=== PATIENT | male | born 1955 | race Caucasian/White ===

== ENCOUNTER 2018-10-29 01:37 | Observation (INO) | payer OTHER, SELFPAY ==
[2018-10-29] VITALS (14 sets, daily range): BP systolic 134–173; BP diastolic 74–105; PULSE 70–101; RESP 16–38; TEMP 36.6–36.8; O2SAT 92–100; BMI 33.5; BMI 34.4
--- NOTE | 2018-10-29 01:39 | EKG12_ITS ---
Test Reason : CP Blood Pressure : / mmHG Vent. Rate : 097 BPM Atrial Rate : 097 BPM P-R Int : 136 ms QRS Dur : 074 ms QT Int : 340 ms P-R-T Axes : 057 001 023 degrees QTc Int : 431 ms Normal sinus rhythm Inferior infarct , age undetermined Abnormal ECG Confirmed by MALIK COKER ([id number]), deputy editor in chief CAS DALY ([id number]) on 10/30/2018 10:52:54 AM Referred By: Pal Sher Confirmed By:MALIK COKER
--- NOTE | 2018-10-29 01:39 | ED.RN ---
CALLED FOR EKG PER RN REQUEST, PULLED OLD EKGS FOR
--- NOTE | 2018-10-29 01:45 | RAD_ITS ---
STUDY: X-RAY CHEST REASON FOR EXAM: Male, 62 years old. Chest pain TECHNIQUE: Single AP portable view of the chest. COMPARISON: None. FINDINGS: The lungs are clear and expanded. There is no demonstrated pleural abnormality. Normal size heart. Normal mediastinum and diya. Normal visualized pulmonary arteries. Normal visualized aortic arch and descending thoracic aorta. There are diffuse degenerative changes of the visualized thoracic spine. Normal visualized ribs, clavicles, and shoulders. There is no demonstrated abnormality of the visualized soft tissue structures of the upper abdomen. RAD/Chest 1 View (Portable) IMPRESSION: Degenerative changes, as described above. No demonstrated acute cardiopulmonary process. Electronically Signed: Bharat Veliz, at 2:18 EDT Tel , Service support ,
--- NOTE | 2018-10-29 01:47 | CT_ITS ---
STUDY: CTA CHEST REASON FOR EXAM: Male, 62 years old. SOB AND CHEST PAIN,ELEVATED BLOOD PRESSURE,RANDOMLY STOPS BREATHING FOR A FEW SECONDS,LOOKING FOR DISSECTION RADIATION DOSAGE (If Supplied By Facility): CTDIvol = ( 10.67 ) mGy, DLP = ( 1118.43 ) mGycm TECHNIQUE: The examination was performed with the intravenous administration of 100ML IV Isovue 370. Post-processing of the angiographic images was performed, with multiplanar reformation and 3D reconstruction. Individualized dose optimization techniques were used for this CT. COMPARISON: None. FINDINGS: Normal enhancement of the main pulmonary artery and right and left pulmonary arteries. Normal enhancement of the bilateral peripheral pulmonary arteries. There is no demonstrated pulmonary embolism. Normal thoracic aorta and visualized great vessels. There is no demonstrated aortic dissection. Normal heart and pericardium. Normal mediastinum. Normal hilar regions. Normal visualized trachea and bronchi. The lungs are well expanded. Normal pulmonary parenchyma. Normal pleura. Normal chest wall structures. Normal osseous structures. Normal visualized upper abdomen. IMPRESSION: Normal CTA chest examination, without a demonstrated pulmonary embolism or arterial dissection. Electronically Signed: Bharat Veliz, at 3:00 EDT Tel , Service support , STUDY: CTA OF THE ABDOMINAL AORTA AND BILATERAL LOWER EXTREMITIES REASON FOR EXAM: Male, 62 years old. SOB AND CHEST PAIN,ELEVATED BLOOD PRESSURE,RANDOMLY STOPS BREATHING FOR A FEW SECONDS,LOOKING FOR DISSECTION RADIATION DOSAGE (If Supplied By Facility): CTDIvol = ( 10.67 ) mGy, DLP = ( 1118.43 ) mGycm TECHNIQUE: Axial CT angiography multi-detector data acquisition was obtained from the to the following intravenous administration of 100ML IV Isovue 370. Axial images and MIP images were reconstructed from the axial data set. Post-processing of the angiographic images was performed, with multiplanar reformation and 3D reconstruction. Individualized dose optimization techniques were used for this CT. TECHNICAL QUALITY: Good COMPARISON: None. Descriptors of Narrowing: None (0%) Mild (< 50%) Moderate (50-70%) Severe (70-90%) Subtotal/Total Occlusion (90-100%) Non-Evaluable (technically non-diagnostic FINDINGS: Abdominal aorta: No demonstrated narrowing. Celiac and superior mesenteric arteries: No demonstrated narrowing. Inferior mesenteric artery: No demonstrated narrowing. Right renal artery(arteries): No demonstrated narrowing. Left renal artery(arteries): No demonstrated narrowing. Right common iliac artery: No demonstrated narrowing. Left common iliac artery: No demonstrated narrowing. Normal liver, gallbladder, pancreas, adrenal glands, kidneys and spleen. CT/CTA Abdomen W/WO Contrast IMPRESSION: Normal abdominal aorta and bilateral lower extremity run-off without a hemodynamically significant stenosis. Electronically Signed: Bharat Veliz, at 3:02 EDT Tel , Service support ,
--- NOTE | 2018-10-29 01:47 | CT_ITS ---
STUDY: CTA CHEST REASON FOR EXAM: Male, 62 years old. SOB AND CHEST PAIN,ELEVATED BLOOD PRESSURE,RANDOMLY STOPS BREATHING FOR A FEW SECONDS,LOOKING FOR DISSECTION RADIATION DOSAGE (If Supplied By Facility): CTDIvol = ( 10.67 ) mGy, DLP = ( 1118.43 ) mGycm TECHNIQUE: The examination was performed with the intravenous administration of 100ML IV Isovue 370. Post-processing of the angiographic images was performed, with multiplanar reformation and 3D reconstruction. Individualized dose optimization techniques were used for this CT. COMPARISON: None. FINDINGS: Normal enhancement of the main pulmonary artery and right and left pulmonary arteries. Normal enhancement of the bilateral peripheral pulmonary arteries. There is no demonstrated pulmonary embolism. Normal thoracic aorta and visualized great vessels. There is no demonstrated aortic dissection. Normal heart and pericardium. Normal mediastinum. Normal hilar regions. Normal visualized trachea and bronchi. The lungs are well expanded. Normal pulmonary parenchyma. Normal pleura. Normal chest wall structures. Normal osseous structures. Normal visualized upper abdomen. IMPRESSION: Normal CTA chest examination, without a demonstrated pulmonary embolism or arterial dissection. Electronically Signed: Bharat Veliz, at 3:00 EDT Tel , Service support , STUDY: CTA OF THE ABDOMINAL AORTA AND BILATERAL LOWER EXTREMITIES REASON FOR EXAM: Male, 62 years old. SOB AND CHEST PAIN,ELEVATED BLOOD PRESSURE,RANDOMLY STOPS BREATHING FOR A FEW SECONDS,LOOKING FOR DISSECTION RADIATION DOSAGE (If Supplied By Facility): CTDIvol = ( 10.67 ) mGy, DLP = ( 1118.43 ) mGycm TECHNIQUE: Axial CT angiography multi-detector data acquisition was obtained from the to the following intravenous administration of 100ML IV Isovue 370. Axial images and MIP images were reconstructed from the axial data set. Post-processing of the angiographic images was performed, with multiplanar reformation and 3D reconstruction. Individualized dose optimization techniques were used for this CT. TECHNICAL QUALITY: Good COMPARISON: None. Descriptors of Narrowing: None (0%) Mild (< 50%) Moderate (50-70%) Severe (70-90%) Subtotal/Total Occlusion (90-100%) Non-Evaluable (technically non-diagnostic FINDINGS: Abdominal aorta: No demonstrated narrowing. Celiac and superior mesenteric arteries: No demonstrated narrowing. Inferior mesenteric artery: No demonstrated narrowing. Right renal artery(arteries): No demonstrated narrowing. Left renal artery(arteries): No demonstrated narrowing. Right common iliac artery: No demonstrated narrowing. Left common iliac artery: No demonstrated narrowing. Normal liver, gallbladder, pancreas, adrenal glands, kidneys and spleen. CT/CTA Chest W/WO Contrast IMPRESSION: Normal abdominal aorta and bilateral lower extremity run-off without a hemodynamically significant stenosis. Electronically Signed: Bharat Veliz, at 3:02 EDT Tel , Service support ,
[2018-10-29] MEDS: Aspirin 81 MG TAB.CHEW 324 MG PO (01:48)
[2018-10-29 01:49] LABS: Absolute Lymphocyte Count 1.06 X10^3/ul (0.83-4.51); Absolute Neutrophil Count 5.6 X10^3/uL (2.0-7.7); Basophil# 0.01 X10^3/uL; Basophil% 0.1 % (0-1); Eosinophil# 0.07 X10^3/uL; Eosinophils% 0.9 % (0-5); Hematocrit 48.7 % (40-54); Hemoglobin 17.2 g/dl (13.0-16.5); Lymphocyte # 1.06 X10^3/ul (4.0); Lymphocyte % 14.3 % (19-41); Mean Corp Hgb Conc 35.3 g/gl (32-36); Mean Corpuscular Hgb 29.8 pg (27.0-32.0); Mean Corpuscular Volume 84.4 fL (80-94); Mean Platelet Vol. 9.7 fl (6.2-12.0); Monocyte# 0.72 X10^3/uL; Monocyte% 9.7 % (0-10); Neutrophil # 5.56 X10^3/uL (2.7-7.7); Neutrophil % 74.9 % (47-70); POSITIVE COUNT NO; POSITIVE DIFFERENTIAL NO; POSITIVE MORPHOLOGY NO; Platelet Count 156 K/mm3 (150-450); RBC Distribution Width CV 14.1 % (11.6-14.6); RBC Distribution Width SD 43.1 fl (35.1-43.9); Red Blood Count 5.77 M/mm3 (4.6-6.2); White Blood Count 7.4 K/mm3 (4.4-11.0)
[2018-10-29] MEDS: Morphine 4 MG/ML Syringe IV (02:00)
[2018-10-29] MEDS: Ondansetron 4 MG/2 ML Vial IV (02:00)
--- NOTE | 2018-10-29 02:01 | ED.DCSUM_ITS ---
- ER Visit Summary Date of Service: 10/29/18 Chief Complaint: Chest pain History of Present Illness: The patient is a 62 M presenting with chest pain. Patient states this started approximately 6 hours prior to arrival. He went to bed hoping that the symptoms would resolve. He woke up very short of breath with worsening chest pain. Pain is midsternal with no radiation. He does not recall anything that has made this better or worse. He has associated nausea with no vomiting. He has shortness of breath. He denies diaphoresis. He has had lightheadedness. States he has had diarrhea throughout the day. He denies blood in his stool. Denies sick contacts. Denies recent antibiotics. He has had diffuse abdominal cramping. He has a history of GERD and states this feels different. He denies PE/DVT risk factors. On arrival to the ED patient had a near syncopal episode and collapsed. Physical Examination: Blood pressure 173/103, heart rate 101, respiratory rate 38, temperature 97.9. Pulse ox 97% on nonrebreather. Alert moderate acute distress. HEENT exam is unremarkable. Neck is supple. Lungs are clear and equal bilaterally. Tachypnea Heart is regular tachycardia Abdomen is soft diffuse tenderness with no rebound or guarding Extremities are unremarkable. Skin is warm and dry. No focal neurologic deficit. Remainder of exam is unremarkable. Emergency Department Course and Treatment: Patient was given aspirin on arrival. EKG is sinus rate of 97. He was given morphine, Zofran IV. Patient had brief episode of apnea in the emergency department. Chest x-ray shows no acute process. CBC normal except hemoglobin 17.2. Chemistries normal except for creatinine 1.35, glucose 157. Troponin is negative. Lipase is normal. Total bili 2.5, direct bili 0.44. Previous total bili in 11/2016 was 2.4. Alk phos 120. Patient was given IV fluids. CTA chest and abdomen shows no PE or dissection. On reevaluation, he is resting comfortably and feeling improved. Discussed with the hospitalist for admission. Disposition: Admission Impression: Chest pain, near syncope This note was generated with [employer] dictation software. It may contain incorrect words, spelling, and punctuation that were not noted in review of the chart prior to signing ED Disposition - Plan for ED Patient: Referrals: Rakesh Benites III, MD [Primary Care Provider] -
[2018-10-29] MEDS: 0.9% Normal Saline 1,000 ML 999 ML IV (02:06)
[2018-10-29 02:08] LABS: Anion Gap 9 (5-15); BUN 18 mg/dL (7-18); BUN/Creat Ratio 13.3 RATIO (10-20); Chloride 108 mmol/L (98-107); Creatinine, Serum 1.35 mg/dL (0.70-1.30); EST Glomerular Filtration Rate 57 mL/min (>60); Est Glom Filt Rate - Afr Amer 69 mL/min (>60); Estimated Creatinine Clearance 65.96 ml/min; Glucose 157 mg/dL (74-106); Sodium Level 138 mmol/L (136-145)
[2018-10-29 02:09] LABS: AST(SGOT) 27 U/L (15-37); Alanine Aminotransfer ALT/SGPT 36 U/L (16-61); Albumin, Serum 4.1 g/dL (3.2-5.0); Alkaline Phosphatase 120 U/L (45-117); Bilirubin, Direct 0.44 mg/dL (0.00-0.30); Globulin 3.8 g/dL (2.2-4.2); Lipase 115 U/L (73-393); Protein, Total 7.9 g/dL (6.4-8.2)
--- NOTE | 2018-10-29 03:35 | PCM.HP.STD ---
Problem List (1) Chest pain Status: Acute (2) GERD (gastroesophageal reflux disease) Status: Chronic History of Present Illness Date of Admission: 10/29/18 Chief Complaint: Chest pain. The patient is a 62 year old M with past medical history as mentioned above presented to the emergency room because of chest pain. His illness started yesterday evening around 6 PM when he was sitting at home, started having chest pain, retrosternal chest pain, described as chest heaviness, 10 out of 10 in severity, not radiating, associated with shortness of breath and nausea as well as dizziness and without aggravating or relieving factors. The pain continued until he came to the emergency room after midnight. Also, he complained of vague abdominal pain that started at the same time associated with multiple times of diarrhea. At this time, denies any more chest pain or abdominal pain. Reportedly, patient had near syncopal episode and he collapsed upon arrival to the emergency department. Later in the ER, and according to the nursing staff, patient had brief episode of apnea. At this time, his blood pressure slightly elevated, other vital signs are stable. His routine blood work was remarkable for hemoglobin of 17.2, creatinine of 1.35 and bilirubin of 2.5. His troponin was negative. EKG revealed normal sinus rhythm without evidence of acute ischemic changes or cardiac arrhythmias. Lipase was normal. Chest x-ray showed no acute findings. CTA chest showed no PE or dissection. CT abdomen done as well because of abdominal pain and reportedly according to the ER physician, it was unremarkable, official report is pending. He is being admitted for chest pain for evaluation as well as near syncopal episode and brief episode of apnea. Past Medical History Past Medical History (Chronic Problems): Chronic Problems GERD (gastroesophageal reflux disease) (Chronic) Allergies No Known Allergies Allergy (Verified 10/29/18 01:40) Home Medications: Ambulatory Orders Medication Instructions Recorded Omeprazole Magnesium [Prilosec Otc] 20 mg PO DAILY 10/29/18 Surgical History: appendectomy Psychiatric History: No pertinent psych hx Lives: Spouse/ Significant Other Smoking Status: Never smoker Alcohol: None Drugs: None - *Family History Maternal History Items: Heart Disease Paternal History Items: No pertinent history Review of Systems Constitutional: Denies: Anorexia, Chills, Fever, Weakness Eyes: Denies: Blurred vision, Double vision, Drainage, Redness HEENT: Denies: Difficulty Hearing, Ear Pain, Eye Pain, Nasal Congestion, Sore Throat Cardiovascular: Reports: Chest Pain, Chest Pressure, Light Headedness, - - Near syncope.. Denies: Edema, Heaviness, Orthopnea, Palpitations, Paroxysmal Noc. Dyspnea Respiratory: Reports: Shortness of Breath, Shortness of breath at rest. Denies: Cough, Hemoptysis, Pleuritic Pain, Sputum production, Wheezing Gastrointestinal: Reports: Abdominal Pain, Diarrhea, Nausea. Denies: Constipation, Vomiting Genitourinary: Denies: Dysuria, Frequency, Hematuria Musculoskeletal: Denies: Arm Pain, Back Pain, Foot Pain Skin: Denies: Dryness, Rash Neurological: Denies: Balance problems, Blurred vision, Double vision, Change in Speech, Slurred speech, Confusion, Headaches, Incoordination Psychiatric: Denies: Anxiety, Depression Endocrine: Denies: Change in Body Habitus, Polydipsia VTE Information - Inpt Only VTE Present on Admission: No VTE Mechan Device Prophylaxis: None VTE Pharm Prophylaxis ordered?: Yes Patient Problems: Active and Suspected Problems Chest pain (Acute) - Physical Exam General: Alert, Oriented x3, Cooperative, No apparent distress HEENT: Atraumatic, PERRLA, EOMI, Normocephalic Oral: Moist Mucosa, No Gingival or Mucosal Lesions/ Ulcerations Neck: Supple, No JVD, Negative Carotid Bruits, Trachea Midline, Thyroid Normal Size and Texture Lungs: Clear to auscultation, No rhonchi, No wheeze, No rales, Diminished Cardiovascular: Regular rate, Regular Rhythm, Normal S1, Normal S2, No murmurs, PMI Normal Abdomen: Bowel Sounds Present, Soft, Non Tender, Non-Distended, No Hepato-splenomegaly Extremities: No clubbing, No cyanosis, No edema Skin: No rashes, No breakdown Lymphatic: No Cervical, Supraclavicular, or Inguinal Adenopathy Neurological: Cranial nerves II-XII grossly intact, Motor Exam 5/5 strength throughout Psych/Mental Status: Normal Affect, Appropriate, Alert and oriented to time, place, person, mood and affect Vital Signs Temp Pulse Resp BP Pulse Ox 97.9 F 76 16 156/89 H 100 10/29/18 01:46 10/29/18 03:10 10/29/18 03:10 10/29/18 03:10 10/29/18 03:10 Oxygen Delivery Method Room Air Weight: 260 lb 12.909 oz Body Mass Index (BMI) 33.5 Laboratory Tests Past 24 Hrs 10/29/18 10/29/18 10/29/18 01:45 01:45 01:45 WBC 7.4 RBC 5.77 Hgb 17.2 H Hct 48.7 MCV 84.4 MCH 29.8 MCHC 35.3 RDW 14.1 RDW Differential 43.1 Plt Count 156 MPV 9.7 Immature Gran % (Auto) 0.100 Neut % (Auto) 74.9 H Lymph % (Auto) 14.3 L [place] % (Auto) 9.7 Eos % (Auto) 0.9 Baso % (Auto) 0.1 Absolute Neuts (auto) 5.6 Absolute Lymphs (auto) 1.06 Total Counted Not Reportable Sodium 138 Potassium 4.0 Chloride 108 H Carbon Dioxide 21.0 Anion Gap 9 BUN 18 Creatinine 1.35 H Estim Creat Clear Calc 65.96 Est GFR (MDRD) Af Amer 69 Est GFR (MDRD) Non-Af 57 L BUN/Creatinine Ratio 13.3 Glucose 157 H Calcium 9.0 Total Bilirubin 2.50 H Direct Bilirubin 0.44 H AST 27 ALT 36 Alkaline Phosphatase 120 H Troponin I < 0.015 Total Protein 7.9 Albumin 4.1 Globulin 3.8 Lipase 115 Clinical Impression(s) from Imaging Studies Chest X-Ray 10/29/18 01:45 IMPRESSION: Degenerative changes, as described above. No demonstrated acute cardiopulmonary process. Electronically Signed: Bharat Veliz, at 2:18 EDT Tel , Service support , Chest CTA 10/29/18 01:47 IMPRESSION: Normal abdominal aorta and bilateral lower extremity run-off without a hemodynamically significant stenosis. Electronically Signed: Bharat Veliz, at 3:02 EDT Tel , Service support , Assessment/Plan All Active Problems Chest pain (Acute) This is a 62 years old male patient presented to the emergency room because of chest pain, had near syncopal episode and collapsed in the ED and reportedly, he had a brief episode of apnea and he is being admitted for evaluation. #1 chest pain: Initial EKG revealed normal sinus rhythm without evidence of acute ischemic changes or cardiac arrhythmias. First troponin is negative. CTA chest is negative for PE or dissection. Reportedly, CTA abdomen also negative for dissection, officiated report is pending. Blood pressure is slightly elevated, other vital signs are stable. Chest x-ray showed no acute findings. Plan: Admit to PCU for observation, cardiac monitoring, serial cardiac enzymes, repeat EKG tomorrow morning: IV fluids, IV morphine as needed, IV antiemetics, repeat CBC and CMP tomorrow morning, lipid profile, start aspirin and statins, nuclear stress test this morning if cardiac enzymes are negative, 2D echocardiogram, orthostatic vitals. #2 near syncopal episode/brief episode of apnea: Unclear etiology, could be due to underlying CAD. Reportedly, patient did not lose his consciousness and there was no evidence of cardiac or respiratory arrest. Plan for stress test as above, 2D echocardiogram, orthostatic vitals. #3 dehydration: Secondary to diarrhea, indicated by elevated hemoglobin and creatinine of 1.35. Plan: IV fluids, and Protopic chart, encourage oral intake, repeat CMP at 10 AM this morning. #4 hyperglycemia: Without history of diabetes, blood sugar is 157. Plan for hemoglobin A1c. #5 GERD: Continue PPI. #6 DVT prophylaxis: Subcu Lovenox. This note was generated with [employer] software. It may contain incorrect words, spelling, and punctuation that were not noted in checking the note before signing. Code Visit OBSV E&M: 55029 Initial observation care L3
--- NOTE | 2018-10-29 03:49 | ECHOCS_ITS ---
Reason For Study: SYNCOPE Procedure This was a 2D Doppler, Color Flow transthoracic echocardiogram. Contrast injection was performed. Exam performed portable in patient room. Left Ventricle Normal size and thickness. The estimated ejection fraction is 65 %. Normal diastology for age. No regional wall motion abnormalities noted. Right Ventricle Normal size and thickness. Normal systolic function. Atria Normal left atrium. Normal right atrium. Normal atrial septum. Mitral Valve The mitral valve is structurally normal. No prolapse or stenosis seen. Tricuspid Valve Normal tricuspid valve. Trivial tricuspid valve insufficiency. Right ventricular systolic pressure estimated to be 26 mmHg. Aortic Valve Normal aortic valve. Trisinus/trileaflet aortic valve. Pulmonic Valve Normal pulmonic valve. Great Vessels Normal aortic root. Normal arch. Normal inferior vena cava. Inferior vena cava collapse with sniff. Pericardium/Pleural No pericardial effusion. Medication Pxpeaegc2um given slow IV push to enhance endocardial definition. MMode/2D Measurements & Calculations LVIDd: 3.9 cm IVSd: 1.2 cm Ao root diam: 3.8 cm LVIDs: 2.8 cm LVPWd: 1.2 cm RVDd: 3.7 cm FS: 29.1 % LAV(MOD-bp): 67.2 ml LVAd ap4: 37.1 cm2 SV(MOD-sp4): 56.5 ml LAV(MOD-bp) Indexed: 27.7 ml/m2 EDV(MOD-sp4): 115.9 ml LAV(MOD-sp2): 52.0 ml EDV(sp4-el): 126.3 ml LAV(MOD-sp4): 71.4 ml LVAs ap4: 24.3 cm2 ESV(MOD-sp4): 59.5 ml ESV(sp4-el): 62.7 ml EF(MOD-sp4): 48.7 % EF(sp4-el): 50.4 % SV(sp4-el): 63.6 ml LA A4 area: 24.3 cm2 LA dimension(2D): 3.6 cm RA A4 area: 17.9 cm2 Time Measurements MV dec time: 0.23 sec Doppler Measurements & Calculations MV E max doroteo: 63.8 cm/sec Lat Peak E' Doroteo: 11.0 cm/sec Med Peak E' Doroteo: 6.4 cm/sec MV A max doroteo: 50.5 cm/sec E/E' lat: 5.8 E/E' med: 10.0 MV E/A: 1.3 Ao V2 max: 106.3 cm/sec LV V1 max: 86.6 cm/sec PA V2 max: 89.4 cm/sec Ao max P.5 mmHg LV V1 max P.0 mmHg TR max doroteo: 217.9 cm/sec TR max P.1 mmHg Interpretation Summary The estimated ejection fraction is 65 %. Normal diastology for age. Trivial tricuspid valve insufficiency. Right ventricular systolic pressure estimated to be 26 mmHg. The study was technically difficult. There is no comparison study available. Contrast injection was performed. Ordering Physician: Pal Sher Referring Physician: MATT LYNCH Performed By: Emmy Arias, PAZ, RVT
[2018-10-29] MEDS: 0.9% Normal Saline 1,000 ML 100 ML IV (04:01)
[2018-10-29] MEDS: 0.9% NaCl Peripheral Flush Adult/Peds IV (04:20)
--- NOTE | 2018-10-29 05:55 | EKG12_ITS ---
Test Reason : CP ADMISSION Blood Pressure : / mmHG Vent. Rate : 066 BPM Atrial Rate : 066 BPM P-R Int : 158 ms QRS Dur : 080 ms QT Int : 404 ms P-R-T Axes : 026 -02 006 degrees QTc Int : 423 ms Sinus rhythm with Premature atrial complexes in a pattern of bigeminy Confirmed by EVERETTE HERNANDEZ, NINA ([id number]), rewrite editor CAS DALY ([id number]) on 11/03/2018 12:33:28 PM Referred By: Pal Sher Confirmed By:NINA GAVIRIA MD
[2018-10-29] MEDS: Aspirin E.C. 81 MG Tablet PO (06:25)
[2018-10-29 06:38] LABS: Cholesterol 181 mg/dL (200); High Density Lipoprotein 50 mg/dL; Triglycerides 141 mg/dL; Very Low Density Lipoprotein 28 mg/dL (5-40)
[2018-10-29 07:16] LABS: Hemoglobin A1c 5.3 % (4.2-6.3)
[2018-10-29 07:31] LABS: Absolute Lymphocyte Count 0.75 X10^3/ul (0.83-4.51); Absolute Neutrophil Count 3.9 X10^3/uL (2.0-7.7); Basophil# 0.01 X10^3/uL; Basophil% 0.2 % (0-1); Eosinophil# 0.05 X10^3/uL; Hematocrit 43.9 % (40-54); Hemoglobin 14.6 g/dl (13.0-16.5); Lymphocyte # 0.75 X10^3/ul (4.0); Lymphocyte % 14.5 % (19-41); Mean Corp Hgb Conc 33.3 g/gl (32-36); Mean Corpuscular Hgb 28.6 pg (27.0-32.0); Mean Corpuscular Volume 85.9 fL (80-94); Mean Platelet Vol. 9.6 fl (6.2-12.0); Monocyte# 0.51 X10^3/uL; Monocyte% 9.8 % (0-10); Neutrophil # 3.85 X10^3/uL (2.7-7.7); Neutrophil % 74.3 % (47-70); Platelet Count 123 K/mm3 (150-450); RBC Distribution Width CV 14.2 % (11.6-14.6); RBC Distribution Width SD 44.4 fl (35.1-43.9); Red Blood Count 5.11 M/mm3 (4.6-6.2); White Blood Count 5.2 K/mm3 (4.4-11.0)
[2018-10-29 07:40] LABS: International Normalized Ratio 1.1; Prothrombin Time (Protime)PT. 13.8 SECONDS (11.7-14.9)
[2018-10-29 07:41] LABS: Partial Thromboplast Time 29.1 Seconds (24.1-36.2)
[2018-10-29 07:48] LABS: POSITIVE COUNT NO; POSITIVE DIFFERENTIAL NO; POSITIVE MORPHOLOGY NO
[2018-10-29 08:32] LABS: AST(SGOT) 24 U/L (15-37); Alanine Aminotransfer ALT/SGPT 29 U/L (16-61); Albumin, Serum 3.3 g/dL (3.2-5.0); Alkaline Phosphatase 98 U/L (45-117); Anion Gap 3 (5-15); BUN 17 mg/dL (7-18); BUN/Creat Ratio 14.8 RATIO (10-20); Calcium,Total 7.9 mg/dL (8.5-10.1); Chloride 111 mmol/L (98-107); Creatinine, Serum 1.15 mg/dL (0.70-1.30); EST Glomerular Filtration Rate 68 mL/min (>60); Est Glom Filt Rate - Afr Amer 83 mL/min (>60); Estimated Creatinine Clearance 75.27 ml/min; Globulin 3.2 g/dL (2.2-4.2); Glucose 121 mg/dL (74-106); Potassium 4.1 mmol/L (3.5-5.1); Protein, Total 6.5 g/dL (6.4-8.2); Sodium Level 138 mmol/L (136-145)
[2018-10-29] MEDS: Pantoprazole Sodium 20 MG Tablet PO (11:50)
--- NOTE | 2018-10-29 12:13 | STRESSREP ---
Stress Test Report Date: 10-29-18 Procedure: Exercise tolerance test/imaging study Indications: Chest pain Consent: Per the patient Procedure: The patient exercised on a Bert protocol for 4 minutes completing Stage I and 1 minute of Stage II achieving a peak heart rate of 144 bpm (91 % predicted maximal heart rate) with a peak blood pressure 162/70 mmHg and a peak MET capacity of 4 METs. The baseline ECG demonstrated normal sinus rhythm. The peak exercise ECG demonstrated somatic/motion artifact with no obvious ECG changes. There was an isolated PVC during recovery. The functional capacity was considered decreased. There was no complaint of chest discomfort during exercise or recovery. The examination was discontinued secondary to dyspnea and leg discomfort. Impression: 1. Technically adequate (percent predicted maximal heart rate greater than 85%) exercise tolerance test 2. Peak exercise ECG demonstrated somatic/motion artifact with no obvious ECG changes 3. There was an isolated PVC during recovery 4. Nuclear images pending Myocardial perfusion imaging study: Technique: The patient was injected with 14.2 mCi of technetium 99m Cardiolite and subsequently rest SPECT Cardiolite nuclear imaging was obtained in the horizontal long, vertical long, and short axis views. The patient exercised on a Bert protocol for 4 minutes completing Stage I and 1 minute of Stage II achieving a peak heart rate of 144 bpm (91 % predicted maximal heart rate) with a peak blood pressure 162/70 mmHg and a peak MET capacity of 4 METs. The patient was injected with 44.6 mCi of technetium 99m Cardiolite and subsequently stress SPECT Cardiolite nuclear imaging was obtained in the horizontal long, vertical long, and short axis views. A gated Cardiolite study at peak stress was obtained. Interpretation: Rest and stress SPECT Cardiolite nuclear imaging status post realignment, normalization, and attenuation correction, demonstrates the appearance of relative uniform tracer uptake and myocardial perfusion appearing within normal limits. There is end systolic thickening and brightening. The gated Cardiolite study demonstrates myocardial thickening and inward wall motion. The reported LVEF is 65 %. Impression: 1. Rest and stress SPECT Cardiolite nuclear imaging demonstrate relative uniform tracer uptake and myocardial perfusion appearing within normal limits. 2. The gated Cardiolite study reports an LVEF of 65 %. This note was generated with [employer] software. It may contain incorrect words, spelling, and punctuation that were not noted in checking the note before signing.
--- NOTE | 2018-10-29 13:52 | DCINST_ITS ---
- Discharge Diagnoses Current Active Problems: Current Active and Chronic Problems Chest pain (Acute) GERD (gastroesophageal reflux disease) (Chronic) You will use the following diet at home:: Cardiac Discharge Activity: Return to Normal Activity Allergies/Adverse Reactions: Allergies No Known Allergies Allergy (Verified 10/29/18 01:40) Medications to take at Discharge Omeprazole Magnesium [Prilosec Otc] 20 mg PO DAILY 10/29/18 Primary Care Physician: Rakesh Benites III, MD [Primary Care Provider] - Please follow up with your Primary Care Physician in: 1-2 weeks Test Results: Test results from this visit will be discussed in further detail at your follow- up appointment, if applicable. Proposed Discharge Date: 10/29/18
--- NOTE | 2018-10-29 13:53 | PCM.DC.SUM ---
<Akin Rodas - Last Filed: 10/29/18 13:53> Discharge Date and Diagnosis - Problem List Patient Problems: Active and Suspected Problems Chest pain (Acute) Date of Admission: 10/29/18 Date of Discharge: 10/29/18 - Primary Discharge Diagnosis Active and Suspected Problems Chest pain (Acute) secondary to GERD Obesity - Secondary Discharge Diagnosis Chronic Problems GERD (gastroesophageal reflux disease) (Chronic) Hospital Course and Treatment Imaging Results: 10/29/18 05:55 Nuclear Stress Test - Treadmma [MO] Routine RAD/Chest 1 View (Portable) IMPRESSION: Degenerative changes, as described above. No demonstrated acute cardiopulmonary process. IMPRESSION: Normal CTA chest examination, without a demonstrated pulmonary embolism or arterial dissection. CT/CTA Chest W/WO Contrast IMPRESSION: Normal abdominal aorta and bilateral lower extremity run-off without a hemodynamically significant stenosis. Operations: None Procedures: 2-D Echocardiogram, Stress test Summary of Care Provided: Hospital course: The patient is a 62 year old M with a past medical history of GERD who presents to the emergency room with chief complaint of chest pain that started yesterday evening while sitting. He described as a retrosternal pain that felt like a brick sitting on his chest 10 out of 10 in severity, with radiation of burning pain directly down the middle of his stomach. He also reported having diarrhea 20 times. In the emergency room he was found to have a mildly elevated creatinine. He had a negative EKG, negative troponin, negative chest x-ray. CTA of the chest did not demonstrate PE or dissection, CT of the abdomen was negative. He was admitted for chest pain rule out. Troponin was negative x3. He had no events on telemetry. He underwent a echocardiogram the following day which demonstrated an EF of 65%, RVSP of 26 mmHg. A stress test was then obtained which was normal. The patient later admitted that he had been having increasing episodes of acid reflux despite his home omeprazole therapy. It is possible that his symptoms are related to GERD or gastritis. No further chest pain after admission. His agreed that it is been worse lately. He has not been seen by a physician in several years. I recommended that he follow-up with his PCP in 1-2 weeks and possibly pursue further endoscopic workup as an outpatient. He was discharged home in stable condition. This patient was seen by Akin Rodas PA-C under the supervision of Doctor Sigifredo. [] Patient Problems: Active and Suspected Problems Chest pain (Acute) - Physical Exam General: Alert, Oriented x3, Cooperative HEENT: Atraumatic, PERRLA, EOMI, Normocephalic Neck: Supple, No JVD, Negative Carotid Bruits Lungs: Clear to auscultation, Normal air movement Cardiovascular: Regular rate, No murmurs Abdomen: Bowel Sounds Present, Soft, Non Tender, Obese Extremities: No edema, Capillary Refill Less than 3 Seconds Skin: No rashes, No breakdown Musculoskeletal: No Tenderness to Palpation of Joints or Extremities Neurological: Cranial nerves II-XII grossly intact Psych/Mental Status: Normal Affect, Appropriate, Alert and oriented to time, place, person, mood and affect Vital Signs Temp Pulse Resp BP Pulse Ox 98.0 F 75 17 142/84 H 93 10/29/18 09:30 10/29/18 12:15 10/29/18 09:30 10/29/18 09:30 10/29/18 09:30 Oxygen Delivery Method Room Air Weight: 261 lb 0.437 oz Body Mass Index (BMI) 34.4 Orthostatic Vital Signs Start: 10/29/18 04:29 Freq: q24h Status: Active Protocol: Activity Type Activity Date Activity User E-Sign Co-Sign Detail Recorded Client Recorded Date Recorded By Document 10/29/18 04:29 [facility] [id number] 10/29/18 04:30 [facility] 10/29/18 04:29 Orthostatic Vitals Standing -Blood Pressure (90/60-120/80) 153/86 H -Extremity Use Left Arm -Pulse Rate (60-100) 85 Sitting -Blood Pressure (90/60-120/80) 140/79 H -Extremity Use Left Arm -Pulse Rate (60-100) 73 Lying -Blood Pressure (90/60-120/80) 149/78 H -Extremity Use Left Arm -Pulse Rate (60-100) 72 Intake and Output for Last 24 Hours 10/27/18 10/28/18 10/29/18 23:59 23:59 23:59 Intake Total 761 / 761 Balance 761 / 761 Laboratory Tests Past 24 Hrs 10/29/18 10/29/18 10/29/18 01:45 01:45 01:45 WBC 7.4 RBC 5.77 Hgb 17.2 H Hct 48.7 MCV 84.4 MCH 29.8 MCHC 35.3 RDW 14.1 RDW Differential 43.1 Plt Count 156 MPV 9.7 Immature Gran % (Auto) 0.100 Neut % (Auto) 74.9 H Lymph % (Auto) 14.3 L Stafford % (Auto) 9.7 Eos % (Auto) 0.9 Baso % (Auto) 0.1 Absolute Neuts (auto) 5.6 Absolute Lymphs (auto) 1.06 Total Counted Not Reportable PT INR APTT Sodium 138 Potassium 4.0 Chloride 108 H Carbon Dioxide 21.0 Anion Gap 9 BUN 18 Creatinine 1.35 H Estim Creat Clear Calc 65.96 Est GFR (MDRD) Af Amer 69 Est GFR (MDRD) Non-Af 57 L BUN/Creatinine Ratio 13.3 Glucose 157 H Hemoglobin A1c Calcium 9.0 Total Bilirubin 2.50 H Direct Bilirubin 0.44 H AST 27 ALT 36 Alkaline Phosphatase 120 H Troponin I < 0.015 Total Protein 7.9 Albumin 4.1 Globulin 3.8 Albumin/Globulin Ratio Triglycerides Cholesterol LDL Cholesterol VLDL Cholesterol HDL Cholesterol Lipase 115 10/29/18 10/29/18 10/29/18 04:48 04:48 04:48 WBC RBC Hgb Hct MCV MCH MCHC RDW RDW Differential Plt Count MPV Immature Gran % (Auto) Neut % (Auto) Lymph % (Auto) Stafford % (Auto) Eos % (Auto) Baso % (Auto) Absolute Neuts (auto) Absolute Lymphs (auto) Total Counted PT INR APTT Sodium Potassium Chloride Carbon Dioxide Anion Gap BUN Creatinine Estim Creat Clear Calc Est GFR (MDRD) Af Amer Est GFR (MDRD) Non-Af BUN/Creatinine Ratio Glucose Hemoglobin A1c 5.3 Calcium Total Bilirubin Direct Bilirubin AST ALT Alkaline Phosphatase Troponin I < 0.015 Total Protein Albumin Globulin Albumin/Globulin Ratio Triglycerides 141 Cholesterol 181 LDL Cholesterol 103 VLDL Cholesterol 28 HDL Cholesterol 50 Lipase 10/29/18 10/29/18 10/29/18 07:24 07:24 07:24 WBC 5.2 RBC 5.11 Hgb 14.6 Hct 43.9 MCV 85.9 MCH 28.6 MCHC 33.3 RDW 14.2 RDW Differential 44.4 H Plt Count 123 L MPV 9.6 Immature Gran % (Auto) 0.200 Neut % (Auto) 74.3 H Lymph % (Auto) 14.5 L Stafford % (Auto) 9.8 Eos % (Auto) 1.0 Baso % (Auto) 0.2 Absolute Neuts (auto) 3.9 Absolute Lymphs (auto) 0.75 L Total Counted Not Reportable PT INR APTT Sodium 138 Potassium 4.1 Chloride 111 H Carbon Dioxide 24.0 Anion Gap 3 L BUN 17 Creatinine 1.15 Estim Creat Clear Calc 75.27 Est GFR (MDRD) Af Amer 83 Est GFR (MDRD) Non-Af 68 BUN/Creatinine Ratio 14.8 Glucose 121 H Hemoglobin A1c Calcium 7.9 L Total Bilirubin 1.90 H Direct Bilirubin AST 24 ALT 29 Alkaline Phosphatase 98 Troponin I < 0.015 Total Protein 6.5 Albumin 3.3 Globulin 3.2 Albumin/Globulin Ratio 1.0 Triglycerides Cholesterol LDL Cholesterol VLDL Cholesterol HDL Cholesterol Lipase 10/29/18 07:24 WBC RBC Hgb Hct MCV MCH MCHC RDW RDW Differential Plt Count MPV Immature Gran % (Auto) Neut % (Auto) Lymph % (Auto) Stafford % (Auto) Eos % (Auto) Baso % (Auto) Absolute Neuts (auto) Absolute Lymphs (auto) Total Counted PT 13.8 INR 1.1 APTT 29.1 Sodium Potassium Chloride Carbon Dioxide Anion Gap BUN Creatinine Estim Creat Clear Calc Est GFR (MDRD) Af Amer Est GFR (MDRD) Non-Af BUN/Creatinine Ratio Glucose Hemoglobin A1c Calcium Total Bilirubin Direct Bilirubin AST ALT Alkaline Phosphatase Troponin I Total Protein Albumin Globulin Albumin/Globulin Ratio Triglycerides Cholesterol LDL Cholesterol VLDL Cholesterol HDL Cholesterol Lipase Discharge Diet: Low fat/ Low Cholesterol, 2000 mg Sodium Diet Discharge Activity: Return to Normal Activity Home Medications: Medications to take at Discharge Omeprazole Magnesium [Prilosec Otc] 20 mg PO DAILY 10/29/18 Primary Care Physician: Rakesh Benites III, MD [Primary Care Provider] - Please follow up with your Primary Care Physician in: 1-2 weeks Disposition: Home Minutes spent on discharge:: 35 Patient Condition:: Stable Medical Necessity - Tobacco Use Smoking Status: Former smoker Meaningful Use Info Meaningful Use Diagnoses (Choose all that apply): None applicable <Duane Mei - Last Filed: 10/29/18 14:37> Discharge Date and Diagnosis - Primary Discharge Diagnosis Active and Suspected Problems Chest pain (Acute) - Secondary Discharge Diagnosis Chronic Problems GERD (gastroesophageal reflux disease) (Chronic) Hospital Course and Treatment Imaging Results: 10/29/18 05:55 Nuclear Stress Test - Treadmil [NM] Routine Summary of Care Provided: This patient was seen in conjunction with Akin Rodas PA-C . I have independently interviewed and examined the patient and reviewed pertinent historical, laboratory, and other data. Please refer to Akin Rodas PA-C note for details of this patient's presentation, findings, and recommendations. I have reviewed Akin Rodas PA-C note and concur with documented findings. In brief, patient is a 62-year-old gentleman admitted with chest pain. Patient was placed on a monitored bed and ruled out MT with serial cardiac enzymes patient subsequently underwent a nuclear stress test which was negative for stress-induced ischemia discharged home to follow-up with PCP for subsequent care Assessment: 1. Atypical chest pain 2. GERD Hospital course: As documented above by Akin Rodas - Physical Exam Vital Signs Temp Pulse Resp BP Pulse Ox 98.0 F 75 17 142/84 H 93 10/29/18 09:30 10/29/18 12:15 10/29/18 09:30 10/29/18 09:30 10/29/18 09:30 Oxygen Delivery Method Room Air Weight: 118.4 kg Body Mass Index (BMI) 34.4 Orthostatic Vital Signs Start: 10/29/18 04:29 Freq: q24h Status: Active Protocol: Activity Type Activity Date Activity User E-Sign Co-Sign Detail Recorded Client Recorded Date Recorded By Document 10/29/18 04:29 [facility] [id number] 10/29/18 04:30 [facility] 10/29/18 04:29 Orthostatic Vitals Standing -Blood Pressure (90/60-120/80) 153/86 H -Extremity Use Left Arm -Pulse Rate (60-100) 85 Sitting -Blood Pressure (90/60-120/80) 140/79 H -Extremity Use Left Arm -Pulse Rate (60-100) 73 Lying -Blood Pressure (90/60-120/80) 149/78 H -Extremity Use Left Arm -Pulse Rate (60-100) 72 Intake and Output for Last 24 Hours 10/27/18 10/28/18 10/29/18 23:59 23:59 23:59 Intake Total 761 / 761 Balance 761 / 761 Laboratory Tests Past 24 Hrs 10/29/18 10/29/18 10/29/18 01:45 01:45 01:45 WBC 7.4 RBC 5.77 Hgb 17.2 H Hct 48.7 MCV 84.4 MCH 29.8 MCHC 35.3 RDW 14.1 RDW Differential 43.1 Plt Count 156 MPV 9.7 Immature Gran % (Auto) 0.100 Neut % (Auto) 74.9 H Lymph % (Auto) 14.3 L Stafford % (Auto) 9.7 Eos % (Auto) 0.9 Baso % (Auto) 0.1 Absolute Neuts (auto) 5.6 Absolute Lymphs (auto) 1.06 Total Counted Not Reportable PT INR APTT Sodium 138 Potassium 4.0 Chloride 108 H Carbon Dioxide 21.0 Anion Gap 9 BUN 18 Creatinine 1.35 H Estim Creat Clear Calc 65.96 Est GFR (MDRD) Af Amer 69 Est GFR (MDRD) Non-Af 57 L BUN/Creatinine Ratio 13.3 Glucose 157 H Hemoglobin A1c Calcium 9.0 Total Bilirubin 2.50 H Direct Bilirubin 0.44 H AST 27 ALT 36 Alkaline Phosphatase 120 H Troponin I < 0.015 Total Protein 7.9 Albumin 4.1 Globulin 3.8 Albumin/Globulin Ratio Triglycerides Cholesterol LDL Cholesterol VLDL Cholesterol HDL Cholesterol Lipase 115 10/29/18 10/29/18 10/29/18 04:48 04:48 04:48 WBC RBC Hgb Hct MCV MCH MCHC RDW RDW Differential Plt Count MPV Immature Gran % (Auto) Neut % (Auto) Lymph % (Auto) Stafford % (Auto) Eos % (Auto) Baso % (Auto) Absolute Neuts (auto) Absolute Lymphs (auto) Total Counted PT INR APTT Sodium Potassium Chloride Carbon Dioxide Anion Gap BUN Creatinine Estim Creat Clear Calc Est GFR (MDRD) Af Amer Est GFR (MDRD) Non-Af BUN/Creatinine Ratio Glucose Hemoglobin A1c 5.3 Calcium Total Bilirubin Direct Bilirubin AST ALT Alkaline Phosphatase Troponin I < 0.015 Total Protein Albumin Globulin Albumin/Globulin Ratio Triglycerides 141 Cholesterol 181 LDL Cholesterol 103 VLDL Cholesterol 28 HDL Cholesterol 50 Lipase 10/29/18 10/29/18 10/29/18 07:24 07:24 07:24 WBC 5.2 RBC 5.11 Hgb 14.6 Hct 43.9 MCV 85.9 MCH 28.6 MCHC 33.3 RDW 14.2 RDW Differential 44.4 H Plt Count 123 L MPV 9.6 Immature Gran % (Auto) 0.200 Neut % (Auto) 74.3 H Lymph % (Auto) 14.5 L Stafford % (Auto) 9.8 Eos % (Auto) 1.0 Baso % (Auto) 0.2 Absolute Neuts (auto) 3.9 Absolute Lymphs (auto) 0.75 L Total Counted Not Reportable PT INR APTT Sodium 138 Potassium 4.1 Chloride 111 H Carbon Dioxide 24.0 Anion Gap 3 L BUN 17 Creatinine 1.15 Estim Creat Clear Calc 75.27 Est GFR (MDRD) Af Amer 83 Est GFR (MDRD) Non-Af 68 BUN/Creatinine Ratio 14.8 Glucose 121 H Hemoglobin A1c Calcium 7.9 L Total Bilirubin 1.90 H Direct Bilirubin AST 24 ALT 29 Alkaline Phosphatase 98 Troponin I < 0.015 Total Protein 6.5 Albumin 3.3 Globulin 3.2 Albumin/Globulin Ratio 1.0 Triglycerides Cholesterol LDL Cholesterol VLDL Cholesterol HDL Cholesterol Lipase 10/29/18 07:24 WBC RBC Hgb Hct MCV MCH MCHC RDW RDW Differential Plt Count MPV Immature Gran % (Auto) Neut % (Auto) Lymph % (Auto) Stafford % (Auto) Eos % (Auto) Baso % (Auto) Absolute Neuts (auto) Absolute Lymphs (auto) Total Counted PT 13.8 INR 1.1 APTT 29.1 Sodium Potassium Chloride Carbon Dioxide Anion Gap BUN Creatinine Estim Creat Clear Calc Est GFR (MDRD) Af Amer Est GFR (MDRD) Non-Af BUN/Creatinine Ratio Glucose Hemoglobin A1c Calcium Total Bilirubin Direct Bilirubin AST ALT Alkaline Phosphatase Troponin I Total Protein Albumin Globulin Albumin/Globulin Ratio Triglycerides Cholesterol LDL Cholesterol VLDL Cholesterol HDL Cholesterol Lipase Code Visit OBSV E&M: [id number] Observ/hosp same date L3
--- NOTE | 2018-10-29 13:57 | DS.PCM_ITS ---
<Akin Rodas - Last Filed: 10/29/18 13:53> Discharge Date and Diagnosis - Problem List Patient Problems: Active and Suspected Problems Chest pain (Acute) Date of Admission: 10/29/18 Date of Discharge: 10/29/18 - Primary Discharge Diagnosis Active and Suspected Problems Chest pain (Acute) secondary to GERD Obesity - Secondary Discharge Diagnosis Chronic Problems GERD (gastroesophageal reflux disease) (Chronic) Hospital Course and Treatment Imaging Results: 10/29/18 05:55 Nuclear Stress Test - Treadmtx [FL] Routine RAD/Chest 1 View (Portable) IMPRESSION: Degenerative changes, as described above. No demonstrated acute cardiopulmonary process. IMPRESSION: Normal CTA chest examination, without a demonstrated pulmonary embolism or arterial dissection. CT/CTA Chest W/WO Contrast IMPRESSION: Normal abdominal aorta and bilateral lower extremity run-off without a hemodynamically significant stenosis. Operations: None Procedures: 2-D Echocardiogram, Stress test Summary of Care Provided: Hospital course: The patient is a 62 year old M with a past medical history of GERD who presents to the emergency room with chief complaint of chest pain that started yesterday evening while sitting. He described as a retrosternal pain that felt like a brick sitting on his chest 10 out of 10 in severity, with radiation of burning pain directly down the middle of his stomach. He also reported having diarrhea 20 times. In the emergency room he was found to have a mildly elevated creatinine. He had a negative EKG, negative troponin, negative chest x-ray. CTA of the chest did not demonstrate PE or dissection, CT of the abdomen was negative. He was admitted for chest pain rule out. Troponin was negative x3. He had no events on telemetry. He underwent a echocardiogram the following day which demonstrated an EF of 65%, RVSP of 26 mmHg. A stress test was then obtained which was normal. The patient later admitted that he had been having increasing episodes of acid reflux despite his home omeprazole therapy. It is possible that his symptoms are related to GERD or gastritis. No further chest pain after admission. His agreed that it is been worse lately. He has not been seen by a physician in several years. I recommended that he follow-up with his PCP in 1-2 weeks and possibly pursue further endoscopic workup as an outpatient. He was discharged home in stable condition. This patient was seen by Akin Rodas PA-C under the supervision of Doctor Sigifredo. [] Patient Problems: Active and Suspected Problems Chest pain (Acute) - Physical Exam General: Alert, Oriented x3, Cooperative HEENT: Atraumatic, PERRLA, EOMI, Normocephalic Neck: Supple, No JVD, Negative Carotid Bruits Lungs: Clear to auscultation, Normal air movement Cardiovascular: Regular rate, No murmurs Abdomen: Bowel Sounds Present, Soft, Non Tender, Obese Extremities: No edema, Capillary Refill Less than 3 Seconds Skin: No rashes, No breakdown Musculoskeletal: No Tenderness to Palpation of Joints or Extremities Neurological: Cranial nerves II-XII grossly intact Psych/Mental Status: Normal Affect, Appropriate, Alert and oriented to time, place, person, mood and affect Vital Signs Temp Pulse Resp BP Pulse Ox 98.0 F 75 17 142/84 H 93 10/29/18 09:30 10/29/18 12:15 10/29/18 09:30 10/29/18 09:30 10/29/18 09:30 Oxygen Delivery Method Room Air Weight: 261 lb 0.437 oz Body Mass Index (BMI) 34.4 Orthostatic Vital Signs Start: 10/29/18 04:29 Freq: q24h Status: Active Protocol: Activity Type Activity Date Activity User E-Sign Co-Sign Detail Recorded Client Recorded Date Recorded By Document 10/29/18 04:29 [facility] [id number] 10/29/18 04:30 [facility] 10/29/18 04:29 Orthostatic Vitals Standing -Blood Pressure (90/60-120/80) 153/86 H -Extremity Use Left Arm -Pulse Rate (60-100) 85 Sitting -Blood Pressure (90/60-120/80) 140/79 H -Extremity Use Left Arm -Pulse Rate (60-100) 73 Lying -Blood Pressure (90/60-120/80) 149/78 H -Extremity Use Left Arm -Pulse Rate (60-100) 72 Intake and Output for Last 24 Hours 10/27/18 10/28/18 10/29/18 23:59 23:59 23:59 Intake Total 761 / 761 Balance 761 / 761 Laboratory Tests Past 24 Hrs 10/29/18 10/29/18 10/29/18 01:45 01:45 01:45 WBC 7.4 RBC 5.77 Hgb 17.2 H Hct 48.7 MCV 84.4 MCH 29.8 MCHC 35.3 RDW 14.1 RDW Differential 43.1 Plt Count 156 MPV 9.7 Immature Gran % (Auto) 0.100 Neut % (Auto) 74.9 H Lymph % (Auto) 14.3 L [place] % (Auto) 9.7 Eos % (Auto) 0.9 Baso % (Auto) 0.1 Absolute Neuts (auto) 5.6 Absolute Lymphs (auto) 1.06 Total Counted Not Reportable PT INR APTT Sodium 138 Potassium 4.0 Chloride 108 H Carbon Dioxide 21.0 Anion Gap 9 BUN 18 Creatinine 1.35 H Estim Creat Clear Calc 65.96 Est GFR (MDRD) Af Amer 69 Est GFR (MDRD) Non-Af 57 L BUN/Creatinine Ratio 13.3 Glucose 157 H Hemoglobin A1c Calcium 9.0 Total Bilirubin 2.50 H Direct Bilirubin 0.44 H AST 27 ALT 36 Alkaline Phosphatase 120 H Troponin I < 0.015 Total Protein 7.9 Albumin 4.1 Globulin 3.8 Albumin/Globulin Ratio Triglycerides Cholesterol LDL Cholesterol VLDL Cholesterol HDL Cholesterol Lipase 115 10/29/18 10/29/18 10/29/18 04:48 04:48 04:48 WBC RBC Hgb Hct MCV MCH MCHC RDW RDW Differential Plt Count MPV Immature Gran % (Auto) Neut % (Auto) Lymph % (Auto) [place] % (Auto) Eos % (Auto) Baso % (Auto) Absolute Neuts (auto) Absolute Lymphs (auto) Total Counted PT INR APTT Sodium Potassium Chloride Carbon Dioxide Anion Gap BUN Creatinine Estim Creat Clear Calc Est GFR (MDRD) Af Amer Est GFR (MDRD) Non-Af BUN/Creatinine Ratio Glucose Hemoglobin A1c 5.3 Calcium Total Bilirubin Direct Bilirubin AST ALT Alkaline Phosphatase Troponin I < 0.015 Total Protein Albumin Globulin Albumin/Globulin Ratio Triglycerides 141 Cholesterol 181 LDL Cholesterol 103 VLDL Cholesterol 28 HDL Cholesterol 50 Lipase 10/29/18 10/29/18 10/29/18 07:24 07:24 07:24 WBC 5.2 RBC 5.11 Hgb 14.6 Hct 43.9 MCV 85.9 MCH 28.6 MCHC 33.3 RDW 14.2 RDW Differential 44.4 H Plt Count 123 L MPV 9.6 Immature Gran % (Auto) 0.200 Neut % (Auto) 74.3 H Lymph % (Auto) 14.5 L [place] % (Auto) 9.8 Eos % (Auto) 1.0 Baso % (Auto) 0.2 Absolute Neuts (auto) 3.9 Absolute Lymphs (auto) 0.75 L Total Counted Not Reportable PT INR APTT Sodium 138 Potassium 4.1 Chloride 111 H Carbon Dioxide 24.0 Anion Gap 3 L BUN 17 Creatinine 1.15 Estim Creat Clear Calc 75.27 Est GFR (MDRD) Af Amer 83 Est GFR (MDRD) Non-Af 68 BUN/Creatinine Ratio 14.8 Glucose 121 H Hemoglobin A1c Calcium 7.9 L Total Bilirubin 1.90 H Direct Bilirubin AST 24 ALT 29 Alkaline Phosphatase 98 Troponin I < 0.015 Total Protein 6.5 Albumin 3.3 Globulin 3.2 Albumin/Globulin Ratio 1.0 Triglycerides Cholesterol LDL Cholesterol VLDL Cholesterol HDL Cholesterol Lipase 10/29/18 07:24 WBC RBC Hgb Hct MCV MCH MCHC RDW RDW Differential Plt Count MPV Immature Gran % (Auto) Neut % (Auto) Lymph % (Auto) [place] % (Auto) Eos % (Auto) Baso % (Auto) Absolute Neuts (auto) Absolute Lymphs (auto) Total Counted PT 13.8 INR 1.1 APTT 29.1 Sodium Potassium Chloride Carbon Dioxide Anion Gap BUN Creatinine Estim Creat Clear Calc Est GFR (MDRD) Af Amer Est GFR (MDRD) Non-Af BUN/Creatinine Ratio Glucose Hemoglobin A1c Calcium Total Bilirubin Direct Bilirubin AST ALT Alkaline Phosphatase Troponin I Total Protein Albumin Globulin Albumin/Globulin Ratio Triglycerides Cholesterol LDL Cholesterol VLDL Cholesterol HDL Cholesterol Lipase Discharge Diet: Low fat/ Low Cholesterol, 2000 mg Sodium Diet Discharge Activity: Return to Normal Activity Home Medications: Medications to take at Discharge Omeprazole Magnesium [Prilosec Otc] 20 mg PO DAILY 10/29/18 Primary Care Physician: Rakesh Benites III, MD [Primary Care Provider] - Please follow up with your Primary Care Physician in: 1-2 weeks Disposition: Home Minutes spent on discharge:: 35 Patient Condition:: Stable Medical Necessity - Tobacco Use Smoking Status: Former smoker Meaningful Use Info Meaningful Use Diagnoses (Choose all that apply): None applicable <Duane Mei - Last Filed: 10/29/18 14:37> Discharge Date and Diagnosis - Primary Discharge Diagnosis Active and Suspected Problems Chest pain (Acute) - Secondary Discharge Diagnosis Chronic Problems GERD (gastroesophageal reflux disease) (Chronic) Hospital Course and Treatment Imaging Results: 10/29/18 05:55 Nuclear Stress Test - Treadmil [NM] Routine Summary of Care Provided: This patient was seen in conjunction with Akin Rodas PA-C . I have independently interviewed and examined the patient and reviewed pertinent historical, laboratory, and other data. Please refer to Akin Rodas PA-C note for details of this patient's presentation, findings, and recommendations. I have reviewed Akin Rodas PA-C note and concur with documented findings. In brief, patient is a 62-year-old gentleman admitted with chest pain. Patient was placed on a monitored bed and ruled out NV with serial cardiac enzymes patient subsequently underwent a nuclear stress test which was negative for stress-induced ischemia discharged home to follow-up with PCP for subsequent care Assessment: 1. Atypical chest pain 2. GERD Hospital course: As documented above by Akin Rodas - Physical Exam Vital Signs Temp Pulse Resp BP Pulse Ox 98.0 F 75 17 142/84 H 93 10/29/18 09:30 10/29/18 12:15 10/29/18 09:30 10/29/18 09:30 10/29/18 09:30 Oxygen Delivery Method Room Air Weight: 118.4 kg Body Mass Index (BMI) 34.4 Orthostatic Vital Signs Start: 10/29/18 04:29 Freq: q24h Status: Active Protocol: Activity Type Activity Date Activity User E-Sign Co-Sign Detail Recorded Client Recorded Date Recorded By Document 10/29/18 04:29 [facility] [id number] 10/29/18 04:30 [facility] 10/29/18 04:29 Orthostatic Vitals Standing -Blood Pressure (90/60-120/80) 153/86 H -Extremity Use Left Arm -Pulse Rate (60-100) 85 Sitting -Blood Pressure (90/60-120/80) 140/79 H -Extremity Use Left Arm -Pulse Rate (60-100) 73 Lying -Blood Pressure (90/60-120/80) 149/78 H -Extremity Use Left Arm -Pulse Rate (60-100) 72 Intake and Output for Last 24 Hours 10/27/18 10/28/18 10/29/18 23:59 23:59 23:59 Intake Total 761 / 761 Balance 761 / 761 Laboratory Tests Past 24 Hrs 10/29/18 10/29/18 10/29/18 01:45 01:45 01:45 WBC 7.4 RBC 5.77 Hgb 17.2 H Hct 48.7 MCV 84.4 MCH 29.8 MCHC 35.3 RDW 14.1 RDW Differential 43.1 Plt Count 156 MPV 9.7 Immature Gran % (Auto) 0.100 Neut % (Auto) 74.9 H Lymph % (Auto) 14.3 L [place] % (Auto) 9.7 Eos % (Auto) 0.9 Baso % (Auto) 0.1 Absolute Neuts (auto) 5.6 Absolute Lymphs (auto) 1.06 Total Counted Not Reportable PT INR APTT Sodium 138 Potassium 4.0 Chloride 108 H Carbon Dioxide 21.0 Anion Gap 9 BUN 18 Creatinine 1.35 H Estim Creat Clear Calc 65.96 Est GFR (MDRD) Af Amer 69 Est GFR (MDRD) Non-Af 57 L BUN/Creatinine Ratio 13.3 Glucose 157 H Hemoglobin A1c Calcium 9.0 Total Bilirubin 2.50 H Direct Bilirubin 0.44 H AST 27 ALT 36 Alkaline Phosphatase 120 H Troponin I < 0.015 Total Protein 7.9 Albumin 4.1 Globulin 3.8 Albumin/Globulin Ratio Triglycerides Cholesterol LDL Cholesterol VLDL Cholesterol HDL Cholesterol Lipase 115 10/29/18 10/29/18 10/29/18 04:48 04:48 04:48 WBC RBC Hgb Hct MCV MCH MCHC RDW RDW Differential Plt Count MPV Immature Gran % (Auto) Neut % (Auto) Lymph % (Auto) [place] % (Auto) Eos % (Auto) Baso % (Auto) Absolute Neuts (auto) Absolute Lymphs (auto) Total Counted PT INR APTT Sodium Potassium Chloride Carbon Dioxide Anion Gap BUN Creatinine Estim Creat Clear Calc Est GFR (MDRD) Af Amer Est GFR (MDRD) Non-Af BUN/Creatinine Ratio Glucose Hemoglobin A1c 5.3 Calcium Total Bilirubin Direct Bilirubin AST ALT Alkaline Phosphatase Troponin I < 0.015 Total Protein Albumin Globulin Albumin/Globulin Ratio Triglycerides 141 Cholesterol 181 LDL Cholesterol 103 VLDL Cholesterol 28 HDL Cholesterol 50 Lipase 10/29/18 10/29/18 10/29/18 07:24 07:24 07:24 WBC 5.2 RBC 5.11 Hgb 14.6 Hct 43.9 MCV 85.9 MCH 28.6 MCHC 33.3 RDW 14.2 RDW Differential 44.4 H Plt Count 123 L MPV 9.6 Immature Gran % (Auto) 0.200 Neut % (Auto) 74.3 H Lymph % (Auto) 14.5 L [place] % (Auto) 9.8 Eos % (Auto) 1.0 Baso % (Auto) 0.2 Absolute Neuts (auto) 3.9 Absolute Lymphs (auto) 0.75 L Total Counted Not Reportable PT INR APTT Sodium 138 Potassium 4.1 Chloride 111 H Carbon Dioxide 24.0 Anion Gap 3 L BUN 17 Creatinine 1.15 Estim Creat Clear Calc 75.27 Est GFR (MDRD) Af Amer 83 Est GFR (MDRD) Non-Af 68 BUN/Creatinine Ratio 14.8 Glucose 121 H Hemoglobin A1c Calcium 7.9 L Total Bilirubin 1.90 H Direct Bilirubin AST 24 ALT 29 Alkaline Phosphatase 98 Troponin I < 0.015 Total Protein 6.5 Albumin 3.3 Globulin 3.2 Albumin/Globulin Ratio 1.0 Triglycerides Cholesterol LDL Cholesterol VLDL Cholesterol HDL Cholesterol Lipase 10/29/18 07:24 WBC RBC Hgb Hct MCV MCH MCHC RDW RDW Differential Plt Count MPV Immature Gran % (Auto) Neut % (Auto) Lymph % (Auto) [place] % (Auto) Eos % (Auto) Baso % (Auto) Absolute Neuts (auto) Absolute Lymphs (auto) Total Counted PT 13.8 INR 1.1 APTT 29.1 Sodium Potassium Chloride Carbon Dioxide Anion Gap BUN Creatinine Estim Creat Clear Calc Est GFR (MDRD) Af Amer Est GFR (MDRD) Non-Af BUN/Creatinine Ratio Glucose Hemoglobin A1c Calcium Total Bilirubin Direct Bilirubin AST ALT Alkaline Phosphatase Troponin I Total Protein Albumin Globulin Albumin/Globulin Ratio Triglycerides Cholesterol LDL Cholesterol VLDL Cholesterol HDL Cholesterol Lipase Code Visit OBSV E&M: [id number] Observ/hosp same date L3
== END 2018-10-29 13:52 | disposition home or self-care (01) ==
LOC: ED 01:43 → PCU 03:31
PROVIDERS: Admitting Provider Hospitalist; Emergency Provider Emergency Medicine; Family Provider Family Medicine; PCP Family Medicine; Referring Provider Hospitalist; Visit Provider Internal Medicine
DX: K21.9 Gastro-esophageal reflux disease without esophagitis (principal); R06.02 Shortness of breath; E66.9 Obesity, unspecified; Z68.34 Body mass index [BMI] 34.0-34.9, adult; Z71.3 Dietary counseling and surveillance; R55 Syncope and collapse; E86.0 Dehydration; R73.9 Hyperglycemia, unspecified; Z87.891 Personal history of nicotine dependence
CPT/HCPCS: 36415; 71045; 71275; 74175; 78452; 80048; 80053; 80061; 80076; 83036; 83690; 84484; 85025; 85610; 85730; 93005; 93017; 93306; 96361; 96374; 96375; 97802; 99218; 99283; A9500; J7030; Q9957; Q9967; A4216; C8929; G0378; J2405

== ENCOUNTER 2021-07-07 12:55 | Inpatient (IN) | payer MEDICARE, SELFPAY ==
[2021-07-07] VITALS (18 sets, daily range): BP systolic 114–141; BP diastolic 71–80; PULSE 74–92; RESP 18–30; TEMP 36.3–37.4; O2SAT 93–97; BMI 33.0; BMI 32.5
--- NOTE | 2021-07-07 13:09 | RAD_ITS ---
STUDY: X-RAY CHEST REASON FOR EXAM: Male, 65 years old. Dyspnea. TECHNIQUE: Single AP portable view of the chest. COMPARISON: 10/29/2018. FINDINGS: Hypoventilatory changes. Patchy infiltrate in the left lower lung. There is no demonstrated pleural abnormality. There is borderline cardiomegaly. Normal mediastinum and diya. Normal visualized pulmonary arteries. Normal visualized aortic arch and descending thoracic aorta. Unchanged osseous structures. There is no demonstrated abnormality of the visualized soft tissue structures of the upper abdomen. RAD/Chest 1 View (Portable) IMPRESSION: Hypoventilatory changes. Mild patchy infiltrate in left lower lung. Electronically Signed: Carter Oconnor, at 13:51 EST Tel , Service support ,
--- NOTE | 2021-07-07 13:09 | EKG12_ITS ---
Test Reason : SOB Blood Pressure : / mmHG Vent. Rate : 092 BPM Atrial Rate : 092 BPM P-R Int : 126 ms QRS Dur : 082 ms QT Int : 380 ms P-R-T Axes : -05 -12 -12 degrees QTc Int : 469 ms Normal sinus rhythm Normal ECG Confirmed by EVERETTE HERNANDEZ, NINA ([id number]), electronic news gathering editor DUSTIN ALMEIDA ([id number]) on 07/12/2021 9:52:36 AM Referred By: KENTRELL Confirmed By:NINA GAVIRIA MD
[2021-07-07 13:45] LABS: Absolute Lymphocyte Count 0.77 X10^3/uL (0.83-4.51); Absolute Neutrophil Count 1.5 X10^3/uL (2.0-7.7); Basophil# 0.01 X10^3/uL; Basophil% 0.4 % (0-1); Hematocrit 46.4 % (40-54); Hemoglobin 15.8 g/dL (13.0-16.5); Lymphocyte # 0.77 X10^3/ul (0.83-4.51); Lymphocyte % 29.1 % (19-41); Mean Corp Hgb Conc 34.1 g/dL (32-36); Mean Corpuscular Hgb 28.7 pg (27.0-32.0); Mean Corpuscular Volume 84.2 fL (80-94); Mean Platelet Vol. 11.4 fl (6.2-12.0); Monocyte# 0.35 X10^3/uL; Monocyte% 13.2 % (0-10); NRBC Flagged by Analyzer 0 % (0-5); Neutrophil % 56.5 % (47-70); POSITIVE COUNT YES; Platelet Count 86 K/mm3 (150-450); RBC Distribution Width SD 43.5 fl (35.1-43.9); Red Blood Count 5.51 M/mm3 (4.6-6.2); White Blood Count 2.7 K/mm3 (4.4-11.0)
[2021-07-07 13:47] LABS: Differential Indicated SCAN CRITERIA MET
[2021-07-07 13:50] LABS: International Normalized Ratio 1.1; Prothrombin Time (Protime)PT. 13.1 SECONDS (11.7-14.9)
[2021-07-07 14:00] LABS: ALB/GLOB Ratio 0.7 RATIO (0.9-2.4); AST(SGOT) 70 U/L (15-37); Alanine Aminotransfer ALT/SGPT 57 U/L (16-61); Albumin, Serum 3.2 g/dL (3.2-5.0); Alkaline Phosphatase 80 U/L (45-117); Anion Gap 10 (5-15); BUN 20 mg/dL (7-18); BUN/Creat Ratio 14.9 RATIO (10-20); Calcium,Total 8.4 mg/dL (8.5-10.1); Chloride 105 mmol/L (98-107); Creatinine, Serum 1.34 mg/dL (0.70-1.30); EST Glomerular Filtration Rate 57 mL/min (>60); Est Glom Filt Rate - Afr Amer 69 mL/min (>60); Estimated Creatinine Clearance 62.11 ml/min; Globulin 4.3 g/dL (2.2-4.2); Glucose 151 mg/dL (74-106); Potassium 3.7 mmol/L (3.5-5.1); Protein, Total 7.5 g/dL (6.4-8.2); Sodium Level 140 mmol/L (136-145)
--- NOTE | 2021-07-07 14:01 | EDS_ITS ---
HPI History of Present Illness Chief Complaint: Shortness of Breath Narrative Narrative: 65-year-old male presenting with cough and shortness of breath x1 week. He denies fever but does have body aches and generalized fatigue. He does not report loss of taste or smell. Patient states that he has dyspnea on exertion. Patient found to be hypoxic at home today and EMS did transport him. He states he has no medical problems except for GERD. He takes no daily medications. He is not anticoagulated. No history of DVT/PE. No cardiac history. He states he has no history of COPD or asthma. He is a non-smoker. [facility] Medical History (Updated 07/07/21 @ 17:[address] Lia Contreras MD) Former tobacco use GERD (gastroesophageal reflux disease) Obesity Home Medications omeprazole magnesium [Prilosec OTC] 20 mg PO QHS 10/29/18 [History Last Taken 07/06/21] Allergy/AdvReac Type Severity Reaction Status Date / Time peanut Allergy Anaphylaxis Verified 07/07/21 13:05 Family History (Updated 07/07/21 @ 17:[address] Lia Contreras MD) Mother Cancer Surgical History (Updated 07/07/21 @ 16:[address] Lia Contreras MD) H/O unilateral orchiectomy History of appendectomy Social History (Updated 07/07/21 @ 17:[address] Lia Contreras MD) household members: spouse Smoking Status: Former smoker how long ago did patient quit smoking: Quit 40 years prior, smoked 4 ppd since teen until quit. alcohol intake: never substance use type: does not use ROS ROS ED Constitutional Constitutional ED: Reports chills Eyes Eyes: Denies blurry vision or diplopia ENT ENT ED: Reports rhinorrhea Cardiovascular Cardiovascular: Denies chest pain or palpitations Respiratory/Chest Respiratory/Chest: Reports cough, dyspnea and dyspnea on exertion Gastrointestinal Gastrointestinal: Denies abdominal pain, nausea or vomiting Genitourinary Genitourinary ED: Denies dysuria or hematuria Musculoskeletal Musculoskeletal: Reports myalgias and other Details: Left leg pain ; Denies arthralgias or neck pain Integumentary Denies rash Neurologic Neurologic: Reports headache(s) Psychiatric Psychiatric: Denies anxiety or depression EXAM Physical Exam Const Vital Signs: 07/07/21 13:01 07/07/21 13:05 07/07/21 13:07 Temperature 98.9 F 98.9 F Temperature Source Temporal Temporal Pulse Rate 92 92 Respiratory Rate 26 H 26 H Respiratory Effort Short of Breath Respiratory Pattern Tachypnea Blood Pressure 134/71 H Blood Pressure Mean 92 Pulse Ox 93 93 Oxygen Delivery Method Nasal Cannula Nasal Cannula Nasal Cannula Oxygen Flow Rate (L/min) 5 5 6 07/07/21 13:12 07/07/21 13:15 07/07/21 13:34 Temperature 98.9 F Temperature Source Temporal Pulse Rate Respiratory Rate 30 H 25 H Respiratory Effort Respiratory Pattern Blood Pressure Blood Pressure Mean Pulse Ox 93 94 Oxygen Delivery Method Nasal Cannula High Flow Room Air Oxygen Flow Rate (L/min) 6 10 07/07/21 13:54 07/07/21 14:05 07/07/21 15:00 Temperature 98.1 F 99.3 F H Temperature Source Temporal Oral Pulse Rate 90 83 Respiratory Rate 23 H 25 H 23 H Respiratory Effort Respiratory Pattern Blood Pressure 141/80 H 134/79 H Blood Pressure Mean 100 97 Pulse Ox 97 96 95 Oxygen Delivery Method High Flow High Flow Nasal Cannula Oxygen Flow Rate (L/min) 10 10 10 07/07/21 16:00 07/07/21 16:23 07/07/21 16:27 Temperature 99.1 F 99.1 F Temperature Source Oral Oral Pulse Rate 83 83 Respiratory Rate 26 H 26 H Respiratory Effort Respiratory Pattern Blood Pressure 118/74 118/74 Blood Pressure Mean 88 88 Pulse Ox 95 95 95 Oxygen Delivery Method High Flow High Flow High Flow Oxygen Flow Rate (L/min) 10 10 10 Positive well nourished General Appearance ED: NAD HEENT Reports moist mucous membranes atraumatic Eyes PERRL and EOMs intact bilaterally Resp normal respiratory effort Auscultation: rales left base Cardio regular rate and regular rhythm Back/Spine normal to inspection Neuro oriented x3 Sensorium / Orientation: alert Psych mental status grossly normal Thought Process: normal thought process Skin Skin Narrative: Areas of erythema noted on the abdomen. These are not contiguous. It is about 2 cm in circular. Abdomen is soft and nontender. MDM MDM MDM Narrative Medical decision making narrative: Patient presenting with symptoms of COVID-19 and is currently on day 7. He is hypoxic and requiring high flow oxygen. At one point he did request BiPAP which was given to him however he did wean off of this. Patient is maintaining O2 sats of 94% on 8 L of oxygen. Due to abnormal vital signs sepsis work-up was pursued. EKG on my interpretation shows a sinus rhythm with a ventricular to 92 bpm without sign of ischemic change. Chest x- ray on my interpretation shows left lower lobe infiltrates. Radiologist does agree. CBC shows that he is leukopenic and lymphopenic. PT/INR normal. Creatinine slightly elevated 1.34 however electrolytes are normal. Total bilirubin is elevated 1.5 and AST is elevated at 70. Lactic acid is 2.9 but I feel this is most likely due from the hypoxia as he does not appear to be septic. Patient's D-dimer was elevated out of range and he had a CTA of the chest which shows bilateral pulmonary infiltrates consistent with COVID-19. No pulmonary emboli were observed. Patient did test positive for COVID-19 tonight. Patient was given dexamethasone. Due to his oxygen demand I believe he will need to stay in the hospital. Patient was discussed with the hospitalist who agreed. Patient is transferred to the floor in stable condition. Impression: 1. COVID-19 pneumonitis 2. Hypoxic respiratory failure Lab Data Attestation: I reviewed the patient's lab results. Labs: Laboratory Results - last 24 hr 07/07/21 07/07/21 07/07/21 13:29 13:29 13:29 WBC 2.7 L RBC 5.51 Hgb 15.8 Hct 46.4 MCV 84.2 MCH 28.7 MCHC 34.1 RDW Std Deviation 43.5 RDW Coeff of [place] 14.0 Plt Count 86 L MPV 11.4 Immature Gran % (Auto) 0.800 Neut % (Auto) 56.5 Lymph % (Auto) 29.1 [place] % (Auto) 13.2 H Eos % (Auto) 0.0 Baso % (Auto) 0.4 Absolute Neuts (auto) 1.5 L Absolute Lymphs (auto) 0.77 L Nucleated RBC % 0 Platelet Estimate MOD DEC PT 13.1 INR 1.1 APTT 30.0 D-Dimer Quant (PE/DVT) 1.30 H* Sodium 140 Potassium 3.7 Chloride 105 Carbon Dioxide 25.0 Anion Gap 10 BUN 20 H Creatinine 1.34 H Estim Creat Clear Calc 62.11 Est GFR (MDRD) Af Amer 69 Est GFR (MDRD) Non-Af 57 L BUN/Creatinine Ratio 14.9 Glucose 151 H Lactic Acid Calcium 8.4 L Ferritin Total Bilirubin 1.50 H AST 70 H ALT 57 Alkaline Phosphatase 80 Lactate Dehydrogenase C-React Prot Ext Range B-Natriuretic Peptide Total Protein 7.5 Albumin 3.2 Globulin 4.3 H Albumin/Globulin Ratio 0.7 L 07/07/21 07/07/21 07/07/21 13:29 13:29 13:29 WBC RBC Hgb Hct MCV MCH MCHC RDW Std Deviation RDW Coeff of [place] Plt Count MPV Immature Gran % (Auto) Neut % (Auto) Lymph % (Auto) [place] % (Auto) Eos % (Auto) Baso % (Auto) Absolute Neuts (auto) Absolute Lymphs (auto) Nucleated RBC % Platelet Estimate PT INR APTT D-Dimer Quant (PE/DVT) Sodium Potassium Chloride Carbon Dioxide Anion Gap BUN Creatinine Estim Creat Clear Calc Est GFR (MDRD) Af Amer Est GFR (MDRD) Non-Af BUN/Creatinine Ratio Glucose Lactic Acid 2.9 H* Calcium Ferritin 1532 H Total Bilirubin AST ALT Alkaline Phosphatase Lactate Dehydrogenase 383 H C-React Prot Ext Range 57.60 H B-Natriuretic Peptide 14.7 Total Protein Albumin Globulin Albumin/Globulin Ratio Radiography Diagnostic Testing: Clinical Impression(s) from Imaging Studies Chest X-Ray 07/07/21 13:09 IMPRESSION: Hypoventilatory changes. Mild patchy infiltrate in left lower lung. Electronically Signed: Carter Anastasia, at 13:51 EST Tel , Service support , Chest CTA 07/07/21 14:30 IMPRESSION: 1. Suboptimal enhancement of the pulmonary arteries. No evidence of pulmonary embolism. 2. Patchy bilateral infiltrates concerning for multifocal pneumonia including Covid 19. 3. Few mediastinal nodes probably reactive. Electronically Signed: Carter Anastasia, at 14:59 EST Tel , Service support , Discharge Plan Disposition Disposition: Acute Care Hospital [facility] Discharge Date/Time: 07/07/21 17:27
[2021-07-07 14:08] LABS: Platelet Estimate MOD DEC (ADEQ)
--- NOTE | 2021-07-07 14:30 | CT_ITS ---
STUDY: CTA CHEST REASON FOR EXAM: Male, 65 years old. Hypoxia, concern for pulmonary embolism. RADIATION DOSAGE (If Supplied By Facility): CTDIvol = ( 11.47 ) mGy, DLP = ( 434.79 ) mGycm TECHNIQUE: The examination was performed with the intravenous administration of IV 100mL Isovue-370. Post-processing of the angiographic images was performed, with multiplanar reformation and 3D reconstruction. Individualized dose optimization techniques were used for this CT. COMPARISON: None. FINDINGS: There is limited enhancement of the main pulmonary artery and right and left pulmonary arteries. There is limited enhancement of the bilateral peripheral pulmonary arteries. There is no demonstrated pulmonary embolism. There is atherosclerotic tortuosity of the aortic arch and descending thoracic aorta. There is no demonstrated aortic dissection. Normal heart and pericardium. Few mediastinal nodes in the anterior mediastinum, aortopulmonic window and posterior mediastinum could be reactive. Normal hilar regions. Normal visualized trachea and bronchi. Patchy bilateral infiltrates worsened the right lower lobe. Mild compressive atelectatic changes in both lower lobes. There are no pleural effusions. Normal chest wall structures. Degenerative changes in the thoracic spine. No demonstrated acute osseous changes. The visualized upper abdomen demonstrate small hiatal hernia. No demonstrated acute changes. CT/CTA Chest W/WO Contrast IMPRESSION: 1. Suboptimal enhancement of the pulmonary arteries. No evidence of pulmonary embolism. 2. Patchy bilateral infiltrates concerning for multifocal pneumonia including Covid 19. 3. Few mediastinal nodes probably reactive. Electronically Signed: Carter Oconnor, at 14:59 EST Tel , Service support ,
[2021-07-07 14:37] LABS: Lactic Acid 2.9 mmol/L (0.4-1.9)
--- NOTE | 2021-07-07 16:06 | PCM.HP.STD ---
HPI - General General Date of Admission: 07/07/21 Date of Service: 07/07/21 Chief Complaint: Dyspnea, cough, worsening, COVID sxs x 7 days. HPI Narrative The patient is a 65 y/o M w/ PMHx: GERD, HLD, Remote tobacco use history who presents to the [facility] ED on 07/07/21 with unvaccinated COVID status with onset of Covid type symptoms starting on 06/27/2021 with fever, chills, nausea without emesis, diarrhea, body aches, frontal headaches, absent taste and smell as well as cough and shortness of breath which is progressively been worsening. Patient's who is present recently had an upper respiratory/sinus infection she reports. She notes that she was tested and tested negative against COVID but her daughter did test positive. She had however been tested close to the time when her had been tested and had not had symptoms at that time therefore encouraged here to complete her 10 days of quarantine as suspect she likely also had Covid. Patient and report that he has had very minimal intake and lost at least 15 to 20 pounds over the last week. Additionally upon transition patient noted an atypical red reticular rash on his abdomen that does not itch and EMS initially was concerned that he was mottling with administration of epinephrine to be cautious. Patient notes it seems improved and reports this is well. Work-up in the ED included T 99.3, heart rate 83, BP 134/79, respiratory rate twenty-three, initially presented noted to be 93% on 5 L nasal cannula eventually transitioning-->95% on 10 L nasal cannula, CBC with WC 2.7, hemoglobin 15.8, platelet eighty-six with ANC 1.5 and lymphopenia, coags with D-dimer 1.30 otherwise normal appearing, CMP with BUN/creat 20/1.34, glucose 151, lactic acid 2.9, total bilirubin 1.50, AST/LT 70/57 otherwise not marked appearing, Covid antigen positive, chest x-ray with hypoventilatory changes with mild patchy infiltrates primarily in the left lower lung, follow-up CTPA with no evidence of PE, patchy bilateral infiltrates consistent with multifocal pneumonia with COVID-19, few mediastinal nodes likely reactive, blood culture x 2 pending per ED. in the ED requested patient be administered IV Decadron therapy. [facility] Medical History (Updated 07/07/21 @ 17:[address] Lia Contreras MD) Former tobacco use GERD (gastroesophageal reflux disease) Obesity Home Medications omeprazole magnesium [Prilosec OTC] 20 mg PO DAILY 10/29/18 [History Last Taken 10/27/18] Allergy/AdvReac Type Severity Reaction Status Date / Time peanut Allergy Anaphylaxis Verified 07/07/21 13:05 Family History (Updated 07/07/21 @ 17:[address] Lia Contreras MD) Mother Cancer other (Unknown paternal family history.) Surgical History (Updated 07/07/21 @ 16:[address] Lia Contreras MD) H/O unilateral orchiectomy History of appendectomy Social History (Updated 07/07/21 @ 17:[address] Lia Contreras MD) household members: spouse Smoking Status: Former smoker how long ago did patient quit smoking: Quit 40 years prior, smoked 4 ppd since teen until quit. alcohol intake: never substance use type: does not use ROS ROS Narrative Admission Review of Systems: CONSTITUTIONAL: No weight loss, + fever, chills, weakness or fatigue. HEENT: + Headache, sore throat, altered taste and smell. Eyes: No visual loss, blurred vision, double vision or yellow sclerae. Ears, Nose, Throat: No hearing loss, sneezing. SKIN: No rash or itching, lesions, wounds. CARDIOVASCULAR: No chest pain, chest pressure or chest discomfort, palpitations, edema, orthopnea, syncopal events. RESPIRATORY: + shortness of breath, cough, No marked sputum, wheezing, hemoptysis. GASTROINTESTINAL: + anorexia, nausea without vomiting, diarrhea, No abdominal pain, melena, BRBPR. GENITOURINARY: No dysuria, frequency, urgency or retention. NEUROLOGICAL: + headache, No dizziness, syncope, paralysis, ataxia, numbness or tingling in the extremities, focal weakness, change in bowel or bladder control, seizure. MUSCULOSKELETAL: + muscle, back pain, joint pain or stiffness. HEMATOLOGIC: No anemia, bleeding or bruising. LYMPHATICS: No enlarged nodes. No history of splenectomy. PSYCHIATRIC: No history of depression or anxiety. ENDOCRINOLOGIC: No reports of sweating, cold or heat intolerance. No polyuria or polydipsia. ALLERGIES: No history of asthma, hives, eczema or rhinitis. Vital Signs Vital Signs Vital Signs: 07/07/21 13:01 07/07/21 13:05 07/07/21 13:07 Temperature 98.9 F 98.9 F Temperature Source Temporal Temporal Pulse Rate 92 92 Respiratory Rate 26 H 26 H Respiratory Effort Short of Breath Respiratory Pattern Tachypnea Blood Pressure 134/71 H Blood Pressure Mean 92 Pulse Ox 93 93 Oxygen Delivery Method Nasal Cannula Nasal Cannula Nasal Cannula Oxygen Flow Rate (L/min) 5 5 6 07/07/21 13:12 07/07/21 13:15 07/07/21 13:34 Temperature 98.9 F Temperature Source Temporal Pulse Rate Respiratory Rate 30 H 25 H Respiratory Effort Respiratory Pattern Blood Pressure Blood Pressure Mean Pulse Ox 93 94 Oxygen Delivery Method Nasal Cannula High Flow Room Air Oxygen Flow Rate (L/min) 6 10 07/07/21 13:54 07/07/21 14:05 07/07/21 15:00 Temperature 98.1 F 99.3 F H Temperature Source Temporal Oral Pulse Rate 90 83 Respiratory Rate 23 H 25 H 23 H Respiratory Effort Respiratory Pattern Blood Pressure 141/80 H 134/79 H Blood Pressure Mean 100 97 Pulse Ox 97 96 95 Oxygen Delivery Method High Flow High Flow Nasal Cannula Oxygen Flow Rate (L/min) 10 10 10 Weight Weight: 250 lb 10.649 oz Body Mass Index (BMI) 33.0 Physical Exam Narrative Physical Examination: General: Awake, alert, oriented x 3 and cooperative, seated upright in the ED bed, fatigued and ill-appearing, increased respiratory rate, mild accessory muscle usage, evidence distress. Skin: Normal color, normal turgor, no icterus, no cyanosis except mild improved since initial presentation reticular rash to the abdomen, non-pruritic, not blanching, not raised. HEENT: AT/NC, EOMI, PERRLA, moderately dry MM, no carotid bruits or JVD noted. Lungs: Diffusely diminished, greater bases, increased respiratory rate, mild accessory muscle usage, evidence mild distress, no rales, ronchi or wheezing. Heart: Regular rate with regular rhythm; no gallop, rub audible. Abdomen: Soft, obese, NTTP, ND, distant hyperactive bowel sounds, no obvious HSM, see skin. Extremities: No cyanosis, clubbing, or edema. Neurological: Patient awake, alert, oriented as noted, cognitive function intact; pupils equally reactive to light and accommodation, cranial nerves II-XII grossly normal, moving all 4 extremities, no focal deficits, strength severely globally decreased secondary to acute presentation. Psychiatric: Affect appears fatigued, ill-appearing, respiratory compromise improving since initial ED presentation, no acute evidence of depressive or anxiety feelings. Results Lab / Micro Data Result Diagrams: 07/07/21 13:29 07/07/21 13:29 Labs: Laboratory Results - last 24 hr 07/07/21 13:29: WBC 2.7 L, RBC 5.51, Hgb 15.8, Hct 46.4, MCV 84.2, MCH 28.7, MCHC 34.1, RDW Std Deviation 43.5, RDW Coeff of Daiana 14.0, Plt Count 86 L, MPV 11.4, Immature Gran % (Auto) 0.800, Neut % (Auto) 56.5, Lymph % (Auto) 29.1, [place] % (Auto) 13.2 H, Eos % (Auto) 0.0, Baso % (Auto) 0.4, Absolute Neuts (auto) 1.5 L, Absolute Lymphs (auto) 0.77 L, Nucleated RBC % 0, Platelet Estimate MOD DEC 07/07/21 13:29: PT 13.1, INR 1.1, APTT 30.0, D-Dimer Quant (PE/DVT) 1.30 H* 07/07/21 13:29: Sodium 140, Potassium 3.7, Chloride 105, Carbon Dioxide 25.0, Anion Gap 10, BUN 20 H, Creatinine 1.34 H, Estim Creat Clear Calc 62.11, Est GFR (MDRD) Af Amer 69, Est GFR (MDRD) Non-Af 57 L, BUN/Creatinine Ratio 14.9, Glucose 151 H, Calcium 8.4 L, Total Bilirubin 1.50 H, AST 70 H, ALT 57, Alkaline Phosphatase 80, Total Protein 7.5, Albumin 3.2, Globulin 4.3 H, Albumin/Globulin Ratio 0.7 L 07/07/21 13:29: Lactic Acid 2.9 H* Micro: Microbiology 07/07/21 13:24 Nasal Secretion SARS-CoV-2 Antigen (Rapid) - Final SARS-CoV-2 (COVID 19) Radiology Impression Chest X-Ray 07/07/21 13:09 IMPRESSION: Hypoventilatory changes. Mild patchy infiltrate in left lower lung. Electronically Signed: Carter Oconnor, at 13:51 EST Tel , Service support , Chest CTA 07/07/21 14:30 IMPRESSION: 1. Suboptimal enhancement of the pulmonary arteries. No evidence of pulmonary embolism. 2. Patchy bilateral infiltrates concerning for multifocal pneumonia including Covid 19. 3. Few mediastinal nodes probably reactive. Electronically Signed: Carter Oconnor, at 14:59 EST Tel , Service support , Assessment & Plan Assessment/Plan (1) Acute respiratory failure with hypoxia: (2) Pneumonia due to COVID-19 virus: PLAN: The patient is a 65 y/o M w/ PMHx: GERD, HLD, Remote tobacco use history who presents to the [facility] ED on 07/07/21 with unvaccinated COVID status with onset of Covid type symptoms starting on 06/27/2021 with fever, chills, nausea without emesis, diarrhea, body aches, frontal headaches, absent taste and smell as well as cough and shortness of breath which is progressively been worsening. #1. Acute Hypoxic Respiratory Failure secondary to Acute Bilateral Pneumonia secondary to Acute Viral Syndrome, COVID-19: Will admit to the PCU given already requiring high flow, maintain on COVID precautions with 20 day quarantine requirement, will maintain on oxygen with wean as tolerated to room air, PRN albuterol, HOB, IS parameters w/ pending sputum cultures and urine antigens, will obtain procalcitonin, CRP, CPK, Ferritin, LDH, trop and BNP, continue supportive care including q 2 hour turning including prone given no prone bed availability and judicious hydration, closely monitor for worsening status for ARDS and multiorgan failure, will initiate and continue IV decadron x 10 doses, given presentation will also initiate IV remdesivir but defer to discretion of Infectious disease. If respiratory status worsens and patient requires airvo or BIPAP transition will initiate barcitinib regimen additionally with ID involvement. #2. Mildly elevated bilirubin, LFTs secondary to acute presentation #1: Admission total bilirubin 1.50, AST/LT 70/57, likely secondary to #1, continue treatment as noted, trend CMP. #3. Lactic acidosis: Admission lactic acid 2.9, likely secondary to acute presentation #1 with hypoxia, will continue to trend per facility protocol, avoid aggressive hydration given acute presentation as noted number 1. #4. Hyperglycemia: Admission glucose 151, will obtain hemoglobin A1c to be cautious especially given usage planned IV Decadron. If notable will transition to ADA diet with Accu-Cheks with insulin sliding scale. #5. Leukopenia, thrombocytopenia secondary to acute presentation #1: Admission CBC with WBC 2.7, platelet 86 secondary to acute presentation #1, will trend CBC. #6. Acute renal insufficiency secondary to acute presentation #1: Admission BUN/creatinine 20/1.34, baseline appears primarily 1.0-1.2, given decreased oral intake and GI losses likely mildly increased, will continue treatment as noted above #1 and repeat CMP in AM. #7. Obesity: Weight loss and lifestyle changes encouraged. #8. GERD: We will continue patient on PPI. #9. DVT prophylaxis: SCDs, Lovenox. #10. CODE status: Patient does not have healthcare power of assistant attorney general nor living will in place. Encouraged him and his to discuss these items and consider setting up. Given acute hypoxic respiratory failure in the setting of Covid pneumonia and unvaccinated status, discussed CODE status at length including difference between FULL code, DNR-CCA and DNR-CC status. Following discussions about the differences in these status, requested Full Code status. Patient amenable to air Vo, BiPAP, intubation, remdesivir usage as well as Barcitinib if necessary. Advanced Care Planning Face to Face Time: 16 minutes. Charges/Coding Visit Charges Inpatient E&M: 34693 Init Hosp L3 Procedures Hospitalists Procedures: 12680 Advncd Care Plan 30 Min
[2021-07-07] MEDS: dexAMETHasone 10 MG/ML Vial 6 MG IV (16:09)
--- NOTE | 2021-07-07 16:32 | NURSING ---
PCU WHITE COVID 19, HYPOXIC RESPITORY FAILURE
[2021-07-07 17:31] LABS: BNP,B-Type NATRIURETIC PEPTIDE 14.7 pg/mL (0-100)
[2021-07-07 17:34] LABS: Reflex Lactate? Y
[2021-07-07 17:43] LABS: Ferritin 1532 ng/mL (26-388); LDH 383 U/L (87-241)
[2021-07-07 19:36] LABS: Procalcitonin 0.14 ng/mL (0.00-0.09)
[2021-07-07] MEDS: Enoxaparin 30 MG/0.3 ML Syringe SC (20:03)
[2021-07-07] MEDS: 0.9% Normal Saline 1,000 ML 100 ML IV (20:03)
[2021-07-07 21:48] LABS: Bacteria 0 SEEN /hpf (None Seen); Mucous, Urine 0 SEEN /hpf (<or=2+); Red Blood Cells-Urine 0 SEEN /hpf (0-5); White Blood Cells 0 SEEN /hpf (0-5)
[2021-07-07 21:52] LABS: Color, Urine Yellow (Yellow); Glucose, Dipstick Normal (Normal); Ketone-Dipstick 15 mg/dl (Negative); Leukocyte Esterase-Dipstick Negative /ul (Negative); Nitrite-Dipstick Negative (Negative); Occult Blood-Urine 10 /ul (Negative); Protein-Dipstick 30 mg/dl (Negative); Urine Bilirubin Dipstick Negative (Negative); Urine Clarity Clear (Clear); Urine Urobilinogen 12 mg/dl (Normal)
[2021-07-07 22:15] LABS: Squamous Epithelial Cells - UA 0-5 SEEN /hpf (0-5)
[2021-07-08] VITALS (12 sets, daily range): BP systolic 105–139; BP diastolic 62–76; PULSE 54–74; RESP 18–20; TEMP 36.4–36.6; O2SAT 92–98
[2021-07-08 08:07] LABS: Absolute Lymphocyte Count 0.36 X10^3/uL (0.83-4.51); Absolute Neutrophil Count 0.8 X10^3/uL (2.0-7.7); Hematocrit 39.4 % (40-54); Hemoglobin 13.5 g/dL (13.0-16.5); Lymphocyte # 0.36 X10^3/ul (0.83-4.51); Lymphocyte % 27.5 % (19-41); Mean Corp Hgb Conc 34.3 g/dL (32-36); Mean Corpuscular Hgb 28.7 pg (27.0-32.0); Mean Corpuscular Volume 83.8 fL (80-94); Mean Platelet Vol. 11.3 fl (6.2-12.0); Monocyte# 0.13 X10^3/uL; Monocyte% 9.9 % (0-10); NRBC Flagged by Analyzer 0 % (0-5); Neutrophil # 0.81 X10^3/uL (2.7-7.7); Neutrophil % 61.8 % (47-70); POSITIVE COUNT YES; POSITIVE DIFFERENTIAL YES; Platelet Count 72 K/mm3 (150-450); RBC Distribution Width CV 13.6 % (11.6-14.6); RBC Distribution Width SD 41.8 fl (35.1-43.9); White Blood Count 1.3 K/mm3 (4.4-11.0)
[2021-07-08 08:40] LABS: Differential Indicated SCAN CRITERIA MET
[2021-07-08 08:46] LABS: Hemoglobin A1c 5.2 % (3.8-5.6)
[2021-07-08 10:05] LABS: Magnesium 2.4 mg/dL (1.6-2.6); Potassium 3.9 mmol/L (3.5-5.1)
[2021-07-08] MEDS: Pantoprazole Sodium 20 MG Tablet PO (10:11)
[2021-07-08] MEDS: Enoxaparin 30 MG/0.3 ML Syringe SC ×2 (10:11→19:37)
[2021-07-08] MEDS: dexAMETHasone 10 MG/ML Vial 6 MG IV (10:11)
--- NOTE | 2021-07-08 10:35 | PN.HOSP_ITS ---
Subjective Subjective Patient seen and examined. He had no active complaints,. He is on 7L of oxygen. Objective Data Objective Data Vital Signs: Vital Signs Temp Pulse Resp BP Pulse Ox 97.8 F 63 20 H 120/75 93 07/08/21 10:09 07/08/21 10:09 07/08/21 10:09 07/08/21 10:09 07/08/21 10:09 Oxygen Flow Rate (L/min) 8 Oxygen Delivery Method High Flow Weight: 247 lb 2.211 oz Body Mass Index (BMI) 32.5 Intake & Output: Intake and Output for Last 24 Hours 07/06/21 07/07/21 07/08/21 23:59 23:59 23:59 Intake Total 470 / 810 1460 / 1460 Output Total 550 / 1000 800 / 800 Balance -80 / -190 660 / 660 Lab / Micro Data Result Diagrams: 07/08/21 07:15 07/08/21 07:08 Labs: Laboratory Results - last 24 hr 07/07/21 13:29: WBC 2.7 L, RBC 5.51, Hgb 15.8, Hct 46.4, MCV 84.2, MCH 28.7, MCHC 34.1, RDW Std Deviation 43.5, RDW Coeff of Daiana 14.0, Plt Count 86 L, MPV 11.4, Immature Gran % (Auto) 0.800, Neut % (Auto) 56.5, Lymph % (Auto) 29.1, [place] % (Auto) 13.2 H, Eos % (Auto) 0.0, Baso % (Auto) 0.4, Absolute Neuts (auto) 1.5 L, Absolute Lymphs (auto) 0.77 L, Nucleated RBC % 0, Platelet Estimate MOD DEC 07/07/21 13:29: PT 13.1, INR 1.1, APTT 30.0, D-Dimer Quant (PE/DVT) 1.30 H* 07/07/21 13:29: Sodium 140, Potassium 3.7, Chloride 105, Carbon Dioxide 25.0, Anion Gap 10, BUN 20 H, Creatinine 1.34 H, Estim Creat Clear Calc 62.11, Est GFR (MDRD) Af Amer 69, Est GFR (MDRD) Non-Af 57 L, BUN/Creatinine Ratio 14.9, Glucose 151 H, Calcium 8.4 L, Total Bilirubin 1.50 H, AST 70 H, ALT 57, Alkaline Phosphatase 80, Total Protein 7.5, Albumin 3.2, Globulin 4.3 H, Albumin/Globulin Ratio 0.7 L 07/07/21 13:29: Lactic Acid 2.9 H* 07/07/21 13:29: Ferritin 1532 H, Lactate Dehydrogenase 383 H, C-React Prot Ext Range 57.60 H 07/07/21 13:29: B-Natriuretic Peptide 14.7 07/07/21 19:00: Procalcitonin 0.14 H 07/07/21 19:00: Lactic Acid 1.0 07/07/21 21:40: Urine Color Yellow, Urine Clarity Clear, Urine pH 6.0, Ur Specific [place] 1.030, Urine Protein 30 H, Urine Glucose (UA) Normal, Urine Ketones 15 H, Urine Occult Blood 10 H, Urine Nitrite Negative, Urine Bilirubin Negative, Urine Urobilinogen 12 H, Ur Leukocyte Esterase Negative, Urine RBC 0 SEEN, Urine WBC 0 SEEN, Ur Squamous Epith Cells 0-5 SEEN, Urine Bacteria 0 SEEN, Urine Mucus 0 SEEN 07/08/21 07:08: Hemoglobin A1c 5.2 07/08/21 07:08: Potassium 3.9, Magnesium 2.4 07/08/21 07:15: WBC 1.3 L*, RBC 4.70, Hgb 13.5, Hct 39.4 L, MCV 83.8, MCH 28.7, MCHC 34.3, RDW Std Deviation 41.8, RDW Coeff of Daiana 13.6, Plt Count 72 L, MPV 11.3, Immature Gran % (Auto) 0.800, Neut % (Auto) 61.8, Lymph % (Auto) 27.5, M jessica % (Auto) 9.9, Eos % (Auto) 0.0, Baso % (Auto) 0.0, Absolute Neuts (auto) 0.8 L, Absolute Lymphs (auto) 0.36 L, Nucleated RBC % 0, Differential Comment , Diff Path Review May foll Micro: Microbiology 07/07/21 21:40 Urine, Random Legionella Antigen - Final 07/07/21 21:40 Urine, Random Streptococcus pneumoniae Antigen (M - Final 07/07/21 13:24 Nasal Secretion SARS-CoV-2 Antigen (Rapid) - Final SARS-CoV-2 (COVID 19) Radiography Diagnostic Testing: Radiology Impression Chest X-Ray 07/07/21 13:09 IMPRESSION: Hypoventilatory changes. Mild patchy infiltrate in left lower lung. Electronically Signed: Carter Oconnor, at 13:51 EST Tel , Service support , Chest CTA 07/07/21 14:30 IMPRESSION: 1. Suboptimal enhancement of the pulmonary arteries. No evidence of pulmonary embolism. 2. Patchy bilateral infiltrates concerning for multifocal pneumonia including Covid 19. 3. Few mediastinal nodes probably reactive. Electronically Signed: Carter Oconnor, at 14:59 EST Tel , Service support , Physical Exam Const alert, oriented x3 and no apparent distress Exam Limitations: no limitations HEENT head/scalp atraumatic Head and Scalp: normocephalic Mouth: dry mucous membranes Eyes PERRL, EOMs intact bilaterally and conjunctivae normal Neck no lymphadenopathy Resp Resp Narrative: diminished breath sounds bibasally, few crackles. On 7L of oxygen by nasal canula Cardio regular rate, regular rhythm, S1 normal heart sound, S2 normal heart sound and no murmurs GI normal to inspection, nondistended, normoactive bowel sounds, soft to palpation, non-tender and non-distended Extremity normal to inspection, full ROM and no clubbing, cyanosis or edema Peripheral Pulses: Yes pulses 2+ throughout Skin no rashes or lesions noted, no wounds and skin turgor normal Neuro oriented x3 and CN's II-XII intact bilaterally Sensorium / Orientation: awake and alert Psych affect normal Assessment & Plan Assessment/Plan (1) Acute respiratory failure with hypoxia: (2) Pneumonia due to COVID-19 virus: PLAN: #Acute hypoxic respiratory failure due to covid 19 pneumonia * currently on 7L of oxygen. * on decadron and remdesivir * titrate oxygen to maintain sats >90% * breathing treatment wtih bronchodilators * symptoms started on 06/27/2021, so to remain in isolation for 20 days from then * diurese as needed to maintain euvolemic status * #Leucopenia and thrombocytopneia * wbc is down to 1.3. was 2.7 on admission; etiology is not clear, may be due to covid * will monitor for now. * platelets are also down to 72. this is chronic. Will trend. * #Elevated D dimer: CTA chest was negative for PE. Likely due to covid #Elevated Cr * C is 1.34, with baseline of ~ 1.15. Will trend with gentle hydration * #DVT prophylaxis: lovenox Charges/Coding Visit Charges Inpatient E&M: 14934 Subs Hosp L3
--- NOTE | 2021-07-08 21:06 | NURSING ---
po 95% on 5lnc. decrease to 4lnc
[2021-07-09] VITALS (8 sets, daily range): BP systolic 128–139; BP diastolic 68–80; PULSE 63–77; RESP 18–20; TEMP 36.5–37; O2SAT 92–94
--- NOTE | 2021-07-09 02:22 | NURSING ---
PT C/O PAIN IN HIS LEGS X 1 WEEK. EDEMA TO LEGS NOTED. REFUSED PAIN MEDS AT THIS TIME.
[2021-07-09 07:15] LABS: Absolute Lymphocyte Count 0.55 X10^3/uL (0.83-4.51); Absolute Neutrophil Count 3.3 X10^3/uL (2.0-7.7); Hematocrit 41.9 % (40-54); Hemoglobin 13.9 g/dL (13.0-16.5); Lymphocyte # 0.55 X10^3/ul (0.83-4.51); Mean Corp Hgb Conc 33.2 g/dL (32-36); Mean Corpuscular Hgb 28.1 pg (27.0-32.0); Mean Corpuscular Volume 84.6 fL (80-94); Mean Platelet Vol. 11.6 fl (6.2-12.0); Monocyte# 0.34 X10^3/uL; Monocyte% 8.1 % (0-10); NRBC Flagged by Analyzer 0 % (0-5); Neutrophil % 78.2 % (47-70); POSITIVE DIFFERENTIAL YES; Platelet Count 102 K/mm3 (150-450); RBC Distribution Width CV 13.6 % (11.6-14.6); RBC Distribution Width SD 42.2 fl (35.1-43.9); Red Blood Count 4.95 M/mm3 (4.6-6.2); White Blood Count 4.2 K/mm3 (4.4-11.0)
[2021-07-09 07:26] LABS: Anion Gap 7 (5-15); BUN 26 mg/dL (7-18); Chloride 111 mmol/L (98-107); Creatinine, Serum 0.84 mg/dL (0.70-1.30); EST Glomerular Filtration Rate 98 mL/min (>60); Est Glom Filt Rate - Afr Amer 118 mL/min (>60); Estimated Creatinine Clearance 99.08 ml/min; Glucose 108 mg/dL (74-106); Potassium 3.6 mmol/L (3.5-5.1); Sodium Level 142 mmol/L (136-145)
[2021-07-09 07:35] LABS: Differential Indicated SCAN CRITERIA MET
[2021-07-09 08:45] LABS: Platelet Estimate SLT DEC (ADEQ); Red Cell Morphology NORM C+C NORMAL (NORM C&C)
[2021-07-09] MEDS: dexAMETHasone 10 MG/ML Vial 6 MG IV (09:53)
[2021-07-09] MEDS: Enoxaparin 30 MG/0.3 ML Syringe SC ×2 (09:53→20:46)
[2021-07-09] MEDS: Pantoprazole Sodium 20 MG Tablet PO (09:53)
--- NOTE | 2021-07-09 12:08 | PCM.PN.HOSP ---
Subjective Subjective Patient seen and examined. He feels better today. His oxygen requirement is 4L today. Review of systems is otherwise negative. Objective Data Objective Data Vital Signs: Vital Signs Temp Pulse Resp BP Pulse Ox 97.9 F 77 18 139/68 H 94 07/09/21 08:11 07/09/21 08:11 07/09/21 08:11 07/09/21 08:11 07/09/21 08:11 Oxygen Flow Rate (L/min) 2 Oxygen Delivery Method Nasal Cannula Weight: 247 lb 9.266 oz Body Mass Index (BMI) 32.5 Intake & Output: Intake and Output for Last 24 Hours 07/07/21 07/08/21 07/09/21 23:59 23:59 23:59 Intake Total 470 / 810 2150 / 2150 120 / 120 Output Total 550 / 1000 800 / 800 Balance -80 / -190 1350 / 1350 120 / 120 Medical Nutrition Assessment Dietitian: Malnutrition Criteria Met Start: 07/08/21 11:47 Freq: Status: Active Protocol: Document 07/08/21 11:47 SLA (Rec: 07/08/21 11:47 SLA [id number]) Nutrition Malnutrition Evidence of Malnutrition Exists Yes Malnutrition (severe): Acute Illness/Injury Evidenced By Suboptimal Energy Intake ( Severe),Weight Loss (Severe) Clinical Problem Acute Disease or Injury Related Malnutrition Etiology related to covid/resp failure, decreased taste x 1 wk and inability to consume 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 Status Active Problem Recommendation Dietitian Recommendations/Changes Will change to liberal Regular diet w/ ensure compact at meals d/t signs/symptoms of malnutrition. Will d/c ensure at medpass and give at meals instead for nsg convenience. Lab / Micro Data Result Diagrams: 07/09/21 06:20 07/09/21 06:20 Labs: Laboratory Results - last 24 hr 07/09/21 06:20: WBC 4.2 L, RBC 4.95, Hgb 13.9, Hct 41.9, MCV 84.6, MCH 28.1, MCHC 33.2, RDW Std Deviation 42.2, RDW Coeff of Daiana 13.6, Plt Count 102 L, MPV 11.6, Immature Gran % (Auto) 0.700, Neut % (Auto) 78.2 H, Lymph % (Auto) 13.0 L, [place] % (Auto) 8.1, Eos % (Auto) 0.0, Baso % (Auto) 0.0, Absolute Neuts (auto) 3.3, Absolute Lymphs (auto) 0.55 L, Nucleated RBC % 0, Diff Path Review November, Platelet Estimate SLT DEC, RBC Morphology NORM C+C 07/09/21 06:20: Sodium 142, Potassium 3.6, Chloride 111 H, Carbon Dioxide 24.0, Anion Gap 7, BUN 26 H, Creatinine 0.84, Estim Creat Clear Calc 99.08, Est GFR (MDRD) Af Amer 118, Est GFR (MDRD) Non-Af 98, BUN/Creatinine Ratio 31.0 H, Glucose 108 H, Calcium 8.0 L Micro: Microbiology 07/07/21 13:29 Blood Culture (Wb) - Anticubital Left Blood Culture - Preliminary No growth in 48 hours. 07/07/21 13:30 Blood Culture (Wb) - Anticubital Right Blood Culture - Preliminary No growth in 48 hours. 07/07/21 21:40 Sputum, Expectorated/Coughed Gram Stain - Final 07/07/21 21:40 Sputum, Expectorated/Coughed Respiratory Culture - Preliminary 07/07/21 21:40 Urine Catheter - Catheter Urine Culture - Preliminary Gram negative jero 07/07/21 21:40 Urine, Random Legionella Antigen - Final 07/07/21 21:40 Urine, Random Streptococcus pneumoniae Antigen (M - Final 07/07/21 13:24 Nasal Secretion SARS-CoV-2 Antigen (Rapid) - Final SARS-CoV-2 (COVID 19) Physical Exam Const alert, oriented x3 and no apparent distress Exam Limitations: no limitations HEENT head/scalp atraumatic, moist oral mucous membranes and oropharynx normal Head and Scalp: normocephalic Eyes PERRL, EOMs intact bilaterally and conjunctivae normal Neck no lymphadenopathy and supple Resp Resp Narrative: diminished breath sounds bibasally, no wheezes or crackles. On 4L of oxygen by nasal canula Cardio regular rate, regular rhythm, S1 normal heart sound, S2 normal heart sound and no murmurs GI normal to inspection, nondistended, normoactive bowel sounds, soft to palpation, non-tender and non-distended Extremity normal to inspection, full ROM and no clubbing, cyanosis or edema Peripheral Pulses: Yes pulses 2+ throughout Skin no rashes or lesions noted Neuro oriented x3, CN's II-XII intact bilaterally and moves all extremities Sensorium / Orientation: awake and alert Psych affect normal Assessment & Plan Assessment/Plan (1) Acute respiratory failure with hypoxia: (2) Pneumonia due to COVID-19 virus: PLAN: #Acute hypoxic respiratory failure due to covid 19 pneumonia down to 4L of oxygen. on decadron and remdesivir titrate oxygen to maintain sats >90% breathing treatment wtih bronchodilators symptoms started on 06/27/2021, so to remain in isolation for 20 days from then diurese as needed to maintain euvolemic status #Leucopenia and thrombocytopneia wbc is down to 4.2. resolved. platelets are up to 102. this is chronic. Will trend. #Elevated D dimer: CTA chest was negative for PE. Likely due to covid #Elevated Cr CR is down to 0.84. #DVT prophylaxis: lovenox Charges/Coding Visit Charges Inpatient E&M: 79176 Subs Hosp L2
[2021-07-10] VITALS (10 sets, daily range): BP systolic 124–142; BP diastolic 73–86; PULSE 64–76; RESP 18; TEMP 36.7–37.2; O2SAT 92–96
[2021-07-10 07:19] LABS: Absolute Lymphocyte Count 0.52 X10^3/uL (0.83-4.51); Absolute Neutrophil Count 3.2 X10^3/uL (2.0-7.7); Hemoglobin 13.2 g/dL (13.0-16.5); Lymphocyte # 0.52 X10^3/ul (0.83-4.51); Lymphocyte % 12.8 % (19-41); Mean Corpuscular Hgb 27.6 pg (27.0-32.0); Mean Corpuscular Volume 83.7 fL (80-94); Mean Platelet Vol. 11.2 fl (6.2-12.0); Monocyte# 0.31 X10^3/uL; Monocyte% 7.7 % (0-10); NRBC Flagged by Analyzer 0 % (0-5); Neutrophil # 3.21 X10^3/uL (2.7-7.7); Neutrophil % 79.3 % (47-70); POSITIVE DIFFERENTIAL YES; Platelet Count 103 K/mm3 (150-450); RBC Distribution Width CV 13.7 % (11.6-14.6); RBC Distribution Width SD 42.3 fl (35.1-43.9); Red Blood Count 4.78 M/mm3 (4.6-6.2); White Blood Count 4.1 K/mm3 (4.4-11.0)
[2021-07-10 07:32] LABS: Differential Indicated SCAN CRITERIA MET
[2021-07-10 07:55] LABS: Anion Gap 6 (5-15); BUN 23 mg/dL (7-18); BUN/Creat Ratio 30.2 RATIO (10-20); Calcium,Total 8.3 mg/dL (8.5-10.1); Chloride 111 mmol/L (98-107); Creatinine, Serum 0.76 mg/dL (0.70-1.30); EST Glomerular Filtration Rate 109 mL/min (>60); Est Glom Filt Rate - Afr Amer 132 mL/min (>60); Estimated Creatinine Clearance 109.51 ml/min; Glucose 99 mg/dL (74-106); Potassium 3.7 mmol/L (3.5-5.1); Sodium Level 140 mmol/L (136-145)
[2021-07-10] MEDS: Enoxaparin 30 MG/0.3 ML Syringe SC (08:50)
[2021-07-10] MEDS: Pantoprazole Sodium 20 MG Tablet PO (08:50)
[2021-07-10] MEDS: dexAMETHasone 10 MG/ML Vial 6 MG IV (08:50)
[2021-07-10] MEDS: Acetaminophen 325 MG Tablet 650 MG PO (10:23)
[2021-07-10] MEDS: 0.9% Saline Lock 10 ML Syringe IV (10:31)
--- NOTE | 2021-07-10 10:32 | NURSING ---
pt given tylenol for pleurisy pain with cough up to chair and ad noemi in room. spo2 high 90's on 8l so weaned to 4l and will reassess. lungs dim post lt>rt. pt reported coughing all night and did not sleep much no other sign of distress obs at this time. pt frustrated on increased o2 during the night. pt reports doing incentive every hour as directed.
[2021-07-10 13:26] LABS: Pathologist Review Reviewed
--- NOTE | 2021-07-10 13:31 | NURSING ---
0800- pt sitting at side of bed on 8l and reporting that feeling like crap pt with c/o chest soreness with cough. tylenol given. spo2 high 90's on 8l. lungs clear but dim post.
[2021-07-10 13:40] LABS: Pathologist Review Reviewed
[2021-07-10 13:48] LABS: Pathologist Review Reviewed
--- NOTE | 2021-07-10 13:58 | CASEMGMT ---
GAVIN FLORES assessment: Initial transition planning/care coordination assessment. GAVIN FLORES introduced self and role at [facility], pt voices understanding and consents to assessment. Pt is A/Ox4 and answers questions appropriately. Pt is on 4L nc in no distress. Pt states is not vaccinated. Pt states just had COVID and is doing better. Pt states no concerns getting resources once home. Care providers, pharmacy, and demographics verified. Presentation: Pt c/o SOB, cough since 06/27 with weight loss and low oxygen Admitting dx: COVID, resp failure PCP: Pt saw Kamari, who retired and plans to f/u with someone in his office Specialists: Pt states no specialists. Preferred Pharmacy: [facility] [employer] [facility] Prescription Benefit: [employer] Living Will/HPOA: Pt states does not have LW/HPOA and declines AD info. LNOK: Farhana Barahona, ; Ondina Barahona, mother Living Arrangements: Pt lives with in 1 story home with 5 steps in and states no concerns at home. Pt is independent with ADL's. Transportation: Pt drives self and states no transportation concerns. DME/HHC: Pt states no current DME or need for any further DME. Pt states no preference for DME company, if qualifies for home oxygen at discharge. Pt states no hx of HHC or SNF. Pt states no concerns with going home at time of discharge. Pt is retired. Pt states does not smoke cigarettes or drink ETOH. Pt states no further concerns/needs. CM to follow for any further discharge planning/needs. Advised pt to ask for CM if any further questions/concerns/needs arise, voices understanding. Pt Goal: Home Plan: Home, pending home oxygen testing. [place] GAVIN FLORES
--- NOTE | 2021-07-10 15:44 | PCM.DC ---
Discharge Instructions Diet Discharge Diet: No restrictions Activity Discharge Activity: Return to Normal Activity Follow Up Care Test Results: Test results from this visit will be discussed in further detail at your follow-up appointment, if applicable. Discharge Plan Admission Admit Date/Time: 07/07/21 16:51 Primary Reason for Your Visit: Acute hypoxic respiratory failure secondary to acute COVID-19 pneumonia Attending Provider: Eleanor Cardenas Primary Care Provider: Care Physician,No Primary Instructions Additional Instructions / Restrictions: You are being discharged with oxygen. Continue to use your oxygen all the time. Continue to use your incentive spirometer. Continue to remain active and eat healthy. Let your doctor know if you develop fever >101.3F or have progressive worsening shortness of breath. Follow-up with your primary care doctor to have your continued oxygen use reevaluated. Be careful of going near open flames whilst on oxygen. Complete your Decadron as prescribed. Continue to use your inhaler as needed for shortness of breath. Continue to quarantine for 20 days total from the start of your symptoms. Discharge Orders/Prescriptions Prescriptions: New dexamethasone 6 mg tablet 6 mg PO DAILY 6 Days Qty: 6 RF: 0 Continued omeprazole magnesium [Prilosec OTC] 20 MG tablet,delayed release (DR/EC) 20 mg PO QHS RF: 0 Referrals / Follow Up: Care Physician,No Primary [Primary Care Provider] - Within 2 Weeks Disposition Disposition (needs filled in before D/C Order can be placed): Home, Self Care
--- NOTE | 2021-07-10 15:44 | PCM.DC.SUM ---
Providers Date of Admission: 07/07/21 Date of Discharge: 07/10/21 Primary Care Physician: No Primary Care Phys Reason For Visit: COVID-19, HYPOXIC RESPIRATORY FAILURE Diagnosis Discharge Diagnosis (1) Acute respiratory failure with hypoxia: Status: Acute Code(s): J96.01 - Acute respiratory failure with hypoxia (2) Pneumonia due to COVID-19 virus: Status: Acute Code(s): U07.1 - COVID-19; J12.82 - Pneumonia due to coronavirus disease 2019 (3) Severe protein-calorie malnutrition: Status: Acute Code(s): E43 - Unspecified severe protein-calorie malnutrition (4) Leucopenia: Status: Acute Code(s): D72.819 - Decreased white blood cell count, unspecified (5) Thrombocytopenia: Status: Acute Code(s): D69.6 - Thrombocytopenia, unspecified Medications at Discharge Home Medications omeprazole magnesium [Prilosec OTC] 20 mg PO QHS 10/29/18 dexamethasone 6 mg PO DAILY 6 Days #6 tab 07/10/21 Hospital Course Operations None Procedures None Summary of Care Provided Minutes Spent on Discharge: 45 Hospital Course: 65-year-old male who is unvaccinated against COVID-19 comes in with fever, chills, nausea, headache, loss of smell and taste. Patient was admitted with acute COVID-19 pneumonia. His admitting chest x-ray shows mild patchy infiltrate in the left lower lung. CTA of the chest is negative for acute PE. Patient was admitted to the PCU and started on IV Decadron and remdesivir. Patient initially was on high flow oxygen, he gradually improved. Improved. Patient had acute kidney injury on admission that resolved. Creatinine was 0.76 at discharge. He was admitted with creatinine of 1.34. Patient was evaluated at discharge for home oxygen and did not qualify. He was discharged home with oxygen. He was strongly encouraged to use his incentive spirometer. He will complete 10 days of dexamethasone. He will follow-up with his primary care doctor in 1 to 2 weeks Physical Exam Narrative Physical exam: General: Alert, Oriented x3, Cooperative, No apparent distress, not on oxygen HEENT: Atraumatic Oral: Moist Mucosa Neck: Supple Lungs: Diminished to auscultation Cardiovascular: HS I+II, regular, no murmurs Abdomen: Bowel Sounds Present, Soft, Non Tender Extremities: No edema Medical Records Data Medical Nutrition Assessment Dietitian: Malnutrition Criteria Met Start: 07/08/21 11:47 Freq: Status: Active Protocol: Document 07/08/21 11:47 MANUELITO (Rec: 07/08/21 11:47 SLA [id number]) Nutrition Malnutrition Evidence of Malnutrition Exists Yes Malnutrition (severe): Acute Illness/Injury Evidenced By Suboptimal Energy Intake ( Severe),Weight Loss (Severe) Clinical Problem Acute Disease or Injury Related Malnutrition Etiology related to covid/resp failure, decreased taste x 1 wk and inability to consume adequate nutrition to meet est needs exam proctor Signs/Symptoms as evidenced by 7.8% wt loss x 1 wk and <50% po intake x > 5 days exam proctor. Status Active Problem Recommendation Dietitian Recommendations/Changes Will change to liberal Regular diet w/ ensure compact at meals d/t signs/symptoms of malnutrition. Will d/c ensure at medpass and give at meals instead for nsg convenience. Weight / BMI Weight Weight: 113.2 kg Body Mass Index (BMI) 32.5 ABG / Lab / Microbiology Data Result Diagrams: 07/10/21 06:52 07/10/21 06:52 Laboratory: Laboratory Results - last 24 hr 07/08/21 07:15: Diff Path Review Reviewed 07/09/21 06:20: Diff Path Review Reviewed 07/10/21 06:52: WBC 4.1 L, RBC 4.78, Hgb 13.2, Hct 40.0, MCV 83.7, MCH 27.6, MCHC 33.0, RDW Std Deviation 42.3, RDW Coeff of Daiana 13.7, Plt Count 103 L, MPV 11.2, Immature Gran % (Auto) 0.200, Neut % (Auto) 79.3 H, Lymph % (Auto) 12.8 L, [place] % (Auto) 7.7, Eos % (Auto) 0.0, Baso % (Auto) 0.0, Absolute Neuts (auto) 3.2, Absolute Lymphs (auto) 0.52 L, Nucleated RBC % 0, Diff Path Review Reviewed 07/10/21 06:52: Sodium 140, Potassium 3.7, Chloride 111 H, Carbon Dioxide 23.0, Anion Gap 6, BUN 23 H, Creatinine 0.76, Estim Creat Clear Calc 109.51, Est GFR (MDRD) Af Amer 132, Est GFR (MDRD) Non-Af 109, BUN/Creatinine Ratio 30.2 H, Glucose 99, Calcium 8.3 L Microbiology: Microbiology 07/07/21 21:40 Sputum, Expectorated/Coughed Gram Stain - Final 07/07/21 21:40 Sputum, Expectorated/Coughed Respiratory Culture - Final 07/07/21 21:40 Urine Catheter - Catheter Urine Culture - Final Culture exhibits no growth. 07/07/21 13:29 Blood Culture (Wb) - Anticubital Left Blood Culture - Preliminary No growth in 48 hours. 07/07/21 13:30 Blood Culture (Wb) - Anticubital Right Blood Culture - Preliminary No growth in 48 hours. 07/07/21 21:40 Urine, Random Legionella Antigen - Final 07/07/21 21:40 Urine, Random Streptococcus pneumoniae Antigen (M - Final 07/07/21 13:24 Nasal Secretion SARS-CoV-2 Antigen (Rapid) - Final SARS-CoV-2 (COVID 19) D/C Instructions Discharge Diet: No restrictions Meaningful Use Info Meaningful Use Diagnoses (Choose all that apply): None applicable Discharge Plan Admission Admit Date/Time: 07/07/21 17:01 Primary Reason for Your Visit: Acute hypoxic respiratory failure secondary to acute COVID-19 pneumonia Attending Provider: Eleanor Cardenas Primary Care Provider: Mitzy Richmond Primary Instructions Additional Instructions / Restrictions: You are being discharged with oxygen. Continue to use your oxygen all the time. Continue to use your incentive spirometer. Continue to remain active and eat healthy. Let your doctor know if you develop fever >101.3F or have progressive worsening shortness of breath. Follow-up with your primary care doctor to have your continued oxygen use reevaluated. Be careful of going near open flames whilst on oxygen. Complete your Decadron as prescribed. Continue to use your inhaler as needed for shortness of breath. Continue to quarantine for 20 days total from the start of your symptoms. Discharge Orders/Prescriptions Prescriptions: New dexamethasone 6 mg tablet 6 mg PO DAILY 6 Days Qty: 6 RF: 0 Continued omeprazole magnesium [Prilosec OTC] 20 MG tablet,delayed release (DR/EC) 20 mg PO QHS RF: 0 Referrals / Follow Up: Care PhysicianMitzy Primary [Primary Care Provider] - Within 2 Weeks Disposition Disposition (needs filled in before D/C Order can be placed): Home, Self Care Charges/Coding Visit Charges Inpatient E&M: 44312 Disch Hosp
--- NOTE | 2021-07-10 15:57 | CASEMGMT ---
Per Dr. Cardenas and Rebeca RN, pt does not qualify for any home oxygen at discharge. Pt is 94% on room air at rest and 89% ambulating. Pt voices no further questions/concerns/needs. Wilfredo ALONSO CM
--- NOTE | 2021-07-10 16:04 | PHA.DC.MC ---
Pharmacy Service has performed discharge medication reconciliation and counseling for this patient. Patient counseled via telephone due to COVID precautions. 1. DEXAMETHASONE 6MG PO DAILY X 6 DAYS The patient's discharge medication list was reviewed for discrepancies and discrepancies were resolved. Home Medications omeprazole magnesium [Prilosec OTC] 20 mg PO QHS 10/29/18 dexamethasone 6 mg PO DAILY 6 Days #6 tab 07/10/21 The patient was counseled on the following discharge medications and changes in medications for homegoing were reviewed. The Reason for Use, instructions for use, and potential side effects were reviewed for all new medications. The patient's questions regarding all of their medications were answered. The patient was able to verbally demonstrate an understanding of their discharge medications.
== END 2021-07-10 16:18 | disposition home or self-care (01) | DRG 871 ==
LOC: ED 16:39 → PCU 07-08 07:12
PROVIDERS: Student in an Organized Health Care Education/Training Program; Admitting Provider Family Medicine; Emergency Provider Student in an Organized Health Care Education/Training Program; Visit Provider Internal Medicine
DX: A41.89 Other specified sepsis (principal); U07.1 COVID-19; J96.01 Acute respiratory failure with hypoxia; J12.82 Pneumonia due to coronavirus disease 2019; E43 Unspecified severe protein-calorie malnutrition; N17.9 Acute kidney failure, unspecified; E87.2 Acidosis; D69.6 Thrombocytopenia, unspecified; E78.5 Hyperlipidemia, unspecified; K21.9 Gastro-esophageal reflux disease without esophagitis; R73.9 Hyperglycemia, unspecified; Z87.891 Personal history of nicotine dependence; E66.9 Obesity, unspecified; Z68.32 Body mass index [BMI] 32.0-32.9, adult; Z28.3 Underimmunization status
CPT/HCPCS: 36415; 71045; 71275; 80048; 80053; 81001; 82728; 83036; 83605; 83615; 83735; 83880; 84132; 84145; 85025; 85379; 85610; 85730; 86140; 87040; 87070; 87077; 87086; 87088; 87205; 87426; 87449; 93005; 97110; 97161; 97165; 97530; 97802; 99251; 99285; J7030; J7050; Q9967; A4216; G0463; J0248

== ENCOUNTER 2021-07-11 15:55 | Inpatient (IN) | payer MEDICARE, SELFPAY ==
[2021-07-11] VITALS (7 sets, daily range): BP systolic 124–158; BP diastolic 70–83; PULSE 65–86; RESP 16–34; TEMP 35.7–36.8; O2SAT 94–98; BMI 33.3; BMI 32.3
--- NOTE | 2021-07-11 16:15 | CT_ITS ---
STUDY: CTA CHEST REASON FOR EXAM: Male, 65 years old. covid 19 pulmonary embolism RADIATION DOSAGE (If Supplied By Facility): CTDIvol = ( 11.35 ) mGy, DLP = ( 455.60 ) mGycm TECHNIQUE: The examination was performed with the intravenous administration of IV 100mL Isovue-370. Post-processing of the angiographic images was performed, with multiplanar reformation and 3D reconstruction. Individualized dose optimization techniques were used for this CT. COMPARISON: 07/07/2021 FINDINGS: Normal enhancement of the main pulmonary artery and right and left pulmonary arteries. Normal enhancement of the bilateral peripheral pulmonary arteries. There is no demonstrated pulmonary embolism. Normal thoracic aorta and visualized great vessels. There is no demonstrated aortic dissection. Normal heart and pericardium. Normal mediastinum. Normal hilar regions. Normal visualized trachea and bronchi. The lungs are well expanded. Multifocal groundglass opacities with interstitial thickening (mosaic attenuation) with features commonly reported with COVID pneumonia. Overall increased since prior study, particularly in the upper lobes. Some of the consolidation in the bilateral lower lobes partially resolved. Normal pleura. Normal chest wall structures. Normal osseous structures. Hepatic steatosis. Small hiatal hernia. CT/CTA Chest W/WO Contrast IMPRESSION: 1. No central or segmental pulmonary embolism. 2. Multifocal infiltrates with features commonly reported with COVID pneumonia, overall worse since prior study. Electronically Signed: Amrik Yee MD ([place]) at 17:21 EST , Service support ,
--- NOTE | 2021-07-11 16:15 | EKG12_ITS ---
Test Reason : SOB Blood Pressure : / mmHG Vent. Rate : 084 BPM Atrial Rate : 084 BPM P-R Int : 142 ms QRS Dur : 086 ms QT Int : 418 ms P-R-T Axes : -20 -08 006 degrees QTc Int : 493 ms Normal sinus rhythm Prolonged QT Abnormal ECG Confirmed by EVERETTE HERNANDEZ, NINA ([id number]), primer expeditor and drier DUSTIN ALMEIDA ([id number]) on 07/13/2021 11:10:48 AM Referred By: MIGUELITO Confirmed By:NINA GAVIRIA MD
--- NOTE | 2021-07-11 16:16 | ED.VIS.DYS ---
HPI History of Present Illness Chief Complaint: Shortness of Breath Informant: patient and spouse/S.O. Narrative Narrative: 65-year-old male currently was discharged yesterday from the hospital due to COVID-19 infection. states that he first felt ill June 27. They came to the hospital [place] when he became dyspneic and was admitted. He was placed in PCU. No DVT or PE noted. He started on dexamethasone. He was discharged home yesterday. According to the discharge notes he was supposed to be on home oxygen but the states that they do not have home oxygen. Patient coughed most of the night and did not get any sleep. He began to experience some chest pain particularly with coughing. His states that they were checking his home oxygen last night and it was hovering in the low 80s and occasionally down into the 70s. He was not Covid vaccinated. states he is not treated for any chronic medical conditions [facility] Medical History Former tobacco use GERD (gastroesophageal reflux disease) Obesity Home Medications omeprazole magnesium [Prilosec OTC] 20 mg PO QHS 10/29/18 [History Last Taken 07/06/21] dexamethasone 6 mg PO DAILY 6 Days #6 tab 07/10/21 [Rx Last Taken Unknown] Allergy/AdvReac Type Severity Reaction Status Date / Time peanut Allergy Anaphylaxis Verified 07/11/21 15:56 Family History (Updated 07/07/21 @ 17:[address] Lia Contreras MD) Mother Cancer Surgical History H/O unilateral orchiectomy History of appendectomy Social History household members: spouse Smoking Status: Former smoker how long ago did patient quit smoking: Quit 40 years prior, smoked 4 ppd since teen until quit. alcohol intake: never substance use type: does not use ROS ROS ED ROS Narrative Fatigue Constitutional Constitutional ED: Denies chills, fever(s) or weight loss Eyes Eyes: Denies change in vision or diplopia ENT ENT ED: Denies ear pain, rhinorrhea or sore throat Cardiovascular Cardiovascular: Reports chest pain; Denies orthopnea, palpitations or racing heartbeat Respiratory/Chest Respiratory/Chest: Reports cough, dyspnea, dyspnea on exertion and sputum; Denies orthopnea Gastrointestinal Gastrointestinal: Reports nausea; Denies abdominal pain, diarrhea or vomiting Genitourinary Genitourinary ED: Denies dysuria, hematuria or urinary frequency Musculoskeletal Musculoskeletal: Denies arthralgias or myalgias Integumentary Denies abscess or rash Neurologic Neurologic: Denies headache(s) or weakness Psychiatric Psychiatric: Denies anxiety, depression, suicidal ideation or suicidal thoughts Endocrine Endocrinology: Denies polydipsia, polyphagia or polyuria Allergic/Immunologic Allergic/Immunologic ED: Denies mouth swelling, tongue swelling or urticaria EXAM Physical Exam Narrative Exam Narrative: Patient appears ill. Const Vital Signs: 07/11/21 15:56 07/11/21 15:59 07/11/21 17:11 Temperature 98.0 F Temperature Source Temporal Pulse Rate 86 84 Respiratory Rate 34 H 28 H Respiratory Effort Short of Breath Respiratory Depth Shallow Respiratory Pattern Tachypnea Blood Pressure 158/71 H 158/71 H Blood Pressure Mean 100 100 Pulse Ox 98 97 Oxygen Delivery Method Non-Rebreather Non-Rebreather Room Air 07/11/21 17:38 Temperature 98.0 F Temperature Source Temporal Pulse Rate 70 Respiratory Rate 23 H Respiratory Effort Respiratory Depth Respiratory Pattern Blood Pressure 133/70 H Blood Pressure Mean 91 Pulse Ox 98 Oxygen Delivery Method Nasal Cannula Positive well nourished and well developed General Appearance ED: well developed HEENT Reports normocephalic, head/scalp atraumatic, TM's clear and moist mucous membranes atraumatic Tympanic Membrane ED: Yes TM's clear Eyes PERRL and EOMs intact bilaterally Neck no lymphadenopathy, supple and no JVD Resp clear to auscultation bilaterally Resp Narrative: Patient is tachypneic with increased work of breathing. Lung sounds are otherwise clear. Cardio regular rate, regular rhythm and no murmurs GI normal to inspection, nondistended, normoactive bowel sounds and non-tender Auscultation: normoactive bowel sounds Palpation: soft Back/Spine no CVA tenderness and normal ROM Extremity normal to inspection General Extremety ED: Negative for edema General Extremity: Negative for edema Neuro oriented x3 and CN's II-XII intact bilaterally Sensorium / Orientation: alert Motor Exam: strength 5/5 throughout Psych mental status grossly normal Mood & Affect: Negative for depressed or tearful Skin no rashes or lesions noted and no wounds Rashes: no rashes MDM MDM MDM Narrative Medical decision making narrative: Patient was transitioned down to 9 L high flow. Basic blood work was significant for an elevated lactic acid of 5.2 which I believe is not due to shock but rather due to his prolonged hypoxia. His CTA is negative for pulmonary embolism but is worse than his previous one several days ago. Plan will be for admission Lab Data Attestation: I reviewed the patient's lab results. Labs: Laboratory Results - last 24 hr 07/11/21 07/11/21 07/11/21 16:15 16:15 16:15 WBC 7.2 RBC 5.68 Hgb 15.8 Hct 48.1 MCV 84.7 MCH 27.8 MCHC 32.8 RDW Std Deviation 42.9 RDW Coeff of Daiana 13.8 Plt Count 178 MPV 11.5 Immature Gran % (Auto) 1.000 H Neut % (Auto) 78.9 H Lymph % (Auto) 14.1 L [place] % (Auto) 5.7 Eos % (Auto) 0.0 Baso % (Auto) 0.3 Absolute Neuts (auto) 5.7 Absolute Lymphs (auto) 1.01 Nucleated RBC % 0 PT 14.3 INR 1.2 APTT 26.5 Sodium 141 Potassium 3.6 Chloride 105 Carbon Dioxide 24.0 Anion Gap 12 BUN 21 H Creatinine 1.11 Estim Creat Clear Calc 74.98 Est GFR (MDRD) Af Amer 85 Est GFR (MDRD) Non-Af 71 BUN/Creatinine Ratio 18.9 Glucose 197 H Lactic Acid Calcium 8.7 Total Bilirubin 1.40 H AST 95 H ALT 106 H Alkaline Phosphatase 91 Troponin I High Sens 8 B-Natriuretic Peptide Total Protein 7.3 Albumin 3.2 Globulin 4.1 Albumin/Globulin Ratio 0.8 L 07/11/21 07/11/21 16:15 16:15 WBC RBC Hgb Hct MCV MCH MCHC RDW Std Deviation RDW Coeff of Daiana Plt Count MPV Immature Gran % (Auto) Neut % (Auto) Lymph % (Auto) [place] % (Auto) Eos % (Auto) Baso % (Auto) Absolute Neuts (auto) Absolute Lymphs (auto) Nucleated RBC % PT INR APTT Sodium Potassium Chloride Carbon Dioxide Anion Gap BUN Creatinine Estim Creat Clear Calc Est GFR (MDRD) Af Amer Est GFR (MDRD) Non-Af BUN/Creatinine Ratio Glucose Lactic Acid 5.2 H* Calcium Total Bilirubin AST ALT Alkaline Phosphatase Troponin I High Sens B-Natriuretic Peptide 56.6 Total Protein Albumin Globulin Albumin/Globulin Ratio Radiography Diagnostic Testing: Clinical Impression(s) from Imaging Studies Chest CTA 07/11/21 16:15 IMPRESSION: 1. No central or segmental pulmonary embolism. 2. Multifocal infiltrates with features commonly reported with COVID pneumonia, overall worse since prior study. Electronically Signed: Amrik Yee MD ([place]) at 17:21 EST , Service support , EKG Initial EKG: Attestation: I personally reviewed and interpreted this EKG as follows: Comments: Normal sinus rhythm with a ventricular rate of 84 bpm Discharge Plan Triage Chief Complaint: Shortness of Breath ED Provider: Mahesh Casas Dx/Rx/DC Orders Clinical Impression: COVID-19, Acute hypoxemic respiratory failure due to COVID-19 Prescriptions: No Action omeprazole magnesium [Prilosec OTC] 20 MG tablet,delayed release (DR/EC) 20 mg PO QHS RF: 0 dexamethasone 6 mg tablet 6 mg PO DAILY 6 Days Qty: 6 RF: 0 Primary Care Provider: Care Physician,No Primary Referrals: Care Physician,No Primary [Primary Care Provider] - Disposition Disposition: Acute Care [facility]
[2021-07-11 16:36] LABS: Absolute Lymphocyte Count 1.01 X10^3/uL (0.83-4.51); Absolute Neutrophil Count 5.7 X10^3/uL (2.0-7.7); Basophil# 0.02 X10^3/uL; Basophil% 0.3 % (0-1); Hematocrit 48.1 % (40-54); Hemoglobin 15.8 g/dL (13.0-16.5); Lymphocyte # 1.01 X10^3/ul (0.83-4.51); Lymphocyte % 14.1 % (19-41); Mean Corp Hgb Conc 32.8 g/dL (32-36); Mean Corpuscular Hgb 27.8 pg (27.0-32.0); Mean Corpuscular Volume 84.7 fL (80-94); Mean Platelet Vol. 11.5 fl (6.2-12.0); Monocyte# 0.41 X10^3/uL; Monocyte% 5.7 % (0-10); NRBC Flagged by Analyzer 0 % (0-5); Neutrophil # 5.67 X10^3/uL (2.7-7.7); Neutrophil % 78.9 % (47-70); Platelet Count 178 K/mm3 (150-450); RBC Distribution Width CV 13.8 % (11.6-14.6); RBC Distribution Width SD 42.9 fl (35.1-43.9); Red Blood Count 5.68 M/mm3 (4.6-6.2); White Blood Count 7.2 K/mm3 (4.4-11.0)
[2021-07-11 16:41] LABS: International Normalized Ratio 1.2; Partial Thromboplast Time 26.5 Seconds (24.1-36.2); Prothrombin Time (Protime)PT. 14.3 SECONDS (11.7-14.9)
[2021-07-11 16:47] LABS: ALB/GLOB Ratio 0.8 RATIO (0.9-2.4); AST(SGOT) 95 U/L (15-37); Alanine Aminotransfer ALT/SGPT 106 U/L (16-61); Albumin, Serum 3.2 g/dL (3.2-5.0); Alkaline Phosphatase 91 U/L (45-117); Anion Gap 12 (5-15); BUN 21 mg/dL (7-18); BUN/Creat Ratio 18.9 RATIO (10-20); Calcium,Total 8.7 mg/dL (8.5-10.1); Chloride 105 mmol/L (98-107); Creatinine, Serum 1.11 mg/dL (0.70-1.30); EST Glomerular Filtration Rate 71 mL/min (>60); Est Glom Filt Rate - Afr Amer 85 mL/min (>60); Estimated Creatinine Clearance 74.98 ml/min; Globulin 4.1 g/dL (2.2-4.2); Glucose 197 mg/dL (74-106); Potassium 3.6 mmol/L (3.5-5.1); Protein, Total 7.3 g/dL (6.4-8.2); Sodium Level 141 mmol/L (136-145); Troponin-I HS 8 pg/mL (3.0-78.0)
[2021-07-11 16:58] LABS: Lactic Acid 5.2 mmol/L (0.4-1.9)
[2021-07-11 17:06] LABS: BNP,B-Type NATRIURETIC PEPTIDE 56.6 pg/mL (0-100)
--- NOTE | 2021-07-11 18:18 | HP.PCM.HOS_ITS ---
HPI - General HPI Narrative TONNY WILSON, is a 65 M who presents with shortness of breath. Patient was sick on 27 June and presented on the with COVID-19 shortness of breath. Patient was treated with dexamethasone as well as remdesivir. Patient was not discharged on the third and was not requiring oxygen at that time since he was satting 94% on room air. Patient was discharged and had a pulse oximeter. While at home, patient's oxygen was dropping down into the 80s and 70s and given his worsening respiratory status he was sent back into the emergency room. They repeated the CAT scan of his chest there is no PE but just worsening infiltrates throughout. And patient had go up on his oxygen to 9 L. Patient is unvaccin ated for COVID-19. [facility] Medical History Former tobacco use GERD (gastroesophageal reflux disease) Obesity Home Medications omeprazole magnesium [Prilosec OTC] 20 mg PO QHS 10/29/18 [History Last Taken 07/06/21] dexamethasone 6 mg PO DAILY 6 Days #6 tab 07/10/21 [Rx Last Taken Unknown] Allergy/AdvReac Type Severity Reaction Status Date / Time peanut Allergy Anaphylaxis Verified 07/11/21 15:56 Family History Mother Cancer Surgical History H/O unilateral orchiectomy History of appendectomy Social History household members: spouse Smoking Status: Former smoker how long ago did patient quit smoking: Quit 40 years prior, smoked 4 ppd since teen until quit. alcohol intake: never substance use type: does not use ROS ROS Narrative Fevers and chills. Some nausea. Coughing some productive phlegm. Chest pain with coughing. All review of systems were negative except as mentioned above in the history of present illness and the other review of systems. Vital Signs Vital Signs Vital Signs: 07/11/21 15:56 07/11/21 15:59 07/11/21 17:11 Temperature 36.7 C Temperature Source Temporal Pulse Rate 86 84 Respiratory Rate 34 H 28 H Respiratory Effort Short of Breath Respiratory Depth Shallow Respiratory Pattern Tachypnea Blood Pressure 158/71 H 158/71 H Blood Pressure Mean 100 100 Pulse Ox 98 97 Oxygen Delivery Method Non-Rebreather Non-Rebreather Room Air 07/11/21 17:38 Temperature 36.7 C Temperature Source Temporal Pulse Rate 70 Respiratory Rate 23 H Respiratory Effort Respiratory Depth Respiratory Pattern Blood Pressure 133/70 H Blood Pressure Mean 91 Pulse Ox 98 Oxygen Delivery Method Nasal Cannula Weight Weight: 114.7 kg Body Mass Index (BMI) 33.3 Physical Exam Const alert General Appearance: cooperative HEENT normocephalic, head/scalp atraumatic, hearing grossly normal bilaterally and moist oral mucous membranes Eyes PERRL Neck no lymphadenopathy Resp normal respiratory effort and no retractions Resp Narrative: Diffuse fine crackles Cardio regular rate, regular rhythm, S1 normal heart sound and S2 normal heart sound GI normal to inspection, nondistended, normoactive bowel sounds, soft to palpation, non-tender, non-distended and hepatosplenomegaly Extremity normal to inspection Skin no rashes or lesions noted Neuro oriented x3 Sensorium / Orientation: awake, alert and oriented to person Results Lab / Micro Data Attestation: I reviewed the patient's lab results. Result Diagrams: 07/11/21 16:15 07/11/21 16:15 Labs: Laboratory Results - last 24 hr 07/11/21 16:15: WBC 7.2, RBC 5.68, Hgb 15.8, Hct 48.1, MCV 84.7, MCH 27.8, MCHC 32.8, RDW Std Deviation 42.9, RDW Coeff of Daiana 13.8, Plt Count 178, MPV 11.5, Immature Gran % (Auto) 1.000 H, Neut % (Auto) 78.9 H, Lymph % (Auto) 14.1 L, [place] % (Auto) 5.7, Eos % (Auto) 0.0, Baso % (Auto) 0.3, Absolute Neuts (auto) 5.7, Absolute Lymphs (auto) 1.01, Nucleated RBC % 0 07/11/21 16:15: PT 14.3, INR 1.2, APTT 26.5 07/11/21 16:15: Sodium 141, Potassium 3.6, Chloride 105, Carbon Dioxide 24.0, Anion Gap 12, BUN 21 H, Creatinine 1.11, Estim Creat Clear Calc 74.98, Est GFR (MDRD) Af Amer 85, Est GFR (MDRD) Non-Af 71, BUN/Creatinine Ratio 18.9, Glucose 197 H, Calcium 8.7, Total Bilirubin 1.40 H, AST 95 H, ALT 106 H, Alkaline Phosphatase 91, Troponin I High Sens 8, Total Protein 7.3, Albumin 3.2, Globulin 4.1, Albumin/Globulin Ratio 0.8 L 07/11/21 16:15: Lactic Acid 5.2 H* 07/11/21 16:15: B-Natriuretic Peptide 56.6 Radiology Impression Chest CTA 07/11/21 16:15 IMPRESSION: 1. No central or segmental pulmonary embolism. 2. Multifocal infiltrates with features commonly reported with COVID pneumonia, overall worse since prior study. Electronically Signed: Amrik Yee MD ([place]) at 17:21 EST , Service support , Assessment & Plan Assessment/Plan (1) COVID-19: (2) Acute hypoxemic respiratory failure due to COVID-19: PLAN: 1. Acute hypoxic respiratory failure Secondary to COVID-19 His oxygenation has steadily worsened since yesterday now on room air to 9 L nasal cannula Will check for bacterial pneumonia which was previously negative on July 07 No PE on CTA 2. COVID-19 pneumonia Onset was , patient will need to quarantine through July 17 Continue with dexamethasone. Patient will have 5 more days We will give the patient 1 more dose of remdesivir will complete a 5-day course Consider consultation to infectious disease for baricitinib if patient does require high flow or Airvo 3. Diabetes mellitus type 2 Previously undiagnosed but his blood sugar is 195 Certainly exacerbated by the steroids Diabetic diet Sliding scale insulin A1c was 5.2 from the first 4. Thrombocytopenia Since resolved Monitor 5. VTE prophylaxis with Lovenox. Monitor platelets. 6. CODE STATUS: Addressed with the patient. Asked patient if he came to ventilator will he choose. He chose the ventilator. He is full CODE STATUS. Case discussed with the patient's significant other at bedside. Charges/Coding Visit Charges Inpatient E&M: 12347 Init Hosp L3
--- NOTE | 2021-07-11 18:50 | CASEMGMT ---
GAVIN FLORES Assessment: RN CM to room to meet with patient for initial transition planning/care coordination assessment. GAVIN FLORES introduced self and role at [facility]. Pt voices understanding and consents to assessment at this time. Pt sitting up in bed wearing O2 via high flow cannula, in no apparent distress at this time. Patient's Farhana present at bedside. Pt is A/O at this time and answers all questions appropriately. Care providers, pharmacy, and demographics verified/updated at this time. PCP: Previously saw Dr. Benites who is retired. states office plans to establish patient with Dr. Brewer Specialists: Denies Preferred Pharmacy: [facility] [place] Insurance: [employer] Medicare PPO Prescription Benefit: yes Living Will/HPOA: Patient denies having LW/HPOA. LNOK: - Farhana Barahona and mother- Ondina Barahona Living Arrangements: Lives with in one story house with 5 steps to enter the home with a handrail. Patient states independent with ADLs prior to hospitalization. Social: Former smoker (quit 40 years ago), denies ETOH use Transportation: Patient drives self and states no transportation concerns. DME/HHC/SNF: Patient denies having any DME in home. Denies need for any DME at this time. Denies previous HHC or SNF stays. Patient discharged from [facility] on 07/10/20, did not qualify for home oxygen at that time. c/o increased shortness of breath and low SpO2. COVID symptoms onset 06/27. Initial positive COVID test at [facility] on 07/07/21. Patient is unvaccinated against COVID. states she has no symptoms and has tested negative for COVID. Patient denies concerns getting medications or groceries once he is home. Patient has pulse ox monitor at home. Prefers [employer] if home oxygen is needed at time of discharge. Pt has no concerns with going home at time of discharge. CM to follow for any discharge planning/needs. Pt voices no concerns/needs at this time. Advised pt to ask for CM if any questions/concerns/needs arise. Voices understanding. PLAN: home, pending home oxygen qualification
[2021-07-11 20:18] LABS: Reflex Lactate? Y
[2021-07-11 21:08] LABS: Lactic Acid 2.1 mmol/L (0.4-1.9)
[2021-07-11] MEDS: Pantoprazole Sodium 20 MG Tablet PO (22:39)
--- NOTE | 2021-07-12 00:33 | PCS.PANDOC ---
PANDEMIC DOCUMENTATION INITIATED: Date: 07/12/2021 Time: 2199
[2021-07-12 04:19] VITALS: BP 132/69; PULSE 64; RESP 18; TEMP 36.4; O2SAT 93
[2021-07-12 06:31] LABS: Bedside Glucose 140 mg/dL (70-110)
[2021-07-12 06:45] LABS: Absolute Lymphocyte Count 0.53 X10^3/uL (0.83-4.51); Basophil# 0.01 X10^3/uL; Basophil% 0.2 % (0-1); Eosinophil# 0.01 X10^3/uL; Eosinophils% 0.2 % (0-5); Hematocrit 43.5 % (40-54); Hemoglobin 14.8 g/dL (13.0-16.5); Lymphocyte # 0.53 X10^3/ul (0.83-4.51); Lymphocyte % 10.6 % (19-41); Mean Corpuscular Hgb 28.8 pg (27.0-32.0); Mean Corpuscular Volume 84.8 fL (80-94); Mean Platelet Vol. 11.8 fl (6.2-12.0); Monocyte# 0.43 X10^3/uL; Monocyte% 8.6 % (0-10); NRBC Flagged by Analyzer 0 % (0-5); Neutrophil # 3.97 X10^3/uL (2.7-7.7); Neutrophil % 79.4 % (47-70); POSITIVE DIFFERENTIAL YES; Platelet Count 142 K/mm3 (150-450); RBC Distribution Width CV 13.7 % (11.6-14.6); RBC Distribution Width SD 42.4 fl (35.1-43.9); Red Blood Count 5.13 M/mm3 (4.6-6.2)
[2021-07-12 06:52] LABS: Differential Indicated SCAN CRITERIA MET
[2021-07-12 07:09] LABS: ALB/GLOB Ratio 0.7 RATIO (0.9-2.4); AST(SGOT) 56 U/L (15-37); Alanine Aminotransfer ALT/SGPT 92 U/L (16-61); Albumin, Serum 2.7 g/dL (3.2-5.0); Alkaline Phosphatase 83 U/L (45-117); Anion Gap 8 (5-15); BUN 18 mg/dL (7-18); BUN/Creat Ratio 23.2 RATIO (10-20); Calcium,Total 8.2 mg/dL (8.5-10.1); Chloride 109 mmol/L (98-107); Creatinine, Serum 0.78 mg/dL (0.70-1.30); EST Glomerular Filtration Rate 107 mL/min (>60); Est Glom Filt Rate - Afr Amer 129 mL/min (>60); Globulin 4.1 g/dL (2.2-4.2); Glucose 143 mg/dL (74-106); Potassium 3.9 mmol/L (3.5-5.1); Protein, Total 6.8 g/dL (6.4-8.2); Sodium Level 140 mmol/L (136-145)
[2021-07-12 07:23] LABS: Differential Comment SCANNED
[2021-07-12] MEDS: Enoxaparin 40 MG/0.4 ML Syringe SC (08:49)
[2021-07-12] MEDS: dexAMETHasone 4 MG Tablet 6 MG PO (08:49)
[2021-07-12 09:35] VITALS: BP 134/64; PULSE 73; RESP 18; TEMP 36.4; O2SAT 92
[2021-07-12] MEDS: Insulin Lispro 100 UNIT/ML INSULN.PEN SC ×2 (11:22→16:11)
[2021-07-12 13:13] VITALS: BP 143/83; PULSE 67; RESP 18; TEMP 36.6; O2SAT 96
[2021-07-12 13:17] VITALS: PULSE 74
[2021-07-12 14:01] LABS: Bedside Glucose 188 mg/dL (70-110)
[2021-07-12] MEDS: Furosemide 40 MG/4 ML Vial IV (15:08)
[2021-07-12] MEDS: 0.9% Saline Lock 10 ML Syringe IV (15:08)
[2021-07-12 16:20] LABS: Bedside Glucose 167 mg/dL (70-110)
--- NOTE | 2021-07-12 16:51 | PCM.PN.HOSP ---
Subjective Subjective Follow-up on acute hypoxic respiratory failure secondary to acute COVID-19 pneumonia: Patient was seen and examined. Complains of feeling short of breath. He is currently on 11 L of oxygen. He denied any dizziness chest discomfort. Reviewed his vitals overnight as well as admitting blood work and CT of the chest independently Objective Data Objective Data Vital Signs: Vital Signs Temp Pulse Resp BP Pulse Ox 97.8 F 74 18 143/83 H 96 07/12/21 13:13 07/12/21 13:17 07/12/21 13:13 07/12/21 13:13 07/12/21 13:13 Oxygen Flow Rate (L/min) 11 Oxygen Delivery Method High Flow Weight: 111.4 kg Body Mass Index (BMI) 32.3 Intake & Output: Intake and Output for Last 24 Hours 07/10/21 07/11/21 07/12/21 23:59 23:59 23:59 Intake Total 7.5 / 7.5 650 / 650 Balance 7.5 / 7.5 650 / 650 Medical Nutrition Assessment Dietitian: Malnutrition Criteria Met Start: 07/12/21 14:11 Freq: Status: Active Protocol: Document 07/12/21 14:11 AG (Rec: 07/12/21 14:11 [id number]) Nutrition Malnutrition Evidence of Malnutrition Exists Yes Malnutrition (moderate): Acute Illness/Injury Evidenced By Suboptimal Energy Intake ( Moderate),Weight Loss ( Moderate) Clinical Problem Acute Disease or Injury Related Malnutrition Etiology moderate, acute malnutrition r /t acute COVID-19 illness Signs/Symptoms as evidenced by unintentional wt loss of 9.4#/3.7% x 2 weeks , estimated PO intake meeting <75% of estimated energy needs >1 week Status Active Problem Recommendation Dietitian Recommendations/Changes recommend regular diet; A1C WNL so suspect hyperglycemia r /t steroid. Will add ensure compact w/ breakfast and dinner for additional protein/ calories if consumed. Lab / Micro Data Result Diagrams: 07/12/21 06:05 07/12/21 06:05 Labs: Laboratory Results - last 24 hr 07/11/21 16:15: Lactic Acid 5.2 H* 07/11/21 16:15: B-Natriuretic Peptide 56.6 07/11/21 16:15: Procalcitonin 0.10 H 07/11/21 20:20: Lactic Acid 2.1 H* 07/12/21 06:05: WBC 5.0, RBC 5.13, Hgb 14.8, Hct 43.5, MCV 84.8, MCH 28.8, MCHC 34.0, RDW Std Deviation 42.4, RDW Coeff of Daiana 13.7, Plt Count 142 L, MPV 11.8, Immature Gran % (Auto) 1.000 H, Neut % (Auto) 79.4 H, Lymph % (Auto) 10.6 L, [place] % (Auto) 8.6, Eos % (Auto) 0.2, Baso % (Auto) 0.2, Absolute Neuts (auto) 4.0, Absolute Lymphs (auto) 0.53 L, Nucleated RBC % 0, Differential Comment SCANNED 07/12/21 06:05: Sodium 140, Potassium 3.9, Chloride 109 H, Carbon Dioxide 23.0, Anion Gap 8, BUN 18, Creatinine 0.78, Estim Creat Clear Calc 106.70, Est GFR (MDRD) Af Amer 129, Est GFR (MDRD) Non-Af 107, BUN/Creatinine Ratio 23.2 H, Glucose 143 H, Calcium 8.2 L, Total Bilirubin 1.00, AST 56 H, ALT 92 H, Alkaline Phosphatase 83, Total Protein 6.8, Albumin 2.7 L, Globulin 4.1, Albumin/Globulin Ratio 0.7 L 07/12/21 06:21: POC Glucose 140 H 07/12/21 11:19: POC Glucose 188 H 07/12/21 16:09: POC Glucose 167 H Micro: Microbiology 07/12/21 02:14 Urine, Random Legionella Antigen - Final 07/12/21 02:14 Urine, Clean Catch Streptococcus pneumoniae Antigen (M - Final Radiography Diagnostic Testing: Radiology Impression Chest CTA 07/11/21 16:15 IMPRESSION: 1. No central or segmental pulmonary embolism. 2. Multifocal infiltrates with features commonly reported with COVID pneumonia, overall worse since prior study. Electronically Signed: Amrik Yee MD ([place]) at 17:21 EST , Service support , Physical Exam Narrative Physical exam: General: Alert, Oriented x3, Cooperative, No apparent distress, on 11 L of oxygen HEENT: Atraumatic Oral: Moist Mucosa Neck: Supple Lungs: Diminished to auscultation Cardiovascular: HS I+II, regular, no murmurs Abdomen: Bowel Sounds Present, Soft, Non Tender Extremities: No edema Assessment & Plan Assessment/Plan (1) COVID-19: (2) Acute hypoxemic respiratory failure due to COVID-19: PLAN: 1. Acute hypoxic respiratory failure secondary to Acute COVID-19 pneumonia, worsening Patient is on 11L oxygen Patient was discharged off oxygen CTA of the chest on admission was negative for acute PE; showed worsening infiltrates Continue on dexamethasone, encourage use of incentive spirometer 2. Type II DM, blood sugars are better controlled, Continue on insulin sliding scale 3. DVT prophylaxis with Lovenox subcu Charges/Coding Visit Charges Inpatient E&M: 83153 [facility] Hosp L3
[2021-07-12 20:31] VITALS: BP 125/78; PULSE 68; RESP 20; TEMP 36.3; O2SAT 96
[2021-07-12] MEDS: Acetaminophen 325 MG Tablet 650 MG PO (21:40)
[2021-07-12] MEDS: Pantoprazole Sodium 20 MG Tablet PO (21:40)
[2021-07-12 21:51] LABS: Bedside Glucose 223 mg/dL (70-110)
[2021-07-13 05:03] VITALS: BP 133/72; PULSE 60; RESP 18; TEMP 36.3; O2SAT 93
[2021-07-13 06:55] LABS: Bedside Glucose 130 mg/dL (70-110)
[2021-07-13 06:56] LABS: Absolute Lymphocyte Count 0.54 X10^3/uL (0.83-4.51); Absolute Neutrophil Count 4.5 X10^3/uL (2.0-7.7); Basophil# 0.02 X10^3/uL; Basophil% 0.4 % (0-1); Eosinophil# 0.01 X10^3/uL; Eosinophils% 0.2 % (0-5); Hematocrit 42.9 % (40-54); Hemoglobin 14.4 g/dL (13.0-16.5); Lymphocyte # 0.54 X10^3/ul (0.83-4.51); Lymphocyte % 9.5 % (19-41); Mean Corp Hgb Conc 33.6 g/dL (32-36); Mean Corpuscular Hgb 28.2 pg (27.0-32.0); Mean Platelet Vol. 11.8 fl (6.2-12.0); Monocyte# 0.56 X10^3/uL; Monocyte% 9.8 % (0-10); NRBC Flagged by Analyzer 0 % (0-5); Neutrophil # 4.47 X10^3/uL (2.7-7.7); Neutrophil % 78.5 % (47-70); POSITIVE DIFFERENTIAL YES; Platelet Count 141 K/mm3 (150-450); RBC Distribution Width CV 13.9 % (11.6-14.6); RBC Distribution Width SD 42.2 fl (35.1-43.9); Red Blood Count 5.11 M/mm3 (4.6-6.2); White Blood Count 5.7 K/mm3 (4.4-11.0)
[2021-07-13 07:07] LABS: Differential Indicated SCAN CRITERIA MET
[2021-07-13 07:25] LABS: ALB/GLOB Ratio 0.7 RATIO (0.9-2.4); AST(SGOT) 34 U/L (15-37); Alanine Aminotransfer ALT/SGPT 71 U/L (16-61); Albumin, Serum 2.5 g/dL (3.2-5.0); Alkaline Phosphatase 74 U/L (45-117); Anion Gap 6 (5-15); BUN 27 mg/dL (7-18); BUN/Creat Ratio 34.9 RATIO (10-20); Calcium,Total 8.7 mg/dL (8.5-10.1); Chloride 109 mmol/L (98-107); Creatinine, Serum 0.77 mg/dL (0.70-1.30); EST Glomerular Filtration Rate 107 mL/min (>60); Est Glom Filt Rate - Afr Amer 130 mL/min (>60); Estimated Creatinine Clearance 108.09 ml/min; Globulin 3.7 g/dL (2.2-4.2); Glucose 134 mg/dL (74-106); Protein, Total 6.2 g/dL (6.4-8.2); Sodium Level 140 mmol/L (136-145)
[2021-07-13 08:24] LABS: Differential Comment SCANNED
[2021-07-13 08:37] VITALS: BP 136/76; PULSE 59; RESP 18; TEMP 36.4; O2SAT 92
[2021-07-13] MEDS: dexAMETHasone 4 MG Tablet 6 MG PO (10:57)
[2021-07-13] MEDS: Enoxaparin 40 MG/0.4 ML Syringe SC (10:58)
[2021-07-13] MEDS: Insulin Lispro 100 UNIT/ML INSULN.PEN SC ×2 (11:06→16:40)
[2021-07-13 11:20] LABS: Bedside Glucose 184 mg/dL (70-110)
[2021-07-13 15:09] VITALS: BP 131/73; PULSE 76; RESP 18; TEMP 36.6; O2SAT 92
[2021-07-13 16:43] VITALS: O2SAT 94
[2021-07-13 17:15] LABS: Bedside Glucose 173 mg/dL (70-110)
--- NOTE | 2021-07-13 18:14 | PN.HOSP_ITS ---
Subjective Subjective Follow-up on acute hypoxic respiratory failure secondary to acute COVID-19 pneumonia: Patient was seen and examined. No acute events overnight. He remains on 9-10L of oxygen. He refused trial of Lasix today stating it made his flanks hurt and he had to go the bathroom a lot. Objective Data Objective Data Vital Signs: Vital Signs Temp Pulse Resp BP Pulse Ox 97.8 F 76 18 131/73 H 94 07/13/21 15:09 07/13/21 15:09 07/13/21 15:09 07/13/21 15:09 07/13/21 16:43 Oxygen Flow Rate (L/min) 9 Oxygen Delivery Method High Flow Weight: 111.4 kg Body Mass Index (BMI) 32.3 Intake & Output: Intake and Output for Last 24 Hours 07/11/21 07/12/21 07/13/21 23:59 23:59 23:59 Intake Total 7.5 / 7.5 950 / 950 1320 / 1320 Balance 7.5 / 7.5 950 / 950 1320 / 1320 Medical Nutrition Assessment Dietitian: Malnutrition Criteria Met Start: 07/12/21 14:11 Freq: Status: Active Protocol: Document 07/12/21 14:11 AG (Rec: 07/12/21 14:11 AG [id number]) Nutrition Malnutrition Evidence of Malnutrition Exists Yes Malnutrition (moderate): Acute Illness/Injury Evidenced By Suboptimal Energy Intake ( Moderate),Weight Loss ( Moderate) Clinical Problem Acute Disease or Injury Related Malnutrition Etiology moderate, acute malnutrition r /t acute COVID-19 illness Signs/Symptoms as evidenced by unintentional wt loss of 9.4#/3.7% x 2 weeks , estimated PO intake meeting <75% of estimated energy needs >1 week Status Active Problem Recommendation Dietitian Recommendations/Changes recommend regular diet; A1C WNL so suspect hyperglycemia r /t steroid. Will add ensure compact w/ breakfast and dinner for additional protein/ calories if consumed. Lab / Micro Data Result Diagrams: 07/13/21 06:25 07/13/21 06:25 Labs: Laboratory Results - last 24 hr 07/12/21 21:39: POC Glucose 223 H 07/13/21 06:25: WBC 5.7, RBC 5.11, Hgb 14.4, Hct 42.9, MCV 84.0, MCH 28.2, MCHC 33.6, RDW Std Deviation 42.2, RDW Coeff of Daiana 13.9, Plt Count 141 L, MPV 11.8, Immature Gran % (Auto) 1.600 H, Neut % (Auto) 78.5 H, Lymph % (Auto) 9.5 L, [place] % (Auto) 9.8, Eos % (Auto) 0.2, Baso % (Auto) 0.4, Absolute Neuts (auto) 4.5, Absolute Lymphs (auto) 0.54 L, Nucleated RBC % 0, Differential Comment SCANNED 07/13/21 06:25: Sodium 140, Potassium 4.0, Chloride 109 H, Carbon Dioxide 25.0, Anion Gap 6, BUN 27 H, Creatinine 0.77, Estim Creat Clear Calc 108.09, Est GFR (MDRD) Af Amer 130, Est GFR (MDRD) Non-Af 107, BUN/Creatinine Ratio 34.9 H, Glucose 134 H, Calcium 8.7, Total Bilirubin 0.80, AST 34, ALT 71 H, Alkaline Phosphatase 74, Total Protein 6.2 L, Albumin 2.5 L, Globulin 3.7, Albumin/Globulin Ratio 0.7 L 07/13/21 06:41: POC Glucose 130 H 07/13/21 11:05: POC Glucose 184 H 07/13/21 16:38: POC Glucose 173 H Micro: Microbiology 07/12/21 13:20 Sputum, Expectorated/Coughed Gram Stain - Final 07/12/21 13:20 Sputum, Expectorated/Coughed Respiratory Culture - Preliminary Appears to be normal respiratory kristyn. Further studies to follow. 07/12/21 02:14 Urine, Random Legionella Antigen - Final 07/12/21 02:14 Urine, Clean Catch Streptococcus pneumoniae Antigen (M - F inal Physical Exam Narrative Physical exam: General: Alert, Oriented x3, Cooperative, No apparent distress, on 10 L of oxyg en HEENT: Atraumatic Oral: Moist Mucosa Neck: Supple Lungs: Diminished to auscultation Cardiovascular: HS I+II, regular, no murmurs Abdomen: Bowel Sounds Present, Soft, Non Tender Extremities: No edema Assessment & Plan Assessment/Plan (1) COVID-19: (2) Acute hypoxemic respiratory failure due to COVID-19: PLAN: 1. Acute hypoxic respiratory failure secondary to Acute COVID-19 pneumonia, waxing and waning Currently on 10L oxygen Patient was discharged off oxygen a few days ago CTA of the chest on admission was negative for acute PE; showed worsening infiltrates Continue on dexamethasone, encourage use of incentive spirometer 2. Type II DM, blood sugars are better controlled, Continue on insulin sliding scale 3. DVT prophylaxis with Lovenox subcu Charges/Coding Visit Charges Inpatient E&M: 24486 Subs Hosp L2
[2021-07-13 20:00] VITALS: BP 131/96; PULSE 69; PULSE 70; RESP 20; TEMP 36.5
[2021-07-13] MEDS: Pantoprazole Sodium 20 MG Tablet PO (20:09)
[2021-07-13 20:51] LABS: Bedside Glucose 221 mg/dL (70-110)
[2021-07-14] VITALS (10 sets, daily range): BP systolic 124–139; BP diastolic 68–86; PULSE 58–70; RESP 16–22; TEMP 35.9–36.6; O2SAT 91–96
[2021-07-14 06:40] LABS: Bedside Glucose 119 mg/dL (70-110)
[2021-07-14 07:44] LABS: Absolute Lymphocyte Count 0.61 X10^3/uL (0.83-4.51); Absolute Neutrophil Count 5.6 X10^3/uL (2.0-7.7); Basophil# 0.04 X10^3/uL; Basophil% 0.6 % (0-1); Hematocrit 47.7 % (40-54); Hemoglobin 15.7 g/dL (13.0-16.5); Lymphocyte # 0.61 X10^3/ul (0.83-4.51); Lymphocyte % 8.7 % (19-41); Mean Corp Hgb Conc 32.9 g/dL (32-36); Mean Corpuscular Hgb 27.9 pg (27.0-32.0); Mean Corpuscular Volume 84.7 fL (80-94); Mean Platelet Vol. 11.5 fl (6.2-12.0); Monocyte# 0.59 X10^3/uL; Monocyte% 8.4 % (0-10); NRBC Flagged by Analyzer 0 % (0-5); Neutrophil # 5.62 X10^3/uL (2.7-7.7); Platelet Count 203 K/mm3 (150-450); RBC Distribution Width CV 14.2 % (11.6-14.6); RBC Distribution Width SD 42.8 fl (35.1-43.9); Red Blood Count 5.63 M/mm3 (4.6-6.2)
[2021-07-14 08:02] LABS: ALB/GLOB Ratio 0.7 RATIO (0.9-2.4); AST(SGOT) 26 U/L (15-37); Alanine Aminotransfer ALT/SGPT 72 U/L (16-61); Alkaline Phosphatase 83 U/L (45-117); Anion Gap 6 (5-15); BUN 25 mg/dL (7-18); BUN/Creat Ratio 27.9 RATIO (10-20); Calcium,Total 9.4 mg/dL (8.5-10.1); Chloride 107 mmol/L (98-107); EST Glomerular Filtration Rate 90 mL/min (>60); Est Glom Filt Rate - Afr Amer 109 mL/min (>60); Estimated Creatinine Clearance 92.48 ml/min; Globulin 4.3 g/dL (2.2-4.2); Glucose 117 mg/dL (74-106); Potassium 4.5 mmol/L (3.5-5.1); Protein, Total 7.3 g/dL (6.4-8.2); Sodium Level 141 mmol/L (136-145)
[2021-07-14] MEDS: Enoxaparin 40 MG/0.4 ML Syringe SC (08:38)
[2021-07-14] MEDS: dexAMETHasone 4 MG Tablet 6 MG PO (08:38)
[2021-07-14] MEDS: Insulin Lispro 100 UNIT/ML INSULN.PEN SC ×2 (11:02→16:15)
[2021-07-14 11:30] LABS: Bedside Glucose 219 mg/dL (70-110)
--- NOTE | 2021-07-14 11:54 | PN.HOSP_ITS ---
Subjective Subjective Follow-up on acute hypoxic respiratory failure secondary to acute COVID-19 pneumonia: Patient was seen and examined. No acute events overnight. He remains on 9-10L of oxygen. Objective Data Objective Data Vital Signs: Vital Signs Temp Pulse Resp BP Pulse Ox 97.9 F 65 16 130/74 H 92 07/14/21 11:00 07/14/21 11:00 07/14/21 11:00 07/14/21 11:00 07/14/21 11:00 Oxygen Flow Rate (L/min) 9.5 Oxygen Delivery Method High Flow Weight: 111.4 kg Body Mass Index (BMI) 32.3 Intake & Output: Intake and Output for Last 24 Hours 07/12/21 07/13/21 07/14/21 23:59 23:59 23:59 Intake Total 950 / 950 1320 / 1395 135 / 135 Balance 950 / 950 1320 / 1395 135 / 135 Medical Nutrition Assessment Dietitian: Malnutrition Criteria Met Start: 07/12/21 14:11 Freq: Status: Active Protocol: Document 07/12/21 14:11 AG (Rec: 07/12/21 14:11 [id number]) Nutrition Malnutrition Evidence of Malnutrition Exists Yes Malnutrition (moderate): Acute Illness/Injury Evidenced By Suboptimal Energy Intake ( Moderate),Weight Loss ( Moderate) Clinical Problem Acute Disease or Injury Related Malnutrition Etiology moderate, acute malnutrition r /t acute COVID-19 illness Signs/Symptoms as evidenced by unintentional wt loss of 9.4#/3.7% x 2 weeks , estimated PO intake meeting <75% of estimated energy needs >1 week Status Active Problem Recommendation Dietitian Recommendations/Changes recommend regular diet; A1C WNL so suspect hyperglycemia r /t steroid. Will add ensure compact w/ breakfast and dinner for additional protein/ calories if consumed. Lab / Micro Data Result Diagrams: 07/14/21 06:51 07/14/21 06:51 Labs: Laboratory Results - last 24 hr 07/13/21 16:38: POC Glucose 173 H 07/13/21 20:15: POC Glucose 221 H 07/14/21 06:18: POC Glucose 119 H 07/14/21 06:51: WBC 7.0, RBC 5.63, Hgb 15.7, Hct 47.7, MCV 84.7, MCH 27.9, MCHC 32.9, RDW Std Deviation 42.8, RDW Coeff of Daiana 14.2, Plt Count 203, MPV 11.5, Immature Gran % (Auto) 2.300 H, Neut % (Auto) 80.0 H, Lymph % (Auto) 8.7 L, [place] % (Auto) 8.4, Eos % (Auto) 0.0, Baso % (Auto) 0.6, Absolute Neuts (auto) 5.6, Absolute Lymphs (auto) 0.61 L, Nucleated RBC % 0 07/14/21 06:51: Sodium 141, Potassium 4.5, Chloride 107, Carbon Dioxide 28.0, Anion Gap 6, BUN 25 H, Creatinine 0.90, Estim Creat Clear Calc 92.48, Est GFR (MDRD) Af Amer 109, Est GFR (MDRD) Non-Af 90, BUN/Creatinine Ratio 27.9 H, Glucose 117 H, Calcium 9.4, Total Bilirubin 1.20 H, AST 26, ALT 72 H, Alkaline Phosphatase 83, Total Protein 7.3, Albumin 3.0 L, Globulin 4.3 H, Albumin/Globulin Ratio 0.7 L 07/14/21 11:00: POC Glucose 219 H Micro: Microbiology 07/12/21 13:20 Sputum, Expectorated/Coughed Gram Stain - Final 07/12/21 13:20 Sputum, Expectorated/Coughed Respiratory Culture - Final 07/12/21 02:14 Urine, Random Legionella Antigen - Final 07/12/21 02:14 Urine, Clean Catch Streptococcus pneumoniae Antigen (M - Final Physical Exam Narrative Physical exam: General: Alert, Oriented x3, Cooperative, No apparent distress, on 10 L of oxygen HEENT: Atraumatic Oral: Moist Mucosa Neck: Supple Lungs: Diminished to auscultation Cardiovascular: HS I+II, regular, no murmurs Abdomen: Bowel Sounds Present, Soft, Non Tender Extremities: No edema Assessment & Plan Assessment/Plan (1) COVID-19: (2) Acute hypoxemic respiratory failure due to COVID-19: PLAN: 1. Acute hypoxic respiratory failure secondary to Acute COVID-19 pneumonia, waxing and waning Currently on 10L oxygen Patient was discharged off oxygen a few days ago CTA of the chest on admission was negative for acute PE; showed worsening infiltrates Continue on dexamethasone, encourage use of incentive spirometer 2. Type II DM, blood sugars are uncontrolled, Start on Lantus 10 units daily, continue on insulin sliding scale 3. DVT prophylaxis with Lovenox subcu Charges/Coding Visit Charges Inpatient E&M: 34820 Subs Hosp L2
[2021-07-14 16:26] LABS: Bedside Glucose 178 mg/dL (70-110)
[2021-07-14] MEDS: Pantoprazole Sodium 20 MG Tablet PO (22:05)
[2021-07-14 23:15] LABS: Bedside Glucose 237 mg/dL (70-110)
[2021-07-15 03:26] VITALS: BP 140/77; PULSE 56; RESP 16; TEMP 36.1; O2SAT 93
[2021-07-15 04:00] VITALS: O2SAT 94
[2021-07-15 07:06] LABS: Bedside Glucose 103 mg/dL (70-110)
[2021-07-15 10:10] LABS: Absolute Lymphocyte Count 0.73 X10^3/uL (0.83-4.51); Absolute Neutrophil Count 6.4 X10^3/uL (2.0-7.7); Basophil# 0.04 X10^3/uL; Basophil% 0.5 % (0-1); Eosinophil# 0.01 X10^3/uL; Eosinophils% 0.1 % (0-5); Hematocrit 47.2 % (40-54); Hemoglobin 15.2 g/dL (13.0-16.5); Lymphocyte # 0.73 X10^3/ul (0.83-4.51); Lymphocyte % 9.3 % (19-41); Mean Corp Hgb Conc 32.2 g/dL (32-36); Mean Corpuscular Hgb 27.6 pg (27.0-32.0); Mean Corpuscular Volume 85.8 fL (80-94); Mean Platelet Vol. 11.1 fl (6.2-12.0); Monocyte# 0.39 X10^3/uL; NRBC Flagged by Analyzer 0 % (0-5); Neutrophil # 6.41 X10^3/uL (2.7-7.7); Neutrophil % 81.5 % (47-70); Platelet Count 192 K/mm3 (150-450); RBC Distribution Width CV 14.5 % (11.6-14.6); RBC Distribution Width SD 43.6 fl (35.1-43.9); White Blood Count 7.9 K/mm3 (4.4-11.0)
[2021-07-15] MEDS: dexAMETHasone 4 MG Tablet 6 MG PO (10:30)
[2021-07-15] MEDS: Enoxaparin 40 MG/0.4 ML Syringe SC (10:30)
[2021-07-15 10:32] VITALS: BP 131/72; PULSE 67; RESP 16; TEMP 36.6; O2SAT 94
[2021-07-15 10:42] LABS: ALB/GLOB Ratio 0.6 RATIO (0.9-2.4); AST(SGOT) 29 U/L (15-37); Alanine Aminotransfer ALT/SGPT 68 U/L (16-61); Albumin, Serum 2.6 g/dL (3.2-5.0); Alkaline Phosphatase 78 U/L (45-117); Anion Gap 7 (5-15); BUN 27 mg/dL (7-18); BUN/Creat Ratio 28.4 RATIO (10-20); Calcium,Total 8.9 mg/dL (8.5-10.1); Chloride 108 mmol/L (98-107); Creatinine, Serum 0.95 mg/dL (0.70-1.30); EST Glomerular Filtration Rate 84 mL/min (>60); Est Glom Filt Rate - Afr Amer 102 mL/min (>60); Estimated Creatinine Clearance 87.61 ml/min; Globulin 4.1 g/dL (2.2-4.2); Glucose 162 mg/dL (74-106); Potassium 3.9 mmol/L (3.5-5.1); Protein, Total 6.7 g/dL (6.4-8.2); Sodium Level 139 mmol/L (136-145)
[2021-07-15 11:45] LABS: Bedside Glucose 103 mg/dL (70-110)
[2021-07-15 14:17] VITALS: BP 121/70; PULSE 75; RESP 18; TEMP 36.4; O2SAT 96
[2021-07-15 16:20] LABS: Bedside Glucose 183 mg/dL (70-110)
[2021-07-15] MEDS: Insulin Lispro 100 UNIT/ML INSULN.PEN SC (17:12)
[2021-07-15 18:09] VITALS: BP 129/71; PULSE 69; RESP 18; TEMP 36.2; O2SAT 95
--- NOTE | 2021-07-15 20:15 | PCM.PN.HOSP ---
Subjective Subjective Follow-up on acute hypoxic respiratory failure secondary to acute COVID-19 pneumonia: Patient was seen and examined. No acute events overnight. He is on 6.5L of oxygen. Objective Data Objective Data Vital Signs: Vital Signs Temp Pulse Resp BP Pulse Ox 97.2 F L 69 18 129/71 H 95 07/15/21 18:09 07/15/21 18:09 07/15/21 18:09 07/15/21 18:09 07/15/21 18:09 Oxygen Flow Rate (L/min) 6 Oxygen Delivery Method High Flow Weight: 111.4 kg Body Mass Index (BMI) 32.3 Intake & Output: Intake and Output for Last 24 Hours 07/13/21 07/14/21 07/15/21 23:59 23:59 23:59 Intake Total 1320 / 1395 1215 / 1215 1100 / 1100 Balance 1320 / 1395 1215 / 1215 1100 / 1100 Medical Nutrition Assessment Dietitian: Malnutrition Criteria Met Start: 07/12/21 14:11 Freq: Status: Active Protocol: Document 07/12/21 14:11 (Rec: 07/12/21 14:11 [id number]) Nutrition Malnutrition Evidence of Malnutrition Exists Yes Malnutrition (moderate): Acute Illness/Injury Evidenced By Suboptimal Energy Intake ( Moderate),Weight Loss ( Moderate) Clinical Problem Acute Disease or Injury Related Malnutrition Etiology moderate, acute malnutrition r /t acute COVID-19 illness Signs/Symptoms as evidenced by unintentional wt loss of 9.4#/3.7% x 2 weeks , estimated PO intake meeting <75% of estimated energy needs >1 week Status Active Problem Recommendation Dietitian Recommendations/Changes recommend regular diet; A1C WNL so suspect hyperglycemia r /t steroid. Will add ensure compact w/ breakfast and dinner for additional protein/ calories if consumed. Lab / Micro Data Result Diagrams: 07/15/21 09:17 07/15/21 09:17 Labs: Laboratory Results - last 24 hr 07/14/21 22:09: POC Glucose 237 H 07/15/21 06:42: POC Glucose 103 07/15/21 09:17: WBC 7.9, RBC 5.50, Hgb 15.2, Hct 47.2, MCV 85.8, MCH 27.6, MCHC 32.2, RDW Std Deviation 43.6, RDW Coeff of Daiana 14.5, Plt Count 192, MPV 11.1, Immature Gran % (Auto) 3.600 H, Neut % (Auto) 81.5 H, Lymph % (Auto) 9.3 L, [place] % (Auto) 5.0, Eos % (Auto) 0.1, Baso % (Auto) 0.5, Absolute Neuts (auto) 6.4, Absolute Lymphs (auto) 0.73 L, Nucleated RBC % 0 07/15/21 09:17: Sodium 139, Potassium 3.9, Chloride 108 H, Carbon Dioxide 24.0, Anion Gap 7, BUN 27 H, Creatinine 0.95, Estim Creat Clear Calc 87.61, Est GFR (MDRD) Af Amer 102, Est GFR (MDRD) Non-Af 84, BUN/Creatinine Ratio 28.4 H, Glucose 162 H, Calcium 8.9, Total Bilirubin 1.00, AST 29, ALT 68 H, Alkaline Phosphatase 78, Total Protein 6.7, Albumin 2.6 L, Globulin 4.1, Albumin/Globulin Ratio 0.6 L 07/15/21 11:40: POC Glucose 103 07/15/21 16:09: POC Glucose 183 H Micro: Microbiology 07/12/21 13:20 Sputum, Expectorated/Coughed Gram Stain - Final 07/12/21 13:20 Sputum, Expectorated/Coughed Respiratory Culture - Final 07/12/21 02:14 Urine, Random Legionella Antigen - Final 07/12/21 02:14 Urine, Clean Catch Streptococcus pneumoniae Antigen (M - Final Physical Exam Narrative Physical exam: General: Alert, Oriented x3, Cooperative, No apparent distress, on 6.5 L of oxygen HEENT: Atraumatic Oral: Moist Mucosa Neck: Supple Lungs: Diminished to auscultation Cardiovascular: HS I+II, regular, no murmurs Abdomen: Bowel Sounds Present, Soft, Non Tender Extremities: No edema Assessment & Plan Assessment/Plan (1) COVID-19: (2) Acute hypoxemic respiratory failure due to COVID-19: PLAN: 1. Acute hypoxic respiratory failure secondary to Acute COVID-19 pneumonia, waxing and waning Currently on 6.5L oxygen Patient was discharged off oxygen a few days ago CTA of the chest on admission was negative for acute PE; showed worsening infiltrates Continue on dexamethasone, encourage use of incentive spirometer 2. Type II DM, blood sugars are uncontrolled, Continue on Lantus 10 units daily, continue on insulin sliding scale 3. DVT prophylaxis with Lovenox subcu Charges/Coding Visit Charges Inpatient E&M: 88476 Subs Hosp L2
[2021-07-15] MEDS: Pantoprazole Sodium 20 MG Tablet PO (21:25)
[2021-07-15 21:33] VITALS: BP 133/73; PULSE 66; RESP 18; TEMP 36.3; O2SAT 94
[2021-07-15 22:00] LABS: Bedside Glucose 230 mg/dL (70-110)
[2021-07-16] VITALS (13 sets, daily range): BP systolic 129–141; BP diastolic 67–87; PULSE 61–77; RESP 18–20; TEMP 36–36.4; O2SAT 78–98
[2021-07-16] MEDS: 0.9% Saline Lock 10 ML Syringe IV ×2 (00:33→21:18)
[2021-07-16 06:36] LABS: Bedside Glucose 114 mg/dL (70-110)
--- NOTE | 2021-07-16 06:54 | NURSING ---
This nurse spoke to pt regarding completing home walking pulse ox test this morning. The pt stated they would like to complete this test during the day today.
[2021-07-16 07:05] LABS: Absolute Lymphocyte Count 0.68 X10^3/uL (0.83-4.51); Absolute Neutrophil Count 6.3 X10^3/uL (2.0-7.7); Basophil# 0.08 X10^3/uL; Eosinophil# 0.02 X10^3/uL; Eosinophils% 0.2 % (0-5); Hematocrit 49.2 % (40-54); Hemoglobin 15.8 g/dL (13.0-16.5); Lymphocyte # 0.68 X10^3/ul (0.83-4.51); Lymphocyte % 8.5 % (19-41); Mean Corp Hgb Conc 32.1 g/dL (32-36); Mean Corpuscular Volume 87.1 fL (80-94); Monocyte# 0.71 X10^3/uL; Monocyte% 8.9 % (0-10); NRBC Flagged by Analyzer 0 % (0-5); Neutrophil # 6.27 X10^3/uL (2.7-7.7); Neutrophil % 78.2 % (47-70); POSITIVE COUNT YES; Platelet Count 184 K/mm3 (150-450); RBC Distribution Width CV 14.5 % (11.6-14.6); RBC Distribution Width SD 44.9 fl (35.1-43.9); Red Blood Count 5.65 M/mm3 (4.6-6.2)
[2021-07-16 07:34] LABS: ALB/GLOB Ratio 0.7 RATIO (0.9-2.4); AST(SGOT) 35 U/L (15-37); Alanine Aminotransfer ALT/SGPT 78 U/L (16-61); Albumin, Serum 2.8 g/dL (3.2-5.0); Alkaline Phosphatase 83 U/L (45-117); Anion Gap 8 (5-15); BUN 26 mg/dL (7-18); BUN/Creat Ratio 28.1 RATIO (10-20); Calcium,Total 8.9 mg/dL (8.5-10.1); Chloride 105 mmol/L (98-107); Creatinine, Serum 0.92 mg/dL (0.70-1.30); EST Glomerular Filtration Rate 87 mL/min (>60); Est Glom Filt Rate - Afr Amer 106 mL/min (>60); Estimated Creatinine Clearance 90.47 ml/min; Globulin 4.3 g/dL (2.2-4.2); Glucose 104 mg/dL (74-106); Potassium 4.3 mmol/L (3.5-5.1); Protein, Total 7.1 g/dL (6.4-8.2); Sodium Level 139 mmol/L (136-145)
[2021-07-16 07:37] LABS: Differential Indicated SCAN CRITERIA MET
[2021-07-16] MEDS: dexAMETHasone 4 MG Tablet 6 MG PO (10:43)
[2021-07-16] MEDS: Enoxaparin 40 MG/0.4 ML Syringe SC (10:44)
[2021-07-16 11:50] LABS: Bedside Glucose 123 mg/dL (70-110)
--- NOTE | 2021-07-16 13:50 | PCM.PN.HOSP ---
Subjective Subjective Follow-up on acute hypoxic respiratory failure secondary to acute COVID-19 pneumonia: Patient was seen and examined. No acute events overnight. He is on 6L of oxygen. Objective Data Objective Data Vital Signs: Vital Signs Temp Pulse Resp BP Pulse Ox 97.2 F L 77 20 H 129/67 H 94 07/16/21 10:15 07/16/21 10:15 07/16/21 10:15 07/16/21 10:15 07/16/21 12:49 Oxygen Flow Rate (L/min) [ 6 AMBULATING with Oxygen #3] Oxygen Flow Rate (L/min) [ 5 AMBULATING with Oxygen #2] Oxygen Flow Rate (L/min) [ 4 AMBULATING with Oxygen #1] Oxygen Flow Rate (L/min) 6 Oxygen Delivery Method High Flow Weight: 111.4 kg Body Mass Index (BMI) 32.3 Intake & Output: Intake and Output for Last 24 Hours 07/14/21 07/15/21 07/16/21 23:59 23:59 23:59 Intake Total 1215 / 1215 1100 / 1100 360 / 360 Balance 1215 / 1215 1100 / 1100 360 / 360 Medical Nutrition Assessment Dietitian: Malnutrition Criteria Met Start: 07/12/21 14:11 Freq: Status: Active Protocol: Document 07/12/21 14:11 AG (Rec: 07/12/21 14:11 [id number]) Nutrition Malnutrition Evidence of Malnutrition Exists Yes Malnutrition (moderate): Acute Illness/Injury Evidenced By Suboptimal Energy Intake ( Moderate),Weight Loss ( Moderate) Clinical Problem Acute Disease or Injury Related Malnutrition Etiology moderate, acute malnutrition r /t acute COVID-19 illness Signs/Symptoms as evidenced by unintentional wt loss of 9.4#/3.7% x 2 weeks , estimated PO intake meeting <75% of estimated energy needs >1 week Status Active Problem Recommendation Dietitian Recommendations/Changes recommend regular diet; A1C WNL so suspect hyperglycemia r /t steroid. Will add ensure compact w/ breakfast and dinner for additional protein/ calories if consumed. Lab / Micro Data Result Diagrams: 07/16/21 06:02 07/16/21 06:02 Labs: Laboratory Results - last 24 hr 07/15/21 16:09: POC Glucose 183 H 07/15/21 21:22: POC Glucose 230 H 07/16/21 06:02: WBC 8.0, RBC 5.65, Hgb 15.8, Hct 49.2, MCV 87.1, MCH 28.0, MCHC 32.1, RDW Std Deviation 44.9 H, RDW Coeff of Daiana 14.5, Plt Count 184, MPV 12.0, Immature Gran % (Auto) 3.200 H, Neut % (Auto) 78.2 H, Lymph % (Auto) 8.5 L, [place] % (Auto) 8.9, Eos % (Auto) 0.2, Baso % (Auto) 1.0, Absolute Neuts (auto) 6.3, Absolute Lymphs (auto) 0.68 L, Nucleated RBC % 0 07/16/21 06:02: Sodium 139, Potassium 4.3, Chloride 105, Carbon Dioxide 26.0, Anion Gap 8, BUN 26 H, Creatinine 0.92, Estim Creat Clear Calc 90.47, Est GFR (MDRD) Af Amer 106, Est GFR (MDRD) Non-Af 87, BUN/Creatinine Ratio 28.1 H, Glucose 104, Calcium 8.9, Total Bilirubin 1.10 H, AST 35, ALT 78 H, Alkaline Phosphatase 83, Total Protein 7.1, Albumin 2.8 L, Globulin 4.3 H, Albumin/Globulin Ratio 0.7 L 07/16/21 06:25: POC Glucose 114 H 07/16/21 11:44: POC Glucose 123 H Micro: Microbiology 07/12/21 13:20 Sputum, Expectorated/Coughed Gram Stain - Final 07/12/21 13:20 Sputum, Expectorated/Coughed Respiratory Culture - Final 07/12/21 02:14 Urine, Random Legionella Antigen - Final 07/12/21 02:14 Urine, Clean Catch Streptococcus pneumoniae Antigen (M - Final Physical Exam Narrative Physical exam: General: Alert, Oriented x3, Cooperative, No apparent distress, on 6 L of oxygen HEENT: Atraumatic Oral: Moist Mucosa Neck: Supple Lungs: Diminished to auscultation Cardiovascular: HS I+II, regular, no murmurs Abdomen: Bowel Sounds Present, Soft, Non Tender Extremities: No edema Assessment & Plan Assessment/Plan (1) COVID-19: (2) Acute hypoxemic respiratory failure due to COVID-19: PLAN: 1. Acute hypoxic respiratory failure secondary to Acute COVID-19 pneumonia, waxing and waning Patient is unvaccinated; Currently on 6L oxygen Patient was discharged not requiring oxygen a few days ago; presented back on 9 L of oxygen CTA of the chest on admission was negative for acute PE; showed worsening infiltrates Continue on dexamethasone, encourage use of incentive spirometer 2. Type II DM, blood sugars are uncontrolled, Continue on Lantus 10 units daily, continue on insulin sliding scale 3. DVT prophylaxis with Lovenox subcu Charges/Coding Visit Charges Inpatient E&M: 48495 Subs Hosp L2
[2021-07-16] MEDS: Insulin Lispro 100 UNIT/ML INSULN.PEN SC (16:39)
[2021-07-16 16:50] LABS: Bedside Glucose 211 mg/dL (70-110)
[2021-07-16] MEDS: Pantoprazole Sodium 20 MG Tablet PO (21:17)
[2021-07-16 21:55] LABS: Bedside Glucose 242 mg/dL (70-110)
[2021-07-17 01:37] VITALS: O2SAT 96
[2021-07-17 03:46] VITALS: BP 124/80; PULSE 60; RESP 18; TEMP 36.2; O2SAT 92
--- NOTE | 2021-07-17 05:41 | NURSING ---
This spoke with Pt regarding walking pulse ox. Pt would like to complete during the day.
[2021-07-17 06:41] LABS: Bedside Glucose 127 mg/dL (70-110)
[2021-07-17 08:06] VITALS: O2SAT 94
[2021-07-17 10:19] VITALS: BP 141/69; PULSE 73; RESP 18; TEMP 36.4; O2SAT 93
--- NOTE | 2021-07-17 10:21 | PCM.DC.SUM ---
Providers Date of Admission: 07/11/21 Primary Care Physician: No Primary Care Phys Reason For Visit: COVID 19 Diagnosis Discharge Diagnosis (1) COVID-19: Status: Acute Code(s): U07.1 - COVID-19 (2) Acute hypoxemic respiratory failure due to COVID-19: Status: Acute Code(s): U07.1 - COVID-19; J96.01 - Acute respiratory failure with hypoxia Medications at Discharge Home Medications omeprazole magnesium [Prilosec OTC] 20 mg PO QHS 10/29/18 dexamethasone 6 mg PO DAILY 6 Days #6 tab 07/10/21 insulin glargine [Lantus Solostar U-100 Insulin] 10 unit SUBCUT DAILY #15 ml 07/17/21 rivaroxaban [Xarelto] 10 mg PO DAILY #30 tab 07/17/21 Hospital Course Summary of Care Provided Minutes Spent on Discharge: 35 Hospital Course: Patient is 65-year-old gentleman recently diagnosed with COVID discharge and presented back to the emergency department with worsening symptoms 1. Acute hypoxic respiratory failure secondary to COVID-19 pneumonia. Patient presented with worsening infiltrate did continue with dexamethasone as well as use of incentive spirometry condition did improve patient was however discharged home on oxygen he will need portability since he is active both at home as well as in the community 2. Diabetes mellitus type 2 ? Uncontrolled as a result of concomitant use of steroid prescription written for insulin on discharge 3. DVT prophylaxis treated with Lovenox prescription written for Xarelto for 30 days Physical Exam Narrative GENERAL: cooperative HEENT: Atraumatic; EYES; Anicteric, Normal Conjunctiva NECK; supple, normal thyroid, RESPIRATORY: Diminished to auscultation CARDIOVASCULAR: Regular S1 S2, GI: soft, normoactive bowel sounds, : No Renal angle tenderness; EXTREMITIES: No edema, no clubbing, MUSCULOSKELETAL: no muscle waisting NEURO: Awake; no lateralizing signs. SKIN: No Rash PSYCH; Flat affect Medical Records Data Medical Nutrition Assessment Dietitian: Malnutrition Criteria Met Start: 07/12/21 14:11 Freq: Status: Active Protocol: Document 07/12/21 14:11 AG (Rec: 07/12/21 14:11 [id number]) Nutrition Malnutrition Evidence of Malnutrition Exists Yes Malnutrition (moderate): Acute Illness/Injury Evidenced By Suboptimal Energy Intake ( Moderate),Weight Loss ( Moderate) Clinical Problem Acute Disease or Injury Related Malnutrition Etiology moderate, acute malnutrition r /t acute COVID-19 illness Signs/Symptoms as evidenced by unintentional wt loss of 9.4#/3.7% x 2 weeks , estimated PO intake meeting <75% of estimated energy needs >1 week Status Active Problem Recommendation Dietitian Recommendations/Changes recommend regular diet; A1C WNL so suspect hyperglycemia r /t steroid. Will add ensure compact w/ breakfast and dinner for additional protein/ calories if consumed. Weight / BMI Weight Weight: 111.4 kg Body Mass Index (BMI) 32.3 ABG / Lab / Microbiology Data Result Diagrams: 07/16/21 06:02 07/16/21 06:02 Laboratory: Laboratory Results - last 24 hr 07/16/21 11:44: POC Glucose 123 H 07/16/21 16:30: POC Glucose 211 H 07/16/21 21:15: POC Glucose 242 H 07/17/21 06:33: POC Glucose 127 H Microbiology: Microbiology 07/12/21 13:20 Sputum, Expectorated/Coughed Gram Stain - Final 07/12/21 13:20 Sputum, Expectorated/Coughed Respiratory Culture - Final 07/12/21 02:14 Urine, Random Legionella Antigen - Final 07/12/21 02:14 Urine, Clean Catch Streptococcus pneumoniae Antigen (M - Final Meaningful Use Info Meaningful Use Diagnoses (Choose all that apply): None applicable Discharge Plan Admission Admit Date/Time: 07/11/21 18:14 Attending Provider: Duane Mei Primary Care Provider: Care Physician,No Primary Discharge Orders/Prescriptions Prescriptions: New Lantus Solostar U-100 Insulin 100 unit/mL (3 mL) Insulin Pen 10 unit subcut DAILY Qty: 15 RF: 0 Xarelto 10 mg tablet 10 mg PO DAILY Qty: 30 RF: 0 Continued omeprazole magnesium [Prilosec OTC] 20 MG tablet,delayed release (DR/EC) 20 mg PO QHS RF: 0 dexamethasone 6 mg tablet 6 mg PO DAILY 6 Days Qty: 6 RF: 0 Referrals / Follow Up: Care Physician,No Primary [Primary Care Provider] - In 1 Week Disposition Disposition (needs filled in before D/C Order can be placed): Home, Self Care Charges/Coding Visit Charges Inpatient E&M: 36591 Disch Hosp
[2021-07-17] MEDS: dexAMETHasone 4 MG Tablet 6 MG PO (10:28)
[2021-07-17] MEDS: Enoxaparin 40 MG/0.4 ML Syringe SC (10:29)
[2021-07-17 11:45] LABS: Bedside Glucose 117 mg/dL (70-110)
[2021-07-17 12:07] VITALS: O2SAT 2; O2SAT 4; O2SAT 5; O2SAT 86; O2SAT 92
--- NOTE | 2021-07-17 12:47 | CASEMGMT ---
Addendum entered by Naya Pacheco 07/17/21 15:40: RN SANDRA notified that [facility] is out of Q2ebankingrelto. Rx trf to [facility]. TC to pharmacy, spoke with Jose who states copay for med is $47. Notified pt nurse. Addendum entered by Naya Pacheco 07/17/21 13:39: Provided pt nurse lorena paper to give to pt. Original Note: Pt qualifies for home O2. Faxed [facility] [place] [facility] referral for O2, portable tank taken from stock. Email to Shruti at [facility] to make aware of referral.
[2021-07-17 14:40] VITALS: BP 131/77; PULSE 66; RESP 18; TEMP 36.4; O2SAT 93
== END 2021-07-17 16:24 | disposition home or self-care (01) | DRG 177 ==
LOC: ED 18:20 → MS3 18:35
PROVIDERS: Internal Medicine; Emergency Provider Emergency Medicine; Visit Provider Internal Medicine
DX: U07.1 COVID-19 (principal); J96.01 Acute respiratory failure with hypoxia; J12.82 Pneumonia due to coronavirus disease 2019; E44.0 Moderate protein-calorie malnutrition; E11.9 Type 2 diabetes mellitus without complications; D69.6 Thrombocytopenia, unspecified; K21.9 Gastro-esophageal reflux disease without esophagitis; Z87.891 Personal history of nicotine dependence; Z28.3 Underimmunization status
CPT/HCPCS: 36415; 71275; 80053; 82962; 83605; 83880; 84145; 84484; 85025; 85610; 85730; 87070; 87205; 87449; 93005; 94762; 99285; J7050; Q9967; A4216; J0248; J1940

== ENCOUNTER 2021-08-08 18:51 | Emergency (ER) | payer MEDICARE, SELFPAY ==
[2021-08-08 18:52] VITALS: BP 109/68; PULSE 123; RESP 26; TEMP 36.8; O2SAT 93; BMI 33.2
[2021-08-08 19:06] VITALS: BP 109/68; PULSE 123; RESP 26; TEMP 36.8; O2SAT 93; O2SAT 94
--- NOTE | 2021-08-08 19:15 | EKG12_ITS ---
Test Reason : SOB Blood Pressure : / mmHG Vent. Rate : 098 BPM Atrial Rate : 098 BPM P-R Int : 138 ms QRS Dur : 074 ms QT Int : 350 ms P-R-T Axes : -05 -10 004 degrees QTc Int : 446 ms Sinus rhythm with frequent Premature ventricular complexes Otherwise normal ECG Confirmed by CHICO HERNANDEZ, MERLYN ([id number]), photography editor CAS DALY ([id number]) on 08/10/2021 11:02:20 AM Referred By: FARHEEN Confirmed By:BRENDA GOLDEN MD
--- NOTE | 2021-08-08 19:15 | RAD_ITS ---
STUDY: X-RAY CHEST REASON FOR EXAM: Male, 65 years old. Dyspnea TECHNIQUE: Single frontal view of the chest. COMPARISON: 07/07/2021. FINDINGS: Minimal patchy bibasilar opacities are similar to prior Normal size heart. Normal mediastinum and diya. Normal visualized pulmonary arteries. Normal visualized aortic arch and descending thoracic aorta. Normal visualized thoracic spine. Normal visualized ribs, clavicles, and shoulders. There is no demonstrated abnormality of the visualized soft tissue structures of the upper abdomen. RAD/Chest 1 View (Portable) IMPRESSION: Minimal bibasilar pulmonary opacities, similar to prior may represent scarring/atelectasis versus pneumonia as clinically indicated Electronically Signed: Arnulfo Hernandez MD at 20:17 EST ,
--- NOTE | 2021-08-08 19:17 | EDS_ITS ---
HPI History of Present Illness Chief Complaint: Shortness of Breath Detail of Chief Complaint: Shortness of breath Informant: patient Narrative Narrative: Patient presents with shortness of breath that started over a month ago when he was diagnosed with COVID-19. Patient was discharged home after admission in the hospital with oxygen. Over the last week he has had increasing dyspnea. He still on 5 L of nasal cannula O2 at home. Patient has a cough that is mostly dry. Denies any fevers. He denies chest pain. He does describe intermittent headaches and chills and sweats. Patient states that he was on blood thinners for about 5 days after leaving the hospital but then he discontinued them. [facility] Medical History Former tobacco use GERD (gastroesophageal reflux disease) Obesity Home Medications omeprazole magnesium [Prilosec OTC] 20 mg PO QHS 10/29/18 [History Last Taken 07/10/21] apixaban [Eliquis] 5 mg PO BID #74 tab 08/08/21 [Rx Last Taken Unknown] Allergy/AdvReac Type Severity Reaction Status Date / Time No Known Allergies Allergy Verified 08/08/21 18:58 Family History Mother Cancer Surgical History H/O unilateral orchiectomy History of appendectomy Social History household members: spouse Smoking Status: Former smoker how long ago did patient quit smoking: Quit 40 years prior, smoked 4 ppd since teen until quit. alcohol intake: never substance use type: does not use ROS ROS ED Constitutional Constitutional ED: Reports systems reviewed and no addt'l complaints, except as documented; Denies body ache(s), change in weight or chills Eyes Eyes: Denies acute decrease in peripheral vision, change in vision, double vision or loss of vision ENT ENT ED: Reports none; Denies ear pain, lip swelling, loss taste/smell, neck pain, otalgia or sore throat Cardiovascular Cardiovascular: Reports none; Denies abdominal pain, chest pain with activity, leg edema, lightheadedness, palpitations, rapid heart rate or syncope Respiratory/Chest Respiratory/Chest: Reports none, cough and dyspnea; Denies change in mental status, dry cough, hemoptysis, shortness of breath at rest or shortness of breath with exertion Gastrointestinal Gastrointestinal: Reports none; Denies abdominal pain, change in stool character, diarrhea, hematemesis, hematochezia, melena, rectal bleeding or vomiting Genitourinary Genitourinary ED: Reports none; Denies abdominal discomfort, anuria, dysuria, genital pain or polyuria Musculoskeletal Musculoskeletal: Reports none; Denies arthralgias, back pain, difficulty walking, extremity pain, muscle weakness or myalgias Integumentary Reports none; Denies abscess or rash Neurologic Neurologic: Reports none; Denies abnormal gait, confusion, focal weakness, frequent falls, headache(s), loss of vision, numbness, paresthesias, radicular pain, vertigo or weakness Psychiatric Psychiatric: Reports systems reviewed and no addt'l complaints, except as documented and none; Denies behavioral changes, confusion, difficulty concentrating, hallucinations, suicidal ideation, tactile hallucinations or visual hallucinations Endocrine Endocrinology: Denies none, cold intolerance, excessive sweating, fatigue or heat intolerance Hematologic/Lymphatic Hematologic/Lymphatic: Reports none; Denies anemia, easy bleeding or easy bruising Allergic/Immunologic Allergic/Immunologic ED: Denies as per HPI, none, lip swelling, mouth swelling, throat swelling, tongue swelling or hives EXAM Physical Exam Const Vital Signs: 08/08/21 18:52 08/08/21 19:06 08/08/21 19:25 Temperature 98.3 F 98.3 F Temperature Source Temporal Temporal Pulse Rate 123 H 123 H 105 H Respiratory Rate 26 H 26 H 18 Respiratory Effort Short of Breath Labored Accessory Muscle Use Respiratory Depth Shallow Respiratory Pattern Tachypnea Blood Pressure 109/68 109/68 Blood Pressure Mean 81 81 Pulse Ox 93 93 Oxygen Delivery Method Nasal Cannula Nasal Cannula Oxygen Flow Rate (L/min) 5 5 08/08/21 20:26 08/08/21 21:14 Temperature 97.9 F Temperature Source Oral Pulse Rate 95 87 Respiratory Rate 16 19 H Respiratory Effort Respiratory Depth Respiratory Pattern Blood Pressure 132/90 H 137/80 H Blood Pressure Mean 104 99 Pulse Ox 97 95 Oxygen Delivery Method Nasal Cannula Nasal Cannula Oxygen Flow Rate (L/min) 5 5 Positive well nourished and well developed General Appearance ED: well developed and NAD HEENT Reports TM's clear and moist mucous membranes normocephalic and atraumatic; Negative for trauma or tenderness Tympanic Membrane ED: Yes TM's clear Eyes PERRL and EOMs intact bilaterally General Eye ED: Negative for pale conjunctiva or scleral icterus Neck no lymphadenopathy, supple and no JVD General: Negative for tenderness Chest Wall inspection of chest normal and palpation of chest normal Chest: Negative for tenderness Resp Resp Narrative: Patient tachypneic with some mild conversational dyspnea. Patient has Rales in the right base. No accessory muscle use or retractions. Effort and Inspection: Negative for respiratory distress or pain with movement Auscultation: rales; Negative for rhonchi, wheezes or diminished lung sounds Cardio regular rate, regular rhythm, S1 normal heart sound, S2 normal heart sound and no murmurs Peripheral Pulses: pulses 2+ throughout GI normal to inspection, nondistended, normoactive bowel sounds, soft to palpation, non-tender, non-distended and no masses Back/Spine no CVA tenderness and no thoracic nor lumbar tenderness Extremity normal to inspection General Extremety ED: Negative for edema General Extremity: Negative for edema Neuro oriented x3, CN's II-XII intact bilaterally, no sensory deficits noted and gait normal Sensorium / Orientation: awake, alert, oriented to person, oriented to place and oriented to time Motor Exam: strength 5/5 throughout and strength abnormal Psych mental status grossly normal Skin no rashes or lesions noted and no wounds MDM MDM MDM Narrative Medical decision making narrative: IV line established on arrival. Lab work-up was unremarkable other than elevated D-dimer and patient had a CTA of the chest which showed right upper lobe and right middle lobe PEs that are nonocclusive with no heart strain. Patient was started on Eliquis 10 mg p.o. Discussed case with hospitalist as well as recreation center director Dr. Bullard who would be happy to see patient in follow-up. Given that patient tolerating his 5 L at rest in the mid 90s and is currently feeling much improved it was felt patient can be treated as an outpatient with pulmonology follow-up. Patient and his are comfortable with this. I advised to return if increased dyspnea, chest pain, hemoptysis, or conditions worsen anyway. Lab Data Attestation: I reviewed the patient's lab results. Labs: Laboratory Results - last 24 hr 08/08/21 08/08/21 08/08/21 20:22 Unknown Unknown WBC 4.7 RBC 4.87 Hgb 13.9 Hct 41.0 MCV 84.2 MCH 28.5 MCHC 33.9 RDW Std Deviation 44.2 H RDW Coeff of Daiana 14.6 Plt Count 231 MPV 10.0 Immature Gran % (Auto) 0.900 Neut % (Auto) 80.6 H Lymph % (Auto) 10.1 L [place] % (Auto) 6.7 Eos % (Auto) 1.3 Baso % (Auto) 0.4 Absolute Neuts (auto) 3.8 Absolute Lymphs (auto) 0.47 L Nucleated RBC % 0 Differential Comment SCANNED D-Dimer Quant (PE/DVT) 2.12 H* Cancelled Sodium Potassium Chloride Carbon Dioxide Anion Gap BUN Creatinine Estim Creat Clear Calc Est GFR (MDRD) Af Amer Est GFR (MDRD) Non-Af BUN/Creatinine Ratio Glucose Lactic Acid Calcium Troponin I High Sens 08/08/21 08/08/21 Unknown Unknown WBC RBC Hgb Hct MCV MCH MCHC RDW Std Deviation RDW Coeff of Daiana Plt Count MPV Immature Gran % (Auto) Neut % (Auto) Lymph % (Auto) [place] % (Auto) Eos % (Auto) Baso % (Auto) Absolute Neuts (auto) Absolute Lymphs (auto) Nucleated RBC % Differential Comment D-Dimer Quant (PE/DVT) Sodium 137 Potassium 4.1 Chloride 108 H Carbon Dioxide 21.0 Anion Gap 8 BUN 18 Creatinine 1.14 Estim Creat Clear Calc 70.91 Est GFR (MDRD) Af Amer 83 Est GFR (MDRD) Non-Af 68 BUN/Creatinine Ratio 15.8 Glucose 140 H Lactic Acid 1.3 Calcium 8.9 Troponin I High Sens 9 Radiography Diagnostic Testing: Clinical Impression(s) from Imaging Studies Chest X-Ray 08/08/21 19:15 IMPRESSION: Minimal bibasilar pulmonary opacities, similar to prior may represent scarring/atelectasis versus pneumonia as clinically indicated Electronically Signed: Arnulfo Hernandez MD at 20:17 EST , Chest CTA 08/08/21 21:25 IMPRESSION: Right upper lobe and right middle lobe pulmonary emboli without right ventricular strain. Multifocal groundglass opacities typical for covid 19 slightly improved. Electronically Signed: Maneul Zambrano MD at 22:11 EST , ADDENDUM: 08/08/21 2221 IMPRESSION: Right upper lobe and right middle lobe pulmonary emboli without right ventricular strain. Multifocal groundglass opacities typical for covid 19 slightly improved. N.B. : The above Results were Read Back by Manuel Zambrano MD to Dr. Cee MD, and understanding confirmed on 08/08/2021 22:14:49 (ET). Electronically Signed: Manuel Zambrano MD at 22:11 EST , EKG Initial EKG: Attestation: I personally reviewed and interpreted this EKG as follows: Comments: Sinus rhythm with a rate of 98 bpm with occasional PVCs Discharge Plan Triage Chief Complaint: Shortness of Breath ED Provider: Vasile Mike Dx/Rx/DC Orders Clinical Impression: Acute dyspnea, Pulmonary embolism, COVID-19 Instructions: Embolism Pulmonary Dc, ED Dyspnea, Caring for Someone Who Has COVID-19 Prescriptions: New Eliquis 5 MG tablet 5 mg PO BID Qty: 74 RF: 0 No Action omeprazole magnesium [Prilosec OTC] 20 MG tablet,delayed release (DR/EC) 20 mg PO QHS RF: 0 Primary Care Provider: Gabino Brewer Referrals: Bert Bullard MD [STAFF PHYSICIAN] - 3-5 Days Gabino Brewer MD [Primary Care Provider] - Disposition Disposition: Home, Self Care
[2021-08-08] MEDS: Ipratropium/Albuterol Sulfate 3 ML AMPUL.NEB INHALATION (19:24)
[2021-08-08 19:25] VITALS: PULSE 105; RESP 18
[2021-08-08 20:13] LABS: Absolute Lymphocyte Count 0.47 X10^3/uL (0.83-4.51); Absolute Neutrophil Count 3.8 X10^3/uL (2.0-7.7); Basophil# 0.02 X10^3/uL; Basophil% 0.4 % (0-1); Eosinophil# 0.06 X10^3/uL; Eosinophils% 1.3 % (0-5); Hemoglobin 13.9 g/dL (13.0-16.5); Lymphocyte # 0.47 X10^3/ul (0.83-4.51); Lymphocyte % 10.1 % (19-41); Mean Corp Hgb Conc 33.9 g/dL (32-36); Mean Corpuscular Hgb 28.5 pg (27.0-32.0); Mean Corpuscular Volume 84.2 fL (80-94); Monocyte# 0.31 X10^3/uL; Monocyte% 6.7 % (0-10); NRBC Flagged by Analyzer 0 % (0-5); Neutrophil # 3.76 X10^3/uL (2.7-7.7); Neutrophil % 80.6 % (47-70); POSITIVE DIFFERENTIAL YES; Platelet Count 231 K/mm3 (150-450); RBC Distribution Width CV 14.6 % (11.6-14.6); RBC Distribution Width SD 44.2 fl (35.1-43.9); Red Blood Count 4.87 M/mm3 (4.6-6.2); White Blood Count 4.7 K/mm3 (4.4-11.0)
[2021-08-08 20:18] LABS: Differential Indicated SCAN CRITERIA MET
[2021-08-08 20:26] VITALS: BP 132/90; PULSE 95; RESP 16; TEMP 36.6; O2SAT 97
[2021-08-08 20:29] LABS: Anion Gap 8 (5-15); BUN 18 mg/dL (7-18); BUN/Creat Ratio 15.8 RATIO (10-20); Calcium,Total 8.9 mg/dL (8.5-10.1); Chloride 108 mmol/L (98-107); Creatinine, Serum 1.14 mg/dL (0.70-1.30); EST Glomerular Filtration Rate 68 mL/min (>60); Est Glom Filt Rate - Afr Amer 83 mL/min (>60); Estimated Creatinine Clearance 70.91 ml/min; Glucose 140 mg/dL (74-106); Potassium 4.1 mmol/L (3.5-5.1); Sodium Level 137 mmol/L (136-145); Troponin-I HS 9 pg/mL (3.0-78.0)
[2021-08-08 20:36] LABS: Lactic Acid 1.3 mmol/L (0.4-1.9)
[2021-08-08 20:39] LABS: Differential Comment SCANNED
[2021-08-08 21:14] VITALS: BP 137/80; PULSE 87; RESP 19; O2SAT 95
[2021-08-08 21:22] LABS: D-Dimer Quantitative (DVT/PE) 2.12 FEU/ug/m (0.27-0.49)
--- NOTE | 2021-08-08 21:25 | CT_ITS ---
We are attempting to reach an attending provider to discuss findings. An addendum with communication details will be sent when the communication is complete. STUDY: CTA CHEST REASON FOR EXAM: Male, 65 years old. dyspnea, elevated d-dimer RADIATION DOSAGE (If Supplied By Facility): CTDIvol = ( 12.63 ) mGy, DLP = ( 481.45 ) mGycm TECHNIQUE: The examination was performed with the intravenous administration of IV 100mL Isovue-370. Post-processing of the angiographic images was performed, with multiplanar reformation and 3D reconstruction. Individualized dose optimization techniques were used for this CT. COMPARISON: CTA chest 07/11/2021. FINDINGS: Occlusive filling defect right upper lobe are pulmonary artery. Nonocclusive thrombus noted within the right middle lobar artery. Otherwise Normal enhancement of the bilateral peripheral pulmonary arteries. Normal thoracic aorta and visualized great vessels. There is no demonstrated aortic dissection. Normal heart and pericardium. Prominent nonspecific mediastinal lymphadenopathy measuring up to 16 mm in diameter. Normal hilar regions. Normal visualized trachea and bronchi. Multifocal bilateral groundglass opacities . Normal pulmonary parenchyma. Normal pleura. Normal chest wall structures. Moderate kyphosis. Normal visualized upper abdomen. CT/CTA Chest W/WO Contrast IMPRESSION: Right upper lobe and right middle lobe pulmonary emboli without right ventricular strain. Multifocal groundglass opacities typical for covid 19 slightly improved. Electronically Signed: Manuel Zambrano MD at 22:11 EST ,
[2021-08-08 22:50] VITALS: BP 142/87; PULSE 92; RESP 28; O2SAT 95
[2021-08-08] MEDS: APIXABAN 5 MG TABLET 10 MG PO (22:50)
--- NOTE | 2021-08-09 17:59 | CM.ED ---
ER DC F/u Call: Patient Dc'd from ER 08/08/21 for Covid, PE with rx for Eliquis. Already on home O2 at 5lpm. Called patient listed number, no answer. VM did verify correct patient identity. VM left by this promotion writer to return call for any questions or concerns. Guanako Funes RNCM
== END 2021-08-08 23:25 | disposition home or self-care (01) ==
PROVIDERS: Emergency Provider Emergency Medicine; PCP Family Medicine; Visit Provider Emergency Medicine
DX: U07.1 COVID-19 (principal); I26.99 Other pulmonary embolism without acute cor pulmonale; K21.9 Gastro-esophageal reflux disease without esophagitis; R06.00 Dyspnea, unspecified; Z87.891 Personal history of nicotine dependence
CPT/HCPCS: 71045; 71275; 80048; 83605; 84484; 85025; 85379; 87040; 93005; 94640; 99285; Q9967; A4216

== ENCOUNTER 2021-08-19 18:10 | Emergency (ER) | payer MEDICARE, SELFPAY ==
[2021-08-19 18:11] VITALS: BP 158/87; PULSE 72; RESP 34; TEMP 36.4; O2SAT 96; BMI 33.4
--- NOTE | 2021-08-19 18:20 | CT_ITS ---
EXAM: CT HEAD WITHOUT INTRAVENOUS CONTRAST : 1955 CLINICAL INDICATION: Headache TECHNIQUE: Multiple axial images were obtained of the head without intravenous contrast. This CT exam was performed using one or more of the following dose reduction techniques: automated exposure control, adjustment of the mA and/or kV according to patient size, and/or use of iterative reconstruction technique. This report was created using [employer] report generation technology. COMPARISON: None. FINDINGS: BRAIN AND EXTRA-AXIAL SPACES: There is minimal hypoattenuation in the periventricular white matter. No intra- or extra-axial hemorrhage. No evidence of acute infarct. No intracranial mass or mass effect. There is preservation of the lauren/white matter interface. Posterior fossa structures are unremarkable. No hydrocephalus. Basal cisterns are patent. BONES/JOINTS: Unremarkable. No discrete lytic or blastic abnormalities. SINUSES: Unremarkable as visualized. Clear. MASTOID AIR CELLS: Unremarkable. Clear. ORBITS: Visualized globes, extraocular muscles, optic nerves and retrobulbar fat appear unremarkable. CT/Brain/Head without Contrast IMPRESSION: 1. No acute intracranial abnormality. 2. Minimal hypoattenuation in the periventricular white matter. Individualized dose optimization techniques were used for this CT. at 1907 Reported and signed by: Roger Nieves MD Electronically Signed: Roger Nieves MD at 19:06 EST ,
--- NOTE | 2021-08-19 18:20 | EKG12_ITS ---
Test Reason : CP Blood Pressure : / mmHG Vent. Rate : 074 BPM Atrial Rate : 074 BPM P-R Int : 154 ms QRS Dur : 078 ms QT Int : 406 ms P-R-T Axes : 035 -04 -09 degrees QTc Int : 450 ms Normal sinus rhythm with sinus arrhythmia Abnormal ECG Confirmed by EVERETTE HERNANDEZ, NINA ([id number]), research editor CAS DALY ([id number]) on 08/22/2021 10:31:21 AM Referred By: Mc Confirmed By:NINA GAVIRIA MD
[2021-08-19 18:21] VITALS: BP 158/87; PULSE 72; RESP 34; TEMP 36.4; O2SAT 96
--- NOTE | 2021-08-19 18:22 | EDS_ITS ---
HPI History of Present Illness Chief Complaint: Chest Pain Narrative Narrative: Patient presents with his for multiple somatic complaints including chest pain, confusion, headaches, and hallucinations. Of note, he was diagnosed with COVID-19, and was unvaccinated, and his symptoms began when he caught Tristanid on 's dejan, almost a month and a half ago. He was hospitalized twice for the COVID-19 and has to wear oxygen 5 L at all times. He has shortness of breath and began having chest pain again with a recent diagnosis 1 week ago of pulmonary emboli. He is on Eliquis and has been for the last week but has not missed a dose. He states when he gets headaches he has sharp pain, and his states that he appears confused sometimes and starts talking to his father who is . Currently he has a minor headache. He complains of chest pain that he has been having from his pulmonary emboli for the last week or so. He denies any nausea or vomiting. No diaphoresis. No other symptoms. He states he just has not felt well for the last month and a half. [facility] Medical History COVID-19 Former tobacco use GERD (gastroesophageal reflux disease) Obesity On home oxygen therapy Pulmonary embolism Home Medications omeprazole magnesium [Prilosec OTC] 20 mg PO QHS 10/29/18 [History Last Taken 07/10/21] apixaban [Eliquis] 5 mg PO BID #74 tab 08/08/21 [Rx Last Taken Unknown] Allergy/AdvReac Type Severity Reaction Status Date / Time No Known Allergies Allergy Verified 08/19/21 18:14 Family History Mother Cancer Surgical History H/O unilateral orchiectomy History of appendectomy Social History household members: spouse Smoking Status: Former smoker how long ago did patient quit smoking: Quit 40 years prior, smoked 4 ppd since teen until quit. alcohol intake: never substance use type: does not use ROS ROS ED ROS Narrative Constitutional: No fever, no chills. Malaise and fatigue. HEENT: No sore throat. No neck pain. No loss of vision. No rhinorrhea. Cardiovascular: Positive chest pain. No palpitations. No pedal edema. Respiratory: No cough, no shortness of breath. Abdominal: No abdominal pain. No nausea. No vomiting. Genitourinary: No dysuria. No hematuria. Musculoskeletal: No myalgias. No arthralgias. Neurologic: Positive headaches. No dizziness. No lightheadedness. Skin: No rash. No change in color. Psychiatric: No depression. No anxiety. Occasional confusion with hallucinations, talking to his father who is . EXAM Physical Exam Narrative Exam Narrative: Afebrile. Vital signs noted. HEENT: Normocephalic. Atraumatic. PERRL, EOMI. Neck soft and supple. No point tenderness or step off. Cardiovascular: Regular rate and rhythm. No murmurs, rubs, or gallops appreciated. Respiratory: No tachypnea. Lungs clear to auscultation bilaterally. Diminished breath sounds bilateral bases. Gastrointestinal: Abdomen soft, nontender, with normoactive bowel sounds. No rebound or guarding. Neurological: Awake. Alert. Nonfocal, nonlateralizing. Skin: No rash. Normal color. No pallor. Musculoskeletal: No pedal edema. Full range of motion extremities. Const Vital Signs: 08/19/21 18:11 08/19/21 18:16 08/19/21 18:21 Temperature 97.5 F L 97.5 F L Temperature Source Temporal Temporal Pulse Rate 72 72 Respiratory Rate 34 H 34 H Respiratory Effort Normal Non-Labored Blood Pressure 158/87 H 158/87 H Blood Pressure Mean 110 110 Pulse Ox 96 96 Oxygen Delivery Method Room Air Room Air Heart Score History: Slightly/Non-Suspicious ECG: Normal Age: >/= 65 years Risk Factors: No Risk Factors Troponin: </= Normal Limit Score: 2 MDM MDM MDM Narrative Medical decision making narrative: Comprehensive work-up was pursued. I do not feel that CTA of the lungs is indicated. His EKG demonstrates normal sinus rhythm with sinus arrhythmia but no acute ST changes. It is at 74 bpm. I will obtain a CT of the head because of his constant headaches and now that he has started a blood thinner, concern for spontaneous hemorrhage is present. Otherwise, chest pain work-up will be pursued including troponin and chest x-ray along with baseline laboratories and UA. Patient is satting well on his 5 L at 96%. Laboratory work-up shows white count of 4.1 has seen with COVID-19. Hemoglobin stable at 12.8. Platelet count 199. His slightly low potassium of 3.4, normal creatinine. Troponin is negative at 9. Chest x-ray shows pneumonia consistent with his Covid pneumonia. I had a lengthy discussion with the patient and his . I stressed the importance of not missing any Eliquis doses. I will write him a prescription for stronger pain medication to take for his chest pain for his pulmonary emboli. His CT of his head shows no acute process. I feel he can be discharged safely home with follow-up. I think all of his symptoms that they described have to do with his COVID-19. He feels improved and would like to be discharged. Disposition is discharged home in stable condition. Return instructions were reviewed. Lab Data Attestation: I reviewed the patient's lab results. Labs: Laboratory Results - last 24 hr 08/19/21 08/19/21 18:13 18:13 WBC 4.1 L RBC 4.68 Hgb 12.8 L Hct 39.9 L MCV 85.3 MCH 27.4 MCHC 32.1 RDW Std Deviation 47.3 H RDW Coeff of Daiana 15.5 H Plt Count 199 MPV 9.9 Immature Gran % (Auto) 0.700 Neut % (Auto) 59.0 Lymph % (Auto) 25.7 [place] % (Auto) 12.7 H Eos % (Auto) 1.7 Baso % (Auto) 0.2 Absolute Neuts (auto) 2.4 Absolute Lymphs (auto) 1.05 Nucleated RBC % 0 Sodium 142 Potassium 3.4 L Chloride 111 H Carbon Dioxide 26.0 Anion Gap 5 BUN 13 Creatinine 1.00 Estim Creat Clear Calc 83.23 Est GFR (MDRD) Af Amer 96 Est GFR (MDRD) Non-Af 80 BUN/Creatinine Ratio 13.0 Glucose 99 Calcium 8.6 Total Bilirubin 1.30 H AST 18 ALT 22 Alkaline Phosphatase 95 Troponin I High Sens 9 Total Protein 7.2 Albumin 3.1 L Globulin 4.1 Albumin/Globulin Ratio 0.8 L Radiography Diagnostic Testing: Clinical Impression(s) from Imaging Studies Brain CT 08/19/21 18:20 IMPRESSION: 1. No acute intracranial abnormality. 2. Minimal hypoattenuation in the periventricular white matter. Individualized dose optimization techniques were used for this CT. at 1907 Reported and signed by: Roger Nieves MD Electronically Signed: Roger Nieves MD at 19:06 EST , Chest X-Ray 08/19/21 18:36 IMPRESSION: No change in appearance of the chest from the reference exam. There is patchy bilateral airspace disease which may represent pneumonia. at 1858 Reported and signed by: Roger Nieves MD Electronically Signed: Roger Nieves MD at 18:56 EST , Discharge Plan Triage Chief Complaint: Chest Pain ED Provider: Kolby Mcknight Dx/Rx/DC Orders Clinical Impression: Chest pain, Pneumonia due to COVID-19 virus, COVID-19 Instructions: Coronavirus Disease 2019 (COVID-19): Overview, ED Chest Pain, Uncertain Cause Prescriptions: No Action omeprazole magnesium [Prilosec OTC] 20 MG tablet,delayed release (DR/EC) 20 mg PO QHS RF: 0 Eliquis 5 MG tablet 5 mg PO BID Qty: 74 RF: 0 Primary Care Provider: Gabino Brewer Referrals: Gabino Brewer MD [Primary Care Provider] - Disposition Disposition: Home, Self Care
[2021-08-19 18:26] LABS: Absolute Lymphocyte Count 1.05 X10^3/uL (0.83-4.51); Absolute Neutrophil Count 2.4 X10^3/uL (2.0-7.7); Basophil# 0.01 X10^3/uL; Basophil% 0.2 % (0-1); Eosinophil# 0.07 X10^3/uL; Eosinophils% 1.7 % (0-5); Hematocrit 39.9 % (40-54); Hemoglobin 12.8 g/dL (13.0-16.5); Lymphocyte # 1.05 X10^3/ul (0.83-4.51); Lymphocyte % 25.7 % (19-41); Mean Corp Hgb Conc 32.1 g/dL (32-36); Mean Corpuscular Hgb 27.4 pg (27.0-32.0); Mean Corpuscular Volume 85.3 fL (80-94); Mean Platelet Vol. 9.9 fl (6.2-12.0); Monocyte# 0.52 X10^3/uL; Monocyte% 12.7 % (0-10); NRBC Flagged by Analyzer 0 % (0-5); Neutrophil # 2.41 X10^3/uL (2.7-7.7); Platelet Count 199 K/mm3 (150-450); RBC Distribution Width CV 15.5 % (11.6-14.6); RBC Distribution Width SD 47.3 fl (35.1-43.9); Red Blood Count 4.68 M/mm3 (4.6-6.2); White Blood Count 4.1 K/mm3 (4.4-11.0)
[2021-08-19] MEDS: Acetaminophen 325 MG Tablet 650 MG PO (18:28)
--- NOTE | 2021-08-19 18:36 | RAD_ITS ---
EXAM: XR CHEST, 1 VIEW : 1955 CLINICAL INDICATION: Chest Pain TECHNIQUE: Frontal view of the chest. This report was created using [employer] report generation technology. COMPARISON: 08/08/2021 FINDINGS: LUNGS AND PLEURAL SPACES: Patchy bilateral airspace disease is unchanged. No pneumothorax. No effusion. HEART: Unremarkable. Cardiac silhouette not enlarged. MEDIASTINUM: Central airways and mediastinal contour are unremarkable. BONES/JOINTS: Unremarkable. SOFT TISSUES: Unremarkable. RAD/Chest 1 View (Portable) IMPRESSION: No change in appearance of the chest from the reference exam. There is patchy bilateral airspace disease which may represent pneumonia. at 1858 Reported and signed by: Roger Nieves MD Electronically Signed: Roger Nieves MD at 18:56 EST ,
[2021-08-19 18:42] LABS: ALB/GLOB Ratio 0.8 RATIO (0.9-2.4); AST(SGOT) 18 U/L (15-37); Alanine Aminotransfer ALT/SGPT 22 U/L (16-61); Albumin, Serum 3.1 g/dL (3.2-5.0); Alkaline Phosphatase 95 U/L (45-117); Anion Gap 5 (5-15); BUN 13 mg/dL (7-18); Calcium,Total 8.6 mg/dL (8.5-10.1); Chloride 111 mmol/L (98-107); EST Glomerular Filtration Rate 80 mL/min (>60); Est Glom Filt Rate - Afr Amer 96 mL/min (>60); Estimated Creatinine Clearance 83.23 ml/min; Globulin 4.1 g/dL (2.2-4.2); Glucose 99 mg/dL (74-106); Potassium 3.4 mmol/L (3.5-5.1); Protein, Total 7.2 g/dL (6.4-8.2); Sodium Level 142 mmol/L (136-145); Troponin-I HS 9 pg/mL (3.0-78.0)
[2021-08-19 19:36] VITALS: BP 150/72; PULSE 74; RESP 15; O2SAT 99
== END 2021-08-19 19:37 | disposition home or self-care (01) ==
PROVIDERS: Emergency Provider Emergency Medicine; PCP Family Medicine; Visit Provider Emergency Medicine
DX: U07.1 COVID-19 (principal); J12.82 Pneumonia due to coronavirus disease 2019; R07.9 Chest pain, unspecified; Z87.891 Personal history of nicotine dependence; Z99.81 Dependence on supplemental oxygen; Z86.711 Personal history of pulmonary embolism
CPT/HCPCS: 70450; 71045; 80053; 84484; 85025; 93005; 99285

== ENCOUNTER 2021-09-15 10:32 | Outpatient (CLI) | payer MEDICARE, SELFPAY ==
--- NOTE | 2021-09-15 13:35 | PFT ---
INTRODUCTION: The patient is a 65-year-old female that presents for pulmonary function studies secondary to a diagnosis of Covid. Respiratory therapy reported good patient effort. Bronchodilators were used during testing. INTERPRETATION: Forced expiration spirometry demonstrates no evidence of a large airways obstructive ventilatory defect. There was no significant response to aerosolized bronchodilators. Spirograms are of good quality and plateau normally. Body plethysmography was performed and revealed a decreased TLC to 5.04 L, 73% of predicted, indicative of a mild restrictive ventilatory impairment. Diffusing capacity by single breath CO was reduced to 63% of predicted. IMPRESSION: Mild restrictive ventilatory impairment with symmetric reduction in diffusing capacity.
== END 2021-09-15 23:59 | disposition home or self-care (01) ==
LOC: PSN 10:34
PROVIDERS: PCP Family Medicine; Referring Provider Internal Medicine Critical Care Medicine; Visit Provider Internal Medicine Critical Care Medicine
DX: U07.1 COVID-19 (principal); J96.01 Acute respiratory failure with hypoxia; J12.82 Pneumonia due to coronavirus disease 2019
CPT/HCPCS: 94060; 94726; 94729

== ENCOUNTER 2021-09-19 11:07 | Outpatient (CLI) | payer MEDICARE, SELFPAY ==
[2021-09-19 13:34] VITALS: PULSE 79; PULSE 82; PULSE 89; PULSE 95; PULSE 96; PULSE 97; O2SAT 91; O2SAT 92; O2SAT 93; O2SAT 96; O2SAT 97
--- NOTE | 2021-09-19 15:32 | PCM.PSN.6M ---
PSN 6 Minute Walk Test 6 Minute Walk Test 6 Minute Walk Test: 6 Minute Walk Test PSN:6-Minute Walk Test Start: 09/19/21 13:34 Freq: Status: Active Protocol: [id number] Document 09/19/21 13:34 JULIANE (Rec: 09/19/21 13:36 JULIANE [id number]) 6 Minute Walk Test Date Performed 09/19/21 Time Performed 11:15 Height 6 ft 1 in Weight: 113.398 kg Weight in Pounds 250.[address]: Bert Bullard Assistive device used: None Pre-test Oxygen Delivery Method Room Air Pulse Ox (%) 97 Pulse Rate (60-100 beats/min) 79 Dyspnea Paulette Scale (0-10) 0 Exertion Paulette Scale (6-20) 6 1st minute Oxygen Delivery Method Room Air Pulse Ox (%) 93 Pulse Rate (60-100 beats/min) 89 2nd minute Oxygen Delivery Method Room Air Pulse Ox (%) 91 Pulse Rate (60-100 beats/min) 96 3rd minute Oxygen Delivery Method Room Air Pulse Ox (%) 91 Pulse Rate (60-100 beats/min) 97 4th minute Oxygen Delivery Method Room Air Pulse Ox (%) 92 Pulse Rate (60-100 beats/min) 95 5th minute Oxygen Delivery Method Room Air Pulse Ox (%) 92 Pulse Rate (60-100 beats/min) 95 6th minute Oxygen Delivery Method Room Air Pulse Ox (%) 92 Pulse Rate (60-100 beats/min) 95 Dyspnea Paulette Scale (0-10) 0 Exertion Paulette Scale (6-20) 11 Post-test Oxygen Delivery Method Room Air Pulse Ox (%) 96 Pulse Rate (60-100 beats/min) 82 Full Laps Walked 22 Partial Lap, Number of Tiles Walked 0 Total Distance Walked (ft) 1298 Interpretation Interpretation: The patient was able to ambulate 1298 feet over the course of 6 minutes on room air with no assistive devices or breaks. The patient did experience significant desaturation from a baseline of 97% to as low as 91%. No significant tachycardia was noted during testing. These findings are consistent with a respiratory limitation exercise tolerance. Recommendations Recommendations: No supplemental oxygen is indicated at this time.
== END 2021-09-19 23:59 | disposition home or self-care (01) ==
LOC: PSN 11:08
PROVIDERS: PCP Family Medicine; Referring Provider Internal Medicine Critical Care Medicine; Visit Provider Internal Medicine Critical Care Medicine
DX: U07.1 COVID-19 (principal); J96.01 Acute respiratory failure with hypoxia; J12.82 Pneumonia due to coronavirus disease 2019
CPT/HCPCS: 94618

== ENCOUNTER 2021-09-30 11:59 | Emergency (ER) | payer MEDICARE, SELFPAY ==
[2021-09-30] VITALS (10 sets, daily range): BP systolic 132–172; BP diastolic 80–112; PULSE 71–104; RESP 16–24; TEMP 36.4–36.6; O2SAT 93–99; BMI 33.7
--- NOTE | 2021-09-30 12:01 | CT_ITS ---
STUDY: CT HEAD STROKE PROTOCOL W/O CONTRAST INJECTION REASON FOR EXAM: Male, 65 years old. Neural deficit. Acute stroke suspected. TECHNIQUE: Transaxial CT imaging of the brain was performed without administration of intravenous contrast material. Individualized dose optimization techniques were used for this CT. COMPARISON: 08/19/2021. FINDINGS: Normal soft tissue structures. Normal calvarium. Normal size ventricles and extra-axial spaces for the patient''s age. Normal white matter tracts of the cerebral hemispheres. Normal basal ganglia and thalami. Normal brainstem. Normal cerebellum. There is no intracranial hemorrhage. There are no findings of an acute ischemic infarction. Normal visualized paranasal sinuses. ASPECT score: 10 CT/STROKE Brain/Head without Cont IMPRESSION: No acute intracranial or calvarial abnormality. There is no major interval change. N.B. : The above Results were Read Back by Jey Luke DO to Kulwant Guillory DO, and understanding confirmed on 09/30/2021 12:16:10 (ET). Electronically Signed: Jey Luke DO at 12:17 EDT ,
--- NOTE | 2021-09-30 12:01 | EKG12_ITS ---
Test Reason : CVA Blood Pressure : / mmHG Vent. Rate : 078 BPM Atrial Rate : 078 BPM P-R Int : 158 ms QRS Dur : 088 ms QT Int : 392 ms P-R-T Axes : 017 -08 009 degrees QTc Int : 446 ms Normal sinus rhythm Normal ECG Confirmed by MYRON HERNANDEZ, FLAKITO ([id number]), city editor CAS DALY ([id number]) on 10/03/2021 10:55:42 AM Referred By: GAMA Confirmed By:FLAKITO SANCHES MD
--- NOTE | 2021-09-30 12:01 | CT_ITS ---
We are attempting to reach an attending provider to discuss findings. An addendum with communication details will be sent when the communication is complete. STUDY: CTA HEAD AND NECK WITH CONTRAST REASON FOR EXAM: Male, 65 years old. Neuro deficit. Acute stroke suspected. RADIATION DOSAGE (If Supplied By Facility): CTDIvol = ( 20.68 ) mGy, DLP = ( 607.27 ) mGycm TECHNIQUE: CT angiography was performed with a multi-detector CT scanner. Data acquisition was obtained from the skull base through the vertex following intravenous administration of IV 100mL Isovue-370. MIP images were reconstructed from the axial data set. Post-processing of the angiographic images was performed, with multiplanar reformation and 3D reconstruction. Individualized dose optimization techniques were used for this CT. COMPARISON: CT of the head, 09/30/2021. FINDINGS: Normal bilateral petrous carotid arteries. There is calcified plaque formation of the right cavernous carotid artery, without a cross-sectional luminal stenosis. There is calcified plaque formation of the left cavernous carotid artery, without a cross-sectional luminal stenosis. Normal right A1 segments of the anterior cerebral artery. Normal left A1 segments of the anterior cerebral artery. There is non-visualization of the anterior communicating artery (ACOM). Normal bilateral A2 segments of the anterior cerebral arteries. Normal right M1 and M2 segments of the middle cerebral arteries, with a normal M1 bifurcation. Normal left M1 and M2 segments of the middle cerebral arteries, with a normal M1 bifurcation. Normal right posterior communicating artery (PCOM). There is non-visualization of the left posterior communicating artery (PCOM). Normal bilateral vertebral arteries. Normal basilar artery with a normal basilar bifurcation. The visualized bilateral superior cerebellar (SCA) arteries are normal. Normal bilateral P1, P2 and visualized P3 segments of the posterior cerebral arteries. There is no demonstrated aneurysm of the [place]. There is no demonstrated abnormality of the visualized brain. AORTIC ARCH: Normal visualized aortic arch. Normal origins of the brachiocephalic, left common carotid, and left subclavian arteries. RIGHT CAROTID ARTERIES: Normal right common carotid artery (CCA). Normal right common carotid bulb. Normal origin of the right internal carotid (ICA) artery without a hemodynamically significant stenosis. Normal visualized cervical portion of the right internal carotid artery. Normal origin of the right external carotid artery (ECA). LEFT CAROTID ARTERIES: Normal left common carotid artery (CCA). Normal left common carotid bulb. Normal origin of the left internal carotid (ICA) artery without a hemodynamically significant stenosis. Normal visualized cervical portion of the left internal carotid artery. Normal origin of the left external carotid artery (ECA). VERTEBRAL ARTERIES: Normal bilateral vertebral arteries. CT/STROKE CTA Head AND Neck W/Con IMPRESSION: Normal CTA Head and neck with contrast. Electronically Signed: Jey Luke DO at 12:34 EDT ,
--- NOTE | 2021-09-30 12:01 | RAD_ITS ---
STUDY: X-RAY CHEST REASON FOR EXAM: Male, 65 years old. Neuro deficit. Acute stroke suspected. TECHNIQUE: Single AP portable view of the chest. COMPARISON: 08/19/2021. FINDINGS: There is a limited inspiratory effort. This mild interstitial prominence thought to be chronic. The patchy infiltrate seen on the earlier study is no longer noted. There is no demonstrated pleural abnormality. Normal size heart. Normal mediastinum and diya. Normal visualized pulmonary arteries. Normal visualized aortic arch and descending thoracic aorta. There are diffuse degenerative changes of the visualized thoracic spine. There is degenerative osteoarthritis of the bilateral shoulders. There is no demonstrated abnormality of the visualized soft tissue structures of the upper abdomen. RAD/Chest 1 View IMPRESSION: Degenerative changes, as described above. No demonstrated acute cardiopulmonary process. Electronically Signed: Jey Luke DO at 12:58 EDT ,
--- NOTE | 2021-09-30 12:04 | EDS_ITS ---
HPI History of Present Illness Chief Complaint: Alt LOC Narrative Narrative: 65-year-old male presenting with altered mental status. He is unable to answer questions. He is awake but unable to tell me what is wrong. His came in a few minutes later and stated that his last known well was 1030 last night when he went to bed. He woke up this morning and was not feeling well. He went and sat in his chair. Patient's states that he has been acting funny all day and went to her place of work and he wanted to acquire office and sat down. She was unable to arouse him and he could not answer questions. She called EMS. This was about 15 minutes ago at about 1150. Patient has been having issues with his blood pressure recently. His states that it was elevated today. She does not know the numbers but states the bottom number was very high. Patient on Eliquis from history of PE secondary to COVID-19. PFSH PFSH Medical History COVID-19 Former tobacco use GERD (gastroesophageal reflux disease) Obesity On home oxygen therapy Pulmonary embolism Home Medications omeprazole magnesium [Prilosec OTC] 20 mg PO QHS 10/29/18 [History Last Taken 07/10/21] apixaban 5 mg tablet 5 mg PO BID #60 tab 08/30/21 [Rx Last Taken Unknown] Allergy/AdvReac Type Severity Reaction Status Date / Time No Known Allergies Allergy Verified 08/30/21 06:39 Family History Mother Cancer Surgical History H/O unilateral orchiectomy History of appendectomy Social History household members: spouse Smoking Status: Former smoker quit date: 07/08/81 pack-years: 7 alcohol intake: never substance use type: does not use ROS ROS ED Review of Systems ROS Unobtainable: due to mental condition and due to mental status EXAM Physical Exam Const Vital Signs: 09/30/21 12:00 09/30/21 12:09 09/30/21 12:15 Temperature 97.7 F L 97.7 F L Temperature Source Temporal Temporal Pulse Rate 104 H 74 Respiratory Rate 24 H 21 H Blood Pressure 172/112 H 163/85 H Blood Pressure Mean 132 111 Pulse Ox 98 Oxygen Delivery Method Room Air Room Air Room Air 09/30/21 12:20 09/30/21 12:22 09/30/21 12:52 Temperature 97.8 F 97.5 F L Temperature Source Temporal Temporal Pulse Rate 77 75 75 Respiratory Rate 24 H 16 18 Blood Pressure 163/85 H 152/94 H 148/85 H Blood Pressure Mean 111 113 106 Pulse Ox 99 98 96 Oxygen Delivery Method Room Air Room Air Room Air 09/30/21 13:22 09/30/21 13:23 09/30/21 13:30 Temperature 97.6 F L 97.6 F L Temperature Source Temporal Temporal Pulse Rate 75 75 74 Respiratory Rate 16 16 18 Blood Pressure 146/89 H 146/89 H 139/93 H Blood Pressure Mean 108 108 108 Pulse Ox 93 93 97 Oxygen Delivery Method Room Air Room Air Room Air Constitutional Narrative: Confused, awake and moving all 4 extremities HEENT atraumatic Resp normal respiratory effort and clear to auscultation bilaterally Cardio Rate: regular rate Rhythm: regular rhythm Neuro Sensorium / Orientation: alert and confused Psych Psych Narrative: Confused Skin General Skin Exam: Negative for jaundice STROKE Vital Signs/Narrative: Vital Signs Temp Pulse Resp BP Pulse Ox 09/30/21 13:30 74 18 139/93 H 97 09/30/21 13:23 97.6 F L 75 16 146/89 H 93 09/30/21 13:22 97.6 F L 75 16 146/89 H 93 09/30/21 12:52 97.5 F L 75 18 148/85 H 96 09/30/21 12:22 97.8 F 75 16 152/94 H 98 09/30/21 12:20 77 24 H 163/85 H 99 09/30/21 12:15 97.7 F L 74 21 H 163/85 H 98 09/30/21 12:00 97.7 F L 104 H 24 H 172/112 H MDM MDM MDM Narrative Medical decision making narrative: Patient seen and evaluated on arrival. He was very confused and unable to give me any history. He was treated as a stroke team and brought to CT immediately. While he was away I spoke with his who stated he had been like this only for short while. She states he was a little off all morning however. She decided to take him to work with her and when they arrived there he sat in a dark room and was unresponsive. She noted that his blood pressure has been high this week and she states she had been seen for it. I counseled her that he may need intubation given his altered mental status at this point I did not know what the CT would show. She was amenable to this and we began to set up for RSI on arrival back to the room when [facility] was been in the patient became more responsive. At this point his NIH was 0. [facility] stated that he could be admitted for a stroke work-up and syncope work-up [place] unless the CTA showed something that he needed to come to [facility] for. The CTA and the CT were both negative. I had a chance more to speak with him and his and she stated that over the last month he had been having intermittent headaches and during these headache episodes he would become really confused and would not recall what he was doing and she states he was goofy during these episodes. Today he does not remember the timeframe from when he left her work to the timeframe just before [facility] being did I spoke with the neurologist about this and ask if there is any reason she would need an EEG and he stated to me that he did not necessarily need an emergent EEG but it would be in his best interest to have him transferred to [facility] for a full neurologic work-up. The patient at that point declined and I spoke with the hospitalist about it and the hospitalist felt more comfortable if the patient went for a full neurologic work-up since the neurologist felt it would be in his best interest. I discussed this again with the patient and initially wanted to be discharged home. After some discussion with he and his he was amenable to being transported there. CBC and BMP are unremarkable. Coagulation studies are normal. High-sensitivity troponin is 6. EKG on my interpretation shows a sinus rhythm with a ventricular rate of 78 bpm without sign of ischemic change or dysrhythmia. EtOH negative. Chest x-ray on my interpretation shows no acute cardiopulmonary process and radiologist agree. The arrangements were made and the patient was transported to [facility]. Impression: 1. TIA 2. History of headaches 3. Altered mental status Lab Data Attestation: I reviewed the patient's lab results. Labs: Laboratory Results - last 24 hr 0309/30/21 09/30/21 12:00 12:00 12:00 WBC 5.3 RBC 6.00 Hgb 16.9 H Hct 50.2 MCV 83.7 MCH 28.2 MCHC 33.7 RDW Std Deviation 43.0 RDW Coeff of Da[place] 14.2 Plt Count 223 MPV 10.3 Immature Gran % (Auto) 0.600 Neut % (Auto) 62.1 Lymph % (Auto) 25.2 [place] % (Auto) 10.0 Eos % (Auto) 1.7 Baso % (Auto) 0.4 Absolute Neuts (auto) 3.3 Absolute Lymphs (auto) 1.33 Nucleated RBC % 0 PT 14.3 INR 1.2 APTT 57.7 H Sodium 138 Potassium 4.1 Chloride 107 Carbon Dioxide 26.0 Anion Gap 5 BUN 21 H Creatinine 1.22 Estim Creat Clear Calc 68.22 Est GFR (MDRD) Af Amer 77 Est GFR (MDRD) Non-Af 63 BUN/Creatinine Ratio 17.2 Glucose 109 H Calcium 9.6 Total Bilirubin Direct Bilirubin AST ALT Alkaline Phosphatase Troponin I High Sens Total Protein Albumin Globulin Ethyl Alcohol 09/30/21 09/30/21 09/30/21 12:00 12:00 12:00 WBC RBC Hgb Hct MCV MCH MCHC RDW Std Deviation RDW Coeff of Daiana Plt Count MPV Immature Gran % (Auto) Neut % (Auto) Lymph % (Auto) [place] % (Auto) Eos % (Auto) Baso % (Auto) Absolute Neuts (auto) Absolute Lymphs (auto) Nucleated RBC % PT INR APTT Sodium Potassium Chloride Carbon Dioxide Anion Gap BUN Creatinine Estim Creat Clear Calc Est GFR (MDRD) Af Amer Est GFR (MDRD) Non-Af BUN/Creatinine Ratio Glucose Calcium Total Bilirubin 1.20 H Direct Bilirubin 0.21 AST 18 ALT 26 Alkaline Phosphatase 117 Troponin I High Sens 6 Total Protein 8.6 H Albumin 4.0 Globulin 4.6 H Ethyl Alcohol < 3.0 Radiography Diagnostic Testing: Clinical Impression(s) from Imaging Studies Brain CT 09/30/21 12:01 IMPRESSION: No acute intracranial or calvarial abnormality. There is no major interval change. N.B. : The above Results were Read Back by Jey Luke DO to Kulwant Guillory DO, and understanding confirmed on 09/30/2021 12:16:10 (ET). Electronically Signed: Jey Luke DO at 12:17 EDT , ADDENDUM: 09/30/21 1224 IMPRESSION: No acute intracranial or calvarial abnormality. There is no major interval change. N.B. : The above Results were Read Back by Jey Luke DO to Kulwant Guillory DO, and understanding confirmed on 09/30/2021 12:16:10 (ET). Electronically Signed: Jey Luke DO at 12:17 EDT , Chest X-Ray 09/30/21 12:01 IMPRESSION: Degenerative changes, as described above. No demonstrated acute cardiopulmonary process. Electronically Signed: Jey Luke DO at 12:58 EDT , Head/Neck CTA 09/30/21 12:01 IMPRESSION: Normal CTA Head and neck with contrast. Electronically Signed: Jey Luke DO at 12:34 EDT , ADDENDUM: 09/30/21 1245 IMPRESSION: Normal CTA Head and neck with contrast. N.B. : The above Results were Read Back by Jey Luke DO to Kulwant Guillory MD, and understanding confirmed on 09/30/2021 12:38:27 (ET). Electronically Signed: Jey Luke DO at 12:34 EDT , Discharge Plan Triage Chief Complaint: Alt LOC ED Provider: Kulwant Guillory Dx/Rx/DC Orders Prescriptions: No Action Eliquis 5 mg tablet 5 mg PO BID Qty: 60 RF: 3 omeprazole magnesium [Prilosec OTC] 20 MG tablet,delayed release (DR/EC) 20 mg PO QHS RF: 0 Primary Care Provider: Gabino Brewer
[2021-09-30 12:13] LABS: Absolute Lymphocyte Count 1.33 X10^3/uL (0.83-4.51); Absolute Neutrophil Count 3.3 X10^3/uL (2.0-7.7); Basophil# 0.02 X10^3/uL; Basophil% 0.4 % (0-1); Eosinophil# 0.09 X10^3/uL; Eosinophils% 1.7 % (0-5); Hematocrit 50.2 % (40-54); Hemoglobin 16.9 g/dL (13.0-16.5); Lymphocyte # 1.33 X10^3/ul (0.83-4.51); Lymphocyte % 25.2 % (19-41); Mean Corp Hgb Conc 33.7 g/dL (32-36); Mean Corpuscular Hgb 28.2 pg (27.0-32.0); Mean Corpuscular Volume 83.7 fL (80-94); Mean Platelet Vol. 10.3 fl (6.2-12.0); Monocyte# 0.53 X10^3/uL; NRBC Flagged by Analyzer 0 % (0-5); Neutrophil # 3.28 X10^3/uL (2.7-7.7); Neutrophil % 62.1 % (47-70); Platelet Count 223 K/mm3 (150-450); RBC Distribution Width CV 14.2 % (11.6-14.6); White Blood Count 5.3 K/mm3 (4.4-11.0)
--- NOTE | 2021-09-30 12:19 | CM.ED ---
Social Work Responding to stroke alert. Patient spouse, Farhana present. Avimelissa tearful but able to manage emotions appropriately. Active support and listening provided. Patient now awake and speaking with staff. Will continue to follow as needed. Ruchi Wilhelm MSW, LU[facility]-S
[2021-09-30 12:21] LABS: International Normalized Ratio 1.2; Prothrombin Time (Protime)PT. 14.3 SECONDS (11.7-14.9)
[2021-09-30 12:23] LABS: Partial Thromboplast Time 57.7 Seconds (24.1-36.2)
[2021-09-30 12:26] LABS: Anion Gap 5 (5-15); BUN 21 mg/dL (7-18); BUN/Creat Ratio 17.2 RATIO (10-20); Calcium,Total 9.6 mg/dL (8.5-10.1); Chloride 107 mmol/L (98-107); Creatinine, Serum 1.22 mg/dL (0.70-1.30); EST Glomerular Filtration Rate 63 mL/min (>60); Est Glom Filt Rate - Afr Amer 77 mL/min (>60); Estimated Creatinine Clearance 68.22 ml/min; Glucose 109 mg/dL (74-106); Potassium 4.1 mmol/L (3.5-5.1); Sodium Level 138 mmol/L (136-145)
[2021-09-30 12:43] LABS: Alcohol, Blood (Medical)-Serum < 3.0 mg/dL
--- NOTE | 2021-09-30 12:49 | HP.PCM.HOS_ITS ---
HPI - General HPI Narrative TONNY WILSON, is a 65 M with a PMH as outlined who presents via the ED with altered mental status. His last known well was apparently 10:30 on the night before admission. He woke up this morning and wasnt feeling well. said he had been acting funny so she took him to work with her. She subsequently found h im unresponsive so she called the EMS. said his BP had been poorly controlled at home. He was unresponsive all this while. On admission in the ED, he was found to be unresponsive so essentially gave the history. WHen telestroke neurologist was called, patient was awake and alert, though he couldnt remember anything at all and could only remember when the EMS. [facility] Medical History COVID-19 Former tobacco use GERD (gastroesophageal reflux disease) Obesity On home oxygen therapy Pulmonary embolism Home Medications omeprazole magnesium [Prilosec OTC] 20 mg PO QHS 10/29/18 [History Last Taken 07/10/21] apixaban 5 mg tablet 5 mg PO BID #60 tab 08/30/21 [Rx Last Taken Unknown] Allergy/AdvReac Type Severity Reaction Status Date / Time No Known Allergies Allergy Verified 08/30/21 06:39 Family History Mother Cancer Surgical History H/O unilateral orchiectomy History of appendectomy Social History household members: spouse Smoking Status: Former smoker quit date: 07/08/81 pack-years: 7 alcohol intake: never substance use type: does not use Vital Signs Vital Signs Vital Signs: 09/30/21 12:00 09/30/21 12:09 09/30/21 12:15 Temperature 97.7 F L 97.7 F L Temperature Source Temporal Temporal Pulse Rate 104 H 74 Respiratory Rate 24 H 21 H Blood Pressure 172/112 H 163/85 H Blood Pressure Mean 132 111 Pulse Ox 98 Oxygen Delivery Method Room Air Room Air Room Air 09/30/21 12:20 09/30/21 12:22 Temperature 97.8 F Temperature Source Temporal Pulse Rate 77 75 Respiratory Rate 24 H 16 Blood Pressure 163/85 H 152/94 H Blood Pressure Mean 111 113 Pulse Ox 99 98 Oxygen Delivery Method Room Air Room Air Weight Weight: 256 lb 2.834 oz Body Mass Index (BMI) 33.7 Results Lab / Micro Data Result Diagrams: 09/30/21 12:00 09/30/21 12:00 Labs: Laboratory Results - last 24 hr 09/30/21 12:00: WBC 5.3, RBC 6.00, Hgb 16.9 H, Hct 50.2, MCV 83.7, MCH 28.2, MCHC 33.7, RDW Std Deviation 43.0, RDW Coeff of Daiana 14.2, Plt Count 223, MPV 10 .3, Immature Gran % (Auto) 0.600, Neut % (Auto) 62.1, Lymph % (Auto) 25.2, [place] % (Auto) 10.0, Eos % (Auto) 1.7, Baso % (Auto) 0.4, Absolute Neuts (auto) 3.3, Absolute Lymphs (auto) 1.33, Nucleated RBC % 0 09/30/21 12:00: PT 14.3, INR 1.2, APTT 57.7 H 09/30/21 12:00: Sodium 138, Potassium 4.1, Chloride 107, Carbon Dioxide 26.0, A nion Gap 5, BUN 21 H, Creatinine 1.22, Estim Creat Clear Calc 68.22, Est GFR (MDRD) Af Amer 77, Est GFR (MDRD) Non-Af 63, BUN/Creatinine Ratio 17.2, Glucose 109 H, Calcium 9.6 09/30/21 12:00: Ethyl Alcohol < 3.[address] 09/30/21 12:01 IMPRESSION: No acute intracranial or calvarial abnormality. There is no major interval change. N.B. : The above Results were Read Back by Jey Luke DO to Kulwant Guillory DO, and understanding confirmed on 09/30/2021 12:16:10 (ET). Electronically Signed: Jey Luke DO at 12:17 EDT Reading Location ID and State: [address] [place] [address] Tel [phone], Service support , ADDENDUM: 09/30/21 1224 IMPRESSION: No acute intracranial or calvarial abnormality. There is no major interval change. N.B. : The above Results were Read Back by Jey Luke DO to Kulwant Guillory DO, and understanding confirmed on 09/30/2021 12:16:10 (ET). Electronically Signed: Jey Luke DO at 12:17 EDT Reading Location ID and State: [facility] / [place] Tel [phone], Service support , Head/Neck CTA 09/30/21 12:01 IMPRESSION: Normal CTA Head and neck with contrast. Electronically Signed: Jey Luke DO at 12:34 EDT Reading Location ID and State: [facility] / [place] Tel [phone], Service support , ADDENDUM: 09/30/21 1245 IMPRESSION: Normal CTA Head and neck with contrast. N.B. : The above Results were Read Back by Jey Luke DO to Kulwant Guillory MD, and understanding confirmed on 09/30/2021 12:38:27 (ET). Electronically Signed: Jey Luke DO at 12:34 EDT Reading Location ID and State: [facility] / [place] Tel [phone], Service support ,
[2021-09-30 12:50] LABS: AST(SGOT) 18 U/L (15-37); Alanine Aminotransfer ALT/SGPT 26 U/L (16-61); Alkaline Phosphatase 117 U/L (45-117); Bilirubin, Direct 0.21 mg/dL (0.00-0.30); Globulin 4.6 g/dL (2.2-4.2); Protein, Total 8.6 g/dL (6.4-8.2)
[2021-09-30 13:35] LABS: Troponin-I HS 6 pg/mL (3.0-78.0)
--- NOTE | 2021-09-30 13:36 | NURSING ---
CALLED [facility], ETA IS 30 MIN
[2021-09-30] MEDS: Aspirin 325 MG Tablet PO (14:21)
[2021-09-30 14:47] LABS: Bacteria 0 SEEN /hpf (None Seen); Mucous, Urine 0 SEEN /hpf (<or=2+); Red Blood Cells-Urine 0 SEEN /hpf (0-5); Squamous Epithelial Cells - UA 0 SEEN /hpf (0-5); White Blood Cells 0 SEEN /hpf (0-5)
[2021-09-30 14:50] LABS: Color, Urine Yellow (Yellow); Glucose, Dipstick Normal (Normal); Ketone-Dipstick Negative (Negative); Leukocyte Esterase-Dipstick Negative /ul (Negative); Nitrite-Dipstick Negative (Negative); Occult Blood-Urine Negative /ul (Negative); Protein-Dipstick Negative (Negative); Urine Bilirubin Dipstick Negative (Negative); Urine Clarity Clear (Clear); Urine Urobilinogen Normal (Normal)
[2021-09-30 15:28] LABS: Amphetamine Urine VISTA NEGATIVE (<1000 ng/mL); Barbiturate Urine VISTA NEGATIVE (< 200 ng/mL); Benzodiazepine Urine VISTA NEGATIVE (< 200 ng/mL); Cocaine Urine VISTA NEGATIVE (< 300 ng/mL); Ecstacy Urine VISTA NEGATIVE (< 500 ng/mL); Methadone Urine VISTA NEGATIVE (< 300 ng/mL); PCP Urine VISTA NEGATIVE (< 25 ng/mL); THC Urine VISTA NEGATIVE (< 50 ng/mL); Vista UDS pH Range 6
[2021-10-03 07:26] LABS: Bedside Glucose 110 mg/dL (74-106)
== END 2021-09-30 14:38 | disposition short-term general hospital (02) ==
PROVIDERS: Emergency Provider Student in an Organized Health Care Education/Training Program; PCP Family Medicine; Visit Provider Student in an Organized Health Care Education/Training Program
DX: G45.9 Transient cerebral ischemic attack, unspecified (principal); K21.9 Gastro-esophageal reflux disease without esophagitis; Z79.899 Other long term (current) drug therapy; Z86.16 Personal history of COVID-19; Z79.01 Long term (current) use of anticoagulants; Z86.711 Personal history of pulmonary embolism; Z87.891 Personal history of nicotine dependence; Z99.81 Dependence on supplemental oxygen
CPT/HCPCS: 70450; 70496; 70498; 71045; 80048; 80076; 80307; 81001; 82077; 82962; 84484; 85025; 85610; 85730; 93005; 99285; Q9967; A4216

== ENCOUNTER 2022-01-28 11:02 | Emergency (ER) | payer MEDICARE, SELFPAY ==
[2022-01-28 11:02] VITALS: BP 160/94; PULSE 65; RESP 14; TEMP 36.3; O2SAT 97; BMI 33.0
--- NOTE | 2022-01-28 11:17 | VDLE_ITS ---
Reason For Study: LEG PAIN RIGHT LEFT GSV is normal. CFV is compressible, spontaneous, phasic, CFV is compressible, spontaneous, phasic, competent, and demonstrates normal competent and demonstrates normal augmentation. augmentation. FV is compressible, spontaneous, phasic, competent and demonstrates normal augmentation. POP V is compressible, spontaneous, phasic, competent and demonstrates normal augmentation. T/P Trunk is compressible. PTV is compressible. RT PerV is compressible. Procedure This is a venous duplex using B-mode, color flow and spectral Doppler. Exam performed portable in ED. The exam was diagnostic. A preliminary report was called and/or faxed to Dr. Mike. VL/Venous Duplex US, Unilateral Interpretation Summary There is no evidence of right lower extremity deep vein thrombosis. Right great saphenous vein appears patent and compressible segmentally. Normal flow patterns left common f emoral vein Ordering Physician: Vasile Mike Referring Physician: Manoj Brewer Performed By: Deshaun Gorman
--- NOTE | 2022-01-28 11:18 | EDS_ITS ---
HPI History of Present Illness Chief Complaint: Lower Extremity Injury Detail of Chief Complaint: Pain right calf x2 days Informant: patient Narrative Narrative: Patient presents to the emergency department with complaint of right calf pain that started 2 days ago. Patient states initially he had a charley horse type pain that was severe and lasted about 20 minutes or so. Patient states that he thinks his foot turned black. 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 Patient had a pulmonary emboli at the same time. It was felt that his DVT and PE were related to the COVID infection. Patient currently denies any chest pain or shortness of breath. He denies any recent injury to his leg although he thinks he hurt his ankle December 18 when he slipped off a ladder. Patient states the following day he felt fine. He was seen in the ER and had x-rays. PFSH PFS Medical History COVID-19 Former tobacco use GERD (gastroesophageal reflux disease) Obesity On home oxygen therapy Pulmonary embolism Home Medications omeprazole magnesium 20 mg tablet,delayed release (Prilosec OTC) 20 mg PO QHS gerd 10/29/18 [History Last Taken 07/10/21] apixaban 5 mg tablet (Eliquis) 5 mg PO BID #60 tabs 08/30/21 [Rx Last Taken Unknown] Allergy/AdvReac Type Severity Reaction Status Date / Time No Known Allergies Allergy Verified 01/28/22 11:04 Family History Mother Cancer Surgical History H/O unilateral orchiectomy History of appendectomy Social History household members: spouse Smoking Status: Former smoker quit date: 07/08/81 pack-years: 7 alcohol intake: never substance use type: does not use ROS ROS ED Review of Systems ROS Unobtainable: other Constitutional Constitutional ED: Reports lethargy; Denies chills, fever(s), sweats or weight loss Eyes Eyes: Denies blurry vision, change in vision or diplopia ENT ENT ED: Denies rhinorrhea or sore throat Cardiovascular Cardiovascular: Reports chest pain and racing heartbeat; Denies orthopnea Respiratory/Chest Respiratory/Chest: Reports dyspnea and dyspnea on exertion; Denies cough, orthopnea or sputum Gastrointestinal Gastrointestinal: Denies abdominal pain, diarrhea, nausea or vomiting Genitourinary Genitourinary ED: Denies dysuria, hematuria or urinary frequency Musculoskeletal Musculoskeletal: Reports other Details: Right calf pain ; Denies arthralgias, back pain, myalgias or neck pain Integumentary Denies abscess, Abrasions or rash Neurologic Neurologic: Denies headache(s) or weakness Psychiatric Psychiatric: Denies anxiety, depression or suicidal thoughts Endocrine Endocrinology: Denies polydipsia, polyphagia or polyuria Hematologic/Lymphatic Hematologic/Lymphatic: Denies easy bleeding, easy bruising or lymphadenopathy Allergic/Immunologic Allergic/Immunologic ED: Denies mouth swelling, tongue swelling or urticaria EXAM Physical Exam Const Vital Signs: 01/28/22 11:02 Temperature 97.4 F L Temperature Source Temporal Pulse Rate 65 Respiratory Rate 14 Blood Pressure 160/94 H Blood Pressure Mean 116 Pulse Ox 97 Oxygen Delivery Method Room Air Positive well nourished and well developed General Appearance ED: well developed and NAD HEENT Reports TM's clear and moist mucous membranes normocephalic and atraumatic; Negative for trauma or tenderness Tympanic Membrane ED: Yes TM's clear Eyes PERRL and EOMs intact bilaterally General Eye ED: Negative for pale conjunctiva or scleral icterus Neck no lymphadenopathy, supple and no JVD General: Negative for tenderness Chest Wall inspection of chest normal and palpation of chest normal Chest: Negative for tenderness Resp normal respiratory effort and clear to auscultation bilaterally Effort and Inspection: Negative for respiratory distress or pain with movement Auscultation: Negative for rhonchi, wheezes or diminished lung sounds Cardio regular rate, regular rhythm, S1 normal heart sound, S2 normal heart sound and n o murmurs Peripheral Pulses: pulses 2+ throughout GI normal to inspection, nondistended, normoactive bowel sounds, soft to palpation, non-tender, non-distended and no masses Back/Spine no CVA tenderness and no thoracic nor lumbar tenderness Extremity Extremity Narrative: Patient has some mild edema to the right lower extremity. He has diffuse tenderness over the right calf. No ropes or cords are palpated. No cellulitic changes noted. Patient has normal pulses to dorsal pedal and posterior tibial regions with normal cap refill to the foot. The foot is warm to touch. General Extremety ED: Negative for edema General Extremity: Negative for edema Neuro oriented x3, CN's II-XII intact bilaterally, no sensory deficits noted and gait normal Sensorium / Orientation: awake, alert, oriented to person, oriented to place and oriented to time Motor Exam: strength 5/5 throughout and strength abnormal Psych mental status grossly normal Skin no rashes or lesions noted and no wounds MDM MDM MDM Narrative Medical decision making narrative: Venous Doppler of the right lower extremity obtained was negative for DVT. At this point I suspect likely muscular strain. Patient advised to follow-up with primary care physician 3 to 5 days. He will use ibuprofen or Tylenol for discomfort. Discharge Plan Triage Chief Complaint: Lower Extremity Injury ED Provider: Vasile Mike Dx/Rx/DC Orders Clinical Impression: Pain of right calf Instructions: ED Pain, Acute, Uncertain Cause, ED Muscle Strain, Extremity Prescriptions: No Action Eliquis 5 mg tablet 5 mg PO BID Qty: 60 3RF omeprazole magnesium [Prilosec OTC] 20 MG tablet,delayed release (DR/EC) 20 mg PO QHS Primary Care Provider: Gabino Brewer Referrals: Gabino Brewer MD [Primary Care Provider] - 3-5 Days Disposition Disposition: Home, Self Care
== END 2022-01-28 13:25 | disposition home or self-care (01) ==
PROVIDERS: Emergency Provider Emergency Medicine; PCP Family Medicine; Visit Provider Emergency Medicine
DX: M79.661 Pain in right lower leg (principal); Z86.16 Personal history of COVID-19; Z86.711 Personal history of pulmonary embolism; Z99.81 Dependence on supplemental oxygen; Z87.891 Personal history of nicotine dependence
CPT/HCPCS: 93971; 99282

== ENCOUNTER 2022-04-08 03:46 | Inpatient (IN) | payer MEDICARE, SELFPAY ==
[2022-04-08] VITALS (17 sets, daily range): BP systolic 137–184; BP diastolic 64–93; PULSE 56–74; RESP 14–20; TEMP 35.8–37.1; O2SAT 92–97; BMI 32.8; BMI 32.9
--- NOTE | 2022-04-08 03:56 | CT_ITS ---
STUDY: CT ABDOMEN AND PELVIS WITH CONTRAST REASON FOR EXAM: Male, 66 years old. abd pain -- IV PO Contrast RADIATION DOSAGE (If Supplied By Facility): CTDIvol = ( 20.05 ) mGy, DLP = ( 1413.66 ) mGycm TECHNIQUE: Transaxial images were obtained from the dome of the diaphragm to the symphysis pubis without oral contrast. Oral and amp; IV Gastrografin and amp; 100mL Isovue-370 was administered. Sagittal and coronal images were reconstructed. Individualized dose optimization techniques were used for this CT. COMPARISON: CT chest 10/29/2018 FINDINGS: LOWER CHEST: Mildly enlarged paraesophageal lymph nodes, partially visualized, similar compared to the prior.. LIVER: Normal. GALLBLADDER/BILE DUCTS: Normal. PANCREAS: Normal. SPLEEN: Enlarged measuring 17 cm. ADRENAL GLANDS: Normal. KIDNEYS/URETERS/BLADDER: Normal. RETROPERITONEUM/AORTA: Mild atherosclerotic calcifications. BOWEL/MESENTERY: Enteric contrast tract is unobstructed into the distal small bowel. No bowel dilatation or bowel wall thickening.. APPENDIX: Short dilated appendix measuring 11 mm with periappendiceal fat stranding and 11 mm calcified appendicolith at the appendiceal base, consistent with acute appendicitis. No adjacent free air or drainable fluid collection. PERITONEUM: Normal. REPRODUCTIVE ORGANS: Normal. BONES/SOFT TISSUES: Chronic left pelvic fracture. No acute osseous abnormality.. OTHER: None. CT/Abdomen/Pelvis WITH Contrast IMPRESSION: Acute appendicitis with appendicolith at the appendiceal base. No adjacent free air or drainable fluid collection. Nonspecific splenomegaly. Electronically Signed: Velasquez Henderson MD at 6:16 EDT ,
--- NOTE | 2022-04-08 03:58 | EDS_ITS ---
HPI History of Present Illness Chief Complaint: Abd Pain Informant: patient Onset/Context/Timing Onset: Yesterday Context: Gradual Onset Timing: Waxes and wanes Current Severity: Moderate Maximum Severity: Moderate Narrative Narrative: Patient presents with periumbilical abdominal pain that started around 4 PM yesterday afternoon. He had eaten early dinner at 3 and pain started about an hour later. He reports nausea but no vomiting. He feels as if he is constipated. He is passing gas. He has had a prior appendectomy. [facility] Medical History COVID-19 Former tobacco use GERD (gastroesophageal reflux disease) Obesity On home oxygen therapy Pulmonary embolism Home Medications omeprazole magnesium 20 mg tablet,delayed release (Prilosec OTC) 20 mg PO QHS gerd 10/29/18 [History Last Taken 07/10/21] Allergy/AdvReac Type Severity Reaction Status Date / Time No Known Allergies Allergy Verified 04/08/22 03:48 Family History Mother Cancer Surgical History H/O unilateral orchiectomy History of appendectomy Social History household members: spouse Smoking Status: Former smoker quit date: 07/08/81 pack-years: 7 alcohol intake: never substance use type: does not use ROS ROS ED Constitutional Constitutional ED: Denies chills or fever(s) Eyes Eyes: Denies change in vision or discharge from eye(s) ENT ENT ED: Denies discharge from eye(s), rhinorrhea or sore throat Cardiovascular Cardiovascular: Denies chest pain or palpitations Respiratory/Chest Respiratory/Chest: Denies cough or dyspnea Gastrointestinal Gastrointestinal: Reports abdominal pain, constipation and nausea; Denies diarrhea or vomiting Genitourinary Genitourinary ED: Denies dysuria Musculoskeletal Musculoskeletal: Denies back pain or extremity pain Integumentary Denies Abrasions or rash Neurologic Neurologic: Denies headache(s) or weakness Allergic/Immunologic Allergic/Immunologic ED: Denies lip swelling or urticaria EXAM Physical Exam Const Vital Signs: 04/08/22 03:49 04/08/22 06:36 Temperature 97.8 F Temperature Source Temporal Pulse Rate 62 60 Respiratory Rate 16 Blood Pressure 151/87 H Blood Pressure Mean 108 Pulse Ox 95 95 Oxygen Delivery Method Room Air Room Air Positive well nourished and well developed General Appearance ED: well developed HEENT Reports normocephalic and head/scalp atraumatic Eyes PERRL and EOMs intact bilaterally Neck supple Chest Wall inspection of chest normal and palpation of chest normal Resp normal respiratory effort and clear to auscultation bilaterally Cardio regular rate and regular rhythm GI GI Narrative: Abdomen soft with diffuse tenderness to palpation. No guarding or rebound. Hypoactive bowel sounds noted. Palpation: soft Extremity normal to inspection Neuro oriented x3 and no sensory deficits noted Sensorium / Orientation: alert Motor Exam: strength 5/5 throughout Psych mental status grossly normal Skin no rashes or lesions noted MDM MDM MDM Narrative Medical decision making narrative: Patient was given morphine and Zofran for pain. IV fluids ordered. Lab work, urinalysis, CT scan with contrast obtained. Lab Data Attestation: I reviewed the patient's lab results. Labs: Laboratory Results - last 24 hr 04/08/22 04/08/22 04/08/22 04:00 04:00 05:10 WBC 6.5 RBC 4.93 Hgb 14.4 Hct 43.2 MCV 87.6 MCH 29.2 MCHC 33.3 RDW Std Deviation 43.5 RDW Coeff of Daiana 13.8 Plt Count 161 MPV 9.8 Immature Gran % (Auto) 0.500 Neut % (Auto) 72.7 H Lymph % (Auto) 15.4 L [place] % (Auto) 9.1 Eos % (Auto) 2.0 Baso % (Auto) 0.3 Absolute Neuts (auto) 4.7 Absolute Lymphs (auto) 1.00 Nucleated RBC % 0 Sodium 142 Potassium 4.0 Chloride 108 H Carbon Dioxide 27.0 Anion Gap 7 BUN 15 Creatinine 1.02 Estim Creat Clear Calc 80.51 Est GFR (MDRD) Af Amer 94 Est GFR (MDRD) Non-Af 78 BUN/Creatinine Ratio 14.7 Glucose 112 H Calcium 8.8 Total Bilirubin 1.40 H Direct Bilirubin 0.24 AST 17 ALT 22 Alkaline Phosphatase 109 Total Protein 7.1 Albumin 3.4 Globulin 3.7 Lipase 149 Urine Color Yellow Urine Clarity Clear Urine pH 6.0 Ur Specific [place] 1.010 Urine Protein Negative Urine Glucose (UA) Normal Urine Ketones Negative Urine Occult Blood Negative Urine Nitrite Negative Urine Bilirubin Negative Urine Urobilinogen 1 H Ur Leukocyte Esterase Negative Urine RBC 0 SEEN Urine WBC 0 SEEN Ur Squamous Epith Cells 0 SEEN Urine Bacteria 0 SEEN Urine Mucus 0 SEEN Radiography Diagnostic Testing: Clinical Impression(s) from Imaging Studies Abdomen/Pelvis CT 04/08/22 03:56 IMPRESSION: Acute appendicitis with appendicolith at the appendiceal base. No adjacent free air or drainable fluid collection. Nonspecific splenomegaly. Electronically Signed: Velasquez Henderson MD at 6:16 EDT , EKG Initial EKG: Interpretation: Sinus Bradycardia (Sinus bradycardia 59 bpm with PACs in a bigeminy pattern. No acute ST change. ) Treatment and Re-Evaluation Narrative: CBC is unremarkable with a white count of 6.5. 72% neutrophils noted. Chemi stry studies unremarkable. LFTs significant only for a total bili of 1.4 which appears consistent with his baseline. Lipase is normal at 149. Urinalysis reveals no acute infection. CT scan of the abdomen and pelvis with contrast reveals evidence of acute appendicitis with an appendicolith at the base. Patient does report having prior appendectomy when he was a senior in high school. The appendix looks short and dilated on today's scan. They may have left a remnant stump that is now infected. Patient has been given a dose of Zosyn. I spoke with Dr. Mackenzie who will be in to evaluate the patient. Discharge Plan Triage Chief Complaint: Abd Pain ED Provider: Charity Sadler Dx/Rx/DC Orders Clinical Impression: Acute appendicitis Prescriptions: No Action omeprazole magnesium [Prilosec OTC] 20 MG tablet,delayed release (DR/EC) 20 mg PO QHS Primary Care Provider: Gabino Brewer Referrals: Gabino Brewer MD [Primary Care Provider] - Disposition Disposition: Acute Care [facility]
[2022-04-08 04:04] LABS: Absolute Neutrophil Count 4.7 X10^3/uL (2.0-7.7); Basophil# 0.02 X10^3/uL; Basophil% 0.3 % (0-1); Eosinophil# 0.13 X10^3/uL; Hematocrit 43.2 % (40-54); Hemoglobin 14.4 g/dL (13.0-16.5); Lymphocyte % 15.4 % (19-41); Mean Corp Hgb Conc 33.3 g/dL (32-36); Mean Corpuscular Hgb 29.2 pg (27.0-32.0); Mean Corpuscular Volume 87.6 fL (80-94); Mean Platelet Vol. 9.8 fl (6.2-12.0); Monocyte# 0.59 X10^3/uL; Monocyte% 9.1 % (0-10); NRBC Flagged by Analyzer 0 % (0-5); Neutrophil # 4.74 X10^3/uL (2.7-7.7); Neutrophil % 72.7 % (47-70); Platelet Count 161 K/mm3 (150-450); RBC Distribution Width CV 13.8 % (11.6-14.6); RBC Distribution Width SD 43.5 fl (35.1-43.9); Red Blood Count 4.93 M/mm3 (4.6-6.2); White Blood Count 6.5 K/mm3 (4.4-11.0)
[2022-04-08] MEDS: Morphine 4 MG/ML Syringe IV (04:05)
[2022-04-08] MEDS: Ondansetron 4 MG/2 ML Vial IV (04:05)
[2022-04-08] MEDS: 0.9% Normal Saline 1,000 ML 150 ML IV (04:05)
[2022-04-08 04:19] LABS: AST(SGOT) 17 U/L (15-37); Alanine Aminotransfer ALT/SGPT 22 U/L (16-61); Albumin, Serum 3.4 g/dL (3.2-5.0); Alkaline Phosphatase 109 U/L (45-117); Anion Gap 7 (5-15); BUN 15 mg/dL (7-18); BUN/Creat Ratio 14.7 RATIO (10-20); Bilirubin, Direct 0.24 mg/dL (0.00-0.30); Calcium,Total 8.8 mg/dL (8.5-10.1); Chloride 108 mmol/L (98-107); Creatinine, Serum 1.02 mg/dL (0.70-1.30); EST Glomerular Filtration Rate 78 mL/min (>60); Est Glom Filt Rate - Afr Amer 94 mL/min (>60); Estimated Creatinine Clearance 80.51 ml/min; Globulin 3.7 g/dL (2.2-4.2); Glucose 112 mg/dL (74-106); Lipase 149 U/L (73-393); Protein, Total 7.1 g/dL (6.4-8.2); Sodium Level 142 mmol/L (136-145)
[2022-04-08 05:15] LABS: Bacteria 0 SEEN /hpf (None Seen); Mucous, Urine 0 SEEN /hpf (<or=2+); Red Blood Cells-Urine 0 SEEN /hpf (0-5); Squamous Epithelial Cells - UA 0 SEEN /hpf (0-5); White Blood Cells 0 SEEN /hpf (0-5)
[2022-04-08 05:17] LABS: Color, Urine Yellow (Yellow); Glucose, Dipstick Normal (Normal); Ketone-Dipstick Negative (Negative); Leukocyte Esterase-Dipstick Negative /ul (Negative); Nitrite-Dipstick Negative (Negative); Occult Blood-Urine Negative /ul (Negative); Protein-Dipstick Negative (Negative); Urine Bilirubin Dipstick Negative (Negative); Urine Clarity Clear (Clear); Urine Urobilinogen 1 mg/dl (Normal)
--- NOTE | 2022-04-08 07:54 | PCM.HP.STD ---
HPI - General General Date of Admission: 04/08/22 Date of Service: 04/08/22 Chief Complaint: abdominal pain - periumbilical HPI Narrative TONNY WILSON, is a 66 M who presents with periumbilical abdominal pain He states that his pain began around 3 pm yesterday and he points to the periumbilical area, that is the central part of his abdomen. He describes this pain as a severe ache with occasional sharp twinges. He states that it radiates to the back. He denies previous colonoscopy and he has no family history of colon cancer. He states that he had an appendectomy (open) in 1973. CT scan reads appendicitis this morning. [facility] Medical History Abdominal pain Abnormal CT scan COVID-19 Former tobacco use GERD (gastroesophageal reflux disease) Obesity On home oxygen therapy Pulmonary embolism Home Medications omeprazole magnesium 20 mg tablet,delayed release (Prilosec OTC) 20 mg PO QHS gerd 10/29/18 [History Last Taken 07/10/21] Allergy/AdvReac Type Severity Reaction Status Date / Time No Known Allergies Allergy Verified 04/08/22 03:48 Family History Mother Cancer Surgical History H/O unilateral orchiectomy History of appendectomy Social History household members: spouse Smoking Status: Former smoker quit date: 07/08/81 pack-years: 7 alcohol intake: never substance use type: does not use ROS Constitutional Constitutional: Denies fever(s), weight gain or weight loss Eyes Eyes: Denies loss of vision ENT HEENT: Denies epistaxis Cardiovascular Cardiovascular: Denies chest pain Respiratory/Chest Respiratory/Chest: Denies cough or dyspnea Gastrointestinal Gastrointestinal: Reports abdominal pain; Denies coffee ground emesis Genitourinary Genitourinary: Denies difficulty urinating or hematuria Musculoskeletal Musculoskeletal: Denies abnormal gait Integumentary Integumentary: Denies jaundice Neurologic Neurologic: Denies dizziness Hematologic/Lymphatic Hematologic/Lymphatic: Denies easy bleeding or easy bruising Vital Signs Vital Signs Vital Signs: 04/08/22 03:49 10/02/22 06:36 Temperature 97.8 F Temperature Source Temporal Pulse Rate 62 60 Respiratory Rate 16 Blood Pressure 151/87 H Blood Pressure Mean 108 Pulse Ox 95 95 Oxygen Delivery Method Room Air Room Air Weight Weight: 113 kg Body Mass Index (BMI) 32.8 Physical Exam Const oriented x3 and no apparent distress Resp normal respiratory effort Resp Narrative: no labored breathing noted Cardio regular rate GI GI Narrative: abdomen is protuberant and tender in the central abdomen with no peritoneal signs Auscultation: hypoactive bowel sounds external exam normal Extremity no clubbing, cyanosis or edema Results Medical Records Data Attestation: I reviewed the patient's medical records Lab / Micro Data Result Diagrams: 04/08/22 04:00 04/08/22 04:00 Labs: Laboratory Results - last 24 hr 04/08/22 04:00: WBC 6.5, RBC 4.93, Hgb 14.4, Hct 43.2, MCV 87.6, MCH 29.2, MCHC 33.3, RDW Std Deviation 43.5, RDW Coeff of [place] 13.8, Plt Count 161, MPV 9.8, Immature Gran % (Auto) 0.500, Neut % (Auto) 72.7 H, Lymph % (Auto) 15.4 L, [place] % (Auto) 9.1, Eos % (Auto) 2.0, Baso % (Auto) 0.3, Absolute Neuts (auto) 4.7, Absolute Lymphs (auto) 1.00, Nucleated RBC % 0 04/08/22 04:00: Sodium 142, Potassium 4.0, Chloride 108 H, Carbon Dioxide 27.0, Anion Gap 7, BUN 15, Creatinine 1.02, Estim Creat Clear Calc 80.51, Est GFR (MDRD) Af Amer 94, Est GFR (MDRD) Non-Af 78, BUN/Creatinine Ratio 14.7, Glucose 112 H, Calcium 8.8, Total Bilirubin 1.40 H, Direct Bilirubin 0.24, AST 17, ALT 22, Alkaline Phosphatase 109, Total Protein 7.1, Albumin 3.4, Globulin 3.7, Lipase 149 04/08/22 05:10: Urine Color Yellow, Urine Clarity Clear, Urine pH 6.0, Ur Specific [place] 1.010, Urine Protein Negative, Urine Glucose (UA) Normal, Urine Ketones Negative, Urine Occult Blood Negative, Urine Nitrite Negative, Urine Bilirubin Negative, Urine Urobilinogen 1 H, Ur Leukocyte Esterase Negative, Urine RBC 0 SEEN, Urine WBC 0 SEEN, Ur Squamous Epith Cells 0 SEEN, Urine Bacteria 0 SEEN, Urine Mucus 0 SEEN Radiology Impression Abdomen/Pelvis CT 04/08/22 03:56 IMPRESSION: Acute appendicitis with appendicolith at the appendiceal base. No adjacent free air or drainable fluid collection. Nonspecific splenomegaly. Electronically Signed: Velasquez Henderson MD at 6:16 EDT , Assessment & Plan Assessment/Plan (1) Abnormal CT scan: PLAN: see below (2) Abdominal pain: PLAN: I have discussed above with patient and his who is present with him. He states that he previously had an appendectomy - open with transverse right lower quadrant incisional site. The findings on CT scan may be a remnant stump of the appendix. It may be a diverticulum. It may even be a cancer, he states that he never had a colonoscopy. Will proceed with assumption of appendicitis and will use laparoscopic approach, but I have counseled patient that this may be more complicated and may require an open incisional laparotomy. I have explained the procedure to the patient. I have counseled the patient as to the risks of the procedure, including but not limited to: infection, bleeding, injury to any blood vessels/nerves, scar tissue, injury to any intraabdominal organs, injury to kidney/ureters, injury to bowel/bladder,intraabdominal abscess/bleeding, hernias at incisional sites, wound infections, possible open procedure, complications of anesthesia, postoperative pneumonia/cardiac problems/blood clots etc. the patient understands. He wishes to proceed. I have answered all questions to the patient?s satisfaction and the patient has no further questions.
--- NOTE | 2022-04-08 08:05 | NURSING ---
SURGERY THEN MED SURG OBS TEJADA APPENDICITIS
[2022-04-08] MEDS: Lactated Ringers 1,000 ML 125 ML IV ×3 (09:44→22:55)
--- NOTE | 2022-04-08 11:20 | ED.RN ---
report given to nurse in OR
--- NOTE | 2022-04-08 12:20 | APP_PTH ---
PATIENT: TONNY WILSON LOC: MS3 U#:[id number] AGE/SX: 66/M ROOM: HI310 RE04/08/[address]: Dr. Zaida Mackenzie MD : 1955 BED: 1 DIS: 04/12/2022 SPEC #: [id number] RECD: 04/09/22 11:10 STATUS: FARIDEH REThao #: [id number] JESUS: 04/08/22 12:[address]: Zaida Mackenzie DEPT: SURGICAL PATHOLOGY RECD BY: Kami Azar ENTERED: 04/09/22 13:28 SP TYPE: APPENDIX OTHR DR: Dr. Gabino Brewer MD Tissues: Appendix, NOS Procedures: Surgery Specimen Level III HEADER OPERATION: Laparoscopic appendectomy PRE-OP DIAGNOSIS: Abnormal CT scan, abdominal pain TISSUE SUBMITTED: Appendix (appendiceal stump), post appendectomy 40 years ago MICROSCOPIC DIAGNOSIS Appendiceal stump, excision: Acute appendicitis. Acute serositis. One out of one benign lymph node. AM:porsha 04/10/2022 COMMENT Case has been reviewed in consultation with Dr. Alexander who concurs with the above diagnosis. CASSIE:VERO MICROSCOPIC DESCRIPTION Slides are reviewed. GROSS DESCRIPTION Received in fixative is one container labeled with the patient's name and designated post appendectomy 40 years ago, appendix, appendiceal stump. The specimen consists of a portion of appendix consisting of appendiceal stump measuring 2.5 cm in length and 1.5 cm in diameter. Attached adipose tissue measures 4 x 4.5 x 3 cm. No fecal material is noted in the appendiceal stump. Interactive Marketing Strategist sections are submitted in five cassettes as follows: 1-4 ? entire appendiceal stump, 5 ? periappendiceal adipose tissue. / VERO:porsha 04/09/2022 TC:2 CPT: 67024
[2022-04-08] MEDS: Lidocaine 1% /Epi 1:100 (20ml) 20 ML Vial (12:45)
--- NOTE | 2022-04-08 15:11 | OP.PCM_ITS ---
Report of Operation Date of Procedure: 04/08/22 Pre-Operative Diagnosis: abdominal pain, abnormal CT scan showing appendicitis, s/p appendectomy 40 years ago Post-Operative Diagnosis: stump appendicitis, large amount of adhesions and inflammatory fat Surgery/Procedure Performed:: laparoscopic appendectomy converted to open appendectomy/partial cecectomy Description of Surgical Findings:: large amount of inflammatory fatty tissue precluding visualization for stump appendectomy Surgeon: Zaida Mackenzie manager recovery: Bridgett Felix Type of Anesthesia: General Anesthesiologist: Yfn Briones Specimen's removed: part of cecum and appendiceal stump Drains: none Estimated Blood Loss (mL): 50 ml Fluids Replaced: 1600 ml RL Description of Procedure: After informed consent was obtained, the patient was brought into the operating room. Appropriate time out protocol was followed. He was then placed in the supine position on the operating table. The patient was then placed under general anesthesia. The patient?s abdomen was then prepped with a sterile surgical skin preparation and sterile surgical drapes were placed. An area of skin superior to the umbilicus was infiltrated with local anesthestic and the skin fold was grasped with penetrating clamps. A skin incision was then made. A Veress needle was then inserted into the intraabdominal cavity and checked to be in the proper position with a normal saline drop test. A CO2 pneumoperitoneum was then created. Once this was achieved, the Veress needle was removed and a 5 mm trocar was placed in its stead. A 5 mm laparoscope was then inserted into the trocar. Careful examination of the intraabdominal contents was then done. There was no evidence of injury to any internal organs from placement of the Veress needle or the trocar. Under direct visualization, a 12mm suprapubic trocar and a 5mm periumbilical trocar was then placed into the intraabdominal cavity. The skin and subcutaneous tissues at these sites were first infiltrated with local anesthestic with epinephrine. Attention was then directed to the right lower quadrant. The appendix was no visualized. There was a large amount of inflammatory fatty tissue in the RLQ. This had to be taken down using the Harmonic scalpel. This took some time. There was a large amount of inflammatory fat that was surrounding the proximal colon that precluded visualization. This was the area of densest inflammation. Due to this, the procedure was converted to an open procedure. A midline abdominal skin incision was then made with a 10 blade scalpel connecting the trocar incisional sites. The subcutaneous tissues were then divided sharply and any hemorrhage was adequately controlled with electrocoagulation. The fascia was incised along the midline. A Atalissa retr actor was used for increased operative exposure. The patient had a BMI of 32 and primarily this was truncal obesity with a large amount of intraabdominal fat. Attention was directed to the right lower quadrant at the site of previous dissection. Palpation of the cecum revealed a hard area at the area that was appropriate for the appendix. There was inflammatory surrounding the proximal colon entirely. This layer fatty tissue was taken down layer by layer using the Harmonic scalpel. This took some time. Once the wall of the cecum was identified and then the area of stump appendicitis was visualized. An area of the cecum was cleared of surrounding fatty tissue. A TA-60 stapling device was then fired across the cecum near the appendiceal stump. The distal tissue that is the appendiceal stump and part of the cecum was then transected. Hemostasis was achieved by electrocautery. The staple line was then reinforced with a running 3-0 vicryl suture. The area of the right lower quadrant of the abdomen was carefully examined. Any bleeding was controlled with electocautery and vascular clips. The abdominal cavity was vigorously irrigated with normal saline and all irrigant was suctioned out. Sponge, instrument and suture count was verified and correct. The peritoneum was reapproximated with running 0 vicryl suture. The fascia was reapproximated with looped #2 PDS. The wound was irrigated with normal saline. The skin incision was closed with skin khalif. Sterile dressing was applied. The patient was then extubated and brought to the Recovery Room in stable condition. Complications none noted Admit VTE Documentation VTE Present on Admission: Yes VTE Mechan Device Prophylaxis: SCD's
--- NOTE | 2022-04-08 17:02 | SUR.PHASEI ---
updated on [employer]
[2022-04-08] MEDS: HYDROmorphone 0.5 MG/0.5 ML SYRINGE IV ×2 (19:22→22:51)
[2022-04-09] VITALS (8 sets, daily range): BP systolic 122–168; BP diastolic 75–92; PULSE 75–83; RESP 18–20; TEMP 36.9–37.3; O2SAT 92–95; BMI 32.9
[2022-04-09] MEDS: HYDROmorphone 0.5 MG/0.5 ML SYRINGE IV ×5 (03:11→20:27)
[2022-04-09] MEDS: Lactated Ringers 1,000 ML 125 ML IV ×3 (06:05→21:02)
--- NOTE | 2022-04-09 07:21 | PN.SURG_ITS ---
Subjective Subjective tolerating pain but needs increased frequency - will change this continue with sips of liquids - he rec'd two cans of sprite and drank these even though I explicitly wrote in orders - no carbonated beverages patient reports dysuria - he dribbles urine with the squeezing of the SCDs. The patient does report that the had increased frequency of urination, incomplete emptying sensation prior to surgery Objective Data Objective Data Vital Signs: Vital Signs Temp Pulse Resp BP Pulse Ox O2 Del Method O2 Flow Rate 98.7 F 75 18 155/80 H 95 Room Air 1 04/09/22 05:56 04/09/22 05:56 04/09/22 05:56 04/09/22 05:56 04/09/22 05:56 04/09/22 05:56 04/09/22 03:17 Oxygen Flow Rate (L/min) 1 Oxygen Delivery Method Room Air Weight: 113 kg Body Mass Index (BMI) 32.8 Intake & Output: Intake and Output for Last 24 Hours 04/07/22 04/08/22 04/09/22 23:59 23:59 23:59 Intake Total 2939.58 / 3139.58 1295.83 / 1295.83 Output Total 300 / 750 1000 / 1000 Balance 2639.58 / 2389.58 295.83 / 295.83 Lab / Micro Data Result Diagrams: 04/08/22 04:00 04/08/22 04:00 Physical Exam Const alert and oriented x3 General Appearance: cooperative Neck supple Resp normal respiratory effort Effort and Inspection: able to speak in complete sentences GI GI Narrative: abdomen is protuberant (unchanged from admission), dressing intact without seepage, incisional tenderness Assessment & Plan Assessment/Plan (1) Status post appendectomy: PLAN: patient is POD#1 s/p open appendectomy, midline incision encourage incentive spirometry and ambulation - patient states that due to his d ribbling - he is afraid to ambulate - I will order a condom cath for him (he chose this over Depends) continue present therapy, awaiting return of bowel function which may take 2-3 days.
--- NOTE | 2022-04-09 10:42 | CASEMGMT ---
GAVIN FLORES Assessment: Face to Face with pt for initial transition planning/care coordination assessment. RN SANDRA introduced self and role at [facility], pt voices understanding and consents to assessment. Pt is A/O x4 and answers all questions appropriately at this time. Pt sitting up in bed in no distress. Care providers, pharmacy, and demographics verified/updated. Admitting Dx: appendicitis PCP:Daniella Specialists:Pt denies. Preferred Pharmacy: [facility] Retail Insurance: [id number] Prescription Benefit: yes LW/HPOA: Pt denies having a LW/DPOA and denies need for info regarding AD. LNOK: Farhana Barahona, Living Arrangements: Pt lives with in a single story house with 5 steps to enter with a rail. Pt reports he is I in ADL's and denies concerns at home. Transportation: Pt drives self and denies concerns with transportation. DME/HHC/SNF: Pt has a walker at home but does not use. Pt denies hx of HHC or SNF stays. Pt states no concerns with going home at time of dc. Pt states no further concerns/needs. CM to follow. Advised pt to ask CM if any further question/concerns/needs arise, voices understanding. Pt Goal: Home Plan: Home
[2022-04-09] MEDS: HYDROcodone Bitartrate/Apap 5/325 Tablet PO (16:14)
[2022-04-09] MEDS: Ondansetron 4 MG/2 ML Vial IV (20:20)
[2022-04-09] MEDS: 0.9% Saline Lock 10 ML Syringe IV ×2 (20:20→20:27)
[2022-04-09] MEDS: Enoxaparin 30 MG/0.3 ML Syringe SC (20:24)
--- NOTE | 2022-04-09 21:01 | NURSING ---
pt walked a half lap in the jaquez. tolerated well.
--- NOTE | 2022-04-09 22:42 | NURSING ---
pt walked a full lap in the jaquez. tolerated well.
[2022-04-10] VITALS (8 sets, daily range): BP systolic 125–150; BP diastolic 75–94; PULSE 73–82; RESP 15–18; TEMP 36.3–37; O2SAT 92–100
[2022-04-10] MEDS: HYDROcodone Bitartrate/Apap 5/325 Tablet PO ×2 (01:19→05:05)
--- NOTE | 2022-04-10 01:22 | NURSING ---
pt walked another lap in the jaquez. tolerated well.
[2022-04-10] MEDS: Lactated Ringers 1,000 ML 125 ML IV ×3 (05:03→22:23)
--- NOTE | 2022-04-10 06:56 | NURSING ---
pt walked two laps in the jaquez. tolerated well.
--- NOTE | 2022-04-10 07:38 | PCM.PN.HOSP ---
Subjective Subjective Patient is a 66-year-old gentleman who was admitted with abdominal pain, imaging studies did demonstrate appendicitis. He apparently had appendectomy 40 years prior. Diagnosis of stump appendicitis with large amount of adhesions and inflammatory fat made during his laparoscopic appendectomy which was converted to open appendectomy and partial partial cecectomy. The hospitalist service was consulted on the morning of 04/10/2022 to assist with management of patient medical comorbidities Objective Data Objective Data Vital Signs: Vital Signs Temp Pulse Resp BP Pulse Ox O2 Del Method O2 Flow Rate 97.4 F L 82 18 146/82 H 94 Room Air 1 04/10/22 05:01 04/10/22 05:01 04/10/22 05:01 04/10/22 05:01 04/10/22 05:01 04/10/22 05:01 04/10/22 01:14 Oxygen Flow Rate (L/min) 1 Oxygen Delivery Method Room Air Weight: 113 kg Body Mass Index (BMI) 32.8 Intake & Output: Intake and Output for Last 24 Hours 04/08/22 04/09/22 04/10/22 23:59 23:59 23:59 Intake Total 2939.58 / 3139.58 3914.58 / 3914.58 1050 / 1050 Output Total 300 / 750 2125 / 2125 200 / 200 Balance 2639.58 / 2389.58 1789.58 / 1789.58 850 / 850 Lab / Micro Data Result Diagrams: 04/10/22 08:22 04/08/22 04:00 Physical Exam Narrative GENERAL: cooperative HEENT: Atraumatic; normocephalic EYES; Anicteric, Normal Conjunctiva NECK; supple, normal thyroid, RESPIRATORY: Diminished to auscultation CARDIOVASCULAR: Regular S1 S2, GI: Abdomen distended bowel sounds not appreciated : No Renal angle tenderness; EXTREMITIES: No edema, no clubbing, MUSCULOSKELETAL: no muscle wasting NEURO: Awake; no lateralizing signs. SKIN: No Rash PSYCH; Flat affect Assessment & Plan Assessment/Plan (1) Status post appendectomy: PLAN: Plan Patient is a 66-year-old gentleman who was admitted with abdominal pain, imaging studies did demonstrate appendicitis. He apparently had appendectomy 40 years prior. Diagnosis of stump appendicitis with large amount of adhesions and inflammatory fat made during his laparoscopic appendectomy which was converted to open appendectomy and partial partial cecectomy. The hospitalist service was consulted on the morning of 04/10/2022 to assist with management of patient medical comorbidities 1. Stump appendicitis ? Status post laparoscopic appendectomy converted to open appendectomy/partial cecectomy by Dr. Zaida Block on 04/08/2022. Patient postoperative orders regarding pain management, and postoperative resumption of feeding deferred to general surgery 2. Chest pain ? Ordered EKG if D-dimer subsequent evaluation will depend on the initial diagnostic work-up 3. GERD ? Patient is on PPI 4. Class I obesity with BMI of 32.9 ? Weight loss advised 5. DVT prophylaxis ? Enoxaparin Charges/Coding Visit Charges Inpatient E&M: 35246 Subs Hosp L3
[2022-04-10] MEDS: 0.9% Saline Lock 10 ML Syringe IV ×5 (07:51→22:25)
[2022-04-10] MEDS: Ondansetron 4 MG/2 ML Vial IV (07:51)
[2022-04-10] MEDS: Enoxaparin 30 MG/0.3 ML Syringe SC (07:52)
[2022-04-10 08:30] LABS: Absolute Lymphocyte Count 0.64 X10^3/uL (0.83-4.51); Absolute Neutrophil Count 7.9 X10^3/uL (2.0-7.7); Basophil# 0.01 X10^3/uL; Basophil% 0.1 % (0-1); Eosinophil# 0.02 X10^3/uL; Eosinophils% 0.2 % (0-5); Hemoglobin 14.7 g/dL (13.0-16.5); Lymphocyte # 0.64 X10^3/ul (0.83-4.51); Lymphocyte % 6.8 % (19-41); Mean Corp Hgb Conc 33.4 g/dL (32-36); Mean Corpuscular Hgb 29.5 pg (27.0-32.0); Mean Corpuscular Volume 88.4 fL (80-94); Mean Platelet Vol. 9.7 fl (6.2-12.0); Monocyte# 0.75 X10^3/uL; NRBC Flagged by Analyzer 0 % (0-5); Neutrophil # 7.91 X10^3/uL (2.7-7.7); Neutrophil % 84.4 % (47-70); Platelet Count 161 K/mm3 (150-450); RBC Distribution Width SD 44.9 fl (35.1-43.9); Red Blood Count 4.98 M/mm3 (4.6-6.2); White Blood Count 9.4 K/mm3 (4.4-11.0)
[2022-04-10 09:00] LABS: ALB/GLOB Ratio 0.7 RATIO (0.9-2.4); AST(SGOT) 17 U/L (15-37); Alanine Aminotransfer ALT/SGPT 21 U/L (16-61); Albumin, Serum 2.9 g/dL (3.2-5.0); Alkaline Phosphatase 87 U/L (45-117); Anion Gap 6 (5-15); BUN 20 mg/dL (7-18); BUN/Creat Ratio 19.8 RATIO (10-20); Calcium,Total 9.1 mg/dL (8.5-10.1); Chloride 104 mmol/L (98-107); Creatinine, Serum 1.01 mg/dL (0.70-1.30); EST Glomerular Filtration Rate 79 mL/min (>60); Est Glom Filt Rate - Afr Amer 95 mL/min (>60); Estimated Creatinine Clearance 81.31 ml/min; Glucose 147 mg/dL (74-106); Magnesium 1.9 mg/dL (1.6-2.6); Potassium 3.9 mmol/L (3.5-5.1); Protein, Total 6.9 g/dL (6.4-8.2); Sodium Level 138 mmol/L (136-145)
--- NOTE | 2022-04-10 09:13 | CT_ITS ---
STUDY: CTA CHEST REASON FOR EXAM: Male, 66 years old. Elevated d dimer/chest pain RADIATION DOSAGE (If Supplied By Facility): CTDIvol = ( 12.58 ) mGy, DLP = ( 445.46 ) mGycm TECHNIQUE: The examination was performed with the intravenous administration of IV 100mL Isovue-370. Post-processing of the angiographic images was performed, with multiplanar reformation and 3D reconstruction. Individualized dose optimization techniques were used for this CT. COMPARISON: Comparison is made with prior study dated 08/08/2021. FINDINGS: Normal enhancement of the main pulmonary artery and right and left pulmonary arteries. Normal enhancement of the bilateral peripheral pulmonary arteries. There is no demonstrated pulmonary embolism. Normal thoracic aorta and visualized great vessels. There is no demonstrated aortic dissection. Normal heart and pericardium. There are visualized mediastinal lymph nodes, which are within normal size limits, and with normal morphology. Normal hilar regions. Normal visualized trachea and bronchi. The lungs are well expanded. Mild increased linear markings in the anterior aspect of the right upper lobe. Increased markings are seen at both lung bases more prominent in the posterior medial segment of the right lower lobe. This has improved as seen on prior study although focal atelectasis and/or infiltrate persists. Stable 7.3 mm well-defined nodule in the right middle lobe as seen on axial image #104. Normal chest wall structures. There are degenerative changes of thoracic spine. Fatty infiltration of the liver. Small amount of free air is seen beneath the right hemidiaphragm. This may be a normal finding if the patient recently had intra-abdominal surgery. CT/CTA Chest W/WO Contrast IMPRESSION: No evidence of pulmonary embolism. Improved aeration of both lungs as compared to prior study although residual parenchymal changes persist in the posterior medial segment of the right lower lobe. Electronically Signed: Urbano Alanis MD at 10:15 EDT ,
[2022-04-10 09:15] LABS: Troponin-I HS 7 pg/mL (3.0-78.0)
[2022-04-10] MEDS: Pantoprazole Sodium 20 MG Tablet PO (10:42)
[2022-04-10] MEDS: HYDROmorphone 0.5 MG/0.5 ML SYRINGE IV ×3 (11:16→22:25)
--- NOTE | 2022-04-10 12:51 | PCM.PN.SRG ---
Subjective Subjective patient has not passed flatus was bloated last night, but improved this morning patient states that he had an episode of chest pain Objective Data Objective Data Vital Signs: Vital Signs Temp Pulse Resp BP Pulse Ox O2 Del Method O2 Flow Rate 98.6 F 76 16 143/85 H 94 Room Air 1 04/10/22 08:07 04/10/22 08:07 04/10/22 08:07 04/10/22 08:07 04/10/22 08:07 04/10/22 08:07 04/10/22 01:14 Oxygen Flow Rate (L/min) 1 Oxygen Delivery Method Room Air Weight: 113 kg Body Mass Index (BMI) 32.8 Intake & Output: Intake and Output for Last 24 Hours 04/08/22 04/09/22 04/10/22 23:59 23:59 23:59 Intake Total 2939.58 / 3139.58 3914.58 / 3914.58 1100 / 1100 Output Total 300 / 750 2125 / 2125 200 / 200 Balance 2639.58 / 2389.58 1789.58 / 1789.58 900 / 900 Lab / Micro Data Attestation: I reviewed the patient's lab results. Result Diagrams: 04/11/22 06:28 04/11/22 06:28 Labs: Laboratory Results - last 24 hr 04/10/22 08:22: WBC 9.4, RBC 4.98, Hgb 14.7, Hct 44.0, MCV 88.4, MCH 29.5, MCHC 33.4, RDW Std Deviation 44.9 H, RDW Coeff of Daiana 14.0, Plt Count 161, MPV 9.7, Immature Gran % (Auto) 0.500, Neut % (Auto) 84.4 H, Lymph % (Auto) 6.8 L, Elliott % (Auto) 8.0, Eos % (Auto) 0.2, Baso % (Auto) 0.1, Absolute Neuts (auto) 7.9 H, Absolute Lymphs (auto) 0.64 L, Nucleated RBC % 0 04/10/22 08:22: D-Dimer Quant (PE/DVT) 1.70 H* 04/10/22 08:22: Sodium 138, Potassium 3.9, Chloride 104, Carbon Dioxide 28.0, Anion Gap 6, BUN 20 H, Creatinine 1.01, Estim Creat Clear Calc 81.31, Est GFR (MDRD) Af Amer 95, Est GFR (MDRD) Non-Af 79, BUN/Creatinine Ratio 19.8, Glucose 147 H, Calcium 9.1, Magnesium 1.9, Total Bilirubin 3.50 H, AST 17, ALT 21, Alkaline Phosphatase 87, Total Protein 6.9, Albumin 2.9 L, Globulin 4.0, Albumin/Globulin Ratio 0.7 L 04/10/22 08:22: Troponin I High Sens 7 Radiography Diagnostic Testing: Radiology Impression Chest CTA 04/10/22 09:13 IMPRESSION: No evidence of pulmonary embolism. Improved aeration of both lungs as compared to prior study although residual parenchymal changes persist in the posterior medial segment of the right lower lobe. Electronically Signed: Urbano Alanis MD at 10:15 EDT , Physical Exam Const alert and oriented x3 General Appearance: cooperative Neck supple Resp normal respiratory effort Effort and Inspection: able to speak in complete sentences GI GI Narrative: abdomen is protuberant - unchanged from admission dressing intact Assessment & Plan Assessment/Plan (1) Status post appendectomy: PLAN: continue present therapy will consult internal medicine to evaluate for chest pain - rule out cardiac etiology
[2022-04-10] MEDS: ChlorproMAZINE 25 MG Tablet PO ×2 (14:27→22:30)
[2022-04-11] VITALS (7 sets, daily range): BP systolic 132–137; BP diastolic 67–73; PULSE 72–87; RESP 16–18; TEMP 36.4–36.8; O2SAT 93–97
[2022-04-11] MEDS: HYDROmorphone 0.5 MG/0.5 ML SYRINGE IV ×5 (03:06→19:47)
[2022-04-11] MEDS: 0.9% Saline Lock 10 ML Syringe IV ×6 (03:06→14:46)
[2022-04-11] MEDS: Lactated Ringers 1,000 ML 125 ML IV (05:58)
[2022-04-11] MEDS: ChlorproMAZINE 25 MG Tablet PO ×2 (06:01→15:38)
[2022-04-11] MEDS: Ondansetron 4 MG/2 ML Vial IV (06:32)
--- NOTE | 2022-04-11 07:26 | PN.HOSP_ITS ---
Subjective Subjective Patient seen abdomen remains distended denies passing any gas CT of the chest obtained the day prior did not show any blood clots Objective Data Objective Data Vital Signs: Vital Signs Temp Pulse Resp BP Pulse Ox O2 Del Method O2 Flow Rate 98.2 F 79 18 132/71 H 93 Room Air 1 04/11/22 03:04 04/11/22 03:04 04/11/22 03:04 04/11/22 03:04 04/11/22 03:04 04/11/22 03:11 04/10/22 22:20 Oxygen Flow Rate (L/min) 1 Oxygen Delivery Method Room Air Weight: 113 kg Body Mass Index (BMI) 32.8 Intake & Output: Intake and Output for Last 24 Hours 04/09/22 04/10/22 04/11/22 23:59 23:59 23:59 Intake Total 3914.58 / 3914.58 3441.67 / 3441.67 1097.92 / 1097.92 Output Total 2125 / 2125 200 / 200 Balance 1789.58 / 1789.58 3241.67 / 3241.67 1097.92 / 1097.92 Lab / Micro Data Result Diagrams: 04/11/22 06:28 04/11/22 06:28 Labs: Laboratory Results - last 24 hr 04/10/22 08:22: WBC 9.4, RBC 4.98, Hgb 14.7, Hct 44.0, MCV 88.4, MCH 29.5, MCHC 33.4, RDW Std Deviation 44.9 H, RDW Coeff of Daiana 14.0, Plt Count 161, MPV 9.7, Immature Gran % (Auto) 0.500, Neut % (Auto) 84.4 H, Lymph % (Auto) 6.8 L, [place] % (Auto) 8.0, Eos % (Auto) 0.2, Baso % (Auto) 0.1, Absolute Neuts (auto) 7.9 H, Absolute Lymphs (auto) 0.64 L, Nucleated RBC % 0 04/10/22 08:22: D-Dimer Quant (PE/DVT) 1.70 H* 04/10/22 08:22: Sodium 138, Potassium 3.9, Chloride 104, Carbon Dioxide 28.0, Anion Gap 6, BUN 20 H, Creatinine 1.01, Estim Creat Clear Calc 81.31, Est GFR (MDRD) Af Amer 95, Est GFR (MDRD) Non-Af 79, BUN/Creatinine Ratio 19.8, Glucose 147 H, Calcium 9.1, Magnesium 1.9, Total Bilirubin 3.50 H, AST 17, ALT 21, Alkaline Phosphatase 87, Total Protein 6.9, Albumin 2.9 L, Globulin 4.0, Albumin/Globulin Ratio 0.7 L 04/10/22 08:22: Troponin I High Sens 7 Radiography Diagnostic Testing: Radiology Impression Chest CTA 04/10/22 09:13 IMPRESSION: No evidence of pulmonary embolism. Improved aeration of both lungs as compared to prior study although residual parenchymal changes persist in the posterior medial segment of the right lower lobe. Electronically Signed: Urbano Alanis MD at 10:15 EDT , Physical Exam Narrative GENERAL: cooperative HEENT: Atraumatic; normocephalic EYES; Anicteric, Normal Conjunctiva NECK; supple, normal thyroid, RESPIRATORY: Diminished to auscultation CARDIOVASCULAR: Regular S1 S2, GI: Abdomen distended bowel sounds not appreciated : No Renal angle tenderness; EXTREMITIES: No edema, no clubbing, MUSCULOSKELETAL: no muscle wasting NEURO: Awake; no lateralizing signs. SKIN: No Rash PSYCH; Flat affect Assessment & Plan Assessment/Plan (1) Status post appendectomy: PLAN: Plan Patient is a 66-year-old gentleman who was admitted with abdominal pain, imaging studies did demonstrate appendicitis. He apparently had appendectomy 40 years prior. Diagnosis of stump appendicitis with large amount of adhesions and inflammatory fat made during his laparoscopic appendectomy which was converted to open appendectomy and partial partial cecectomy. The hospitalist service was consulted on the morning of 04/10/2022 to assist with management of patient medical comorbidities 1. Stump appendicitis ? Status post laparoscopic appendectomy converted to open appendectomy/partial cecectomy by Dr. Zaida Block on 04/08/2022. Patient postoperative orders regarding pain management, and postoperative resumption of feeding deferred to general surgery ? 04/11/2022; patient awaiting return of bowel function 2. Chest pain ? Ordered EKG if D-dimer subsequent evaluation will depend on the initial diagnostic work-up ? 04/11/2022 patient had elevated D-dimer however CT of the chest obtained was negative for PE 3. GERD ? Patient is on PPI 4. Class I obesity with BMI of 32.9 ? Weight loss advised 5. DVT prophylaxis ? Enoxaparin 6. Hypophosphatemia ? Corrected per protocol Charges/Coding Visit Charges Inpatient E&M: 49241 Subs Hosp L2
[2022-04-11 07:28] LABS: Hematocrit 39.1 % (40-54); Mean Corp Hgb Conc 33.2 g/dL (32-36); Mean Corpuscular Hgb 29.5 pg (27.0-32.0); Mean Corpuscular Volume 88.9 fL (80-94); Mean Platelet Vol. 10.4 fl (6.2-12.0); Platelet Count 165 K/mm3 (150-450); RBC Distribution Width CV 13.7 % (11.6-14.6); RBC Distribution Width SD 45.1 fl (35.1-43.9); White Blood Count 7.4 K/mm3 (4.4-11.0)
--- NOTE | 2022-04-11 07:34 | PN.SURG_ITS ---
Subjective Subjective patient has not passed flatus had episode of coughing up a blood clot, but not having any breathing difficulties, denies SOB abdominal pain controlled with medications ambulating well Objective Data Objective Data Vital Signs: Vital Signs Temp Pulse Resp BP Pulse Ox O2 Del Method O2 Flow Rate 98.2 F 79 18 132/71 H 93 Room Air 1 04/11/22 03:04 04/11/22 03:04 04/11/22 03:04 04/11/22 03:04 04/11/22 03:04 04/11/22 03:11 04/10/22 22:20 Oxygen Flow Rate (L/min) 1 Oxygen Delivery Method Room Air Weight: 113 kg Body Mass Index (BMI) 32.8 Intake & Output: Intake and Output for Last 24 Hours 04/09/22 04/10/22 04/11/22 23:59 23:59 23:59 Intake Total 3914.58 / 3914.58 3441.67 / 3441.67 1097.92 / 1097.92 Output Total 2125 / 2125 200 / 200 Balance 1789.58 / 1789.58 3241.67 / 3241.67 1097.92 / 1097.92 Lab / Micro Data Attestation: I reviewed the patient's lab results. Result Diagrams: 04/11/22 06:28 04/11/22 06:28 Labs: Laboratory Results - last 24 hr 04/10/22 08:22: WBC 9.4, RBC 4.98, Hgb 14.7, Hct 44.0, MCV 88.4, MCH 29.5, MCHC 33.4, RDW Std Deviation 44.9 H, RDW Coeff of Daiana 14.0, Plt Count 161, MPV 9.7, Immature Gran % (Auto) 0.500, Neut % (Auto) 84.4 H, Lymph % (Auto) 6.8 L, [place] % (Auto) 8.0, Eos % (Auto) 0.2, Baso % (Auto) 0.1, Absolute Neuts (auto) 7.9 H, Absolute Lymphs (auto) 0.64 L, Nucleated RBC % 0 04/10/22 08:22: D-Dimer Quant (PE/DVT) 1.70 H* 04/10/22 08:22: Sodium 138, Potassium 3.9, Chloride 104, Carbon Dioxide 28.0, Anion Gap 6, BUN 20 H, Creatinine 1.01, Estim Creat Clear Calc 81.31, Est GFR (MDRD) Af Amer 95, Est GFR (MDRD) Non-Af 79, BUN/Creatinine Ratio 19.8, Glucose 147 H, Calcium 9.1, Magnesium 1.9, Total Bilirubin 3.50 H, AST 17, ALT 21, Alkaline Phosphatase 87, Total Protein 6.9, Albumin 2.9 L, Globulin 4.0, Albumin/Globulin Ratio 0.7 L 04/10/22 08:22: Troponin I High Sens 7 04/11/22 06:28: WBC 7.4, RBC 4.40 L, Hgb 13.0, Hct 39.1 L, MCV 88.9, MCH 29.5, MCHC 33.2, RDW Std Deviation 45.1 H, RDW Coeff of Daiana 13.7, Plt Count 165, MPV 10.4 Radiography Diagnostic Testing: Radiology Impression Chest CTA 04/10/22 09:13 IMPRESSION: No evidence of pulmonary embolism. Improved aeration of both lungs as compared to prior study although residual parenchymal changes persist in the posterior medial segment of the right lower lobe. Electronically Signed: Urbano Alanis MD at 10:15 EDT , Physical Exam Const alert and oriented x3 General Appearance: cooperative Neck supple Resp normal respiratory effort Effort and Inspection: able to speak in complete sentences GI GI Narrative: abdomen is soft and benign, protuberant - unchanged from preop dressing intact - minimal seepage Assessment & Plan Assessment/Plan (1) Status post appendectomy: PLAN: Continue present therapy awaiting return to bowel function to be manifested by flatus
[2022-04-11 08:09] LABS: Anion Gap 7 (5-15); BUN 24 mg/dL (7-18); BUN/Creat Ratio 26.8 RATIO (10-20); Calcium,Total 8.8 mg/dL (8.5-10.1); Chloride 107 mmol/L (98-107); EST Glomerular Filtration Rate 90 mL/min (>60); Est Glom Filt Rate - Afr Amer 109 mL/min (>60); Estimated Creatinine Clearance 91.24 ml/min; Glucose 135 mg/dL (74-106); Phosphorus 1.7 mg/dL (2.5-4.9); Potassium 3.8 mmol/L (3.5-5.1); Sodium Level 139 mmol/L (136-145)
[2022-04-11] MEDS: Enoxaparin 30 MG/0.3 ML Syringe SC (08:52)
[2022-04-11] MEDS: Pantoprazole Sodium 20 MG Tablet PO (21:08)
[2022-04-12] MEDS: Lactated Ringers 1,000 ML 125 ML IV (00:57)
[2022-04-12] MEDS: HYDROmorphone 0.5 MG/0.5 ML SYRINGE IV ×2 (01:00→03:40)
[2022-04-12 03:44] VITALS: BP 138/83; PULSE 77; RESP 16; TEMP 36.8; O2SAT 96
[2022-04-12 03:45] VITALS: BP 138/83; PULSE 77; RESP 16; TEMP 36.8; O2SAT 96
[2022-04-12 04:59] LABS: Hematocrit 34.4 % (40-54); Hemoglobin 11.6 g/dL (13.0-16.5); Mean Corp Hgb Conc 33.7 g/dL (32-36); Mean Corpuscular Hgb 29.9 pg (27.0-32.0); Mean Corpuscular Volume 88.7 fL (80-94); Mean Platelet Vol. 10.3 fl (6.2-12.0); Platelet Count 146 K/mm3 (150-450); RBC Distribution Width CV 13.7 % (11.6-14.6); RBC Distribution Width SD 44.5 fl (35.1-43.9); Red Blood Count 3.88 M/mm3 (4.6-6.2); White Blood Count 4.9 K/mm3 (4.4-11.0)
[2022-04-12 05:22] LABS: Anion Gap 5 (5-15); BUN 15 mg/dL (7-18); BUN/Creat Ratio 17.3 RATIO (10-20); Calcium,Total 8.4 mg/dL (8.5-10.1); Chloride 107 mmol/L (98-107); Creatinine, Serum 0.87 mg/dL (0.70-1.30); EST Glomerular Filtration Rate 94 mL/min (>60); Est Glom Filt Rate - Afr Amer 113 mL/min (>60); Estimated Creatinine Clearance 94.39 ml/min; Glucose 149 mg/dL (74-106); Potassium 3.7 mmol/L (3.5-5.1); Sodium Level 140 mmol/L (136-145)
--- NOTE | 2022-04-12 07:11 | PCM.PN.SRG ---
Subjective Subjective patient with no flatus notes increased acid reflux Objective Data Objective Data Vital Signs: Vital Signs Temp Pulse Resp BP Pulse Ox O2 Del Method O2 Flow Rate 98.2 F 77 16 138/83 H 96 Room Air 1 04/12/22 03:45 04/12/22 03:45 04/12/22 03:45 04/12/22 03:45 04/12/22 03:45 04/12/22 03:45 04/10/22 22:20 Oxygen Flow Rate (L/min) 1 Oxygen Delivery Method Room Air Weight: 113 kg Body Mass Index (BMI) 32.8 Intake & Output: Intake and Output for Last 24 Hours 04/10/22 04/11/22 04/12/22 23:59 23:59 23:59 Intake Total 3441.67 / 3441.67 4159.1733 / 4159.1733 1152.08 / 1152.08 Output Total 200 / 200 275 / 275 Balance 3241.67 / 3241.67 4159.1733 / 4159.1733 877.08 / 877.08 Lab / Micro Data Attestation: I reviewed the patient's lab results. Result Diagrams: 04/12/22 04:28 04/12/22 04:28 Labs: Laboratory Results - last 24 hr 04/11/22 06:28: WBC 7.4, RBC 4.40 L, Hgb 13.0, Hct 39.1 L, MCV 88.9, MCH 29.5, MCHC 33.2, RDW Std Deviation 45.1 H, RDW Coeff of Daiana 13.7, Plt Count 165, MPV 10.4 04/11/22 06:28: Sodium 139, Potassium 3.8, Chloride 107, Carbon Dioxide 25.0, Anion Gap 7, BUN 24 H, Creatinine 0.90, Estim Creat Clear Calc 91.24, Est GFR (MDRD) Af Amer 109, Est GFR (MDRD) Non-Af 90, BUN/Creatinine Ratio 26.8 H, Glucose 135 H, Calcium 8.8, Phosphorus 1.7 L 04/12/22 04:28: WBC 4.9, RBC 3.88 L, Hgb 11.6 L, Hct 34.4 L, MCV 88.7, MCH 29.9, MCHC 33.7, RDW Std Deviation 44.5 H, RDW Coeff of Daiana 13.7, Plt Count 146 L, MPV 10.3 04/12/22 04:28: Sodium 140, Potassium 3.7, Chloride 107, Carbon Dioxide 28.0, Anion Gap 5, BUN 15, Creatinine 0.87, Estim Creat Clear Calc 94.39, Est GFR (MDRD) Af Amer 113, Est GFR (MDRD) Non-Af 94, BUN/Creatinine Ratio 17.3, Glucose 149 H, Calcium 8.4 L Physical Exam Const alert and oriented x3 General Appearance: cooperative Neck supple Resp normal respiratory effort Effort and Inspection: able to speak in complete sentences Assessment & Plan Assessment/Plan (1) Status post appendectomy: PLAN: see below PLAN: Plan awaiting passage of flatus continue present therapy
--- NOTE | 2022-04-12 07:49 | PCM.PN.HOSP ---
Subjective Subjective Patient seen abdomen less distended compared to previous day. Per patient he is passing gas per rectum. Decision to start patient on oral diet deferred to general surgery Objective Data Objective Data Vital Signs: Vital Signs Temp Pulse Resp BP Pulse Ox O2 Del Method O2 Flow Rate 98.2 F 77 16 138/83 H 96 Room Air 1 04/12/22 03:45 04/12/22 03:45 04/12/22 03:45 04/12/22 03:45 04/12/22 03:45 04/12/22 03:45 04/10/22 22:20 Oxygen Flow Rate (L/min) 1 Oxygen Delivery Method Room Air Weight: 113 kg Body Mass Index (BMI) 32.8 Intake & Output: Intake and Output for Last 24 Hours 04/10/22 04/11/22 04/12/22 23:59 23:59 23:59 Intake Total 3441.67 / 3441.67 4159.1733 / 4159.1733 1152.08 / 1152.08 Output Total 200 / 200 275 / 275 Balance 3241.67 / 3241.67 4159.1733 / 4159.1733 877.08 / 877.08 Lab / Micro Data Result Diagrams: 04/12/22 04:28 04/12/22 04:28 Labs: Laboratory Results - last 24 hr 04/11/22 06:28: Sodium 139, Potassium 3.8, Chloride 107, Carbon Dioxide 25.0, Anion Gap 7, BUN 24 H, Creatinine 0.90, Estim Creat Clear Calc 91.24, Est GFR (MDRD) Af Amer 109, Est GFR (MDRD) Non-Af 90, BUN/Creatinine Ratio 26.8 H, Glucose 135 H, Calcium 8.8, Phosphorus 1.7 L 04/12/22 04:28: WBC 4.9, RBC 3.88 L, Hgb 11.6 L, Hct 34.4 L, MCV 88.7, MCH 29.9, MCHC 33.7, RDW Std Deviation 44.5 H, RDW Coeff of Daiana 13.7, Plt Count 146 L, MPV 10.3 04/12/22 04:28: Sodium 140, Potassium 3.7, Chloride 107, Carbon Dioxide 28.0, Anion Gap 5, BUN 15, Creatinine 0.87, Estim Creat Clear Calc 94.39, Est GFR (MDRD) Af Amer 113, Est GFR (MDRD) Non-Af 94, BUN/Creatinine Ratio 17.3, Glucose 149 H, Calcium 8.4 L Physical Exam Narrative GENERAL: cooperative HEENT: Atraumatic; normocephalic EYES; Anicteric, Normal Conjunctiva NECK; supple, normal thyroid, RESPIRATORY: Diminished to auscultation CARDIOVASCULAR: Regular S1 S2, GI: Abdomen distended bowel sounds not appreciated : No Renal angle tenderness; EXTREMITIES: No edema, no clubbing, MUSCULOSKELETAL: no muscle wasting NEURO: Awake; no lateralizing signs. SKIN: No Rash PSYCH; Flat affect Assessment & Plan Assessment/Plan (1) Status post appendectomy: PLAN: Plan Patient is a 66-year-old gentleman who was admitted with abdominal pain, imaging studies did demonstrate appendicitis. He apparently had appendectomy 40 years prior. Diagnosis of stump appendicitis with large amount of adhesions and inflammatory fat made during his laparoscopic appendectomy which was converted to open appendectomy and partial partial cecectomy. The hospitalist service was consulted on the morning of 04/10/2022 to assist with management of patient medical comorbidities 1. Stump appendicitis ? Status post laparoscopic appendectomy converted to open appendectomy/partial cecectomy by Dr. Zaida Block on 04/08/2022. Patient postoperative orders regarding pain management, and postoperative resumption of feeding deferred to general surgery ? 04/11/2022; patient awaiting return of bowel function -04/12/2022;Patient seen abdomen less distended compared to previous day. Per patient he is passing gas per rectum. Decision to start patient on oral diet deferred to general surgery 2. Chest pain ? Ordered EKG if D-dimer subsequent evaluation will depend on the initial diagnostic work-up ? 04/11/2022 patient had elevated D-dimer however CT of the chest obtained was negative for PE 3. GERD ? Patient is on PPI 4. Class I obesity with BMI of 32.9 ? Weight loss advised 5. DVT prophylaxis ? Enoxaparin 6. Hypophosphatemia ? Corrected per protocol Charges/Coding Visit Charges Inpatient E&M: 51029 Subs Hosp L2
[2022-04-12] MEDS: Enoxaparin 30 MG/0.3 ML Syringe SC (08:24)
[2022-04-12] MEDS: Lactated Ringers 1,000 ML 75 ML IV (08:25)
[2022-04-12 09:00] VITALS: BP 134/68; PULSE 82; RESP 18; TEMP 36.8; O2SAT 97
[2022-04-12 09:30] VITALS: BP 134/68; PULSE 82; RESP 18; TEMP 36.8; O2SAT 97
[2022-04-12] MEDS: HYDROcodone Bitartrate/Apap 5/325 Tablet PO ×2 (13:57→19:00)
[2022-04-12 15:00] VITALS: BP 124/68; PULSE 78; RESP 18; TEMP 36.9; O2SAT 95
[2022-04-12 15:40] VITALS: BP 124/68; PULSE 78; RESP 18; TEMP 36.9; O2SAT 95
--- NOTE | 2022-04-12 19:42 | DCINST_ITS ---
Discharge Instructions Follow Up Care Test Results: Test results from this visit will be discussed in further detail at your follow- up appointment, if applicable. Discharge Plan Admission Admit Date/Time: 04/08/22 19:12 Primary Reason for Your Visit: abdominal pain Attending Provider: Zaida Mackenzie Primary Care Provider: Gabino Brewer Consulting Providers: Duane Mei Instructions Additional Instructions / Restrictions: Avoid carbonated beverages (for several days) as it may cause bloating and thus discomfort You are prescribed pain medications, however - a recommended pain control regimen - May take 600 mg ibuprofen (Motrin) and then in 3-4 hours, may take 650 mg acetaminophen (Tylenol), then in 3-4 hours may take 600 mg ibuprofen, then in 3-4 hours may take 650 mg acetaminophen and so on for 2-3 days May take narcotic pain medication for pain that is not controlled by above and at night for comfort through the night Leave dressings in place May shower, do not scrub in the areas of the dressings as they may unravel. If they become overly soiled you may remove them but leave incision site open to air. Do not soak - no tub baths/swimming Ice applied to areas of discomfort may help No lifting/pushing/pulling greater than 20 pounds for at least a month. Regular diet as tolerated, drink plenty of fluids. Avoid carbonated beverages for a few days as this will cause abdominal bloating and thus discomfort after our surgery. Please call my office for an appointment to see me in 1 weeks. Office number is If any questions, please call my office at and ask the refinery operator helper cracking unit for the general surgery nurses desk Discharge Orders/Prescriptions Prescriptions: New hydrocodone-acetaminophen 5-325 mg tablet 1 tab PO Q8H 5 Days Qty: 15 0RF No Action omeprazole magnesium [Prilosec OTC] 20 MG tablet,delayed release (DR/EC) 20 mg PO QHS Referrals / Follow Up: Gabino Brewer MD [Primary Care Provider] - Zaida Mackenzie MD [Med Staff - Active Staff] - 04/20/22 3:15 pm Disposition Disposition (needs filled in before D/C Order can be placed): Home, Self Care
--- NOTE | 2022-04-12 19:44 | PCM.DC.BLA ---
Discharge Summary Date of Admission: 04/08/22 Date of Discharge: 04/12/22 Summary: Mr Barahona presented with abdominal pain. He was found by CT scan to have appendicitis, despite having had appendectomy about 40 years ago. He was taken to OR on 04/08/2022, attempted laparoscopic appendectomy converted to open appendectomy via midline incision in order to find the stump of appendix. This was complicated but patient's body habitus and adhesions from previous surgery. He underwent appendectomy and partial cecectomy. Internal medicine consulted for chest pain. Cardiac and PE ruled out. He had bowel function return on POD#4 and was then discharged to home. Meaningful Use Info Meaningful Use Diagnoses (Choose all that apply): None applicable Discharge Plan Admission Admit Date/Time: 04/08/22 19:12 Primary Reason for Your Visit: abdominal pain Attending Provider: Zaida Mackenzie Primary Care Provider: Gabino Brewer Consulting Providers: Duane Mei Instructions Additional Instructions / Restrictions: Avoid carbonated beverages (for several days) as it may cause bloating and thus discomfort You are prescribed pain medications, however - a recommended pain control regimen - May take 600 mg ibuprofen (Motrin) and then in 3-4 hours, may take 650 mg acetaminophen (Tylenol), then in 3-4 hours may take 600 mg ibuprofen, then in 3-4 hours may take 650 mg acetaminophen and so on for 2-3 days May take narcotic pain medication for pain that is not controlled by above and at night for comfort through the night Leave dressings in place May shower, do not scrub in the areas of the dressings as they may unravel. If they become overly soiled you may remove them but leave incision site open to air. Do not soak - no tub baths/swimming Ice applied to areas of discomfort may help No lifting/pushing/pulling greater than 20 pounds for at least a month. Regular diet as tolerated, drink plenty of fluids. Avoid carbonated beverages for a few days as this will cause abdominal bloating and thus discomfort after our surgery. Please call my office for an appointment to see me in 1 weeks. Office number is If any questions, please call my office at and ask the wool hat sanding machine operator for the general surgery nurses desk Discharge Orders/Prescriptions Prescriptions: New hydrocodone-acetaminophen 5-325 mg tablet 1 tab PO Q8H 5 Days Qty: 15 0RF No Action omeprazole magnesium [Prilosec OTC] 20 MG tablet,delayed release (DR/EC) 20 mg PO QHS Referrals / Follow Up: Gabino Brewer MD [Primary Care Provider] - Zaida Mackenzie MD [Med Staff - Active Staff] - 04/20/22 3:15 pm Disposition Disposition (needs filled in before D/C Order can be placed): Home, Self Care
== END 2022-04-12 20:35 | disposition home or self-care (01) | DRG 331 ==
LOC: ED 08:08 → MS3 08:09
PROVIDERS: Internal Medicine; Admitting Provider Surgery; Emergency Provider Emergency Medicine; PCP Family Medicine; Visit Provider Surgery
PROC: 0DTJ4ZZ Resection of Appendix, Percutaneous Endoscopic Approach (ICD-10-PCS; CPT 44970; principal; 2022-04-08 12:00)
DX: K36 Other appendicitis (principal); E83.39 Other disorders of phosphorus metabolism; K21.9 Gastro-esophageal reflux disease without esophagitis; E66.9 Obesity, unspecified; R07.9 Chest pain, unspecified; R79.1 Abnormal coagulation profile; Z28.310 Unvaccinated for COVID-19; Z53.31 Laparoscopic surgical procedure converted to open procedure; Z90.49 Acquired absence of other specified parts of digestive tract; Z79.899 Other long term (current) drug therapy; Z86.16 Personal history of COVID-19; Z87.891 Personal history of nicotine dependence; Z28.9 Immunization not carried out for unspecified reason; Z68.32 Body mass index [BMI] 32.0-32.9, adult
CPT/HCPCS: 36415; 71275; 74177; 80048; 80053; 80076; 81001; 83690; 83735; 84100; 84484; 85025; 85027; 85379; 88304; 93005; 99285; J7030; J7040; J7120; Q9967; A4216; J2405

== ENCOUNTER 2022-04-14 23:21 | Emergency (ER) | payer MEDICARE, SELFPAY ==
[2022-04-14 23:21] VITALS: BP 134/97; PULSE 73; RESP 16; TEMP 36.8; O2SAT 97; BMI 31.6
--- NOTE | 2022-04-14 23:55 | EDS_ITS ---
HPI HPI - GI History of Present Illness Chief Complaint: Abd Pain Informant: patient Narrative Narrative: Patient presents with lower abdominal burning sensation. He had appendectomy done last Saturday just under 1 week ago. It started as a laparoscopic procedure but due to scar tissue it was converted to an open procedure. He was in the hospital till . He went home. He was doing well. He is eating drinking moving bowels. Saturday evening he had an episode where he just was coughing hard for a while. And he feels that that caused some discomfort in his abdomen. He is not having a cough anymore. He is not short of breath or having chest pain. But he has burning more in his lower abdomen. Percocet was completely taking his pain away but its not working quite as well now. He is moving his bowels still but it is a little slower. Originally had diarrhea but now he has more slightly harder stools but is still moving them. He is having some mild frequent urination but the urine is clear it does not hurt or burn and he does feel like he fully empties. He is not on stool softeners. He is eating and drinking. In fact this evening he had 2 chili dogs and a milkshake. He has had occasional nausea but never vomited. The nausea has not affected his ability to eat or drink. He has not had any fevers or chills. [facility]SH [facility] Medical History Abdominal pain Abnormal CT scan COVID-19 Former tobacco use GERD (gastroesophageal reflux disease) Obesity On home oxygen therapy Pulmonary embolism Home Medications omeprazole magnesium 20 mg tablet,delayed release (Prilosec OTC) 20 mg PO QHS gerd 10/29/18 [History Last Taken 04/06/22 22:00] hydrocodone-acetaminophen 5-325mg 5mg-325mg 1 tab PO Q8H 5 days #15 tabs 04/12/22 [Rx Last Taken Unknown] ondansetron 4 mg disintegrating tablet 4 mg PO Q8H PRN nausea and vomiting #10 tabs 04/15/22 [Rx Last Taken Unknown] Allergy/AdvReac Type Severity Reaction Status Date / Time No Known Allergies Allergy Verified 04/14/22 23:23 Family History Mother Cancer Surgical History H/O unilateral orchiectomy History of appendectomy History of appendectomy Status post appendectomy Social History household members: spouse Smoking Status: Former smoker quit date: 07/08/81 pack-years: 7 alcohol intake: never substance use type: does not use ROS ROS ED Constitutional Constitutional ED: Denies chills, fever(s) or subjective ENT ENT ED: Denies sore throat Cardiovascular Cardiovascular: Denies chest pain or palpitations Respiratory/Chest Respiratory/Chest: Reports cough; Denies dyspnea Gastrointestinal Gastrointestinal: Reports abdominal pain, constipation and nausea; Denies diarrhea, melena or vomiting Genitourinary Genitourinary ED: Reports urinary frequency; Denies dysuria or hematuria Musculoskeletal Musculoskeletal: Denies back pain or myalgias Integumentary Denies rash Neurologic Neurologic: Denies headache(s) Psychiatric Psychiatric: Denies anxiety Endocrine Endocrinology: Denies polydipsia or polyuria Hematologic/Lymphatic Hematologic/Lymphatic: Denies easy bleeding or easy bruising Allergic/Immunologic Allergic/Immunologic ED: Denies urticaria EXAM Physical Exam Const Vital Signs: 04/14/22 23:21 04/15/22 02:41 04/15/22 04:16 Temperature 98.2 F Temperature Source Temporal Pulse Rate 73 72 77 Respiratory Rate 16 16 16 Blood Pressure 134/97 H 191/87 H 158/87 H Blood Pressure Mean 109 121 110 Pulse Ox 97 97 100 Oxygen Delivery Method Room Air Room Air Room Air 04/15/22 06:27 Temperature Temperature Source Pulse Rate 79 Respiratory Rate 18 Blood Pressure 158/88 H Blood Pressure Mean 111 Pulse Ox 99 Oxygen Delivery Method Room Air Positive well nourished and well developed General Appearance ED: well developed and NAD HEENT Reports moist mucous membranes Eyes General Eye ED: Negative for pale conjunctiva or scleral icterus Neck no JVD Resp normal respiratory effort and clear to auscultation bilaterally Cardio regular rate and regular rhythm GI GI Narrative: Incision is healing well. No erythema around it. He had a small amount of drainage at the lower portion of the dressing but that is old and has not changed in days. He states the incision really does not hurt its just a diffuse burning in the lower abdomen. Minimal if any tenderness at all. Palpation: soft Back/Spine no CVA tenderness Extremity General Extremety ED: Negative for tenderness Neuro Sensorium / Orientation: alert Psych mental status grossly normal MDM MDM MDM Narrative Medical decision making narrative: Blood work shows normal white count hemoglobin and platelets. Electrolytes are overall unremarkable. No sign of significant dehydration. Urine is overall clean. Patient CT is hinting of possible small bowel obstruction. Ileus was thought less likely. But the patient does still have bowel sounds. He is still eating drinking and is moving his bowels. He just moved his bowels about 2-1/2 hours ago. It is getting less but he still moving them. He does have some nausea but is not vomiting. He does feel little distended. I discussed the case including the labs and CT findings and patient exam with Dr. Burgos. Since the patient is still moving bowels eating and drinking he feels that he will likely do okay if he goes to clear liquid diet. We will get him some IV fluids here. This will make sure he is fully hydrated. I will get a meds for pain and nausea. We will start him on some milk of magnesia because he has not been on stool softeners and the Percocet may be binding him up and slowing down the bowels a bit. We will get some of that therapy started here to watch him to make sure he is improving. He will be rechecked. Plan was to try to get him home and then they will follow him up closely in the office on Saturday. Patient was uncomfortable here. We kept him here during the evening. We gave him some meds for pain and milk of magnesia. He just got 1 dose. He has not moved his bowels. But he is feeling better. Nausea is better. We discussed returning if he has recurrent pain, fevers, vomiting or other concerns. We will have him cut back his diet significantly. He will do liquid diet. Milk of magnesia try to limit Percocet. They will follow-up on Saturday. All questions were answered. Lab Data Attestation: I reviewed the patient's lab results. Labs: Laboratory Results - last 24 hr 04/14/22 04/14/22 04/15/22 00:19 00:19 00:39 WBC 4.7 RBC 4.32 L Hgb 13.0 Hct 38.2 L MCV 88.4 MCH 30.1 MCHC 34.0 RDW Std Deviation 43.7 RDW Coeff of Daiana 13.5 Plt Count 190 MPV 10.2 Immature Gran % (Auto) 1.500 H Neut % (Auto) 75.2 H Lymph % (Auto) 12.7 L [place] % (Auto) 8.7 Eos % (Auto) 1.7 Baso % (Auto) 0.2 Absolute Neuts (auto) 3.5 Absolute Lymphs (auto) 0.60 L Nucleated RBC % 0 Differential Comment SCANNED Sodium 142 Potassium 3.7 Chloride 108 H Carbon Dioxide 30.0 Anion Gap 4 L BUN 9 Creatinine 0.94 Estim Creat Clear Calc 87.36 Est GFR (MDRD) Af Amer 103 Est GFR (MDRD) Non-Af 85 BUN/Creatinine Ratio 9.5 L Glucose 127 H Calcium 8.9 Total Bilirubin 1.20 H AST 52 H ALT 48 Alkaline Phosphatase 103 Total Protein 6.7 Albumin 2.9 L Globulin 3.8 Albumin/Globulin Ratio 0.8 L Urine Color Yellow Urine Clarity Clear Urine pH 8.0 Ur Specific [place] 1.015 Urine Protein Negative Urine Glucose (UA) Normal Urine Ketones Negative Urine Occult Blood Negative Urine Nitrite Negative Urine Bilirubin Negative Urine Urobilinogen 4 H Ur Leukocyte Esterase Negative Urine RBC 0 SEEN Urine WBC 0 SEEN Ur Squamous Epith Cells 0 SEEN Amorphous Sediment 1+ Urine Bacteria RARE Urine Mucus 0 SEEN Radiography Diagnostic Testing: Clinical Impression(s) from Imaging Studies Abdomen/Pelvis CT 04/15/22 00:00 IMPRESSION: 1. Dilated small bowel pattern most consistent with at least partial distal small bowel obstruction. Ileus less likely. 2. Mild wall thickening of terminal ileum likely related to recent surgery or suboptimal distention. 3. Postappendectomy with postsurgical changes, small fluid collection in the region but without well-defined margins to suggest a well-defined abscess. Follow-up may be helpful if there is concern for developing abscess. Electronically Signed: Emmy Sevilla MD at 2:24 EDT , CT shows pattern most consistent with a partial small bowel obstruction ileus is less likely. There are some postsurgical changes but no defined abscess. Discharge Plan Triage Chief Complaint: Abd Pain ED Provider: Nikko Segundo Dx/Rx/DC Orders Clinical Impression: Abdominal pain, Ileus, Nausea Instructions: Ileus Prescriptions: New ondansetron 4 mg tablet,disintegrating 4 mg PO Q8H PRN (Reason: nausea and vomiting) Qty: 10 0RF No Action omeprazole magnesium [Prilosec OTC] 20 MG tablet,delayed release (DR/EC) 20 mg PO QHS hydrocodone-acetaminophen 5-325 mg tablet 1 tab PO Q8H 5 Days Qty: 15 0RF Primary Care Provider: Gabino Brewer Referrals: Gabino Brewer MD [Primary Care Provider] - Zaida Mackenzie MD [Med Staff - Active Staff] - 1 Day for another exam Activity Restrictions/Additional Instructions: Clear liquid diet, Milk of Magnesia until moving bowels well. Return with increasing pain, fever, vomiting, or other concerns. Disposition Disposition: Home, Self Care
--- NOTE | 2022-04-15 | CT_ITS ---
STUDY: CT ABDOMEN AND PELVIS WITH CONTRAST REASON FOR EXAM: Male, 66 years old. postoperative pain -- IV PO Contrast RADIATION DOSAGE (If Supplied By Facility): CTDIvol = ( 23.63 ) mGy, DLP = ( 1483.36 ) mGycm TECHNIQUE: Transaxial images were obtained from the dome of the diaphragm to the symphysis pubis with oral contrast. Oral and amp; IV Gastrografin and amp; 100mL Isovue-370 was administered. Sagittal and coronal images were reconstructed. Individualized dose optimization techniques were used for this CT. COMPARISON: CT abdomen and pelvis 04/08/2022. FINDINGS: LOWER CHEST: Minimal right pleural effusion and dependent atelectasis in the lung bases.. LIVER: Unremarkable. GALLBLADDER/BILE DUCTS: Unremarkable. PANCREAS: Unremarkable. SPLEEN: Unremarkable. ADRENAL GLANDS: Unremarkable. KIDNEYS / URETERS: Unremarkable. BOWEL / MESENTERY: Moderately dilated small bowel. Distal small bowel is decreased caliber of the relative transition in the right mid abdomen. Mild wall thickening of distal terminal ileum which may be exaggerated by suboptimal distention. Mild inflammatory changes in the adjacent to the base of the cecum. Small collection adjacent to the base of the cecum approximately 2.7 x 1.9 cm, without well-defined peripheral enhancement. APPENDIX: Surgically absent. PERITONEUM: No free air. Small amount of free fluid in the midabdomen mesentery, and in the pelvis. VESSELS: Abdominal aorta is normal caliber. RETROPERITONEUM: Unremarkable. REPRODUCTIVE ORGANS: Unremarkable. BLADDER: Unremarkable. ABDOMINAL WALL: Mild stranding subcutaneous specific periumbilical region, with midline skin khalif. No localized collection.. BONES: No acute abnormality. OTHER: None. CT/Abdomen/Pelvis WITH Contrast IMPRESSION: 1. Dilated small bowel pattern most consistent with at least partial distal small bowel obstruction. Ileus less likely. 2. Mild wall thickening of terminal ileum likely related to recent surgery or suboptimal distention. 3. Postappendectomy with postsurgical changes, small fluid collection in the region but without well-defined margins to suggest a well-defined abscess. Follow-up may be helpful if there is concern for developing abscess. Electronically Signed: Emmy Sevilla MD at 2:24 EDT ,
[2022-04-15 00:43] LABS: Mucous, Urine 0 SEEN /hpf (<or=2+); Red Blood Cells-Urine 0 SEEN /hpf (0-5); Squamous Epithelial Cells - UA 0 SEEN /hpf (0-5); White Blood Cells 0 SEEN /hpf (0-5)
[2022-04-15 00:50] LABS: Absolute Neutrophil Count 3.5 X10^3/uL (2.0-7.7); Basophil# 0.01 X10^3/uL; Basophil% 0.2 % (0-1); Eosinophil# 0.08 X10^3/uL; Eosinophils% 1.7 % (0-5); Hematocrit 38.2 % (40-54); Lymphocyte % 12.7 % (19-41); Mean Corpuscular Hgb 30.1 pg (27.0-32.0); Mean Corpuscular Volume 88.4 fL (80-94); Mean Platelet Vol. 10.2 fl (6.2-12.0); Monocyte# 0.41 X10^3/uL; Monocyte% 8.7 % (0-10); NRBC Flagged by Analyzer 0 % (0-5); Neutrophil # 3.54 X10^3/uL (2.7-7.7); Neutrophil % 75.2 % (47-70); POSITIVE DIFFERENTIAL YES; Platelet Count 190 K/mm3 (150-450); RBC Distribution Width CV 13.5 % (11.6-14.6); RBC Distribution Width SD 43.7 fl (35.1-43.9); Red Blood Count 4.32 M/mm3 (4.6-6.2); White Blood Count 4.7 K/mm3 (4.4-11.0)
[2022-04-15 00:56] LABS: ALB/GLOB Ratio 0.8 RATIO (0.9-2.4); AST(SGOT) 52 U/L (15-37); Alanine Aminotransfer ALT/SGPT 48 U/L (16-61); Albumin, Serum 2.9 g/dL (3.2-5.0); Alkaline Phosphatase 103 U/L (45-117); Anion Gap 4 (5-15); BUN 9 mg/dL (7-18); BUN/Creat Ratio 9.5 RATIO (10-20); Calcium,Total 8.9 mg/dL (8.5-10.1); Chloride 108 mmol/L (98-107); Creatinine, Serum 0.94 mg/dL (0.70-1.30); EST Glomerular Filtration Rate 85 mL/min (>60); Est Glom Filt Rate - Afr Amer 103 mL/min (>60); Estimated Creatinine Clearance 87.36 ml/min; Globulin 3.8 g/dL (2.2-4.2); Glucose 127 mg/dL (74-106); Potassium 3.7 mmol/L (3.5-5.1); Protein, Total 6.7 g/dL (6.4-8.2); Sodium Level 142 mmol/L (136-145)
[2022-04-15 00:56] LABS: Glucose, Dipstick Normal (Normal); Ketone-Dipstick Negative (Negative); Leukocyte Esterase-Dipstick Negative /ul (Negative); Nitrite-Dipstick Negative (Negative); Occult Blood-Urine Negative /ul (Negative); Protein-Dipstick Negative (Negative); Specific Gravity, Urine 1.015 (1.002-1.030); Urine Bilirubin Dipstick Negative (Negative); Urine Urobilinogen 4 mg/dl (Normal)
[2022-04-15 01:06] LABS: Color, Urine Yellow (Yellow); Urine Clarity Clear (Clear)
[2022-04-15 01:14] LABS: Amorphous Sediment 1+; Bacteria RARE /hpf (None Seen)
[2022-04-15 01:25] LABS: Differential Comment SCANNED; Differential Indicated SCAN CRITERIA MET
[2022-04-15] MEDS: Morphine 4 MG/ML Syringe IV ×2 (02:39→04:15)
[2022-04-15] MEDS: Ondansetron 4 MG/2 ML Vial IV (02:39)
[2022-04-15 02:41] VITALS: BP 191/87; PULSE 72; RESP 16; O2SAT 97
[2022-04-15] MEDS: 0.9% Normal Saline 1,000 ML 999 ML IV (04:15)
[2022-04-15 04:16] VITALS: BP 158/87; PULSE 77; RESP 16; O2SAT 100
[2022-04-15] MEDS: Magnesium Hydroxide 30 ML UDC PO (04:16)
[2022-04-15 06:27] VITALS: BP 158/88; PULSE 79; RESP 18; O2SAT 99
== END 2022-04-15 06:45 | disposition home or self-care (01) ==
PROVIDERS: Emergency Provider Emergency Medicine; PCP Family Medicine; Visit Provider Emergency Medicine
DX: R10.30 Lower abdominal pain, unspecified (principal); K56.7 Ileus, unspecified; R11.0 Nausea; Z86.16 Personal history of COVID-19; Z99.81 Dependence on supplemental oxygen; Z87.891 Personal history of nicotine dependence
CPT/HCPCS: 74177; 80053; 81001; 85025; J7030; Q9967; A4216; J2405

== ENCOUNTER 2022-04-15 16:16 | Inpatient (IN) | payer MEDICARE, SELFPAY ==
[2022-04-15] VITALS (8 sets, daily range): BP systolic 150–182; BP diastolic 83–86; PULSE 68–92; RESP 16–18; TEMP 36.7–37.1; O2SAT 92–97; BMI 33.8; BMI 31.6
--- NOTE | 2022-04-15 16:19 | CT_ITS ---
STUDY: CT ABDOMEN AND PELVIS WITH CONTRAST REASON FOR EXAM: Male, 66 years old. Abdominal distention with nausea and vomiting. No flatus. Status post open stump appendectomy one week ago. RADIATION DOSAGE (If Supplied By Facility): CTDIvol = ( 16.52 ) mGy, DLP = ( 1466.73 ) mGycm TECHNIQUE: Transaxial images were obtained from the dome of the diaphragm to the symphysis pubis without oral contrast. IV 100mL Isovue-370 was administered. Sagittal and coronal images were reconstructed. Individualized dose optimization techniques were used for this CT. COMPARISON: CT of the abdomen and pelvis, 04/15/2022 (0131) FINDINGS: The visualized lung bases are unremarkable. The visualized portions of the heart are within normal limits. Normal liver. Well-distended gallbladder without filling defect. No biliary ductal dilatation. Normal spleen. Normal pancreas. Normal bilateral adrenal glands. Normal right kidney. Normal left kidney. Normal ureters. Small hiatal hernia. The stomach is distended with air and fluid. Dilated fluid-filled small bowel loops without wall thickening. There are focal areas of narrowing in the distal ileum appears grossly normal.. Contrast is seen within the transverse colon secondary to the previous day''s study suggesting partial resolution of incomplete small bowel obstruction. Scattered sigmoid diverticuli. There is stranding around the sigmoid with surgical changes consistent with prior appendectomy. Normal abdominal aorta. Normal inferior vena cava. Normal retroperitoneum. Normal urinary bladder. Stable prostate. No pelvic lymphadenopathy. There is minimal free fluid in the pelvis without free air. Midline surgical clips. No osseous changes. CT/Abdomen/Pelvis W IV Cont ONLY IMPRESSION: 1. Dilated stomach and small bowel. The contrast seen in the small bowel and stomach on the previous study is now noted: Suggest partial distal small bowel obstruction. 2. No other major interval change Electronically Signed: Jey Luke DO at 17:03 EDT Reading Location ID and State: [facility] / [place] Tel [phone], Service support ,
--- NOTE | 2022-04-15 16:20 | EDS_ITS ---
HPI HPI - GI History of Present Illness Chief Complaint: Abd Pain Detail of Chief Complaint: Abdominal pain, distention, nausea and vomiting and no flatus Informant: patient and EMS Abdominal Pain/Flank Pain Onset: Today Context: Sudden Onset Timing: Continuous Quality: Cramping Location: Diffuse Current Severity: Gone (Patient received 100 mcg of fentanyl 10 minutes prior to arrival) Maximum Severity: Severe Nausea/Vomiting/Emesis GI Symptom: Positive for Nausea and Vomiting Episodes: 3 Diarrhea/Melena/Hematochezia GI Symptom: Positive for - (No bowel movement today); Negative for Diarrhea, Melena or Hematochezia Associated Symptoms Associated Symptoms: Negative for Dysuria, Frequency, Hematuria or Urgency Narrative Narrative: Patient is a 66-year-old male who had open appendectomy for a stump appendicitis last April 08. He was discharged in the hospital on April 12. He was seen last evening. He had a CT last evening which was unremarkable. White count was unremarkable. His last electrolyte panel was April 08. He denies dysuria, frequency, urgency or hematuria. He states T-max was 99.0. He denies history of bowel obstruction or partial small bowel obstruction. He presently has no complaints. Prior similar symptoms: Yes Recent Illness/Hospitalization: Yes PFSH PFSH Medical History Abdominal pain Abnormal CT scan COVID-19 Former tobacco use GERD (gastroesophageal reflux disease) Obesity On home oxygen therapy Pulmonary embolism Home Medications omeprazole magnesium 20 mg tablet,delayed release (Prilosec OTC) 20 mg PO QHS gerd 10/29/18 [History Last Taken 04/06/22 22:00] hydrocodone-acetaminophen 5-325mg 5mg-325mg 1 tab PO Q8H 5 days #15 tabs 04/12/22 [Rx Last Taken Unknown] ondansetron 4 mg disintegrating tablet 4 mg PO Q8H PRN nausea and vomiting #10 tabs 04/15/22 [Rx Last Taken Unknown] Allergy/AdvReac Type Severity Reaction Status Date / Time No Known Allergies Allergy Verified 04/15/22 16:22 Family History Mother Cancer Surgical History H/O unilateral orchiectomy History of appendectomy History of appendectomy Status post appendectomy Social History household members: spouse Smoking Status: Former smoker quit date: 07/08/81 pack-years: 7 alcohol intake: never substance use type: does not use ROS ROS ED Constitutional Constitutional ED: Denies chills, fever(s), subjective, sweats or weight loss ENT ENT ED: Denies ear pain, rhinorrhea or sore throat Cardiovascular Cardiovascular: Denies chest pain or palpitations Respiratory/Chest Respiratory/Chest: Denies cough, dyspnea or dyspnea on exertion Gastrointestinal Gastrointestinal: Reports abdominal pain, nausea, vomiting and other Details: Last bowel movement was yesterday. Patient states he has had no flatus since discharge and has vomited several times. ; Denies constipation, diarrhea or melena Genitourinary Genitourinary ED: Denies dysuria, hematuria or urinary frequency Musculoskeletal Musculoskeletal: Denies arthralgias, back pain, myalgias or neck pain Integumentary Denies Abrasions or rash Neurologic Neurologic: Denies headache(s), paresthesias or weakness Hematologic/Lymphatic Hematologic/Lymphatic: Denies easy bleeding, easy bruising or lymphadenopathy EXAM Physical Exam Const Vital Signs: 04/15/22 16:17 04/15/22 16:20 04/15/22 16:21 Temperature 98.2 F 98.2 F 98.2 F Temperature Source Oral Oral Oral Pulse Rate 81 80 74 Respiratory Rate 18 18 18 Blood Pressure 177/85 H 177/85 H 177/85 H Blood Pressure Mean 115 115 115 Pulse Ox 93 94 95 Oxygen Delivery Method Room Air Room Air Room Air Positive well nourished, well developed and obese Constitutional Narrative: Patient appears uncomfortable. General Appearance ED: well developed; Negative for pallor Nutritional Appearance: obese HEENT Reports dry mucous membranes HEENT Narrative: Ears normal. Nares patent. Uvula midline. No deviation with protrusion. Posterior pharynx unremarkable. normocephalic and atraumatic Mouth ED: Yes dry mucous membranes Mouth: dry mucous membranes Eyes PERRL and EOMs intact bilaterally General Eye ED: Negative for pale conjunctiva or scleral icterus Neck no lymphadenopathy, supple and no JVD Resp normal respiratory effort and clear to auscultation bilaterally Cardio regular rate, regular rhythm, S1 normal heart sound, S2 normal heart sound and no murmurs GI non-tender and no masses; Negative for non-distended GI Narrative: Abdomen is firm but soft. He is distended and tympanitic. Bowel sounds are minimal to absent after auscultating for greater than a minute. He has a healing midline incision. The skin over the abdomen appears mottled. He states that was not present yesterday. Inspection: abdominal distention Auscultation: hypoactive bowel sounds Back/Spine no CVA tenderness Thoracic Spine / Upper Back: Negative for thoracic spinal tenderness Lumbar Spine / Lower Back: Negative for lumbar spinal tenderness Extremity full ROM Extremity Narrative: Patient has chronic edema of the lower extremities. He states the left lower extremity is usually worse. General Extremety ED: Yes edema General Extremity: edema Neuro No CN's II-XII intact bilaterally, moves all extremities and no sensory deficits noted Sensorium / Orientation: alert Psych mental status grossly normal and thought process normal Skin Skin Narrative: Minimal drainage noted midline incision. General Skin Exam: Negative for jaundice or pallor Rashes: no rashes MDM MDM MDM Narrative Medical decision making narrative: With recent surgery that was an open technique for a stump appendectomy with nausea, vomiting, distention and no flatus concern patient has a bowel obstruction. IV contrast CT of the abdomen pelvis was ordered. Blood work was ordered to compare to yesterday. Presently has no pain since he received 100 mcg of fentanyl prior to arrival. Zofran was ordered. I was informed by his nurse that the squad reports that they did give Zofran as well. Lab Data Attestation: I reviewed the patient's lab results. Lab results narrative: Blood results are essentially unchanged from yesterday. Blood sugar is elevated 158. Labs: Laboratory Results - last 24 hr 04/15/22 04/15/22 16:20 16:20 WBC 8.2 RBC 4.41 L Hgb 12.9 L Hct 39.0 L MCV 88.4 MCH 29.3 MCHC 33.1 RDW Std Deviation 44.2 H RDW Coeff of Daiana 13.7 Plt Count 224 MPV 10.0 Immature Gran % (Auto) 0.400 Neut % (Auto) 87.9 H Lymph % (Auto) 5.1 L [place] % (Auto) 6.4 Eos % (Auto) 0.1 Baso % (Auto) 0.1 Absolute Neuts (auto) 7.2 Absolute Lymphs (auto) 0.42 L Nucleated RBC % 0 Sodium 140 Potassium 3.9 Chloride 105 Carbon Dioxide 28.0 Anion Gap 7 BUN 11 Creatinine 0.95 Estim Creat Clear Calc 86.44 Est GFR (MDRD) Af Amer 102 Est GFR (MDRD) Non-Af 84 BUN/Creatinine Ratio 11.6 Glucose 158 H Calcium 9.1 Radiography Diagnostic Testing: CT of the abdomen pelvis with IV contrast reveals evidence of obstruction. Awaiting formal read from radiologist. Dr. Burgos was paged. Patient is requesting pain medicine. 1 mg of Dilaudid was ordered. NG was ordered to low intermittent wall suction as well. Treatment and Re-Evaluation Narrative: NG was placed. Dr. Burgos will see patient and will admit to medical surge. Discharge Plan Triage Chief Complaint: Abd Pain ED Provider: Derek Larose Dx/Rx/DC Orders Clinical Impression: Bowel obstruction, Nausea & vomiting, Status post appendectomy, Elevated blood pressure reading Prescriptions: No Action omeprazole magnesium [Prilosec OTC] 20 MG tablet,delayed release (DR/EC) 20 mg PO QHS hydrocodone-acetaminophen 5-325 mg tablet 1 tab PO Q8H 5 Days Qty: 15 0RF ondansetron 4 mg tablet,disintegrating 4 mg PO Q8H PRN (Reason: nausea and vomiting) Qty: 10 0RF Primary Care Provider: Gabino Brewer Referrals: Gabino Brewer MD [Primary Care Provider] - Disposition Disposition: Acute Care Hospital [facility]
[2022-04-15 16:28] LABS: Absolute Lymphocyte Count 0.42 X10^3/uL (0.83-4.51); Absolute Neutrophil Count 7.2 X10^3/uL (2.0-7.7); Basophil# 0.01 X10^3/uL; Basophil% 0.1 % (0-1); Eosinophil# 0.01 X10^3/uL; Eosinophils% 0.1 % (0-5); Hemoglobin 12.9 g/dL (13.0-16.5); Lymphocyte # 0.42 X10^3/ul (0.83-4.51); Lymphocyte % 5.1 % (19-41); Mean Corp Hgb Conc 33.1 g/dL (32-36); Mean Corpuscular Hgb 29.3 pg (27.0-32.0); Mean Corpuscular Volume 88.4 fL (80-94); Monocyte# 0.53 X10^3/uL; Monocyte% 6.4 % (0-10); NRBC Flagged by Analyzer 0 % (0-5); Neutrophil # 7.23 X10^3/uL (2.7-7.7); Neutrophil % 87.9 % (47-70); POSITIVE DIFFERENTIAL YES; Platelet Count 224 K/mm3 (150-450); RBC Distribution Width CV 13.7 % (11.6-14.6); RBC Distribution Width SD 44.2 fl (35.1-43.9); Red Blood Count 4.41 M/mm3 (4.6-6.2); White Blood Count 8.2 K/mm3 (4.4-11.0)
[2022-04-15 16:36] LABS: Differential Indicated SCAN CRITERIA MET
[2022-04-15 16:42] LABS: Anion Gap 7 (5-15); BUN 11 mg/dL (7-18); BUN/Creat Ratio 11.6 RATIO (10-20); Calcium,Total 9.1 mg/dL (8.5-10.1); Chloride 105 mmol/L (98-107); Creatinine, Serum 0.95 mg/dL (0.70-1.30); EST Glomerular Filtration Rate 84 mL/min (>60); Est Glom Filt Rate - Afr Amer 102 mL/min (>60); Estimated Creatinine Clearance 86.44 ml/min; Glucose 158 mg/dL (74-106); Potassium 3.9 mmol/L (3.5-5.1); Sodium Level 140 mmol/L (136-145)
[2022-04-15] MEDS: 0.9% Normal Saline 1,000 ML 125 ML IV (16:48)
[2022-04-15] MEDS: HYDROmorphone 1 MG/ML Syringe IV (16:56)
--- NOTE | 2022-04-15 17:25 | EX.PCM.CON.S ---
Assessment & Plan Assessment/Plan (1) Ileus: (2) Nausea & vomiting: PLAN: Plan will be to admit the patient tonight. Keep him on NG tube decompression. We will start IV fluids. We will be consulting the hospitalist to help with his care during this hospitalization. Hopefully he will open up with just conservative measurements. HPI Consult Data Date of Consult: 04/15/22 HPI Narrative HPI Narrative: TONNY WILSON, is a 66 M who presents with lower abdominal burning sensation, as well as nausea and vomiting he had appendectomy done last Saturday just under 1 week ago.? It started as a laparoscopic procedure but due to scar tissue it was converted to an open procedure.? He was in the hospital till .? He went home.? He was doing well.? He is eating drinking moving bowels.? Saturday evening he had an episode where he just was coughing hard for a while.? And he feels that that caused some discomfort in his abdomen.? He is not having a cough anymore.? He is not short of breath or having chest pain.? But he has burning more in his lower abdomen.? Percocet was completely taking his pain away but its not working quite as well now.? He is moving his bowels still but it is a little slower.? Originally had diarrhea but now he has more slightly harder stools but is still moving them.? He is having some mild frequent urination but the urine is clear it does not hurt or burn and he does feel like he fully empties.? He is not on stool softeners.? He is eating and drinking.? In fact this evening he had 2 chili dogs and a milkshake.? He has had occasional nausea but never vomited.? The nausea has not affected his ability to eat or drink.? He has not had any fevers or chills. Was seen in the emergency department last night thought possibly only to have an ileus his symptoms worsen where his called me and I had them come in. CT scan shows that he has more of a worsening bowel obstruction pattern. [facility] Medical History Abdominal pain Abnormal CT scan COVID-19 Former tobacco use GERD (gastroesophageal reflux disease) Obesity On home oxygen therapy Pulmonary embolism Home Medications omeprazole magnesium 20 mg tablet,delayed release (Prilosec OTC) 20 mg PO QHS gerd 10/29/18 [History Last Taken 04/06/22 22:00] hydrocodone-acetaminophen 5-325mg 5mg-325mg 1 tab PO Q8H 5 days #15 tabs 04/12/22 [Rx Last Taken Unknown] ondansetron 4 mg disintegrating tablet 4 mg PO Q8H PRN nausea and vomiting #10 tabs 04/15/22 [Rx Last Taken Unknown] Allergy/AdvReac Type Severity Reaction Status Date / Time No Known Allergies Allergy Verified 04/15/22 16:22 Family History Mother Cancer Surgical History H/O unilateral orchiectomy History of appendectomy History of appendectomy Status post appendectomy Social History household members: spouse Smoking Status: Former smoker quit date: 07/08/81 pack-years: 7 alcohol intake: never substance use type: does not use ROS Constitutional Constitutional: Denies chills or fever(s) Cardiovascular Cardiovascular: Denies chest pain, dyspnea or palpitations Respiratory/Chest Respiratory/Chest: Denies cough or shortness of breath at rest Gastrointestinal Gastrointestinal: Reports abdominal pain, bloating, nausea and vomiting Physical Exam Const alert, oriented x3 and no apparent distress HEENT normocephalic and head/scalp atraumatic Eyes PERRL and EOMs intact bilaterally Resp clear to auscultation bilaterally Cardio Rate: regular rate Rhythm: regular rhythm GI Inspection: abdominal distention Palpation: tender; Negative for guarding Bladder / Kidney Exam: No no CVA tenderness Lab / Micro Data Result Diagrams: 04/15/22 16:20 04/15/22 16:20 Labs: Laboratory Results - last 24 hr 04/15/22 16:20: WBC 8.2, RBC 4.41 L, Hgb 12.9 L, Hct 39.0 L, MCV 88.4, MCH 29.3, MCHC 33.1, RDW Std Deviation 44.2 H, RDW Coeff of Daiana 13.7, Plt Count 224, MPV 10.0, Immature Gran % (Auto) 0.400, Neut % (Auto) 87.9 H, Lymph % (Auto) 5.1 L, [place] % (Auto) 6.4, Eos % (Auto) 0.1, Baso % (Auto) 0.1, Absolute Neuts (auto) 7.2, Absolute Lymphs (auto) 0.42 L, Nucleated RBC % 0 04/15/22 16:20: Sodium 140, Potassium 3.9, Chloride 105, Carbon Dioxide 28.0, Anion Gap 7, BUN 11, Creatinine 0.95, Estim Creat Clear Calc 86.44, Est GFR (MDRD) Af Amer 102, Est GFR (MDRD) Non-Af 84, BUN/Creatinine Ratio 11.6, Glucose 158 H, Calcium 9.1 Radiology Impression Abdomen/Pelvis CT 04/15/22 16:19 IMPRESSION: 1. Dilated stomach and small bowel. The contrast seen in the small bowel and stomach on the previous study is now noted: Suggest partial distal small bowel obstruction. 2. No other major interval change Electronically Signed: Jey Luke DO at 17:03 EDT Reading Location ID and State: [address] [place] [address] Tel [phone], Service support ,
--- NOTE | 2022-04-15 17:29 | CON.PCM.HO_ITS ---
Assessment & Plan Assessment/Plan (1) SBO (small bowel obstruction): PLAN: Plan The patient is a 66 y/o M w/ PMHx: Obesity, GERD, Hx COVID-19 Acute Viral Syndrome, Former tobacco use, Hx PE previously, recent history of prolonged admission 04/08/22-04/12/22 s/p laparoscopic appendectomy converted to open appendectomy/partial cecectomy by Dr. Zaida Mackenzie with post-operative ileus, notes chest pain with ACS ruled out and CTPA without any evidence of PE who now re-presents to the [facility] on 04/15/22 secondary to onset progressively worsening abdominal pain, distention with nausea and emesis with lack of flatus worsening over the last 24 hours with evaluation the evening prior with CT at that time which was unremarkable however worsened prompting repeat ED evaluation. #1. Abdominal pain, nausea, emesis w/ SBO: Patient being admitted to medical surgical floor per general surgery Dr. Burgos, maintain on IVFs, continue NGT to suction per surgery discretion, strict I&Os, IV pain/anti-emetics PRN, serial KUB as needed to montior bowel function per surgery discretion, PPI versus famotidine IV per surgery discretion, maintain NPO on bowel rest per surgery discretion. #2. Elevated BP without hypertensive diagnosis: ED presentation with notably elevated blood pressure, possibly associate with pain secondary to acute presentation number 1, continue to closely monitor,. IV hydralazine in the interim. #3. Normocytic anemia: Admission hemoglobin 12.9, patient baseline previously 13-14, stable, will continue to trend. #4. Hyperglycemia: Admission glucose 158, possibly stress response, hemoglobin A1c pending. #5. Obesity: Weight loss and lifestyle changes encouraged. #6. GERD: Maintained on IV famotidine versus IV PPI per surgery discretion. #7. Former tobacco use: Encourage continued tobacco cessation #8. Hx Prior VTE (PE): Prior history, recent d-dimer during prior admission elevated with negative CTPA. #9. DVT prophylaxis: SCDs, chemoprophylaxis per surgery discretion. HPI Consult Data Date of Consult: 04/15/22 HPI Narrative Reason for Consultation: Medical consultation HPI Narrative: The patient is a 66 y/o M w/ PMHx: Obesity, GERD, Hx COVID-19 Acute Viral Syndrome, Former tobacco use, Hx PE previously, recent history of prolonged admission 04/08/22-04/12/22 s/p laparoscopic appendectomy converted to open appendectomy/partial cecectomy by Dr. Zaida Mackenzie with post-operative ileus, notes chest pain with ACS ruled out and CTPA without any evidence of PE who now re-presents to the [facility] on 04/15/22 secondary to onset progressively worsening abdominal pain, distention with nausea and emesis with lack of flatus worsening over the last 24 hours with evaluation the evening prior with CT at that time wh ich was unremarkable however worsened prompting repeat ED evaluation. Patient reports pain prior to NG tube placement with output in the canister is tentative 10, cramping and sharp in nature, improving now following NG tube output currently rated 3 out of 10 in severity and continues to improve however does report irritation with the NG tube itself in his throat. Work-up in the ED included T98.2, heart rate 74, BP 177/85, respiratory rate 18, 95% on room air, CBC with WC 8.2, hemoglobin 12.2, platelet 224 with lymphopenia, BMP with glucose 158 otherwise unremarkable, CT abdomen and pelvis with dilated stomach and small bowel with findings suggestive of a partial distal small bowel obstruc tion with no other major interval change. In the ED patient ministered Zofran, Dilaudid and normal saline. NG tube placed in the ED and following placement nearly had upfront to canisters filled and ongoing. ED discussed case with Dr. Burgos on-call for general surgery who admitted the patient and requested hospitalist service medical consultation. [facility] Medical History (Updated 04/15/22 @ 17:[address] Lia Contreras MD) COVID-19 Former tobacco use GERD (gastroesophageal reflux disease) History of pulmonary embolism Obesity Home Medications omeprazole magnesium 20 mg tablet,delayed release (Prilosec OTC) 20 mg PO QHS gerd 10/29/18 [History Last Taken 04/06/22 22:00] hydrocodone-acetaminophen 5-325mg 5mg-325mg 1 tab PO Q8H 5 days #15 tabs 04/12/22 [Rx Last Taken Unknown] ondansetron 4 mg disintegrating tablet 4 mg PO Q8H PRN nausea and vomiting #10 tabs 04/15/22 [Rx Last Taken Unknown] Allergy/AdvReac Type Severity Reaction Status Date / Time No Known Allergies Allergy Verified 04/15/22 16:22 Family History Mother Cancer Surgical History (Updated 04/15/22 @ 17:[address] Lia Contreras MD) H/O unilateral orchiectomy Status post appendectomy Social History household members: spouse Smoking Status: Former smoker quit date: 07/08/81 pack-years: 7 alcohol intake: never substance use type: does not use ROS ROS Narrative Admission Review of Systems: CONSTITUTIONAL: No weight loss, fever, chills, + weakness or fatigue. HEENT: Eyes: No visual loss, blurred vision, double vision or yellow sclerae. Ears, Nose, Throat: No hearing loss, sneezing, congestion, runny nose or sore throat. SKIN: + Recent converted appendectomy, incision intact, no marked drainage. CARDIOVASCULAR: No chest pain, chest pressure or chest discomfort, palpitations, edema, orthopnea, syncopal events. RESPIRATORY: No shortness of breath, cough or sputum, wheezing, hemoptysis. GASTROINTESTINAL: + anorexia, nausea, vomiting, lack of flatus, abdominal pain and distention, No melena, BRBPR. GENITOURINARY: No dysuria, frequency, urgency or retention. NEUROLOGICAL: No headache, dizziness, syncope, paralysis, ataxia, numbness or tingling in the extremities, focal weakness, change in bowel or bladder control, seizure. MUSCULOSKELETAL: + muscle, back pain, joint pain or stiffness. HEMATOLOGIC: + anemia, bleeding or bruising. LYMPHATICS: No enlarged nodes. No history of splenectomy. PSYCHIATRIC: No history of depression or anxiety. ENDOCRINOLOGIC: No reports of sweating, cold or heat intolerance. No polyuria or polydipsia. ALLERGIES: No history of asthma, hives, eczema or rhinitis. Physical Exam Narrative Physical Examination: General: Awake, alert, oriented x 3 and cooperative, seated upright in the ED bed, uncomfortable, NG tube recently being placed, significant copious output filling 2 canisters immediately and ongoing into the third. Skin: Normal color, normal turgor, no icterus, no cyanosis except recent abdominal incision secondary to converted appendectomy, intact, no drainage. HEENT: AT/NC, EOMI, PERRLA, dry MM, NG tube in place, no carotid bruits or JVD noted. Lungs: Mildly diminished, greater bases, poor effort, no rales, ronchi or wheezing. Heart: Regular rate and rhythm; no gallop, rub audible. Abdomen: Softening, mild diffuse generalized discomfort but no rebound or guarding and he notes that it is improving, distended but this is lessening with NG tube output, absent bowel sounds, difficult assess HSM given current acute pain and distention with bowel obstruction, see skin. Extremities: No cyanosis, clubbing, or edema. Neurological: Patient awake, alert, oriented as noted, cognitive function intact; pupils equally reactive to light and accommodation, cranial nerves II- XII grossly normal, moving all 4 extremities, no focal deficits, strength moderately to severely global decrease secondary to acute presentation. Psychiatric: Affect appears uncomfortable, no acute evidence of depressive or anxiety feelings. Lab / Micro Data Result Diagrams: 04/15/22 16:20 04/15/22 16:20 Labs: Laboratory Results - last 24 hr 04/15/22 16:20: WBC 8.2, RBC 4.41 L, Hgb 12.9 L, Hct 39.0 L, MCV 88.4, MCH 29.3, MCHC 33.1, RDW Std Deviation 44.2 H, RDW Coeff of Daiana 13.7, Plt Count 224, MPV 10.0, Immature Gran % (Auto) 0.400, Neut % (Auto) 87.9 H, Lymph % (Auto) 5.1 L, [place] % (Auto) 6.4, Eos % (Auto) 0.1, Baso % (Auto) 0.1, Absolute Neuts (auto) 7.2, Absolute Lymphs (auto) 0.42 L, Nucleated RBC % 0 04/15/22 16:20: Sodium 140, Potassium 3.9, Chloride 105, Carbon Dioxide 28.0, Anion Gap 7, BUN 11, Creatinine 0.95, Estim Creat Clear Calc 86.44, Est GFR (MDRD) Af Amer 102, Est GFR (MDRD) Non-Af 84, BUN/Creatinine Ratio 11.6, Glucose 158 H, Calcium 9.1 Radiology Impression Abdomen/Pelvis CT 04/15/22 16:19 IMPRESSION: 1. Dilated stomach and small bowel. The contrast seen in the small bowel and stomach on the previous study is now noted: Suggest partial distal small bowel obstruction. 2. No other major interval change Electronically Signed: Jey Luke DO at 17:03 EDT Reading Location ID and State: [address] [place] [address] Tel [phone], Service support , Charges/Coding Visit Charges Office Visits / Consults: [id number] IP Consult L3
--- NOTE | 2022-04-15 17:30 | RAD_ITS ---
STUDY: X-RAY - ABDOMEN/PELVIS REASON FOR EXAM: Male, 66 years old. An NG tube. TECHNIQUE: A single AP view of the lower chest and upper abdomen. COMPARISON: CT of the pelvis, 04/15/2022. FINDINGS: Normal visualized lung bases. Enteric tube with its tip in the left upper quadrant in expected position of the gastric fundus. There is decompression of the stomach. There is air within mildly dilated small bowel loops and colon within the upper abdomen similar to that seen on the CT. There is no demonstrated free abdominal air. The visualized liver, spleen and kidneys are grossly normal in size and morphology. Normal soft tissue structures. Stable degenerative changes of the thoracolumbar spine. RAD/Abdomen Single View (Portable) IMPRESSION: 1. NG tube with its tip in the proximal stomach. There is interval decompression of the stomach. 2. Persistent dilatation of large and small bowel loops in the upper abdomen. Electronically Signed: Jey Luke DO at 18:44 EDT ,
[2022-04-15 17:38] LABS: Differential Comment SCANNED
[2022-04-15] MEDS: Phenol/Sodium Phenolate 180ML 5 SPRAY MUCOUS MEM (21:34)
[2022-04-15] MEDS: HYDROmorphone 0.5 MG/0.5 ML SYRINGE IV (21:40)
[2022-04-15] MEDS: 0.9% Saline Lock 10 ML Syringe IV (21:40)
[2022-04-15] MEDS: ChlorproMAZINE 50 MG/2 ML Ampul 25 MG IV (22:43)
[2022-04-15] MEDS: 0.9% Normal Saline 1,000 ML 75 ML IV (22:44)
[2022-04-16] VITALS (8 sets, daily range): BP systolic 115–152; BP diastolic 65–82; PULSE 66–88; RESP 12–18; TEMP 36.7–37.2; O2SAT 92–100
[2022-04-16 06:04] LABS: Absolute Lymphocyte Count 0.53 X10^3/uL (0.83-4.51); Absolute Neutrophil Count 3.5 X10^3/uL (2.0-7.7); Basophil# 0.01 X10^3/uL; Basophil% 0.2 % (0-1); Eosinophil# 0.03 X10^3/uL; Eosinophils% 0.6 % (0-5); Hematocrit 35.7 % (40-54); Hemoglobin 11.7 g/dL (13.0-16.5); Lymphocyte # 0.53 X10^3/ul (0.83-4.51); Lymphocyte % 11.4 % (19-41); Mean Corp Hgb Conc 32.8 g/dL (32-36); Mean Corpuscular Hgb 29.2 pg (27.0-32.0); Mean Platelet Vol. 10.3 fl (6.2-12.0); Monocyte# 0.59 X10^3/uL; Monocyte% 12.7 % (0-10); NRBC Flagged by Analyzer 0 % (0-5); Neutrophil # 3.46 X10^3/uL (2.7-7.7); Neutrophil % 74.7 % (47-70); POSITIVE DIFFERENTIAL YES; Platelet Count 191 K/mm3 (150-450); RBC Distribution Width CV 13.6 % (11.6-14.6); RBC Distribution Width SD 44.2 fl (35.1-43.9); Red Blood Count 4.01 M/mm3 (4.6-6.2); White Blood Count 4.6 K/mm3 (4.4-11.0)
[2022-04-16 06:17] LABS: Differential Indicated SCAN CRITERIA MET
[2022-04-16 06:28] LABS: Anion Gap 7 (5-15); BUN 15 mg/dL (7-18); BUN/Creat Ratio 18.2 RATIO (10-20); Calcium,Total 8.5 mg/dL (8.5-10.1); Chloride 107 mmol/L (98-107); Creatinine, Serum 0.83 mg/dL (0.70-1.30); EST Glomerular Filtration Rate 99 mL/min (>60); Est Glom Filt Rate - Afr Amer 120 mL/min (>60); Estimated Creatinine Clearance 98.94 ml/min; Glucose 118 mg/dL (74-106); Potassium 3.9 mmol/L (3.5-5.1); Sodium Level 143 mmol/L (136-145)
--- NOTE | 2022-04-16 07:19 | PN.HOSP_ITS ---
Subjective Subjective Follow-up for bowel obstruction. Patient admitted with abdominal distention along with nausea and mild abdominal discomfort. NG tube was inserted in ED and 3 canisters came out quickly. Patient also had bowel movement 3 times on the floor. Objective Data Objective Data Vital Signs: Vital Signs Temp Pulse Resp BP Pulse Ox O2 Del Method O2 Flow Rate 98.9 F 88 18 123/65 H 92 Room Air 2 04/16/22 04:41 04/16/22 04:41 04/16/22 04:41 04/16/22 04:41 04/16/22 04:41 04/16/22 04:42 04/15/22 22:57 Oxygen Flow Rate (L/min) 2 Oxygen Delivery Method Room Air Weight: 240 lb Body Mass Index (BMI) 31.6 Intake & Output: Intake and Output for Last 24 Hours 04/14/22 04/15/22 04/16/22 23:59 23:59 23:59 Intake Total 674.00 / 674.00 40 / 40 Output Total 2800 / 2800 700 / 700 Balance -2126.00 / -2126.00 -660 / -660 Lab / Micro Data Result Diagrams: 04/16/22 05:21 04/16/22 05:21 Labs: Laboratory Results - last 24 hr 04/15/22 16:20: WBC 8.2, RBC 4.41 L, Hgb 12.9 L, Hct 39.0 L, MCV 88.4, MCH 29.3, MCHC 33.1, RDW Std Deviation 44.2 H, RDW Coeff of Daiana 13.7, Plt Count 224, MPV 10.0, Immature Gran % (Auto) 0.400, Neut % (Auto) 87.9 H, Lymph % (Auto) 5.1 L, [place] % (Auto) 6.4, Eos % (Auto) 0.1, Baso % (Auto) 0.1, Absolute Neuts (auto) 7.2, Absolute Lymphs (auto) 0.42 L, Nucleated RBC % 0, Differential Comment SCANNED 04/15/22 16:20: Sodium 140, Potassium 3.9, Chloride 105, Carbon Dioxide 28.0, Anion Gap 7, BUN 11, Creatinine 0.95, Estim Creat Clear Calc 86.44, Est GFR (MDRD) Af Amer 102, Est GFR (MDRD) Non-Af 84, BUN/Creatinine Ratio 11.6, Glucose 158 H, Calcium 9.1 04/16/22 05:21: WBC 4.6, RBC 4.01 L, Hgb 11.7 L, Hct 35.7 L, MCV 89.0, MCH 29.2, MCHC 32.8, RDW Std Deviation 44.2 H, RDW Coeff of Daiana 13.6, Plt Count 191, MPV 10.3, Immature Gran % (Auto) 0.400, Neut % (Auto) 74.7 H, Lymph % (Auto) 11.4 L, [place] % (Auto) 12.7 H, Eos % (Auto) 0.6, Baso % (Auto) 0.2, Absolute Neuts (auto) 3.5, Absolute Lymphs (auto) 0.53 L, Nucleated RBC % 0 04/16/22 05:21: Sodium 143, Potassium 3.9, Chloride 107, Carbon Dioxide 29.0, Anion Gap 7, BUN 15, Creatinine 0.83, Estim Creat Clear Calc 98.94, Est GFR (MDRD) Af Amer 120, Est GFR (MDRD) Non-Af 99, BUN/Creatinine Ratio 18.2, Glucose 118 H, Calcium 8.5 Radiography Diagnostic Testing: Radiology Impression Abdomen/Pelvis CT 04/15/22 16:19 IMPRESSION: 1. Dilated stomach and small bowel. The contrast seen in the small bowel and stomach on the previous study is now noted: Suggest partial distal small bowel obstruction. 2. No other major interval change Electronically Signed: Jey Luke DO at 17:03 EDT Reading Location ID and State: [facility] / [place] Tel [phone], Service support , KUB X-Ray 04/15/22 17:30 IMPRESSION: 1. NG tube with its tip in the proximal stomach. There is interval decompression of the stomach. 2. Persistent dilatation of large and small bowel loops in the upper abdomen. Electronically Signed: Jey Luke DO at 18:44 EDT Reading Location ID and State: [facility] / [place] Tel [phone], Service support , Physical Exam Narrative Physical exam General: Alert, Oriented x3, Cooperative HEENT: Atraumatic, PERRLA, EOMI, Normocephalic Oral: No Gingival or Mucosal Lesions/ Ulcerations Neck: Supple, No JVD, Negative Carotid Bruits Lungs: Air entry diminished in bilateral lung bases. No crepitation/rhonchi Cardiovascular: Regular rate, Regular Rhythm, Normal S1, Normal S2, No murmurs Abdomen: NG tube drainage about 2750 mL mainly gastric and bilious mixed content. Bowel Sounds sluggish., Soft, Non Tender, distention improved. Midl ine surgical dressing dry and intact. : No renal angle tenderness. No suprapubic tenderness. Extremities: No edema, Capillary Refill Less than 3 Seconds Skin: No rashes, No breakdown Musculoskeletal: No Tenderness to Palpation of Joints or Extremities. ROM intact Neurological: Cranial nerves II-XII grossly intact, DTR 2+/4 and Symmetrical, Neuro grossly intact Psych/Mental Status: Normal Affect, Appropriate. Assessment & Plan Assessment/Plan (1) SBO (small bowel obstruction): PLAN: Plan The patient is a 66 y/o M admitted with abdominal discomfort and distention with not moving bowel for 2 days prior to admission. He had laparoscopic converted to open appendectomy with partial cecectomy on 04/08/2022. Intra-Op findings were large amount of inflammation with adhesion precluding visualization of stump appendectomy for partial cecectomy #1. Small bowel obstruction, postop as mentioned above: Patient being admitted to medical surgical floor per general surgery Dr. Burgos. NG tube inserted in ED, drain 2750 mL gastric bilious mixed content. Patient moved his bowels 3 times. Bowel sounds sluggish. There is still 500 mL gastric bilious content on the canister. Monitor NG output if no further drainage and check with Dr. Burgos before NG removal. Patient is -2700 mL fluid balance and therefore increase Ringer lactate 125 mill per hour. Continue n.p.o. status. #2. Elevated BP without hypertensive diagnosis: BP was elevated in ED. Currently normal 115/73, 123/65. Patient will need outpatient home BP monitoring/ABPM to diagnose hypertension. #3. Chronic normocytic anemia: Admission hemoglobin 12.9, patient baseline previously 13-14. Hemoglobin 11.7 not much difference might be low because of hemodynamic fluid shift #4. Hyperglycemia: Admission glucose 158, possibly stress response, hemoglobin A1c 5.1%. Normal. Diabetes mellitus/prediabetes ruled out #5. Obesity: Weight loss and lifestyle changes encouraged. #6. GERD: Maintained on IV famotidine versus IV PPI per surgery discretion. #7. Former tobacco use: Encourage continued tobacco cessation #8. Hx Prior VTE (PE): Prior history, recent d-dimer during prior admission elevated with negative CTPA. #9. DVT prophylaxis: SCDs, chemoprophylaxis per surgery discretion. Charges/Coding Visit Charges Inpatient E&M: 73536 Subs Hosp L2
[2022-04-16 07:21] LABS: Hemoglobin A1c 5.1 % (3.8-5.6)
[2022-04-16] MEDS: Lactated Ringers 1,000 ML 125 ML IV ×2 (10:49→18:50)
[2022-04-16 11:16] LABS: Magnesium 2.5 mg/dL (1.6-2.6); Phosphorus 3.4 mg/dL (2.5-4.9)
--- NOTE | 2022-04-16 12:46 | CASEMGMT ---
GAVIN FLORES Readmission Note Previous Admission:?04/08/2022-04/12/2022? Diagnosis:? acute appendicitis, open appy for stump appendix DC Disposition: Home Current Admission? Current Diagnosis:?N/V Pt presented to ER from home with abd pain, N/V. Pt had been to ER the night before. CT shows obstruction. Pt currently with NG tube. RN SANDRA in to pt room, pt states he was taking medications as ordered. States he had not yet had his follow up appt as it was scheduled for today. Pt denies any homegoing needs. GAVIN FLORES to follow. Pt screened with [facility] Palliative Care screening tool, pt did not meet criteria. DC Plan: Home
--- NOTE | 2022-04-16 16:55 | PCM.PN.SRG ---
Subjective Subjective patient passing flatus and numerous loose bowel movements this afternoon much decreased NG tube output patient denies abdominal pain this afternoon Objective Data Objective Data Vital Signs: Vital Signs Temp Pulse Resp BP Pulse Ox O2 Del Method O2 Flow Rate 98.0 F 68 16 133/74 H 96 Room Air 2 04/16/22 14:44 04/16/22 14:44 04/16/22 14:44 04/16/22 14:44 04/16/22 14:44 04/16/22 14:44 04/15/22 22:57 Oxygen Flow Rate (L/min) 2 Oxygen Delivery Method Room Air Weight: 108.862 kg Body Mass Index (BMI) 31.6 Intake & Output: Intake and Output for Last 24 Hours 04/14/22 04/15/22 04/16/22 23:59 23:59 23:59 Intake Total 674.00 / 674.00 1273.75 / 1273.75 Output Total 2800 / 2800 1000 / 1000 Balance -2126.00 / -2126.00 273.75 / 273.75 Lab / Micro Data Attestation: I reviewed the patient's lab results. Result Diagrams: 04/17/22 03:46 04/17/22 03:46 Labs: Laboratory Results - last 24 hr 04/15/22 16:20: Differential Comment SCANNED 04/16/22 05:21: WBC 4.6, RBC 4.01 L, Hgb 11.7 L, Hct 35.7 L, MCV 89.0, MCH 29.2, MCHC 32.8, RDW Std Deviation 44.2 H, RDW Coeff of Daiana 13.6, Plt Count 191, MPV 10.3, Immature Gran % (Auto) 0.400, Neut % (Auto) 74.7 H, Lymph % (Auto) 11.4 L, [place] % (Auto) 12.7 H, Eos % (Auto) 0.6, Baso % (Auto) 0.2, Absolute Neuts (auto) 3.5, Absolute Lymphs (auto) 0.53 L, Nucleated RBC % 0 04/16/22 05:21: Sodium 143, Potassium 3.9, Chloride 107, Carbon Dioxide 29.0, Anion Gap 7, BUN 15, Creatinine 0.83, Estim Creat Clear Calc 98.94, Est GFR (MDRD) Af Amer 120, Est GFR (MDRD) Non-Af 99, BUN/Creatinine Ratio 18.2, Glucose 118 H, Calcium 8.5 04/16/22 05:21: Hemoglobin A1c 5.1 04/16/22 05:21: Phosphorus 3.4, Magnesium 2.5 Radiography Diagnostic Testing: Radiology Impression Abdomen/Pelvis CT 04/15/22 16:19 IMPRESSION: 1. Dilated stomach and small bowel. The contrast seen in the small bowel and stomach on the previous study is now noted: Suggest partial distal small bowel obstruction. 2. No other major interval change Electronically Signed: Jey Luke DO at 17:03 EDT Reading Location ID and State: [facility] / [email or web address] Tel [phone], Service support , KUB X-Ray 04/15/22 17:30 IMPRESSION: 1. NG tube with its tip in the proximal stomach. There is interval decompression of the stomach. 2. Persistent dilatation of large and small bowel loops in the upper abdomen. Electronically Signed: Jey Luke DO at 18:44 EDT Reading Location ID and State: [facility] / [email or web address] Tel [phone], Service support , Physical Exam Const alert and oriented x3 General Appearance: cooperative Resp normal respiratory effort Effort and Inspection: able to speak in complete sentences GI GI Narrative: abdomen is soft and benign wound is clean and dry Assessment & Plan Assessment/Plan (1) SBO (small bowel obstruction): PLAN: seems to be resolving will continue present therapy and reassess in morning continue present therapy
[2022-04-17] VITALS (8 sets, daily range): BP systolic 140–148; BP diastolic 68–81; PULSE 67–79; RESP 14–18; TEMP 36.6–37; O2SAT 94–100
[2022-04-17 04:50] LABS: Absolute Lymphocyte Count 0.69 X10^3/uL (0.83-4.51); Absolute Neutrophil Count 3.5 X10^3/uL (2.0-7.7); Basophil# 0.01 X10^3/uL; Basophil% 0.2 % (0-1); Eosinophil# 0.07 X10^3/uL; Eosinophils% 1.5 % (0-5); Hematocrit 35.9 % (40-54); Hemoglobin 11.6 g/dL (13.0-16.5); Lymphocyte # 0.69 X10^3/ul (0.83-4.51); Lymphocyte % 14.3 % (19-41); Mean Corp Hgb Conc 32.3 g/dL (32-36); Mean Corpuscular Hgb 28.8 pg (27.0-32.0); Mean Corpuscular Volume 89.1 fL (80-94); Mean Platelet Vol. 10.3 fl (6.2-12.0); Monocyte# 0.53 X10^3/uL; NRBC Flagged by Analyzer 0 % (0-5); Neutrophil % 72.6 % (47-70); Platelet Count 193 K/mm3 (150-450); RBC Distribution Width CV 13.7 % (11.6-14.6); RBC Distribution Width SD 44.2 fl (35.1-43.9); Red Blood Count 4.03 M/mm3 (4.6-6.2); White Blood Count 4.8 K/mm3 (4.4-11.0)
[2022-04-17 05:23] LABS: Anion Gap 7 (5-15); BUN 17 mg/dL (7-18); BUN/Creat Ratio 20.2 RATIO (10-20); Calcium,Total 8.6 mg/dL (8.5-10.1); Chloride 108 mmol/L (98-107); Creatinine, Serum 0.84 mg/dL (0.70-1.30); EST Glomerular Filtration Rate 97 mL/min (>60); Est Glom Filt Rate - Afr Amer 117 mL/min (>60); Estimated Creatinine Clearance 97.76 ml/min; Glucose 96 mg/dL (74-106); Potassium 3.6 mmol/L (3.5-5.1); Sodium Level 141 mmol/L (136-145)
--- NOTE | 2022-04-17 05:55 | RAD_ITS ---
STUDY: X-RAY - ABDOMEN/PELVIS REASON FOR EXAM: Male, 66 years old. Partial SBO TECHNIQUE: Single AP view of the abdomen / pelvis. COMPARISON: Comparison is made with prior study 04/15/2022. FINDINGS: No orogastric tube is seen with the tip in the proximal stomach just distal to the gastroesophageal junction. There is an unremarkable bowel gas pattern. The visualized liver, spleen and kidneys are grossly normal in size and morphology. Surgical clips are seen in the lower abdominal and pelvic wall. Normal visualized osseous structures. RAD/Abdomen Single View (Portable) IMPRESSION: Nonspecific bowel gas pattern. Electronically Signed: Urbano Alanis MD at 8:40 EDT ,
[2022-04-17] MEDS: 0.9% Saline Lock 10 ML Syringe IV (08:54)
--- NOTE | 2022-04-17 10:27 | PCM.PN.HOSP ---
Subjective Subjective Follow-up for bowel obstruction. Patient had several bowel movement today. NG tube aspirate about 800 ml bilious in last 24 hours. Denies abdominal pain. Patient had about 2 L in yesterday when it was inserted in the ED at time of admission Objective Data Objective Data Vital Signs: Vital Signs Temp Pulse Resp BP Pulse Ox O2 Del Method O2 Flow Rate 98 F 73 18 140/81 H 97 Room Air 0 04/17/22 09:03 04/17/22 09:03 04/17/22 09:03 04/17/22 09:03 04/17/22 09:03 04/17/22 09:03 04/17/22 09:03 Oxygen Flow Rate (L/min) 0 Oxygen Delivery Method Room Air Weight: 239 lb 15.994 oz Body Mass Index (BMI) 31.6 Intake & Output: Intake and Output for Last 24 Hours 04/15/22 04/16/22 04/17/22 23:59 23:59 23:59 Intake Total 674.00 / 674.00 2293.75 / 2293.75 1100 / 1100 Output Total 2800 / 2800 1050 / 1050 50 / 50 Balance -2126.00 / -2126.00 1243.75 / 1243.75 1050 / 1050 Lab / Micro Data Result Diagrams: 04/17/22 03:46 04/17/22 03:46 Labs: Laboratory Results - last 24 hr 04/16/22 05:21: Phosphorus 3.4, Magnesium 2.5 04/17/22 03:46: WBC 4.8, RBC 4.03 L, Hgb 11.6 L, Hct 35.9 L, MCV 89.1, MCH 28.8, MCHC 32.3, RDW Std Deviation 44.2 H, RDW Coeff of Daiana 13.7, Plt Count 193, MPV 10.3, Immature Gran % (Auto) 0.400, Neut % (Auto) 72.6 H, Lymph % (Auto) 14.3 L, [place] % (Auto) 11.0 H, Eos % (Auto) 1.5, Baso % (Auto) 0.2, Absolute Neuts (auto) 3.5, Absolute Lymphs (auto) 0.69 L, Nucleated RBC % 0 04/17/22 03:46: Sodium 141, Potassium 3.6, Chloride 108 H, Carbon Dioxide 26.0, Anion Gap 7, BUN 17, Creatinine 0.84, Estim Creat Clear Calc 97.76, Est GFR (MDRD) Af Amer 117, Est GFR (MDRD) Non-Af 97, BUN/Creatinine Ratio 20.2 H, Glucose 96, Calcium 8.6 Radiography Diagnostic Testing: Radiology Impression KUB X-Ray 04/17/22 05:55 IMPRESSION: Nonspecific bowel gas pattern. Electronically Signed: Urbano Alanis MD at 8:40 EDT , Physical Exam Narrative Physical exam General: Alert, Oriented x3, Cooperative HEENT: Atraumatic, PERRLA, EOMI, Normocephalic Oral: NG tube. No Gingival or Mucosal Lesions/ Ulcerations Neck: Supple, No JVD, Negative Carotid Bruits Lungs: Air entry diminished in bilateral lung bases. No crepitation/rhonchi Cardiovascular: Regular rate, Regular Rhythm, Normal S1, Normal S2, No murmurs Abdomen: NG tube drainage about 800 mL in canister. Tube itself looks clear. Bowel Sounds present, Soft, Non Tender, distention improved. Midline surgical dressing dry and intact. : No renal angle tenderness. No suprapubic tenderness. Extremities: No edema, Capillary Refill Less than 3 Seconds Skin: No rashes, No breakdown Musculoskeletal: No Tenderness to Palpation of Joints or Extremities. ROM intact Neurological: Cranial nerves II-XII grossly intact, DTR 2+/4 and Symmetrical, Neuro grossly intact Psych/Mental Status: Normal Affect, Appropriate. Assessment & Plan Assessment/Plan (1) SBO (small bowel obstruction): PLAN: Plan The patient is a 66 y/o M admitted with abdominal discomfort and distention with not moving bowel for 2 days prior to admission. He had laparoscopic converted to open appendectomy with partial cecectomy on 04/08/2022. Intra-Op findings were large amount of inflammation with adhesion precluding visualization of stump appendectomy for partial cecectomy #1. Small bowel obstruction, postop as mentioned above: Patient being admitted to medical surgical floor per general surgery Dr. Burgos. NG tube inserted in ED, drain 2750 mL gastric bilious mixed content. Patient moved his bowels 3 times. Bowel sounds sluggish. There is still 500 mL gastric bilious content on the canister. Monitor NG output if no further drainage and check with Dr. Burgos before NG removal. Patient is -2700 mL fluid balance and therefore increase Ringer lactate 125 mill per hour. Continue n.p.o. status. 04/17: Continue Ringer lactate for maintenance. Patient had several bowel movement. NG tube drainage 800 mL last 24 hours. KUB done and reviewed shows nonspecific small bowel gas pattern. Discussed with the surgeon and leave the decision for NG tube removal and starting oral on the surgeon . #2. Elevated BP without hypertensive diagnosis: BP was elevated in ED. Currently normal 115/73, 123/65. Patient will need outpatient home BP monitoring/ABPM to diagnose hypertension. 04/17: Blood pressure is normal. #3. Chronic normocytic anemia: Admission hemoglobin 12.9, patient baseline previously 13-14. Hemoglobin 11.7 not much difference might be low because of hemodynamic fluid shift #4. Hyperglycemia: Admission glucose 158, possibly stress response, hemoglobin A1c 5.1%. Normal. Diabetes mellitus/prediabetes ruled out #5. Obesity: Weight loss and lifestyle changes encouraged. #6. GERD: Maintained on IV famotidine versus IV PPI per surgery discretion. #7. Former tobacco use: Encourage continued tobacco cessation #8. Hx Prior VTE (PE): Prior history, recent d-dimer during prior admission elevated with negative CTPA. #9. DVT prophylaxis: SCDs, chemoprophylaxis per surgery discretion. Charges/Coding Visit Charges Inpatient E&M: 33990 Subs Hosp L2
[2022-04-17] MEDS: Lactated Ringers 1,000 ML 75 ML IV (10:45)
--- NOTE | 2022-04-17 11:47 | PCM.PN.SRG ---
Subjective Subjective patient denies abdominal pain passing multiple loose stools Objective Data Objective Data Vital Signs: Vital Signs Temp Pulse Resp BP Pulse Ox O2 Del Method O2 Flow Rate 98 F 73 18 140/81 H 97 Room Air 0 04/17/22 09:03 04/17/22 09:03 04/17/22 09:03 04/17/22 09:03 04/17/22 09:03 04/17/22 09:03 04/17/22 09:03 Oxygen Flow Rate (L/min) 0 Oxygen Delivery Method Room Air Weight: 108.862 kg Body Mass Index (BMI) 31.6 Intake & Output: Intake and Output for Last 24 Hours 04/15/22 04/16/22 04/17/22 23:59 23:59 23:59 Intake Total 674.00 / 674.00 2293.75 / 2293.75 1100 / 1100 Output Total 2800 / 2800 1050 / 1050 50 / 50 Balance -2126.00 / -2126.00 1243.75 / 1243.75 1050 / 1050 Lab / Micro Data Attestation: I reviewed the patient's lab results. Result Diagrams: 04/17/22 03:46 04/17/22 03:46 Labs: Laboratory Results - last 24 hr 04/17/22 03:46: WBC 4.8, RBC 4.03 L, Hgb 11.6 L, Hct 35.9 L, MCV 89.1, MCH 28.8, MCHC 32.3, RDW Std Deviation 44.2 H, RDW Coeff of Daiana 13.7, Plt Count 193, MPV 10.3, Immature Gran % (Auto) 0.400, Neut % (Auto) 72.6 H, Lymph % (Auto) 14.3 L, [place] % (Auto) 11.0 H, Eos % (Auto) 1.5, Baso % (Auto) 0.2, Absolute Neuts (auto) 3.5, Absolute Lymphs (auto) 0.69 L, Nucleated RBC % 0 04/17/22 03:46: Sodium 141, Potassium 3.6, Chloride 108 H, Carbon Dioxide 26.0, Anion Gap 7, BUN 17, Creatinine 0.84, Estim Creat Clear Calc 97.76, Est GFR (MDRD) Af Amer 117, Est GFR (MDRD) Non-Af 97, BUN/Creatinine Ratio 20.2 H, Glucose 96, Calcium 8.6 Radiography Diagnostic Testing: Radiology Impression KUB X-Ray 04/17/22 05:55 IMPRESSION: Nonspecific bowel gas pattern. Electronically Signed: Urbano Alanis MD at 8:40 EDT , Physical Exam Const alert and oriented x3 General Appearance: cooperative Neck supple Resp normal respiratory effort Effort and Inspection: able to speak in complete sentences GI GI Narrative: abdomen is soft and benign Assessment & Plan Assessment/Plan (1) SBO (small bowel obstruction): PLAN: resolving plan advancing diet slowly clamping NG tube, if tolerates diet after dinner, consider d/c NG tube consider d/c in am
== END 2022-04-17 22:37 | disposition home or self-care (01) | DRG 390 ==
LOC: ED 16:58 → MS3 17:28
PROVIDERS: Family Medicine; Internal Medicine; Surgery; Admitting Provider Surgery; Emergency Provider Emergency Medicine; PCP Family Medicine; Visit Provider Surgery
DX: K91.31 Postprocedural partial intestinal obstruction (principal); D64.9 Anemia, unspecified; K21.9 Gastro-esophageal reflux disease without esophagitis; Y84.9 Medical procedure, unspecified as the cause of abnormal reaction of the patient, or of later complication, without mention of misadventure at the time of the procedure; E66.9 Obesity, unspecified; R03.0 Elevated blood-pressure reading, without diagnosis of hypertension; R73.9 Hyperglycemia, unspecified; Z68.31 Body mass index [BMI] 31.0-31.9, adult; Z90.49 Acquired absence of other specified parts of digestive tract; Z79.899 Other long term (current) drug therapy; Z86.711 Personal history of pulmonary embolism; Z86.16 Personal history of COVID-19; Z87.891 Personal history of nicotine dependence
CPT/HCPCS: 36415; 74018; 74177; 80048; 80053; 81001; 83036; 83735; 84100; 85025; 96374; 96375; 96376; 99251; 99282; 99285; J7030; J7120; Q9967; A4216; G0463; J2405

== ENCOUNTER 2024-03-09 18:14 | Emergency (ER) | payer MEDICARE, SELFPAY ==
[2024-03-09 18:15] VITALS: BP 169/89; PULSE 78; RESP 18; TEMP 36.5; O2SAT 97; BMI 36.0
[2024-03-09 18:19] VITALS: BP 169/89; PULSE 76; RESP 18; TEMP 36.5; O2SAT 97
--- NOTE | 2024-03-09 18:34 | ED.VIS.FALL ---
HPI HPI - Fall History of Present Illness Chief Complaint: Fall PFSH PFSH Medical History (Updated 04/23/22 @ 00:01 by Background Dafernandoadelita) History of pulmonary embolism COVID-19 Former tobacco use Obesity GERD (gastroesophageal reflux disease) Home Medications ?Medication ?Instructions ?Recorded ?Last Taken ?Type omeprazole magnesium 20 mg 20 mg PO QHS gerd 10/29/18 04/06/22 22:00 History tablet,delayed release (Prilosec OTC) Allergy/AdvReac Type Severity Reaction Status Date / Time No Known Allergies Allergy Verified 03/09/24 18:19 Family History Mother Cancer Surgical History (Updated 04/15/22 @ 17:[address] Lia Contreras MD) Status post appendectomy H/O unilateral orchiectomy Social History household members: spouse Smoking Status: Former smoker quit date: 07/08/81 pack-years: 7 alcohol intake: never substance use type: does not use EXAM Physical Exam Const Vital Signs: 03/09/24 18:15 03/09/24 18:19 03/09/24 18:21 Temperature 97.7 F L 97.7 F L Temperature Source Oral Oral Pulse Rate 78 76 Respiratory Rate 18 18 Respiratory Effort Normal Non-Labored Respiratory Depth Normal Respiratory Pattern Normal Blood Pressure 169/89 H 169/89 H Blood Pressure Mean 115 115 Pulse Ox 97 97 Oxygen Delivery Method Room Air Room Air Room Air 03/09/24 20:14 03/09/24 21:00 Temperature Temperature Source Pulse Rate 61 75 Respiratory Rate 16 Respiratory Effort Respiratory Depth Respiratory Pattern Blood Pressure 153/82 H 148/80 H Blood Pressure Mean 105 102 Pulse Ox 97 Oxygen Delivery Method Room Air MDM MDM MDM Narrative Medical decision making narrative: HISTORY OF PRESENT ILLNESS: 68-year-old male presents mechanical fall. Notes he fell and hit his right lower leg on bricks. Denies loss of conscious but does no head trauma. Per EMS there was a large amount of bleeding so tourniquet was placed in the right lower extremity. REVIEW OF SYSTEMS: Pertinent positives: Right leg pain Pertinent negatives: Headache PHYSICAL EXAM: Nursing triage notes reviewed, Vital signs reviewed primary Survey Airway: Intact Breathing: Bilateral breath sounds Circulation: Palpable bilateral femorals, Palpable bilateral radial, Palpable bilateral DP and Palpable bilateral PT Disability / Spine precautions GCS Score: Eye Openin Verbal Response: 5 Motor Response: 6 Secondary Survey Constitutional: Please see [facility] Head: Atraumatic, Midface stable, NO jaw malocclusion, No Cephalohematoma, and No Lacerations noted Eye: Pupils equal round and reactive to light, Extraocular muscles intact and No periorbital ecchymosis or stepoff, no evidence of entrapment ENT: Oropharynx clear, no lacerations, no hemotympanum, no raccoon eyes or chadwick sign Cervical spine / Neck: No cervical spine bony tenderness, crepitance, or stepoff deformity Trachea midline Lungs: Clear to auscultation, No asymmetric rise and No crepitus, no flail chest Cardiac: Regular rate and rhythm and No murmurs Abdomen: Soft, Nontender and No rebound Pelvis: Pelvis stable to compression : No evidence of genital injury Back: No midline bony tenderness to thoracic/lumbar/sacral spines Neuro: At baseline, intact strength and sensation in bilateral upper and lower extremities. 2+ patellar reflexes bilaterally. Extremities: NO gross Deformities, laceration no triangular-shaped notes anterior lateral cortez approximately 3 x 4 cm in length Psych: Normal affect Nursing triage notes reviewed, Vital signs reviewed MEDICAL DECISION MAKING: Chief Complaint: Leg pain, fall History obtained from others: EMS, [facility] Narrative: Patient was initially hemodynamically stable, afebrile and nontoxic-appearing. Tourniquet was removed immediately. No active bleeding noted. Laceration was repaired. Imaging was obtained to rule out intracranial O'Jacob, cervical spine O'Jacob or bony abnormality to the right cortez. ALL IMAGES (IF OBTAINED) HAVE BEEN PERSONALLY REVIEWED AND INTERPRETED BY MYSELF. X-ray of the right cortez was read reviewed per small cell shows evidence of obvious bony abnormality. CT scan of the head and cervical spine were negative for acute traumatic injury. The patient suffered lacerations to the right anterior tibia On exam there was no evidence of foreign bodies. There was no evidence of neurovascular injury. Patient had a normal distal vascular exam, and had intact ROM and sensation. There was also no evidence of tendon injury, with normal distal full range of motion, flexion, extension, abduction, abduction. There is no evidence of local joint space involvement at this time. Wound care applied (irrigation and/or local cleansing solution). Laceration repair was then performed please see procedure note. The patient was given signs and symptoms warnings for infection, such as increasing pain, redness, swelling, associated heat, pus or fever. Patient was given instructions for timely follow-up for removal. Patient agreed with the plan of care Procedure: Laceration repair. The procedure was performed by myself. Indication: Wound repair Risks and benefits: risks, benefits and alternatives were discussed Consent: Consent was obtained. Wound Details: V shaped laceration approximate 3 x 4 cm Anesthesia: 1% lidocaine without epinephrine (verbal consent obtained from patient). Wound prep: Patient was prepped and draped in the usual sterile fashion. Tetanus: Up-to-date within the last year Irrigation Solution: Saline Wound Preparation: Irrigated with normal saline, cleaned with peroxide and topical chlorhexidine The wound was explored to its base in a bloodless field. Procedure Description: Placed 16 total sutures in oppositional running pattern with close approximation. Patient tolerated the procedure well with no immediate complications The patient and/or family, caregivers express understanding. The patient and/or family, caregivers agrees with the plan. Shared decision making: I will have a discussion with the patient and or visitors regarding risk/benefits of further testing or admission. They will be made aware of of the risk/benefits inherent in this decision they will be given the opportunity to voice understanding. Total critical care time today provided was at least 0 minutes. This excludes separately billable procedures. Critical care time (if documented) is secondary to the patient having high probability of clinically significant/life threatening deterioration in the patient's condition which required my urgent intervention. Impression: 1. Fall 2. Leg laceration Dispo: Discharge home This note was generated with numberFire dictation software. It may contain incorrect words, spelling, and punctuation that were not noted in review of the chart prior to signing. Radiography Diagnostic Testing: Clinical Impression(s) from Imaging Studies Brain CT 03/09/24 19:25 IMPRESSION: Normal unenhanced CT scan of the brain. Electronically Signed: Pravin Gant MD at 20:55 EDT , Cervical Spine CT 03/09/24 19:25 IMPRESSION: There is no definite acute fracture/dislocation. Degenerative changes. Electronically Signed: Pravin Gant MD at 20:57 EDT , Tibia/Fibula X-Ray 03/09/24 20:00 IMPRESSION: Normal x-ray examination of the tibia and fibula. Electronically Signed: Pravin Gant MD at 20:35 EDT , Discharge Plan Triage Chief Complaint: Fall ED Provider: Jewel Dixon Dx/Rx/DC Orders Prescriptions: No Action omeprazole magnesium [Prilosec OTC] 20 MG tablet,delayed release (DR/EC) 20 mg PO QHS Primary Care Provider: Radha Bales Referrals: Gabino Brewer MD [Non-Staff] - Print Language: [place] Islander
[2024-03-09] MEDS: Morphine 4 MG/ML Syringe IM (18:40)
[2024-03-09] MEDS: Lidocaine 1% (20 ml mdv) 20 ML Vial 5 ML INFILT (18:51)
--- NOTE | 2024-03-09 19:25 | CT_ITS ---
STUDY: CT BRAIN WITHOUT CONTRAST REASON FOR EXAM: Male, 68 years old. fall, head trauma RADIATION DOSAGE (If Supplied By Facility): CTDIvol = ( 44.99 ) mGy, DLP = ( 812.98 ) mGycm TECHNIQUE: Transaxial CT imaging of the brain was performed without administration of intravenous contrast material. Individualized dose optimization techniques were used for this CT. COMPARISON: 09/30/2021 FINDINGS: Normal soft tissue structures. Normal calvarium. Normal size ventricles and extra-axial spaces for the patient''s age. Normal white matter tracts of the cerebral hemispheres. Normal basal ganglia and thalami. Normal brainstem. Normal cerebellum. There is no intracranial hemorrhage. There are no findings of an acute ischemic infarction. Normal visualized paranasal sinuses. CT/Brain/Head without Contrast IMPRESSION: Normal unenhanced CT scan of the brain. Electronically Signed: Pravin Gant MD at 20:55 EDT ,
--- NOTE | 2024-03-09 19:25 | CT_ITS ---
STUDY: CT CERVICAL SPINE WITHOUT CONTRAST REASON FOR EXAM: Male, 68 years old. neck pain RADIATION DOSAGE (If Supplied By Facility): CTDIvol = ( 24.48 ) mGy, DLP = ( 545.56 ) mGycm TECHNIQUE: High resolution transaxial imaging was performed without contrast material. Sagittal and coronal images were reconstructed. Individualized dose optimization techniques were used for this CT. COMPARISON: None FINDINGS: No definite acute fracture/dislocation. The cervical junction is intact. C1-C2 articulation is intact. Curvature is within normal limits. There is normal alignment. Facet joints are intact at all levels bilaterally. No jumped facets. Mild multilevel degenerative disc disease seen. Mild multilevel posterior disc bulges. Multilevel neural foraminal narrowing. Multilevel narrowing of the spinal canal. Visualized paraspinal soft tissues and structures are unremarkable. CT/Spine Cervical without Contras IMPRESSION: There is no definite acute fracture/dislocation. Degenerative changes. Electronically Signed: Pravin Gant MD at 20:57 EDT ,
--- NOTE | 2024-03-09 20:00 | RAD_ITS ---
STUDY: X-RAY - RIGHT TIBIA AND FIBULA REASON FOR EXAM: Male, 68 years old. fall, right tibia pain TECHNIQUE: 2 view(s) of the tibia and fibula were obtained. COMPARISON: None. FINDINGS: Normal visualized tibia. Normal visualized fibula. There is no demonstrated acute fracture. The soft tissue structures are unremarkable. RAD/Tibia & Fibula 2 Views IMPRESSION: Normal x-ray examination of the tibia and fibula. Electronically Signed: Pravin Gant MD at 20:35 EDT ,
[2024-03-09 20:14] VITALS: BP 153/82; PULSE 61
[2024-03-09 21:00] VITALS: BP 148/80; PULSE 75; RESP 16; O2SAT 97
[2024-03-09 22:46] VITALS: BP 152/88; PULSE 62
== END 2024-03-09 22:47 | disposition home or self-care (01) ==
PROVIDERS: Emergency Provider Emergency Medicine; PCP Family Medicine; Visit Provider Emergency Medicine
DX: S81.811A Laceration without foreign body, right lower leg, initial encounter (principal); Z87.891 Personal history of nicotine dependence; Z86.711 Personal history of pulmonary embolism; Z86.16 Personal history of COVID-19; W19.XXXA Unspecified fall, initial encounter
CPT/HCPCS: 12002; 70450; 72125; 73590; 96372; 99282; A4216

== ENCOUNTER 2024-03-19 17:41 | Emergency (ER) | payer MEDICARE, SELFPAY ==
[2024-03-19 17:42] VITALS: BP 161/96; PULSE 87; RESP 16; TEMP 36.6; O2SAT 97; BMI 36.3
--- NOTE | 2024-03-19 17:53 | EDS_ITS ---
HPI History of Present Illness Chief Complaint: Cellulitis Detail of Chief Complaint: Concern wound anterior distal right leg is infected Informant: patient and spouse/S.O. Onset/Context/Timing Onset: - (Concerned about drainage swelling) Context: Gradual Onset Timing: Intermittent Quality: Drainage from wound Location: Anterior distal right leg Current Severity: Mild Maximum Severity: Moderate Worsened by: Standing Relieved by: When supine Associated Symptoms Associated Symptoms: No constitutional symptoms Narrative Narrative: Patient is a 68-year-old male. He has history of thrombocytopenia, who was seen on March 09 for wound that required suturing. Patient denies fever, chills night sweats. Patient does have drainage the drainage is worse when he comes home from work after standing all day. He has not noted any color drainage. He has no other complaints. Prior similar symptoms: No Recent Illness/Hospitalization: Yes PFSH [facility] Medical History History of pulmonary embolism COVID-19 Former tobacco use Obesity GERD (gastroesophageal reflux disease) Home Medications ?Medication ?Instructions ?Recorded ?Last Taken ?Type omeprazole magnesium 20 mg 20 mg PO QHS gerd 10/29/18 04/06/22 22:00 History tablet,delayed release (Prilosec OTC) Allergy/AdvReac Type Severity Reaction Status Date / Time No Known Allergies Allergy Verified 03/19/24 17:46 Family History Mother Cancer Surgical History Status post appendectomy H/O unilateral orchiectomy Social History household members: spouse Smoking Status: Former smoker quit date: 07/08/81 pack-years: 7 alcohol intake: never substance use type: does not use ROS ROS ED Constitutional Constitutional ED: Denies chills, fever(s), subjective or sweats Musculoskeletal Musculoskeletal: Denies arthralgias or myalgias Integumentary Reports other Details: Granulation tissue noted. The laceration was approximated. There is evidence of venous stasis dermatitis. There is no warmth, induration, lymphangitis or popliteal lymphadenopathy. ; Denies Abrasions or rash Hematologic/Lymphatic Hematologic/Lymphatic: Reports systems reviewed and no addt'l complaints, except as documented EXAM Physical Exam Const Vital Signs: 03/19/24 17:42 Temperature 97.9 F Temperature Source Temporal Pulse Rate 87 Respiratory Rate 16 Blood Pressure 161/96 H Blood Pressure Mean 117 Pulse Ox 97 Oxygen Delivery Method Room Air Positive well nourished and well developed General Appearance ED: well developed and NAD Eyes PERRL and EOMs intact bilaterally Resp normal respiratory effort Cardio regular rate and regular rhythm Extremity Negative for normal to inspection Extremity Narrative: Patient has venous stasis dermatitis right leg. Wound is healing by secondary intention since there was a significant gap. There is no evidence of infection. There is no neurovasc compromise. Patient has distal pulses. Patient has hair on his toes. Neuro oriented x3 and CN's II-XII intact bilaterally Sensorium / Orientation: alert Psych mental status grossly normal Skin Skin Narrative: Described under the external portion of the medical record MDM MDM MDM Narrative Medical decision making narrative: Patient has venous stasis dermatitis and a wound with delayed healing due to the venous stasis dermatitis. Patient was instructed to leave the stitches in for another 7 to 10 days. He was told the wound would take several more weeks to heal. At this time there is no clinical concern for infection and he has no constitutional symptoms. Discharge Plan Triage Chief Complaint: Cellulitis ED Provider: Derek Larose Dx/Rx/DC Orders Clinical Impression: Encounter for assessment of wound, Elevated blood pressure reading, Acute venous stasis dermatitis Instructions: ED Dressing Change, ED Wound Care Prescriptions: No Action omeprazole magnesium [Prilosec OTC] 20 MG tablet,delayed release (DR/EC) 20 mg PO QHS Primary Care Provider: Radha Bales Referrals: Radha Bales MD [Primary Care Provider] - 1 Week Activity Restrictions/Additional Instructions: You need to elevate your feet as much as possible. My recommendation is your toes have to be above your nose. Dressing changes 3 times a day. Print Language: Yakut Disposition Disposition: Home, Self Care
== END 2024-03-19 18:25 | disposition home or self-care (01) ==
PROVIDERS: Emergency Provider Emergency Medicine; PCP Family Medicine; Visit Provider Emergency Medicine
DX: I87.2 Venous insufficiency (chronic) (peripheral) (principal); R03.0 Elevated blood-pressure reading, without diagnosis of hypertension; Z87.891 Personal history of nicotine dependence
CPT/HCPCS: 99282